=== PATIENT | male | born 1970 | race Caucasian/White ===

== ENCOUNTER 2017-06-30 22:12 | Inpatient (IN) ==
[2017-06-30 22:52] LABS: Basophils % 0.1 %; Eosinophils # 0.1 K/mcL (0.0-0.6); Eosinophils % 0.5 %; Hematocrit 36.7 % (37.5-50.1); Hemoglobin 12.4 g/dL (12.9-16.9); Immature Granulocytes % 0.7 % (0-4); Lymphocytes # 1.2 K/mcL (0.6-4.6); Mean Corpuscular HGB Conc 33.8 g/dL (31.6-35.5); Mean Corpuscular Hemoglobin 27.9 pg (28.0-33.3); Mean Corpuscular Volume 82.7 fL (83.0-100.0); Mean Platelet Volume 9.1 fL (9.4-12.4); Monocytes % 6.2 %; Neutrophils # 14.4 K/mcL (1.6-8.9); Platelet Count 443 K/mcL (140-400); Red Blood Count 4.44 M/mcL (4.19-5.50); Red Cell Distribution Width 13.3 % (11.5-14.5); Segmented Neutrophils % 85.5 %
[2017-06-30 23:17] LABS: BUN/Creatinine Ratio 15 (6-26); Blood Urea Nitrogen 15 mg/dL (6-20); Calcium 8.9 mg/dL (8.6-10.3); Carbon Dioxide 31 mEq/L (23-29); Chloride 84 mEq/L (98-107); Glucose 559 mg/dL (70-105); Osmolality,Calculated 284 (280-300); Potassium 4.5 mEq/L (3.5-5.1); Sodium 124 mEq/L (136-145); eGFR For African Americans > 60 (> 60); eGFR For Non-African Americans > 60 (> 60)
[2017-06-30] MEDS ORDERED: 0.9 % Sodium Chloride 1,000 ML IVC ONE (23:19)
[2017-06-30] MEDS ORDERED: cefTRIAXone 2,000 MG in Water for inj. (sterile) 20 ML 20 ML IVPB ONE (23:24)
--- NOTE | 2017-06-30 23:26 | Emergency Department Note ---
Disposition Clinical Impression: Septic arthritis of knee, right Qualifiers: Septic arthritis organism: staphylococcal Qualified Code(s): M00.061 - Staphylococcal arthritis, right knee Hyperglycemia due to type 2 diabetes mellitus Qualifiers: Diabetes mellitus senior living insulin use: unspecified senior living insulin use status Qualified Code(s): E11.65 - Type 2 diabetes mellitus with hyperglycemia Disposition: Admitted As Inpatient Condition: Good Time of Disposition: 00:30 General Adult HPI - General Chief complaint: ED General Medical Stated complaint: needs admitted- septic knee Time Seen by Provider: 06/30/17 22:27 Source: patient Limitations: no limitations Nursing Notes Reviewed: Yes Vital Signs Reviewed: Yes - History of Present Illness HPI Narrative: 47-year-old male history of CAD s/p 17 stents, diabetes mellitus presents an emergency department for positive fluid culture. Patient is a bilateral low knee amputee who has been experiencing pain to his right knee with swelling over the past month. His primary care physician referred him to Dr. Becker who tapped his knee on 06/29 after an MRI was performed on 06/27 showing a large joint fluid collection. Patient was informed of the positive growth and recommended to come to the emergency department is evening. He denies any fever , chills, cough or congestion. He denies any chest pain or shortness of breath. Denies any injury to the legs. He states his tender to the touch and does feel warm. Notified that orthopedic surgeon Dr. Munoz has a scheduled tomorrow for a washout. Review of his labs showed a leukocytosis of 15.9 with a ESR greater than 130 and C-reactive protein 262. The synovial fluid grew staph aureus. I asked the patient regarding his legs any sales traumatic it would not like to talk about at this time. Pain Scale: 8 - Related Data Home Medications Medication Instructions Recorded Confirmed Amitriptyline [Elavil] 75 mg PO HS 07/01/17 07/01/17 Atorvastatin [Lipitor] 40 mg PO HS 07/01/17 07/01/17 Duloxetine HCl [Cymbalta] 60 mg PO DAILY 07/01/17 07/01/17 HYDROcodone/Acet 7.5/325 mg [[place] 1 tab PO QID PRN 07/01/17 07/01/17 7.5-325 mg] Insulin ASPART [NovoLOG] 0 unit SQ TIDWM 07/01/17 07/01/17 Insulin Glargine [Lantus] 40 unit SQ DAILY 07/01/17 07/01/17 LORazepam [Ativan] 0.5 mg PO BID 07/01/17 07/01/17 Pregabalin [Lyrica] 150 mg PO TID 07/01/17 07/01/17 metFORMIN [Glucophage] 1,000 mg PO BIDWM 07/01/17 07/01/17 Allergies Allergy/AdvReac Type Severity Reaction Status Date / Time Diclofenac [From Voltaren] Allergy Gastrointestinal Verified 06/30/17 22:13 Upset Penicillins Allergy Rash Verified 06/30/17 22:13 All systems ED: reviewed and negative except as stated. Review of Systems: As Per HPI Constitutional: Denies: fever ENT ED: Denies: congestion Cardiovascular: Denies: chest pain Respiratory: Denies: cough, dyspnea Gastrointestinal: Denies: abdominal pain, nausea, vomiting Musculoskeletal: Reports: arthralgia, myalgia Integumentary: Denies: rash, abrasion Past Medical History - Past Medical History Attestation: Yes The following information was validated with the patient. Source: patient Medical history: Reports: diabetes, myocardial infarction, other Psychiatric history: Reports: no psych history - Social History Smoking Status: Former smoker Smokeless Tobacco Status: No Alcohol use: Reports: none Drug use: Reports: none Physical Exam - General Limitations: no limitations General appearance: alert, in no apparent distress - Head Head exam: atraumatic, normocephalic, normal inspection - Eye Eye exam: Present: normal appearance, PERRL, EOMI - ENT ENT exam: normal exam, normal oropharynx, mucous membranes moist - Neck Neck exam: Present: normal inspection, full ROM, trachea midline - Chest Chest inspection: Present: normal inspection, symmetric chest wall rise - Respiratory Respiratory exam: Present: normal lung sounds bilaterally. Absent: respiratory distress, wheezes - Cardiovascular Cardiovascular exam: Present: regular rate, normal rhythm, normal heart sounds - Abdominal Exam Abdominal exam: Present: soft, Non-Tender, normal bowel sounds. Absent: tenderness, distention, guarding, rebound, rigidity - Extremities Exam Extremities exam: Present: other (Bilateral below knee amputation) - Expanded Lower Extremity Exam Hip/Pelvis exam: Present: normal inspection, full ROM Upper leg exam: Present: normal inspection, full ROM Knee exam: Present: normal inspection, full ROM, tenderness (Right knee), swelling, erythema, other (Right knee is warm to the touch) Lower leg exam: Present: normal inspection, full ROM, tenderness Neurovascular/Tendon exam: Absent: motor deficit, sensory deficit, tendon deficit - Neurological Exam Neurological exam: Present: alert, oriented X3 - Skin Skin exam: Present: erythema (Right knee), other (Edema right knee) - Expanded Skin Exam Type of lesion: Present: other (Warm to the touch right knee) Description: Present: erythematous Course Course Narrative: Patient has positive fluid culture staph aureus. His right knee is erythematous edematous and warm to the touch. Concerning for septic arthritis of the right knee. Patient has a mild elevated temperature here. Will get some basic labs blood cultures and started him on IV antibiotics. He has an allergy to penicillin with a rash denies any prior exposure to cephalosporins. Treated with IV vancomycin and ceftriaxone. Patients otherwise stable at this time. - Reevaluation(s) Reevaluation #1: Patient has a leukocytosis as well as some electrolyte abnormalities. His sodium is 124 but his glucose is elevated at 559. His correct his sodium is roughly 131 to 135 based on MDCALC. He has history of diabetes and it is uncontrolled. Will give him IV fluid hydration and insulin. An EKG was performed out in triage routinely despite patient coming in for right knee pain and swelling. He has no chest pain shortness of breath. He has extensive cardiac history. EKG shows ST elevation in the septal leads without any reciprocal changes. There is low concern for STEMI at this time. Time: 00:15 - Consultations Consultation #1: Consulted on-call orthopedic surgeon Dr. Munoz regarding patient. He is aware of patient and has patient on OR schedule. Agree to consult with primary admission to hospitalist service. Agree with treatment of Vancomycin and Ceftriaxone for suspected staph aureus growth on body fluid. Time: 23:35 Consultation #2: Spoke with on-call hospitalist maximus Leiva to admit for septic right knee, uncontrolled hyperglycemia. Discuss a incidental EKG finding recommend to discuss with interventional cardiology regarding cardiac clearance for possibly tomorrow. Time: 23:48 Consultation #3: Spoke to the student ministry pastor Dr. Marrero, he agrees that in the absence of any chest pain or dyspnea this is not STEMI criteria. There is no reciprocal changes. It is only seen in V1 and V2. He does recommend trending to troponins. The hospitalist may consult transport manager if needed with positive troponin. Time: 00:25 Vital Signs Temperature 99.7 F H 06/30/17 22:14 Pulse Rate 115 06/30/17 22:14 Respiratory Rate 16 06/30/17 22:14 Blood Pressure 166/98 06/30/17 22:14 O2 Sat by Pulse Oximetry 95 06/30/17 22:14 Temperature 99.3 F 07/01/17 02:36 Pulse Rate 109 07/01/17 02:36 Respiratory Rate 16 07/01/17 02:36 Blood Pressure 146/86 07/01/17 02:36 O2 Sat by Pulse Oximetry 98 07/01/17 02:36 Oxygen Delivery Oxygen Delivery Nasal Cannula Medical Decision Making - MDM Narrative Medical decision making narrative: Patient was discussed with my attending physician who agrees with ED management and final disposition. They independently evaluated the patient. Please refer to their attestation to this encounter for additional information. This note was generated by [employer] voice recognition software and as a result grammatical or spelling errors may occur using this program. - Medical Records Medical records reviewed: Yes I reviewed the patient's medical records. - Lab Data Lab results reviewed: Yes I reviewed the patient's lab results. Result diagrams: 07/01/17 01:45 07/01/17 01:45 Lab Results 06/30/17 06/30/17 07/01/17 Range/Units 22:43 22:43 01:45 WBC 16.8 H (4.3-11.1) K/mcL RBC 4.44 (4.19-5.50) M/mcL Hgb 12.4 L (12.9-16.9) g/dL Hct 36.7 L (37.5-50.1) % MCV 82.7 L (83.0-100.0) fL MCH 27.9 L (28.0-33.3) pg MCHC 33.8 (31.6-35.5) g/dL RDW 13.3 (11.5-14.5) % Plt Count 443 H (140-400) K/mcL MPV 9.1 L (9.4-12.4) fL Immature Gran % 0.7 (0-4) % Seg Neutrophils % 85.5 % Lymphocytes % 7.0 % Monocytes % 6.2 % Eosinophils % 0.5 % Basophils % 0.1 % Neutrophils # 14.4 H (1.6-8.9) K/mcL Lymphocytes # 1.2 (0.6-4.6) K/mcL Monocytes # 1.0 (0.0-1.3) K/mcL Eosinophils # 0.1 (0.0-0.6) K/mcL Basophils # 0.0 (0.0-0.2) K/mcL PT 13.6 H (9.4-12.1) Seconds INR 1.3 Sodium 124 L (136-145) mEq/L Potassium 4.5 (3.5-5.1) mEq/L Chloride 84 L (98-107) mEq/L Carbon Dioxide 31 H (23-29) mEq/L BUN 15 (6-20) mg/dL Creatinine 1.02 (0.70-1.30) mg/dL Est GFR ( Amer) > 60 (> 60) Est GFR (Non-Af Amer) > 60 (> 60) BUN/Creatinine Ratio 15 (6-26) Glucose 559 H* (70-105) mg/dL Calculated Osmolality 284 (280-300) Lactic Acid (0.5-2.2) mmol/L Calcium 8.9 (8.6-10.3) mg/dL Phosphorus (2.7-4.5) mg/dL Magnesium (1.6-2.6) mg/dL Troponin I (< 0.04) ng/mL 07/01/17 07/01/17 07/01/17 Range/Units 01:45 01:45 01:45 WBC 18.5 H (4.3-11.1) K/mcL RBC 4.03 L (4.19-5.50) M/mcL Hgb 11.1 L (12.9-16.9) g/dL Hct 33.3 L (37.5-50.1) % MCV 82.6 L (83.0-100.0) fL MCH 27.5 L (28.0-33.3) pg MCHC 33.3 (31.6-35.5) g/dL RDW 13.3 (11.5-14.5) % Plt Count 470 H (140-400) K/mcL MPV 9.6 (9.4-12.4) fL Immature Gran % 0.9 (0-4) % Seg Neutrophils % 78.8 % Lymphocytes % 12.0 % Monocytes % 7.5 % Eosinophils % 0.7 % Basophils % 0.1 % Neutrophils # 14.6 H (1.6-8.9) K/mcL Lymphocytes # 2.2 (0.6-4.6) K/mcL Monocytes # 1.4 H (0.0-1.3) K/mcL Eosinophils # 0.1 (0.0-0.6) K/mcL Basophils # 0.0 (0.0-0.2) K/mcL PT (9.4-12.1) Seconds INR Sodium (136-145) mEq/L Potassium (3.5-5.1) mEq/L Chloride (98-107) mEq/L Carbon Dioxide (23-29) mEq/L BUN (6-20) mg/dL Creatinine (0.70-1.30) mg/dL Est GFR ( Amer) (> 60) Est GFR (Non-Af Amer) (> 60) BUN/Creatinine Ratio (6-26) Glucose (70-105) mg/dL Calculated Osmolality (280-300) Lactic Acid 1.7 (0.5-2.2) mmol/L Calcium (8.6-10.3) mg/dL Phosphorus (2.7-4.5) mg/dL Magnesium (1.6-2.6) mg/dL Troponin I < 0.03 (< 0.04) ng/mL 07/01/17 Range/Units 01:45 WBC (4.3-11.1) K/mcL RBC (4.19-5.50) M/mcL Hgb (12.9-16.9) g/dL Hct (37.5-50.1) % MCV (83.0-100.0) fL MCH (28.0-33.3) pg MCHC (31.6-35.5) g/dL RDW (11.5-14.5) % Plt Count (140-400) K/mcL MPV (9.4-12.4) fL Immature Gran % (0-4) % Seg Neutrophils % % Lymphocytes % % Monocytes % % Eosinophils % % Basophils % % Neutrophils # (1.6-8.9) K/mcL Lymphocytes # (0.6-4.6) K/mcL Monocytes # (0.0-1.3) K/mcL Eosinophils # (0.0-0.6) K/mcL Basophils # (0.0-0.2) K/mcL PT (9.4-12.1) Seconds INR Sodium 132 L (136-145) mEq/L Potassium 3.9 (3.5-5.1) mEq/L Chloride 93 L (98-107) mEq/L Carbon Dioxide 30 H (23-29) mEq/L BUN 14 (6-20) mg/dL Creatinine 0.83 (0.70-1.30) mg/dL Est GFR ( Amer) > 60 (> 60) Est GFR (Non-Af Amer) > 60 (> 60) BUN/Creatinine Ratio 17 (6-26) Glucose 286 H (70-105) mg/dL Calculated Osmolality 285 (280-300) Lactic Acid (0.5-2.2) mmol/L Calcium 8.6 (8.6-10.3) mg/dL Phosphorus 2.6 L (2.7-4.5) mg/dL Magnesium 1.7 (1.6-2.6) mg/dL Troponin I (< 0.04) ng/mL - Radiology Data Radiology results reviewed: Yes I reviewed the patient's radiology results. MR/MR knee RT wo con IMPRESSION: 1. There appears to be a large defect in the superior aspect of the lateral patellar retinaculum through which a large volume of joint fluid is extending into the adjacent subcutaneous fat and also extending posteriorly to surround the posterolateral corner structures. 2. Mild bone marrow edema in the lateral aspects of the lateral femoral condyle and lateral tibial plateau. This may represent early degenerative change and/or reactive edema from the adjacent fluid versus contusion. 3. Large nonspecific joint effusion and small popliteal cyst. If there is any clinical concern for septic arthritis please consider arthrocentesis. 4. No convincing evidence of internal derangement or significant degenerative changes. D/ / Tate Norris MD / Tate Norris MD Interpreting Provider: Tate Norris MD - EKG Data EKG #1 EKG attestation: Yes I reviewed and interpreted this EKG. EKG results narrative: EKG performed 2227 shows sinus tachycardia 110 beats per minute, there are ST elevations seen in V1 and V2 greater than 1 mm and are concave up, there is no other ST elevation or ST depressions, patient is asymptomatic and is denying any chest pain or shortness of breath. He does have extensive cardiac history. No STEMI alert initiated. Discussed with Dr. Marrero who agrees that no acute intervention required at this time. Unfortunately there is no old EKG for comparison. Patient sees transport manager at [facility].
[2017-06-30] MEDS ORDERED: *HR* FentaNYL (PF) 100 MCG/2 ML VIAL IVP ONE (23:27)
--- NOTE | 2017-07-01 00:08 | Emergency Department Note ---
Disposition Clinical Impression: Septic arthritis of knee, right, Hyperglycemia due to type 2 diabetes mellitus Disposition: Admitted As Inpatient Condition: Good General Adult HPI - General Chief complaint: ED General Medical Stated complaint: needs admitted- septic knee Time Seen by Provider: 06/30/17 22:27 Source: patient Limitations: no limitations Nursing Notes Reviewed: Yes Vital Signs Reviewed: Yes - History of Present Illness Pain Scale: 8 - Related Data Home Medications Medication Instructions Recorded Confirmed Amitriptyline [Elavil] 75 mg PO HS 07/01/17 07/01/17 Atorvastatin [Lipitor] 40 mg PO HS 07/01/17 07/01/17 Duloxetine HCl [Cymbalta] 60 mg PO DAILY 07/01/17 07/01/17 HYDROcodone/Acet 7.5/325 mg [[place] 1 tab PO QID PRN 07/01/17 07/01/17 7.5-325 mg] Insulin ASPART [NovoLOG] 0 unit SQ TIDWM 07/01/17 07/01/17 Insulin Glargine [Lantus] 40 unit SQ DAILY 07/01/17 07/01/17 LORazepam [Ativan] 0.5 mg PO BID 07/01/17 07/01/17 Pregabalin [Lyrica] 150 mg PO TID 07/01/17 07/01/17 metFORMIN [Glucophage] 1,000 mg PO BIDWM 07/01/17 07/01/17 Allergies Allergy/AdvReac Type Severity Reaction Status Date / Time Diclofenac [From Voltaren] Allergy Gastrointestinal Verified 06/30/17 22:13 Upset Penicillins Allergy Rash Verified 06/30/17 22:13 Past Medical History - Past Medical History Medical history: Reports: myocardial infarction, other Psychiatric history: Reports: no psych history - Social History Smoking Status: Former smoker Smokeless Tobacco Status: No Alcohol use: Reports: none Drug use: Reports: none Physical Exam - General Limitations: no limitations General appearance: alert, in no apparent distress Course Vital Signs Temperature 99.7 F H 06/30/17 22:14 Pulse Rate 115 06/30/17 22:14 Respiratory Rate 16 06/30/17 22:14 Blood Pressure 166/98 06/30/17 22:14 O2 Sat by Pulse Oximetry 95 06/30/17 22:14 Temperature 99.7 F H 05/12/18 22:27 Pulse Rate 110 06/30/17 23:44 Respiratory Rate 18 06/30/17 23:44 Blood Pressure 166/90 06/30/17 23:44 O2 Sat by Pulse Oximetry 94 06/30/17 23:44 Oxygen Delivery Oxygen Delivery Room Air Medical Decision Making - Lab Data Result diagrams: 06/30/17 22:43 06/30/17 22:43 Lab Results 06/30/17 06/30/17 Range/Units 22:43 22:43 WBC 16.8 H (4.3-11.1) K/mcL RBC 4.44 (4.19-5.50) M/mcL Hgb 12.4 L (12.9-16.9) g/dL Hct 36.7 L (37.5-50.1) % MCV 82.7 L (83.0-100.0) fL MCH 27.9 L (28.0-33.3) pg MCHC 33.8 (31.6-35.5) g/dL RDW 13.3 (11.5-14.5) % Plt Count 443 H (140-400) K/mcL MPV 9.1 L (9.4-12.4) fL Immature Gran % 0.7 (0-4) % Seg Neutrophils % 85.5 % Lymphocytes % 7.0 % Monocytes % 6.2 % Eosinophils % 0.5 % Basophils % 0.1 % Neutrophils # 14.4 H (1.6-8.9) K/mcL Lymphocytes # 1.2 (0.6-4.6) K/mcL Monocytes # 1.0 (0.0-1.3) K/mcL Eosinophils # 0.1 (0.0-0.6) K/mcL Basophils # 0.0 (0.0-0.2) K/mcL Sodium 124 L (136-145) mEq/L Potassium 4.5 (3.5-5.1) mEq/L Chloride 84 L (98-107) mEq/L Carbon Dioxide 31 H (23-29) mEq/L BUN 15 (6-20) mg/dL Creatinine 1.02 (0.70-1.30) mg/dL Est GFR ( Amer) > 60 (> 60) Est GFR (Non-Af Amer) > 60 (> 60) BUN/Creatinine Ratio 15 (6-26) Glucose 559 H* (70-105) mg/dL Calculated Osmolality 284 (280-300) Calcium 8.9 (8.6-10.3) mg/dL Critical Care Time Critical Care Time: Yes Total Critical Care Time: 30 Attestation: Critical care performed: Time is exclusive of separately billable procedures. Time includes: direct patient care, patient reassessment, coordination of patient care, interpretation of data (laboratory data, radiology data, and respiratory data), review of patient's medical records, medical consultation and documentation of patient care. Procedures included in critical care time: Procedures excluded from critical care time: Attestation Statement - Attestation Attestation: I, Jose Elias Morales MD, personally evaluated this patient and discussed their management with the resident physician. I reviewed the resident's note and agree with the documented findings, medical decision making, and plan of care. 47-year-old male referred in from orthopedics to be admitted for a septic right knee. Patient has had swelling and pain in the right knee for about a month. He was referred to orthopedics by his PCP. He had an MRI of the knee 2 days ago and yesterday had lab work and arthrocentesis of the knee. Lab was unable to perform the cell counts on the joint fluid however today the culture returned showing staph aureus. Patient was called back and advised to come to the emergency department to be admitted. He has already been placed on the OR schedule in the morning. She denies any fever. He denies any injury to the knee. He states the symptoms have just been getting progressively worse over the past month. Patient denies any cough or chest pain or shortness of breath. No palpitations. No dizziness or syncope. On examination patient is a well-developed well-nourished male in no acute distress. He is alert and oriented 3. There is no cyanosis or diaphoresis. Chest is nontender to palpation. Breath sounds are clear and equal bilaterally. Heart regular with a mild tachycardia. Abdomen soft and nontender with normal bowel sounds. Patient has bilateral [id number] amputations. The right knee is swollen and tender and warm to touch with some mild erythema. Patient unable to fully extend the right knee. Patient's MRI results from 2 days ago and his labs from yesterday were reviewed. He had an IV established and blood cultures were drawn tonight along with a repeat CBC and basic metabolic panel. Patient had an EKG obtained which showed ST elevations in lead V1 and V2. This was read as acute SC by the EKG machine however I do not feel this is a STEMI. There are no reciprocal changes and patient has absolutely no symptoms. This EKG was just obtained routinely on a patient who is here for an infected knee. Dr. Keita discussed the case with the orthopedist, Dr. Munoz, who is familiar with the patient and advised to admit to the hospitalist. He will operate on the patient's knee in the morning. IV antibiotics initiated. The hospitalist, Dr. Patel, was consulted and accepted admission of the patient. He did request that we consult cardiology regarding the EKG changes.
[2017-07-01] MEDS ORDERED: Insulin Human Regular 10 UNIT in 0.9 % Sodium Chloride 10 ML IV ONE (00:31)
[2017-07-01] MEDS ORDERED: 0.9 % Sodium Chloride 1,000 ML IVC SCH (00:45)
[2017-07-01] MEDS ORDERED: Acetaminophen 325 MG TABLET PO PRN (00:46)
[2017-07-01] MEDS ORDERED: Naloxone 0.4 MG/ML INJ IVP PRN ×2 (00:46→10:12)
[2017-07-01] MEDS ORDERED: *HR* OxyCODONE Immed Rel 5 MG TABLET PO PRN ×2 (00:46→08:04)
[2017-07-01] MEDS ORDERED: D5% in Water 1,000 ML IVC PRN ×2 (00:51→10:12)
[2017-07-01] MEDS ORDERED: Insulin DETEMIR 100 UNIT/ML X5UNITS SQ SCH ×2 (00:51→01:00)
[2017-07-01] MEDS ORDERED: *HR* Dextrose 50 % in Water (Syg) 50 ML SYRINGE IVP PRN ×2 (00:51→10:12)
[2017-07-01] MEDS ORDERED: Dextrose Gel 15 GM/37.5 ML TUBE PO PRN ×4 (00:51→10:12)
[2017-07-01] MEDS ORDERED: Insulin LISPRO 300 UNITS/3 ML VIAL SQ SCH ×2 (01:00→06:00)
--- NOTE | 2017-07-01 01:10 | Internal Med History&Physical ---
<Khari Anthony - Last Filed: 07/01/17 01:03> Date of Encounter: 07/01/17 Time of Encounter: 01:04 Internal Medicine - H&P: HPI Chief complaint: septic joint Admitted From: Emergency Dept Plans for Post Hospital Care: Home History of present illness: Mr. Lamb is a 47 year old male with past medical history of uncontrolled diabetes type II, history of bilateral BKA, hypertension, coronary artery disease with history of multiple stents placed and history of CABG, hyperlipidemia, COPD, anxiety, history of tobacco use. Patient states that about a month ago he was crawling through his house on his hands and knees and felt a pop in his right knee that later became extremely painful. Patient denies any cuts in his skin or bleeding at that time. 4 weeks later he went to his PCP who referred him to orthopedic surgery. His appointment with orthopedic surgery was last Sunday. During that time, he had arthoracentesis his right knee that was sent for culture. Today, he was called by his orthopedic doctor to come to the hospital for admission because his cultures were positive for MSSA. Patient is scheduled to go to the OR tomorrow for right knee washout. He denies nausea, vomiting, diarrhea, fever, chills, chest pain, shortness of breath. He denies hematuria, hematocrit easier, melena. His only complaint is right knee pain. Past Med Surg Social Fam HX - Past Medical History Medical history: myocardial infarction, other Psychiatric history: no psych history - Social History Smoking Status: Former smoker Smokeless Tobacco Status: No Alcohol use: none Drug use: none Internal Medicine - H&P: Meds Amitriptyline [Elavil] 75 mg PO HS 07/01/17 [History] Atorvastatin [Lipitor] 40 mg PO HS 07/01/17 [History] Duloxetine HCl [Cymbalta] 60 mg PO DAILY 07/01/17 [History] HYDROcodone/Acet 7.5/325 mg [[place] 7.5-325 mg] 1 tab PO QID PRN 07/01/17 [ History] Insulin ASPART [NovoLOG] 0 unit SQ TIDWM 07/01/17 [History] Insulin Glargine [Lantus] 40 unit SQ DAILY 07/01/17 [History] LORazepam [Ativan] 0.5 mg PO BID 07/01/17 [History] Pregabalin [Lyrica] 150 mg PO TID 07/01/17 [History] metFORMIN [Glucophage] 1,000 mg PO BIDWM 07/01/17 [History] 3 Allergy/AdvReac Type Severity Reaction Status Date / Time Diclofenac [From Voltaren] Allergy Gastrointestinal Verified 06/30/17 22:13 Upset Penicillins Allergy Rash Verified 06/30/17 22:13 All Systems PM: A 10-system review of systems was performed and is negative for pertinent findings except as documented above in the HPI. - Constitutional Constitutional: as per HPI - EENT Eyes: as per HPI Ears: as per HPI Nose, mouth and throat: as per HPI - Breasts Breasts: as per HPI - Cardiovascular Cardiovascular ROS IM: as per HPI - Respiratory Respiratory: as per HPI - Gastrointestinal Gastrointestinal: as per HPI - Genitourinary Genitourinary ROS male: as per HPI - Musculoskeletal Musculoskeletal ROS IM: as per HPI - Integumentary Integumentary IM: as per HPI - Neurological Neurological ROS: as per HPI - Psychiatric Psychiatric: as per HPI - Endocrine Endocrine IM: as per HPI - Constitutional Vitals: Temp Pulse Resp BP Pulse Ox 99.7 F H 110 18 166/90 94 06/30/17 22:27 06/30/17 23:44 06/30/17 23:44 06/30/17 23:44 06/30/17 23:44 General appearance: Present: A&O X 3, pleasant, no acute distress, answers questions appropriately - Head Head exam: Present: atraumatic - Neck Neck exam general surgery: Present: supple, trachea midline - Respiratory Additional comments: bilateral lower lobe mild rales present. decreased breath sounds heard in all other lung wylie. - Cardiovascular Cardiovascular exam: Present: +S1, +S2, tachycardia - GI/Abdominal GI/Abdominal exam: Present: normal bowel sounds, soft. Absent: distended, tenderness - Extremities Exam Additional comments: bilateral lower extremity BKA. right knee feels warm, is edematous throughout. no erythema noted. - Neurological Exam Neurological exam: Present: alert, oriented X3, no focal deficits - Psychiatric Psychiatric exam: Present: normal affect, normal mood Internal Med - H&P Results - Labs CBC & Chem 7: 06/30/17 22:43 06/30/17 22:43 - Assessment and plan (1) Sepsis Current Visit: Yes Status: Acute Assessment and plan: tachycardia, leukocytosis. Source of infection: right knee septic joint. Patient had outpatient joint culture done that grew MSSA. He was called by his othopedist and told to come to hospital for admission. one liter fluid bolus, vanc, rocephin received in the ED. WBC 16.8 Plan: IVF Blood cultures x2 pending CXR pending lactic acid pending Vancomycin and Rocephin day 1 NPO after midnight- to go to OR tomorrow for right knee washout. consult to orthopedic surgery done in ED trend troponins x3, repeat EKG tomorrow morning due to ST segment elevations seen on current EKG (ER staff talked to Dr. Marrero, who said stated that there would be no intervention at this time as this is likely not a STEMI) if second EKG concerning or troponins concerning, will consult cardio continue stringent glucose control. Qualifiers: Sepsis type: methicillin susceptible Staphylococcus aureus Qualified Code(s ): A41.01 - Sepsis due to Methicillin susceptible Staphylococcus aureus (2) Septic arthritis of knee, right Current Visit: Yes Status: Acute Assessment and plan: plan as above Qualifiers: Septic arthritis organism: staphylococcal Qualified Code(s): M00.061 - Staphylococcal arthritis, right knee (3) Uncontrolled diabetes mellitus Current Visit: Yes Status: Acute Assessment and plan: Hx of uncontrolled DM with bilateral BKA. Last A1C from 06/11/17 showed A1C 16.9% Plan: Q4H accuchecks, NPO subcutaneous insulin with medium dose sliding scale. Qualifiers: Diabetes mellitus type: type 2 Diabetes mellitus long-term insulin use: with watermaster use Diabetes mellitus complication status: with unspecified complications Qualified Code(s): E11.8 - Type 2 diabetes mellitus with unspecified complications; E11.65 - Type 2 diabetes mellitus with hyperglycemia ; Z79.4 - watermaster (current) use of insulin (4) Coronary artery disease Current Visit: Yes Status: Acute Assessment and plan: Hx of CAD with multiple stents placed (17?) Hx of CABG Plan continue lipitor, ASA, Qualifiers: Coronary Disease-Associated Artery/Lesion type: bypass graft [place] vs. transplanted heart: [place] heart Associated angina: angina presence unspecified Qualified Code(s): I25.810 - Atherosclerosis of coronary artery bypass graft(s) without angina pectoris (5) MAROL (obstructive sleep apnea) Current Visit: Yes Status: Acute (6) Hypertension Current Visit: Yes Status: Acute Assessment and plan: resume home meds once reconciled. Qualifiers: Hypertension type: unspecified Qualified Code(s): I10 - Essential (primary ) hypertension (7) COPD (chronic obstructive pulmonary disease) Current Visit: Yes Status: Acute Assessment and plan: does not appear tob e in acute exacerbation. Plan: PRN DuoNebs Qualifiers: COPD type: unspecified COPD Qualified Code(s): J44.9 - Chronic obstructive pulmonary disease, unspecified (8) Anxiety Current Visit: Yes Status: Acute Assessment and plan: continue home meds (9) S/P bilateral BKA (below knee amputation) Current Visit: Yes Status: Acute (10) Tobacco abuse Current Visit: Yes Status: Acute Assessment and plan: nicotine patch PRN for nicotine craving. (11) Hyperlipidemia Current Visit: Yes Status: Acute Assessment and plan: continue statin Qualifiers: Hyperlipidemia type: unspecified Qualified Code(s): E78.5 - Hyperlipidemia , unspecified (12) DVT prophylaxis Current Visit: Yes Status: Acute Assessment and plan: heparin SQ (13) Hyponatremia Current Visit: Yes Status: Acute Assessment and plan: sodium 124. likely pseudohyponatremia from hyperglycemia. Corrected sodium: 131 Continue to monitor. - Time Spent With Patient Total time spent is greater than 50% in coordination of care (as documented) at patient's floor/unit and/or counseling patient: <ShanaarnavgagankatieJeremias - Last Filed: 07/01/17 02:46> Date of Encounter: 07/01/17 Time of Encounter: 01:30 - Constitutional Constitutional: chills, fever(s), night sweats - EENT Eyes: no blurry vision, no change in vision Nose, mouth and throat: no sore throat - Cardiovascular Cardiovascular ROS IM: no chest pain, no dyspnea, no dyspnea on exertion - Respiratory Respiratory: no cough, no dyspnea, no hemoptysis, no excessive phlegm production , no change in phlegm color, no pain with cough - Gastrointestinal Gastrointestinal: no diarrhea, no hematemesis, no hematochezia, no melena, no vomiting - Genitourinary Genitourinary ROS male: no dysuria, no flank pain, no hematuria - Musculoskeletal Musculoskeletal ROS IM: arthralgias - Integumentary Integumentary IM: erythema (right leg), no rash, no jaundice - Constitutional Vitals: Temp Pulse Resp BP Pulse Ox 99.7 F H 110 12 165/93 94 06/30/17 22:27 06/30/17 23:44 07/01/17 01:06 07/01/17 01:06 06/30/17 23:44 General appearance: Present: cooperative, A&O X 3, pleasant, no acute distress, answers questions appropriately - Head Head exam: Present: normal inspection - Eye Eye exam: Present: normal appearance, PERRL. Absent: scleral icterus Pupils: Present: normal accommodation - ENT ENT exam: Present: normal exam, normal oropharynx - Neck Neck exam general surgery: Present: supple, trachea midline. Absent: tenderness , nuchal rigidity, thyromegaly - Respiratory Respiratory exam: Present: rales (crackles both bases). Absent: chest wall tenderness, respiratory distress, wheezes - Cardiovascular Cardiovascular exam: Present: +S1, +S2, tachycardia. Absent: diastolic murmur, systolic murmur - GI/Abdominal GI/Abdominal exam: Present: normal bowel sounds, soft. Absent: hepatomegaly, splenomegaly - Extremities Exam Additional comments: Red, warm, tender right BKA area - Back Exam Back exam: Absent: CVA tenderness (L), CVA tenderness (R) Internal Med - H&P Results - Labs CBC & Chem 7: 06/30/17 22:43 06/30/17 22:43 - EKG Data -: EKG Interpreted by Myself - EKG Data Prior EKG available for review: yes EKG comments: 07/01/17 02:33 sinus rhythm with [facility] criteria - Impressions ITS Impressions Chest X-Ray 07/01/17 00:51 IMPRESSION: Clear lungs. D/ / Amadou Singh MD / Amadou Singh MD Interpreting Provider: Amadou Singh MD - Diagnostic Studies Chest x-ray Status: image reviewed by me (negative) - Attending Attestation I discussed the [place], past medical history, Review of systems, lab data, and exam findings with Dr. Anthony. I then went to the ER and saw the patient and examined him directly myself. Patient denies any chest pain and has no shortness of breath. He does have a rather erythematous, very warm, and tender right BKA stump which appears to be inflamed and infected. He is pink and well perfused but he does meet sepsis criteria. I reviewed his EKG, and it appears to be LVH in my opinion. I did not appreciate any STEMI findings. I discussed with ER staff and they confirmed with Dr. Marrero that this was not a STEMI. We will cycle troponins and treat for sepsis. We will also try to stabilize his glucose and hydrate him in preparation for surgery later today and/or tomorrow. Orthopedics is already consulted and plans are made for tentative surgery later today. We will keep him on broad-spectrum antibiotics until his final culture results are available. I discussed this with patient and the ER staff. Other than my comments above and my noted physical exam findings, I agree with Dr. Anthony' assessment and plan. - Assessment and plan (1) Septic arthritis of knee, right Current Visit: Yes Status: Acute Qualifiers: Septic arthritis organism: staphylococcal Qualified Code(s): M00.061 - Staphylococcal arthritis, right knee (2) Uncontrolled diabetes mellitus Current Visit: Yes Status: Acute Qualifiers: Diabetes mellitus type: type 2 Diabetes mellitus watermaster insulin use: with long-term use Diabetes mellitus complication status: with unspecified complications Qualified Code(s): E11.8 - Type 2 diabetes mellitus with unspecified complications; E11.65 - Type 2 diabetes mellitus with hyperglycemia ; Z79.4 - watermaster (current) use of insulin (3) DVT prophylaxis Current Visit: Yes Status: Acute (4) Coronary artery disease Current Visit: Yes Status: Acute Qualifiers: Coronary Disease-Associated Artery/Lesion type: bypass graft [place] vs. transplanted heart: [place] heart Associated angina: angina presence unspecified Qualified Code(s): I25.810 - Atherosclerosis of coronary artery bypass graft(s) without angina pectoris (5) Hypertension Current Visit: Yes Status: Acute Qualifiers: Hypertension type: unspecified Qualified Code(s): I10 - Essential (primary ) hypertension (6) MARLO (obstructive sleep apnea) Current Visit: Yes Status: Acute (7) COPD (chronic obstructive pulmonary disease) Current Visit: Yes Status: Acute Qualifiers: COPD type: unspecified COPD Qualified Code(s): J44.9 - Chronic obstructive pulmonary disease, unspecified (8) Anxiety Current Visit: Yes Status: Acute (9) S/P bilateral BKA (below knee amputation) Current Visit: Yes Status: Acute (10) Tobacco abuse Current Visit: Yes Status: Acute (11) Hyperlipidemia Current Visit: Yes Status: Acute Qualifiers: Hyperlipidemia type: unspecified Qualified Code(s): E78.5 - Hyperlipidemia , unspecified (12) Sepsis Current Visit: Yes Status: Acute Qualifiers: Sepsis type: methicillin susceptible Staphylococcus aureus Qualified Code(s ): A41.01 - Sepsis due to Methicillin susceptible Staphylococcus aureus (13) Hyponatremia Current Visit: Yes Status: Acute - Time Spent With Patient Total time spent is greater than 50% in coordination of care (as documented) at patient's floor/unit and/or counseling patient:
[2017-07-01] MEDS ORDERED: Pregabalin 75 MG CAPSULE PO SCH (01:15)
[2017-07-01] MEDS ORDERED: *HR* HYDROcodone/Acet 7.5/325 mg TABLET PO PRN (01:15)
[2017-07-01] MEDS ORDERED: Ipratropium/Albuterol Neb 3 ML IH PRN ×2 (01:25→10:12)
[2017-07-01] MEDS ORDERED: Nicotine 14 MG PATCH.TD24 TD PRN ×2 (01:27→10:12)
[2017-07-01 02:15] LABS: BUN/Creatinine Ratio 17 (6-26); Blood Urea Nitrogen 14 mg/dL (6-20); Calcium 8.6 mg/dL (8.6-10.3); Carbon Dioxide 30 mEq/L (23-29); Chloride 93 mEq/L (98-107); Glucose 286 mg/dL (70-105); Magnesium 1.7 mg/dL (1.6-2.6); Osmolality,Calculated 285 (280-300); Phosphorous 2.6 mg/dL (2.7-4.5); Potassium 3.9 mEq/L (3.5-5.1); Sodium 132 mEq/L (136-145); eGFR For African Americans > 60 (> 60); eGFR For Non-African Americans > 60 (> 60)
[2017-07-01 02:16] LABS: INR 1.3; Prothrombin Time 13.6 Seconds (9.4-12.1)
[2017-07-01] MEDS ORDERED: 0.9 % Sodium Chloride 1,000 ML IVC ONE ×2 (02:31→06:58)
[2017-07-01 02:45] LABS: Basophils % 0.1 %; Eosinophils # 0.1 K/mcL (0.0-0.6); Eosinophils % 0.7 %; Hematocrit 33.3 % (37.5-50.1); Hemoglobin 11.1 g/dL (12.9-16.9); Immature Granulocytes % 0.9 % (0-4); Lymphocytes # 2.2 K/mcL (0.6-4.6); Mean Corpuscular HGB Conc 33.3 g/dL (31.6-35.5); Mean Corpuscular Hemoglobin 27.5 pg (28.0-33.3); Mean Corpuscular Volume 82.6 fL (83.0-100.0); Mean Platelet Volume 9.6 fL (9.4-12.4); Monocytes # 1.4 K/mcL (0.0-1.3); Monocytes % 7.5 %; Neutrophils # 14.6 K/mcL (1.6-8.9); Platelet Count 470 K/mcL (140-400); Red Blood Count 4.03 M/mcL (4.19-5.50); Red Cell Distribution Width 13.3 % (11.5-14.5); Segmented Neutrophils % 78.8 %
[2017-07-01] MEDS ORDERED: Ketorolac 15 MG/ML VIAL IVP ONE (04:31)
[2017-07-01] MEDS ORDERED: *HR* OxyCODONE Immed Rel 5 MG TABLET PO ONE (04:49)
[2017-07-01] MEDS ORDERED: *HR* FentaNYL (PF) 100 MCG/2 ML VIAL ONE ×2 (07:08→08:34)
[2017-07-01] MEDS ORDERED: *HR* Midazolam HCl 2 MG/2 ML VIAL ONE (07:08)
[2017-07-01] MEDS ORDERED: *HR* Propofol 200 MG/20 ML VIAL IVP ONE (07:09)
[2017-07-01] MEDS ORDERED: Lidocaine -MPF 2% 2 ML VIAL ONE (07:09)
[2017-07-01] MEDS ORDERED: *HR* Succinylcholine 200 MG/10 ML VIAL IVP ONE (07:09)
--- NOTE | 2017-07-01 07:09 | Event Note ---
Date of Encounter: 07/01/17 Time of Encounter: 07:04 Called by RN to "clear" patient for surgery. I assessed patient again now and repeated EKG -- unchanged. He is septic and in need of urgent surgery. BP is stable. He remains high cardiovascular risk for haris-operative morbidity and mortality given his co-morbidities. However, I recommend urgent surgery per Dr. Munoz as any further delay would likely lead to further morbidity. He may need closer post-operative care in 2N or ICU for ongoing treatment of sepsis. I called and spoke with Dr. Munoz and conveyed my opinion.
--- NOTE | 2017-07-01 07:24 | Anesthesia Evaluation PreOp ---
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: Other (anxiety) Other Medical History: Diabetes Type II (insulin dependent), Other (hx chanell BKA; septic right knee) Anesthesia History: No Prior Anesthetic Complications, Past Anesthesia (CABG, etc) Alcohol Use: none Drug use: none Medications and Allergies Amitriptyline [Elavil] 75 mg PO HS 07/01/17 [History] Atorvastatin [Lipitor] 40 mg PO HS 07/01/17 [History] Duloxetine HCl [Cymbalta] 60 mg PO DAILY 07/01/17 [History] HYDROcodone/Acet 7.5/325 mg [[place] 7.5-325 mg] 1 tab PO QID PRN 07/01/17 [ History] Insulin ASPART [NovoLOG] 0 unit SQ TIDWM 07/01/17 [History] Insulin Glargine [Lantus] 40 unit SQ DAILY 07/01/17 [History] LORazepam [Ativan] 0.5 mg PO BID 07/01/17 [History] Pregabalin [Lyrica] 150 mg PO TID 07/01/17 [History] metFORMIN [Glucophage] 1,000 mg PO BIDWM 07/01/17 [History] 3 Allergy/AdvReac Type Severity Reaction Status Date / Time Diclofenac [From Voltaren] Allergy Gastrointestinal Verified 06/30/17 22:13 Upset Penicillins Allergy Rash Verified 06/30/17 22:13 - Meds/Allergy Pre-op Review Medications Reviewed: Yes Allergies Reviewed: Yes Beta Blockers on Current Med List: No Anesthesia Results - Labs 07/01/17 01:45 07/01/17 01:45 Anesthesia Exam Last Vital Signs Temp 99.9 F H 07/01/17 07:05 Pulse 114 07/01/17 07:05 Resp 18 07/01/17 07:05 BP 151/79 07/01/17 07:05 Pulse Ox 98 07/01/17 07:05 Weight: 98 kg - HEENT Pupil (Motor): Pupils equal, EOMI Mallampati: III Teeth: Normal (castro) Oral Opening: Greater than 3 - CUTTING SUPERVISOR LOC: Oriented - Cardiac Rhythm: Regular (tachycardic) Murmur: None - Pulmonary Breath Sounds: bilateral Clear Respiratory Effort: Symmetrical Anesthesia Assess/Plan ASA Score: 4 Modified [place] Scale for Level of Consciousness: Cooperative, oriented, and tranquil Anesthetic Plan: General Monitoring Plan: Standard Monitors Recovery Plan: PACU
--- NOTE | 2017-07-01 08:00 | Orthopedic Consult Note ---
Date of Encounter: 07/01/17 Time of Encounter: 07:59 Assessment and Plan (1) Septic arthritis of knee, right Current Visit: Yes Status: Acute The diagnosis and treatment plans were discussed with Isaiah. He has septic arthritis of his right knee with elevated white blood cell count, ESR, and CRP. This is likely been going on for some time based on his history of symptoms. For this we recommend an emergent irrigation and debridement The patient has elected to proceed with right knee arthroscopy with irrigation and debridement at this time. The risks and benefits of the procedure were fully explained in detail, including but not limited to the risk of infection, neurovascular injury , continued pain or stiffness, failure of surgery, reinjury, or need for additional surgery, DVT, PE, general risks of anesthesia and loss of limb or life. No guarantees were given or implied and all questions were answered. The patient understands all the risks and does wish to proceed with written consent. Qualifiers: Septic arthritis organism: staphylococcal Qualified Code(s): M00.061 - Staphylococcal arthritis, right knee History of Present Illness HPI: Mr. Lamb is a 47 year old male with a PMHx of uncontrolled diabetes type II, history of bilateral BKA, hypertension, coronary artery disease with history of multiple stents placed and history of CABG, hyperlipidemia, COPD, anxiety, history of tobacco use who states that 1 month ago he was crawling in his house felt a pop in his right knee and had pain afterward. He waited several weeks to see his primary doctor and then was referred to sports medicine with a knee effusion. He was seen by the sports medicine physician with right knee pain and swelling and had an MRI performed. When he came for follow-up for the MRI on Sunday he had the right knee aspirated. This morning his culture from the aspiration came back as positive for staph aureus and so he was instructed to the emergency department. Consult was then placed to orthopedics for a right septic knee. Denies subjective fevers or chills. Denies CP or SOB. No nausea or vomiting. Past Med Surg Social Fam HX - Past Medical History Medical history: diabetes, myocardial infarction, other Psychiatric history: no psych history - Past Surgical History Surgical History: coronary bypass (CABG) - Social History Smoking Status: Former smoker Smokeless Tobacco Status: No Alcohol use: none Drug use: none - Family History Mother Living Status: Still Living Hx Family Cardiac Disorders: Yes (PACER) Hx Family Endocrine Disorder: Yes (DIABETES) Father Living Status: Age at : 38 Cause of : MASSIVE ID Hx Family Cardiac Disorders: Yes Medications and Allergies Amitriptyline [Elavil] 75 mg PO HS 07/01/17 [History] Atorvastatin [Lipitor] 40 mg PO HS 07/01/17 [History] Duloxetine HCl [Cymbalta] 60 mg PO DAILY 07/01/17 [History] HYDROcodone/Acet 7.5/325 mg [[place] 7.5-325 mg] 1 tab PO QID PRN 07/01/17 [ History] Insulin ASPART [NovoLOG] 0 unit SQ TIDWM 07/01/17 [History] Insulin Glargine [Lantus] 40 unit SQ DAILY 07/01/17 [History] LORazepam [Ativan] 0.5 mg PO BID 07/01/17 [History] Pregabalin [Lyrica] 150 mg PO TID 07/01/17 [History] metFORMIN [Glucophage] 1,000 mg PO BIDWM 07/01/17 [History] 3 Allergy/AdvReac Type Severity Reaction Status Date / Time Diclofenac [From Voltaren] Allergy Gastrointestinal Verified 06/30/17 22:13 Upset Penicillins Allergy Rash Verified 06/30/17 22:13 All Systems Reviewed: The remainder of the systems were reviewed and are negative Physical Exam - Constitutional Vitals: Temp Pulse Resp BP Pulse Ox 99.9 F H 114 18 151/79 98 07/01/17 07:05 07/01/17 07:05 07/01/17 07:05 07/01/17 07:05 07/01/17 07:05 Exam: Consult Exam: Constitutional -Vitals reviewed -The patient is well developed and well nourished. Psychiatric -The patient is fully alert and oriented x 3. Respiratory: -Respiratory effort normal Abdomen: -Soft abdomen -Non tender -Non distended: Left upper extremity: -No deformities. The overlying skin is intact. No obvious signs of acute trauma. -No tenderness to palpation throughout. -No significant pain with passive motion of the shoulder, elbow, wrist, and fingers within the limits of the bed. -Able to make an "OK" sign, cross the index and long fingers, and extend the thumb. -Sensation grossly intact to light touch throughout the median, radial, and ulnar distributions. -Radial pulse is present; Fingers have good capillary refill. Right upper extremity: -No deformities. The overlying skin is intact. No obvious signs of acute trauma. -No tenderness to palpation throughout. -No significant pain with passive motion of the shoulder, elbow, wrist, and fingers within the limits of the bed. -Able to make an "OK" sign, cross the index and long fingers, and extend the thumb. -Sensation grossly intact to light touch throughout the median, radial, and ulnar distributions. -Radial pulse is present; Fingers have good capillary refill. Left lower extremity: -Below knee amputation with no wound breakdown. The overlying skin is intact. No obvious signs of acute trauma. -No tenderness to palpation throughout. -No pain with passive motion of the hip, knee within the limits of the bed. -No pain with axial loading of the thigh. -Neurovascularly intact distally over amputation site. Right lower extremity: -Below knee amputation with no wound breakdown. The overlying skin is intact. No obvious signs of acute trauma. -No tenderness to palpation throughout. -Knee effusion with minimal surrounding erythema -Pain with passive ROM of the knee -No pain with axial loading of the thigh. -Neurovascularly intact distally over amputation site. Results - Labs Result Diagrams: 07/01/17 01:45 07/01/17 01:45 Labs: Abnormal lab results WBC 18.5 K/mcL (4.3-11.1) H 07/01/17 01:45 RBC 4.03 M/mcL (4.19-5.50) L 07/01/17 01:45 Hgb 11.1 g/dL (12.9-16.9) L 07/01/17 01:45 Hct 33.3 % (37.5-50.1) L 07/01/17 01:45 MCV 82.6 fL (83.0-100.0) L 07/01/17 01:45 MCH 27.5 pg (28.0-33.3) L 07/01/17 01:45 Plt Count 470 K/mcL (140-400) H 07/01/17 01:45 Neutrophils # 14.6 K/mcL (1.6-8.9) H 07/01/17 01:45 Monocytes # 1.4 K/mcL (0.0-1.3) H 07/01/17 01:45 PT 13.6 Seconds (9.4-12.1) H 07/01/17 01:45 Sodium 132 mEq/L (136-145) L 07/01/17 01:45 Chloride 93 mEq/L (98-107) L 07/01/17 01:45 Carbon Dioxide 30 mEq/L (23-29) H 07/01/17 01:45 Glucose 286 mg/dL (70-105) H 07/01/17 01:45 Phosphorus 2.6 mg/dL (2.7-4.5) L 07/01/17 01:45 ESR 130 CRP 262 Synovial aspirate R knee: +Staph aureus - Diagnostic results Knee x-ray: report reviewed, image reviewed Knee MRI: report reviewed, image reviewed (Large joint effusion with extension through the superior lateral retinaculum into the lateral soft tissue) Consult Discharge Plan - Plan Referrals: Kamran Lira DO [Primary Care Provider] -
[2017-07-01] MEDS ORDERED: Lidocaine/EPI 1:100k 1% 50 ML VIAL INFILT ONE (08:01)
[2017-07-01] MEDS ORDERED: Albuterol 2.5 MG/3 ML NEBULIZER IH ONE (08:04)
[2017-07-01] MEDS ORDERED: Acetaminophen IV 1,000 MG/100 ML INFUS..BTL IVPB ONE (08:04)
[2017-07-01] MEDS ORDERED: *HR* Promethazine 25 MG/ML VIAL IVP PRN ×2 (08:04→10:12)
[2017-07-01] MEDS ORDERED: Acetaminophen IV 1,000 MG/100 ML INFUS..BTL ONE (08:11)
[2017-07-01] MEDS ORDERED: Dexamethasone 4 MG/ML VIAL ONE (08:24)
[2017-07-01] MEDS ORDERED: Ondansetron 4 MG/2 ML VIAL ONE (08:24)
[2017-07-01] MEDS ORDERED: Ketorolac 30 MG/ML VIAL ONE (08:26)
[2017-07-01] MEDS ORDERED: Aspirin 81 MG TAB.CHEW PO SCH (09:00)
[2017-07-01] MEDS ORDERED: *HR* LORazepam 0.5 MG TABLET PO SCH (09:00)
--- NOTE | 2017-07-01 09:38 | Orthopedic Operative Note ---
Date of procedure: 07/01/17 Procedure: Procedure: Right knee arthroscopic and open irrigation and debridement Preoperative diagnosis: Right knee septic arthritis with extracapsular extension into lateral soft tissue Postoperative diagnosis: Same Surgeon: Job Munoz MD Anesthesia: General EBL: 50 cc Complications: None INDICATIONS: This is a 47-year-old male with a PMHx of uncontrolled diabetes type II, history of bilateral BKA, hypertension, coronary artery disease with history of multiple stents placed and history of CABG, hyperlipidemia, COPD, anxiety, history of tobacco use who has had a one-month history of right knee pain with an effusion. It has gotten worse over the past week and he was seen by his primary care doctor and then referred to sports medicine. He was seen by the sports medicine physician with right knee pain and swelling and had an MRI performed and the knee aspirated. This morning his culture from the aspiration came back as positive for staph aureus and so he was instructed to go to the emergency department for further care. His exam showed right knee effusion with superolateral swelling and some mild erythema. He had pain with short arc motion as well. His MRI showed a large effusion as well as an area of pus that tracked from the joint into the superior lateral and posterior lateral soft tissues. His white blood cell count, ESR, and CRP were all elevated. He was tachycardic, his blood pressure remained stable. He was started on antibiotics in the emergency department as the knee had artery then aspirated and cultures were growing staph aureus with sensitivities pending. The diagnosis and treatment plan was discussed with the patient. It was recommended that he undergo emergent irrigation and debridement of the right knee. The risks and benefits of the procedure were fully explained. Those risks include but are not limited to, infection, neurovascular injury, continued pain, arthritis, stiffness of the knee, further injury, need for further surgery, DVT, PE, loss of limb, and loss of life. The patient understood all of these risks and wished to proceed. Informed consent was obtained. OPERATIVE REPORT: The patient was identified in the holding area. The right lower extremity was marked, the patient was taken to the operating room and placed in the supine position. All bony prominences were well padded. The anesthesiologist performed successful general anesthetic for the remainder of the case. The right lower extremity was then prepped and draped in the usual fashion. A surgical timeout was performed. A standard anterolateral and anteromedial portals were made. The arthroscope was introduced into the joint and gross purulent material was drained from the knee. Arthroscopic examination of the knee followed. There was grossly purulent material throughout the knee. Synovium was inflamed in the suprapatellar pouch. There was a hole in the superior lateral patellar retinaculum that tracked into the soft tissue. Normal patellofemoral articulation. In the medial compartment, no meniscus tear was noted and the cartilage showed grade 1 changes of the femur and tibia. In the lateral compartment, no meniscus tear was noted and the cartilage showed grade 1 changes of the femur and tibia. In the notch, the ACL and PCL were found to be normal. Shaver was introduced into the joint and used to debride the inflamed synovium. 9 L of normal saline was washed through the knee and out through an outflow cannula. Fluid was clear following the irrigation and so attention was turned to the open portion of the case. An incision was made superior lateral to the patella and taken down to the retinaculum. The hole the retinaculum was palpated. A hemostat was used to break up any adhesions and a small amount of grossly purulent material was then expressed. A second incision was then made at the joint line on the posterior lateral side of the knee. Again a hemostat was used to break up any adhesions and gross pus was expressed from the underlying soft tissue. We then bluntly dissected 360 degrees around both incisions to ensure no other pockets of purulence were present. Another 6 L of normal saline was then irrigated through both incisions. No further pus was expressed from either incision or the joint. Incisions were closed with 3-0 nylon at the portal sites and the open incisions were loosely approximated with 2-0 nylon. A sterile dressing was applied, as well as an Wang bandage and cooling unit. The patient was awoken from general anesthetic and taken to recovery in stable condition. There were no complications with the case. POSTOPERATIVE PLAN: Continue the antibiotics postoperatively and follow culture sensitivities. We will follow the exam and labs to determine whether repeat irrigation and debridement is necessary. Was there an professional nursing assistant present: No Estimated blood loss (cc): 50
--- NOTE | 2017-07-01 09:39 | Event Note ---
Date of Encounter: 07/01/17 Time of Encounter: 09:30 Seen and assessed. Agree with plan per [facility] hospitalist. Continue vanc and ceftriaxone for septic arthritis. plan for irrigation ad debridement
--- NOTE | 2017-07-01 09:41 | Anesthesia Evaluation Post Op ---
Date of Encounter: 07/01/17 Time of Encounter: 09:40 - Vital Signs Vital Signs: Last Vital Signs Temp 98.7 F 07/01/17 09:20 Pulse 95 07/01/17 09:30 Resp 16 07/01/17 09:30 BP 138/79 07/01/17 09:30 Pulse Ox 97 07/01/17 09:30 - Lungs Lungs: Clear Ascult./Percussion - Airway Airway: Non-obstructed - Cardiovascular Regular Rate - Mental Status Mental Status: Alert & Oriented, Answers Appropriately - Pain Pain Scale: 1 - Nausea Vomiting Nausea Vomiting: Not Present - Hydration Hydration: NPO - Discharge PostOp Status: Transfer Patient to floor
[2017-07-01] MEDS: Pregabalin 75 MG CAPSULE PO SCH ×2 (13:20→22:12)
[2017-07-01] MEDS: Insulin LISPRO 300 UNITS/3 ML VIAL SQ SCH ×3 (13:24→22:13)
[2017-07-01] MEDS: 0.9 % Sodium Chloride 1,000 ML IVC SCH ×2 (16:00→16:01)
[2017-07-01] MEDS ORDERED: cefTRIAXone 2,000 MG in Water for inj. (sterile) 20 ML 20 ML IVP SCH (18:00)
[2017-07-01] MEDS ORDERED: cefTRIAXone 2,000 MG in 0.9 % Sodium Chloride Mini Bag 100 ML IVPB SCH (18:00)
[2017-07-01 19:04] LABS: Acinetobacter baumannii by PCR Not Detected (Not Detect); Candida albicans by PCR Not Detected (Not Detect); Candida glabrata by PCR Not Detected (Not Detect); Candida krusei by PCR Not Detected (Not Detect); Candida parapsilosis by PCR Not Detected (Not Detect); Candida tropicalis by PCR Not Detected (Not Detect); Enterococcus by PCR Not Detected (Not Detect); Escherichia coli by PCR Not Detected (Not Detect); Klebsiella oxytoca by PCR Not Detected (Not Detect); Klebsiella pneumoniae by PCR Not Detected (Not Detect); Pseudomonas aeruginosa by PCR Not Detected (Not Detect); Serratia marcescens by PCR Not Detected (Not Detect); Staphylococcus aureus by PCR Not Detected (Not Detect); Streptococcus agalactiae(B)PCR Not Detected (Not Detect); Streptococcus by PCR Not Detected (Not Detect); Streptococcus pneumoniae PCR Not Detected (Not Detect); Streptococcus pyogenes (A) PCR Not Detected (Not Detect)
[2017-07-01] MEDS: *HR* HYDROcodone/Acet 7.5/325 mg TABLET PO PRN (20:36)
[2017-07-01] MEDS: *HR* LORazepam 0.5 MG TABLET PO SCH (22:12)
[2017-07-01] MEDS: Insulin DETEMIR 100 UNIT/ML X5UNITS SQ SCH (22:15)
[2017-07-02 01:34] LABS: Basophils % 0.1 %; Eosinophils % 0.1 %; Hematocrit 28.7 % (37.5-50.1); Hemoglobin 9.2 g/dL (12.9-16.9); Immature Granulocytes % 0.4 % (0-4); Lymphocytes # 1.3 K/mcL (0.6-4.6); Lymphocytes % 8.4 %; Mean Corpuscular HGB Conc 32.1 g/dL (31.6-35.5); Mean Corpuscular Volume 84.2 fL (83.0-100.0); Mean Platelet Volume 9.6 fL (9.4-12.4); Monocytes # 0.9 K/mcL (0.0-1.3); Neutrophils # 12.8 K/mcL (1.6-8.9); Platelet Count 346 K/mcL (140-400); Red Blood Count 3.41 M/mcL (4.19-5.50); Red Cell Distribution Width 13.4 % (11.5-14.5)
[2017-07-02 01:45] LABS: BUN/Creatinine Ratio 19 (6-26); Blood Urea Nitrogen 17 mg/dL (6-20); Carbon Dioxide 28 mEq/L (23-29); Chloride 97 mEq/L (98-107); Glucose 251 mg/dL (70-105); Magnesium 1.9 mg/dL (1.6-2.6); Osmolality,Calculated 280 (280-300); Phosphorous 3.2 mg/dL (2.7-4.5); Potassium 4.1 mEq/L (3.5-5.1); Sodium 130 mEq/L (136-145); eGFR For African Americans > 60 (> 60); eGFR For Non-African Americans > 60 (> 60)
[2017-07-02] MEDS: Insulin LISPRO 300 UNITS/3 ML VIAL SQ SCH ×5 (02:02→22:29)
[2017-07-02] MEDS: *HR* HYDROcodone/Acet 7.5/325 mg TABLET PO PRN ×3 (03:12→22:25)
[2017-07-02] MEDS ORDERED: *HR* Heparin 5,000 UNIT/ML VIAL SQ SCH (06:00)
[2017-07-02] MEDS: *HR* Heparin 5,000 UNIT/ML VIAL SQ SCH ×3 (06:13→22:28)
[2017-07-02] MEDS: *HR* OxyCODONE Immed Rel 5 MG TABLET PO PRN ×2 (08:22→14:46)
[2017-07-02] MEDS: Aspirin 81 MG TAB.CHEW PO SCH (08:22)
[2017-07-02] MEDS: Pregabalin 75 MG CAPSULE PO SCH ×3 (08:22→22:24)
[2017-07-02] MEDS: *HR* LORazepam 0.5 MG TABLET PO SCH ×2 (08:23→22:25)
[2017-07-02] MEDS: Insulin DETEMIR 100 UNIT/ML X5UNITS SQ SCH ×2 (08:29→22:29)
[2017-07-02 08:37] LABS: Acinetobacter baumannii by PCR Not Detected (Not Detect); Candida albicans by PCR Not Detected (Not Detect); Candida glabrata by PCR Not Detected (Not Detect); Candida krusei by PCR Not Detected (Not Detect); Candida parapsilosis by PCR Not Detected (Not Detect); Candida tropicalis by PCR Not Detected (Not Detect); Enterococcus by PCR Not Detected (Not Detect); Escherichia coli by PCR Not Detected (Not Detect); Klebsiella oxytoca by PCR Not Detected (Not Detect); Klebsiella pneumoniae by PCR Not Detected (Not Detect); Pseudomonas aeruginosa by PCR Not Detected (Not Detect); Serratia marcescens by PCR Not Detected (Not Detect); Staphylococcus aureus by PCR ***DETECTED*** (Not Detect); Streptococcus agalactiae(B)PCR Not Detected (Not Detect); Streptococcus by PCR Not Detected (Not Detect); Streptococcus pneumoniae PCR Not Detected (Not Detect); Streptococcus pyogenes (A) PCR Not Detected (Not Detect); mecA Methicillin-Resist Gene ***DETECTED*** (Not Detect)
--- NOTE | 2017-07-02 10:01 | Orthopedics Progress Note ---
Date of Encounter: 07/02/17 Time of Encounter: 09:56 - Assessment and Plan (1) Septic arthritis of knee, right Current Visit: Yes Status: Acute Qualifiers: Septic arthritis organism: staphylococcal Qualified Code(s): M00.061 - Staphylococcal arthritis, right knee Subjective Interval history: S: Doing better today. Pain in right knee is improving. Denies fevers or chills. No nausea/vomiting, CP or SOB. O: AFVSS WBC 15.1, Knee joint ctx +MRSA, blood ctx +staph aureus GEN: NAD, AAOx3 RLE: Incisions clean, dry and intact with non-purulent drainage. No surrounding erythema. No tenderness to palpation around knee or in area of incision sites. No purulent material expressed Denies pain with short arc motion at the knee. DNVI at baseline over BKA site A/P: POD#1 s/p RLE arthroscopic and open I&D for septic arthritis with soft tissue abscess -Daily dressing changes, will continue to monitor exam. -If continues to improve then no plans for repeat surgery -IV antibiotics as per hospitalist and ID -Medical management per hospitalist Objective Vital signs: Vital Signs Temp Pulse Resp BP Pulse Ox 07/02/17 06:41 97.7 F 90 15 151/88 99 07/02/17 04:38 98.2 F 74 16 133/80 100 07/02/17 01:13 97.4 F L 70 14 134/81 100 07/01/17 20:04 98.4 F 91 16 152/88 99 07/01/17 16:10 98.4 F 85 14 134/88 95 07/01/17 14:07 100 07/01/17 13:19 98.1 F 90 16 126/76 100 07/01/17 12:29 98.2 F 85 20 130/76 98 07/01/17 11:09 99.0 F 89 20 145/79 98 07/01/17 10:31 99.3 F 91 20 152/83 97 07/01/17 10:05 98.9 F 98 17 158/81 96 Intake and Output 07/01/17 07/02/17 07/02/17 23:59 07:59 15:59 Intake Total 1140 / 1140 480 / 480 Balance 1140 / 1140 480 / 480 Intake: Oral 1140 / 1140 480 / 480 Other: Meal Dinner Breakfast Percent of Meal Consumed 100% 100% Blood Glucose* 121 130 - Labs CBC & BMP: 07/02/17 01:02 07/02/17 01:02 Labs: Abnormal lab results WBC 15.1 K/mcL (4.3-11.1) H 07/02/17 01:02 RBC 3.41 M/mcL (4.19-5.50) L 07/02/17 01:02 Hgb 9.2 g/dL (12.9-16.9) L D 07/02/17 01:02 Hct 28.7 % (37.5-50.1) L 07/02/17 01:02 MCH 27.0 pg (28.0-33.3) L 07/02/17 01:02 Neutrophils # 12.8 K/mcL (1.6-8.9) H 07/02/17 01:02 PT 13.6 Seconds (9.4-12.1) H 07/01/17 01:45 Sodium 130 mEq/L (136-145) L 07/02/17 01:02 Chloride 97 mEq/L (98-107) L 07/02/17 01:02 Glucose 251 mg/dL (70-105) H 07/02/17 01:02 POC Glucose 213 mg/dL (70-99) H 07/02/17 01:53 Calcium 8.0 mg/dL (8.6-10.3) L 07/02/17 01:02 mecA-Methicil Res Gene DETECTED (Not Detect) A 06/30/17 22:43 Consult Discharge Plan - Plan Referrals: Kamran Lira DO [Primary Care Provider] -
--- NOTE | 2017-07-02 11:10 | Infectious Disease Consult ---
Date of Encounter: 07/02/17 Time of Encounter: 11:08 Assessment and Plan (1) Sepsis Status: Acute Assessment and plan: The patient had two SIRS criteria on admission. Likely secondary to right knee septic arthritis. Improved. WBC trending down. Tachycardia has resolved. Blood cultures drawn 06/30/17 are positive 1/2 sets for MRSA. The other blood culture set is also positive for GPC, but not MRSA. Repeat blood cultures x 2 sets drawn 07/02/17 are pending. Qualifiers: Sepsis type: methicillin susceptible Staphylococcus aureus Qualified Code(s ): A41.01 - Sepsis due to Methicillin susceptible Staphylococcus aureus (2) Bacteremia Status: Acute Assessment and plan: Causative organism MRSA. Source likely the right knee septic arthritis. Blood cultures drawn 06/30/17 are positive 1/2 sets for MRSA. Other set of blood cultures drawn 06/30/17 are also positive for GPC, but the BCID did not mushroom picker anything. Discussed with Abhay in Micro who states it may be an anaerobe and they are working to ID it. Complicated due to the septic arthritis. No endocarditis stigmata noted on exam. The patient has one major Modified Wan's Criteria. Get TTE. If negative, will need a LYNETTE. Check rheumatoid factor. Repeat blood cultures drawn this morning are pending. Continue Vancomycin IV. Pharmacy to dose. Goal trough ~15. Duration of treatment depends on the clinical picture, but likely 4-6 weeks. Monitor renal function and for drug toxicity and dose-adjust antibiotics. Avoid insertion of central venous access until blood cultures are negative x 48 hours. inpatient services director consult to assist with discharge planning. (3) Septic arthritis of knee, right Status: Acute Assessment and plan: Location: right knee. Causative organism: MRSA. Etiology unclear. Status post sudden-onset of pain about 1 month ago. Denies known trauma. MRI completed 06/27/17 showed a large defect in the superior aspect of the patella through which a large colume of joint fluid extended into the adjacent subcutaneous fat as well as degenerative vs. reactive edema vs. contusion to the lateral femoral condyle and lateral tibial plateau, and a large non- specific joint effusion. Referred to orthopedics and has arthrocentesis 06/29/17 that revealed grossly purulent synovial fluid. The lab was unable to perform cell count due to cell clumping, but culture was positive for MRSA. Ortho consulted. Status post arthroscopic I & D of the right knee 07/01/[address] Munoz. Operative note reviewed. Gross purulence noted intra-op. Cultures are pending. Pre-op ESR >130, CRP 262. Wound care and activity restrictions per the ortho team. Continue Vancomycin IV. Pharmacy to dose. Goal trough ~15. Discontinue Rocephin. Duration of treatment depends on the clinical picture, but likely 4-6 weeks. Monitor renal function and for drug toxicity and dose-adjust antibiotics. Place the patient in contact precautions per policy. Discussed with nursing. Avoid insertion of central venous access until blood cultures are negative x 48 hours. inpatient services director to assist with discharge planning. Qualifiers: Septic arthritis organism: staphylococcal Qualified Code(s): M00.061 - Staphylococcal arthritis, right knee (4) Hyperglycemia due to type 2 diabetes mellitus Status: Acute Assessment and plan: Uncontrolled. Hgb A1C 16.9 in May 2017. Blood sugars continue to run in the 200's. Recommend aggressive glucose monitoring and control to promote wound healing and prevent re-infection. Management per the primary team. 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 transplanted heart: [place] heart Associated angina: angina presence unspecified Qualified Code(s): I25.810 - Atherosclerosis of coronary artery bypass graft(s) without angina pectoris (6) Hypertension Status: Chronic Qualifiers: Hypertension type: unspecified Qualified Code(s): I10 - Essential (primary ) hypertension (7) COPD (chronic obstructive pulmonary disease) Status: Chronic Qualifiers: COPD type: unspecified COPD Qualified Code(s): J44.9 - Chronic obstructive pulmonary disease, unspecified (8) S/P bilateral BKA (below knee amputation) Status: Chronic Infectious Disease HPI - Data of Consult Patient: new to practice Consult date: 07/02/17 Requesting Physician: Ponce Patel MD Primary Care Provider: Annie Dior - Consult Narrative Reason for consult: Septic arthritis History of present illness: Mr. Lamb is a 47 year old male with a past medical history of CAD status post cardiac stents and coronary artery bypass graft, uncontrolled diabetes currently on oral anti-hyperglycemics and insulin, hyperlipidemia, COPD, and remote history of bilateral below the knee AP dictations. The patient was admitted to the hospital June 30 for right knee septic arthritis and hyperglycemia. We are consult would July 02 for further recommendations for right knee septic arthritis. Briefly, the patient is a 47-year-old male with past medical history as stated above. The patient reports sudden onset of right knee pain about a month ago after he felt a pop in his right knee when he was crawling from the bathroom to the living room. He states he had continued pain and eventually saw his PCP who referred him to [facility]. He had an x-ray that showed a joint effusion. Sports medicine ordered an MRI that showed a large defect in the superior aspect of the patella through which a large volume of joint fluid was extending into the adjacent subcutaneous fat as well as degenerative changes versus reactive edema versus a contusion of the lateral femoral condyle and lateral tibial plateau. There is also noted to be a large nonspecific joint effusion. He was eventually referred to an orthopedic surgeon who performed an arthrocentesis of the joint. A large amount of grossly infected synovial fluid was aspirated and sent for cell count and culture. The cell count was unable to be performed due to cellular clumping, but the culture came back positive for MRSA and the patient was advised to come to the ER for admission. Upon arrival to the ER, the patient had a low-grade fever and tachycardia. He had leukocytosis with neutrophilic predominance. Blood cultures were obtained 2 sets. He was started on IV antibiotics and admitted to the hospital for further evaluation. Since admission, the patient has been evaluated by orthopedics. He was taken to the operating room on July 01 and underwent an arthroscopic I&D of the right knee. The operative note reveals a large amount of gross purulence in the knee joint. Intraoperative cultures are pending. His white blood cell count is now trending down. His blood cultures obtained in the emergency department are +1 out of 2 sets for MRSA. A different gram-positive cocci has been isolated on the second set of blood cultures. Repeat blood cultures were obtained this morning and are pending. He is currently on IV vancomycin and IV Rocephin. We have been asked to evaluate and make further recommendations. During my exam today, the patient endorses a history as stated below. He denies any fevers or chills or rigors. He denies any headache or neck pain or dizziness. He reports some nonspecific nasal congestion, but denies any earache , sore throat, or nasal discharge. He denies any chest pain, shortness of breath, or cough. He denies any nausea, vomiting, diarrhea, or constipation. He denies any abdominal pain or urinary complaints. He states his appetite been okay. He states his blood sugars been running pretty high at home. He reports that the knee was very swollen and painful and warm to the touch. He states it was a little bit red. He denies any known traumatic injuries to the knee. He denies any scrapes or cuts to the extremity at all. He denies the oral thrush or new skin lesions. He states that overall the pain and swelling improved a little bit after the arthrocentesis, but when he woke up the next morning it was just a swollen as it was before, if not worse. He states that the pain and swelling have improved somewhat since surgery. The patient was at home with his and children. He denies any sick contacts at home. He does have outside animals, but denies any contact between the affected extremity and the animals. He denies any alcohol or illicit drug use. He states he is a former smoker and has been weaning himself down from about a pack a day and was smoking about 3 cigarettes per day prior to admission. He does not work outside the home. He denies any recent travel. CC: Ponce Patel MD Past Med Surg Social Fam HX - Past Medical History Attestation: Yes The following information was validated with the patient. Source: patient, old records reviewed, nursing notes reviewed Medical history: COPD, diabetes, hyperlipidemia, hypertension, kidney stones, myocardial infarction (s/p cardiac stents), other Psychiatric history: anxiety - Past Surgical History Surgical History: angioplasty/stent, coronary bypass (CABG), orthopedic, other ( Bilateral BKA d/t infections) - Social History Smoking Status: Former smoker Smokeless Tobacco Status: No Alcohol use: none Drug use: none Occupational status: disabled Current living situation: Home, With Family Activity Level: Independent ambulation (With BLE prosthetics) Recent Out of Country Travel Within the Last 8 Weeks: No Exposure or Possible Exposure to Illness During Travel: No - Family History Mother Living Status: Still Living Hx Family Cardiac Disorders: Yes (PACER) Hx Family Endocrine Disorder: Yes (DIABETES) Father Living Status: Age at : 38 Cause of : MASSIVE [place] Hx Family Cardiac Disorders: Yes Infectious Disease-CN:Meds Amitriptyline [Elavil] 75 mg PO HS 07/01/17 [History] Duloxetine HCl [Cymbalta] 60 mg PO DAILY 07/01/17 [History] HYDROcodone/Acet 7.5/325 mg [[place] 7.5-325 mg] 1 tab PO QID PRN 07/01/17 [ History] Insulin ASPART [NovoLOG] 0 - 10 unit SQ TIDWM 07/01/17 [History] Insulin Glargine,Hum.rec.anlog [Basaglar Kwikpen U-100] 50 unit SQ HS 07/01/17 [ History] LORazepam [Ativan] 0.5 mg PO BID 07/01/17 [History] Pregabalin [Lyrica] 150 mg PO TID 07/01/17 [History] Rosuvastatin Calcium [Crestor] 40 mg PO HS 07/01/17 [History] metFORMIN [Glucophage] 1,000 mg PO BIDWM 07/01/17 [History] Ranolazine [Ranexa] 1,000 mg PO BID 07/02/17 [History] Tizanidine HCl 4 mg PO TID 07/02/17 [History] 3 Allergy/AdvReac Type Severity Reaction Status Date / Time Diclofenac [From Voltaren] Allergy Gastrointestinal Verified 07/02/17 10:49 Upset Penicillins Allergy Rash Verified 07/02/17 10:49 All systems: reviewed and no additional remarkable complaints except as stated Exam - Constitutional Vitals: Temp Pulse Resp BP Pulse Ox 97.7 F 90 15 151/88 99 07/02/17 06:41 07/02/17 06:41 07/02/17 06:41 07/02/17 06:41 07/02/17 07:30 General appearance: average body habitus, cooperative, no acute distress - Head Head exam: Present: atraumatic, normal inspection, normocephalic - Eye Eye exam: Present: EOMI, normal appearance, PERRL Pupils: Present: normal accommodation Additional comments: No subconjunctival hemorrhage noted. - ENT ENT exam: Present: mucous membranes moist - Neck Neck exam: Present: normal inspection - Respiratory Respiratory exam: Present: CTAB. Absent: rales, respiratory distress, rhonchi, wheezes - Cardiovascular Cardiovascular exam: Present: RRR, +S1, +S2 - GI/Abdominal GI/Abdominal exam: Present: normal bowel sounds, soft. Absent: distended, tenderness - Extremities Exam Extremities exam: Present: joint swelling (right knee), tenderness (right knee) . Absent: pedal edema Additional comments: Right knee post-op dressing C/D/I. Bilateral BKA stumps well-healed without redness, warmth, erythema, or open sores. - Back Exam Back exam: Present: normal inspection. Absent: CVA tenderness (L), CVA tenderness (R), paraspinal tenderness, vertebral tenderness - Neurological Exam Neurological exam: Present: alert, oriented X3, no focal deficits - Psychiatric Psychiatric exam: Present: normal affect, normal mood - Skin Skin exam: Present: dry, intact, normal color, warm Additional comments: No endocarditis stigmata noted. Infectious Disease CN: Results - Labs CBC & Chem 7: 07/02/17 01:02 07/02/17 01:02 Cultures: Cultures 06/30/17 22:43 Blood Culture - Preliminary Peripheral Venipuncture Gram Positive Cocci 06/30/17 22:54 Blood Culture - Preliminary Peripheral Venipuncture Gram Positive Cocci Serology: Serology 06/30/17 06/30/17 Range/Units 22:54 22:43 A. baumannii (PCR) Not Detected Not Detected (Not Detect) Comfort albicans (PCR) Not Detected Not Detected (Not Detect) C. glabrata (PCR) Not Detected Not Detected (Not Detect) C. krusei (PCR) Not Detected Not Detected (Not Detect) C. parapsilosis (PCR) Not Detected Not Detected (Not Detect) C. tropicalis (PCR) Not Detected Not Detected (Not Detect) Enterobacteriac sp PCR Not Detected Not Detected (Not Detect) E. cloacae complex PCR Not Detected Not Detected (Not Detect) Enterococcus sp PCR Not Detected Not Detected (Not Detect) E. coli (PCR) Not Detected Not Detected (Not Detect) H. influenzae (PCR) Not Detected Not Detected (Not Detect) Klebsiella oxytoca PCR Not Detected Not Detected (Not Detect) Klebsiella pneumoniae Not Detected Not Detected (Not Detect) List. monocytogenes PCR Not Detected Not Detected (Not Detect) N. meningitidis (PCR) Not Detected Not Detected (Not Detect) Proteus species (PCR) Not Detected Not Detected (Not Detect) Serratia marcescens PCR Not Detected Not Detected (Not Detect) Staphylococcus sp PCR Not Detected DETECTED A (Not Detect) Staph aureus (PCR) Not Detected DETECTED A (Not Detect) mecA-Methicil Res Gene DETECTED A (Not Detect) Streptococcus sp PCR Not Detected Not Detected (Not Detect) Group A Strep DNA Not Detected Not Detected (Not Detect) Group B Strep (PCR) Not Detected Not Detected (Not Detect) Strep pneumoniae (PCR) Not Detected Not Detected (Not Detect) P. aeruginosa (PCR) Not Detected Not Detected (Not Detect) Yulia/B-Vanco Res Genes N/A (Not Detect) KPC (blaKPC) Detect PCR N/A (Not Detect) Consult Discharge Plan - Plan Referrals: Kamran Lira DO [Primary Care Provider] - - Attending Attestation I examined this patient and my medical decision-making was reviewed with the Resident Physician. I agree with the documented findings, disposition and treatment plan as described except to the extent set forth below. This is an addendum to original report dictated by Lexii Valdez CNP. Please refer to Tim note for full details. Patient is a 47-year-old unfortunate man with diabetes mellitus that is very poorly controlled with A1c is running in the 16-17 was had infections and getting readings in bilateral legs in the past and has bilateral below-knee amputation. Patient apparently was crawling on the carpet and he has heard a loud click in his right knee. Patient states that the knee started getting worse with pain and swelling. Initially patient came in for evaluation. Patient had a arthrocentesis done but was not done because it was clumping of the cells and could not do a cell count. Patient was taken to surgery where they noted significant purulence. Intra-Op cultures were obtained and grew MRSA. Patient also had blood cultures done and it grew out MRSA as well. Patient was started on appropriate antibiotics, were asked to evaluate the patient and make further recommendations. Graft currently patient laying in bed appears comfortable no acute distress he is actually on his phone pleasant awake alert oriented does not appear toxic looks surprisingly well for someone with his A1c. Assessment and plan Sepsis Bacteremia with MRSA Septic arthritis of the knee with MRSA Diabetes mellitus type 2 poorly controlled A1c 16 Coronary artery disease Hypertension COPD Status post bilateral BKA due to gangrene in the legs Recommendation: Repeat blood cultures 2 to make sure the bacteremia has resolved Continue vancomycin Patient has 1 major [place] criteria no minor [place], patient will need TTE now and a LYNETTE prior to discharge Maybe DC Rocephin Duration of treatment depends on the clinical picture but likely 2 weeks IV followed by 2 weeks oral. Continue contact isolation Goal vancomycin trough around 15 Monitor labs and for drug toxicity
--- NOTE | 2017-07-02 11:26 | Internal Med Progress Note ---
Date of Encounter: 07/02/17 Time of Encounter: 11:25 - Assessment and plan (1) Sepsis Current Visit: Yes Status: Acute Assessment and plan: MRSA sepsis with tachycardia, leukocytosis. Source of infection: right knee septic joint. Blood cultures growing gram positive cocc with MRSA staph. repeat blood cultures , follow up sensitivities. Obtain 2D echo. 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 Continue antibiotics. ID following. POD#1 s/p RLE arthroscopic and open I&D for septic arthritis with soft tissue abscess Qualifiers: Septic arthritis organism: staphylococcal Qualified Code(s): M00.061 - Staphylococcal arthritis, right knee (3) Uncontrolled diabetes mellitus Current Visit: Yes Status: Acute Assessment and plan: Hx of uncontrolled DM with bilateral BKA. Last A1C from 06/11/17 showed A1C 16.9. Start on weight based lantus and humalog regimen Qualifiers: Diabetes mellitus type: type 2 Diabetes mellitus assisted insulin use: with assisted use Diabetes mellitus complication status: with unspecified complications Qualified Code(s): E11.8 - Type 2 diabetes mellitus with unspecified complications; E11.65 - Type 2 diabetes mellitus with hyperglycemia ; Z79.4 - custodial (current) use of insulin (4) DVT prophylaxis Current Visit: Yes Status: Acute Assessment and plan: heparin SQ (5) Coronary artery disease Current Visit: Yes Status: Chronic Assessment and plan: Hx of CAD with multiple stents placed. continue aspirin and lipitor, Qualifiers: Coronary Disease-Associated Artery/Lesion type: bypass graft [place] vs. transplanted heart: [place] heart Associated angina: angina presence unspecified Qualified Code(s): I25.810 - Atherosclerosis of coronary artery bypass graft(s) without angina pectoris (6) Hypertension Current Visit: Yes Status: Chronic Assessment and plan: resume home meds once reconciled. Qualifiers: Hypertension type: unspecified Qualified Code(s): I10 - Essential (primary ) hypertension (7) COPD (chronic obstructive pulmonary disease) Current Visit: Yes Status: Chronic Assessment and plan: does not appear tob e in acute exacerbation. Plan: PRN DuoNebs Qualifiers: COPD type: unspecified COPD Qualified Code(s): J44.9 - Chronic obstructive pulmonary disease, unspecified (8) Anxiety Current Visit: Yes Status: Acute Assessment and plan: continue home meds (9) S/P bilateral BKA (below knee amputation) Current Visit: Yes Status: Chronic Assessment and plan: Stable (10) Tobacco abuse Current Visit: Yes Status: Acute Assessment and plan: nicotine patch PRN for nicotine craving. (11) Hyperlipidemia Current Visit: Yes Status: Acute Assessment and plan: continue statin Qualifiers: Hyperlipidemia type: unspecified Qualified Code(s): E78.5 - Hyperlipidemia , unspecified (12) Hyponatremia Current Visit: Yes Status: Acute Assessment and plan: Continue to monitor. normal saline as needed - Time Spent With Patient Total time spent is greater than 50% in coordination of care (as documented) at patient's floor/unit and/or counseling patient: - Subjective Interval history: No acute events overnight - Constitutional Vitals: Temp Pulse Resp BP Pulse Ox 97.7 F 90 15 151/88 99 07/02/17 06:41 07/02/17 06:41 07/02/17 06:41 07/02/17 06:41 07/02/17 07:30 General appearance: Present: cooperative, A&O X 3, pleasant, no acute distress, answers questions appropriately - Head Head exam: Present: atraumatic, normocephalic - Eye Eye exam: Present: PERRL, conjuntiva pink, sclera anicteric Pupils: Present: PERRL - Neck Neck exam general surgery: Present: supple, trachea midline. Absent: lymphadenopathy - Respiratory Respiratory exam: Present: CTAB. Absent: accessory muscle use, rales, rhonchi, wheezes - Cardiovascular Cardiovascular exam: Present: RRR, +S1, +S2. Absent: diastolic murmur, gallop, rubs, systolic murmur - GI/Abdominal GI/Abdominal exam: Present: normal bowel sounds, soft, no peritoneal signs. Absent: distended, tenderness - Extremities Exam Extremities exam: Present: warm, radial pulses palpable and symmetrical. Absent : calf tenderness, cyanotic, pedal edema - Neurological Exam Neurological exam: Present: CN II-XII intact, oriented X3, no focal deficits. Absent: pronater drift, facial droop, speech deficit - Skin Skin exam: Present: dry, intact Internal Medicine: Result - Labs CBC & Chem 7: 07/02/17 01:02 07/02/17 01:02 Labs: Short CBC 07/02/17 Range/Units 01:02 WBC 15.1 H (4.3-11.1) K/mcL Hgb 9.2 L D (12.9-16.9) g/dL Hct 28.7 L (37.5-50.1) % Plt Count 346 (140-400) K/mcL Neutrophils # 12.8 H (1.6-8.9) K/mcL BMP 07/02/17 01:02 Sodium 130 L Potassium 4.1 Chloride 97 L Carbon Dioxide 28 BUN 17 Creatinine 0.90 Glucose 251 H Calcium 8.0 L - ABG Interpretation ABG results: PT/INR, D-dimer PT 13.6 Seconds (9.4-12.1) H 07/01/17 01:45 Consult Discharge Plan - Plan Referrals: Kamran Lira DO [Primary Care Provider] -
[2017-07-03 02:18] LABS: Basophils % 0.2 %; Eosinophils # 0.3 K/mcL (0.0-0.6); Eosinophils % 2.3 %; Hemoglobin 9.7 g/dL (12.9-16.9); Immature Granulocytes % 0.5 % (0-4); Lymphocytes % 23.4 %; Mean Corpuscular HGB Conc 33.4 g/dL (31.6-35.5); Mean Corpuscular Volume 83.8 fL (83.0-100.0); Mean Platelet Volume 9.2 fL (9.4-12.4); Monocytes # 0.9 K/mcL (0.0-1.3); Monocytes % 7.2 %; Neutrophils # 8.5 K/mcL (1.6-8.9); Platelet Count 425 K/mcL (140-400); Red Blood Count 3.46 M/mcL (4.19-5.50); Red Cell Distribution Width 13.5 % (11.5-14.5); Segmented Neutrophils % 66.4 %
[2017-07-03 02:41] LABS: BUN/Creatinine Ratio 23 (6-26); Blood Urea Nitrogen 18 mg/dL (6-20); Calcium 8.2 mg/dL (8.6-10.3); Carbon Dioxide 26 mEq/L (23-29); Chloride 98 mEq/L (98-107); Glucose 114 mg/dL (70-105); Osmolality,Calculated 277 (280-300); Sodium 132 mEq/L (136-145); eGFR For African Americans > 60 (> 60); eGFR For Non-African Americans > 60 (> 60)
[2017-07-03] MEDS: *HR* OxyCODONE Immed Rel 5 MG TABLET PO PRN (04:27)
--- NOTE | 2017-07-03 06:33 | Electrocardiograph Report ---
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
--- NOTE | 2017-07-03 06:38 | Electrocardiograph Report ---
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
[2017-07-03] MEDS: *HR* Heparin 5,000 UNIT/ML VIAL SQ SCH ×3 (06:59→21:33)
--- NOTE | 2017-07-03 10:02 | Infectious Disease Progress No ---
Date of Encounter: 07/03/17 Time of Encounter: 10:00 - Assessment and Plan (1) Sepsis Current Visit: Yes Status: Acute The patient had two SIRS criteria on admission. Likely secondary to right knee septic arthritis. Improved. WBC trending down. Tachycardia recurred this morning, but likely secondary to anxiety rather than acute infectious process. Blood cultures drawn 06/30/17 are positive 1/2 sets for MRSA. The other blood culture set is also positive for GPC, but not MRSA. Repeat blood cultures x 2 sets drawn 07/02/17 are pending. Qualifiers: Sepsis type: methicillin susceptible Staphylococcus aureus Qualified Code(s ): A41.01 - Sepsis due to Methicillin susceptible Staphylococcus aureus (2) Bacteremia Current Visit: Yes Status: Acute Causative organism MRSA. Source likely the right knee septic arthritis. Blood cultures drawn 06/30/17 are positive 1/2 sets for MRSA. Other set of blood cultures drawn 06/30/17 are also positive for GPC, but the BCID did not pickle sorter anything. Discussed with Abhay in [place] who states it may be an anaerobe and they are working to ID it. Complicated due to the septic arthritis. No endocarditis stigmata noted on exam. The patient has one major Modified Wan's Criteria. TTE completed yesterday. Reading pending. If negative, will need a LYNETTE prior to discharge. Rheumatoid factor normal. Repeat blood cultures drawn 07/02/17 are pending. Continue Vancomycin IV. Pharmacy to dose. Goal trough ~15. Duration of treatment depends on the clinical picture, but likely 4-6 weeks. Monitor renal function and for drug toxicity and dose-adjust antibiotics. Avoid insertion of central venous access until blood cultures are negative x 48 hours. business services administrator consult to assist with discharge planning. (3) Septic arthritis of knee, right Current Visit: Yes Status: Acute Location: right knee. Causative organism: MRSA. Etiology unclear. Status post sudden-onset of pain about 1 month ago. Denies known trauma. MRI completed 06/27/17 showed a large defect in the superior aspect of the patella through which a large colume of joint fluid extended into the adjacent subcutaneous fat as well as degenerative vs. reactive edema vs. contusion to the lateral femoral condyle and lateral tibial plateau, and a large non- specific joint effusion. Referred to orthopedics and has arthrocentesis 06/29/17 that revealed grossly purulent synovial fluid. The lab was unable to perform cell count due to cell clumping, but culture was positive for MRSA. Ortho consulted. Status post arthroscopic I & D of the right knee 07/01/[address] Munoz. Operative note reviewed. Gross purulence noted intra-op. Cultures are pending. Pre-op ESR >130, CRP 262. Wound care and activity restrictions per the ortho team. Continue Vancomycin IV. Pharmacy to dose. Goal trough ~15. Duration of treatment depends on the clinical picture, but likely 4-6 weeks. Monitor renal function and for drug toxicity and dose-adjust antibiotics. Continue contact precautions per policy. Avoid insertion of central venous access until blood cultures are negative x 48 hours. business services administrator to assist with discharge planning. Qualifiers: Septic arthritis organism: staphylococcal Qualified Code(s): M00.061 - Staphylococcal arthritis, right knee (4) Hyperglycemia due to type 2 diabetes mellitus Current Visit: Yes Status: Acute Uncontrolled. Hgb A1C 16.9 in May 2017. Blood sugars seem better controlled today. Recommend aggressive glucose monitoring and control to promote wound healing and prevent re-infection. Management per the primary team. Qualifiers: Diabetes mellitus vermin exterminator insulin use: unspecified half-way insulin use status Qualified Code(s): E11.65 - Type 2 diabetes mellitus with hyperglycemia (5) Coronary artery disease Current Visit: Yes Status: Chronic Qualifiers: Coronary Disease-Associated Artery/Lesion type: bypass graft [place] vs. transplanted heart: [place] heart Associated angina: angina presence unspecified Qualified Code(s): I25.810 - Atherosclerosis of coronary artery bypass graft(s) without angina pectoris (6) Hypertension Current Visit: Yes Status: Chronic Qualifiers: Hypertension type: unspecified Qualified Code(s): I10 - Essential (primary ) hypertension (7) COPD (chronic obstructive pulmonary disease) Current Visit: Yes Status: Chronic Qualifiers: COPD type: unspecified COPD Qualified Code(s): J44.9 - Chronic obstructive pulmonary disease, unspecified (8) S/P bilateral BKA (below knee amputation) Current Visit: Yes Status: Chronic - Subjective Interval history: Patient seen and examined. No acute events noted overnight. Patient sitting up in bed. States overall he feels better. Denies any fevers or chills or rigors. Denies any chest pain, shortness of breath, or cough. Denies any nausea, vomiting, diarrhea, or constipation. States he has not had a bowel movement since he was admitted here at the hospital, but states that sometimes this is normal for him. Denies any abdominal pain or urinary complaints. States his appetite is good. Blood sugars appear to be well controlled. Denies any oral thrush or new skin lesions. Reports improved pain at the surgical site states the swelling and redness are markedly improved. Infect Dis PN-Objective Data - Labs CBC & Chem 7: 07/03/17 01:45 07/03/17 01:45 Labs: Laboratory Results - last 24 hr 07/01/17 07/02/17 07/02/17 16:08 06:12 11:27 WBC RBC Hgb Hct MCV MCH MCHC RDW Plt Count MPV Immature Gran % Seg Neutrophils % Lymphocytes % Monocytes % Eosinophils % Basophils % Neutrophils # Lymphocytes # Monocytes # Eosinophils # Basophils # Sodium Potassium Chloride Carbon Dioxide BUN Creatinine Est GFR ( Amer) Est GFR (Non-Af Amer) BUN/Creatinine Ratio Glucose POC Glucose 121 H 130 H 173 H Calculated Osmolality Calcium Vancomycin Trough Rheumatoid Factor 07/02/17 07/02/17 07/03/17 11:45 20:20 01:45 WBC 12.7 H RBC 3.46 L Hgb 9.7 L Hct 29.0 L MCV 83.8 MCH 28.0 MCHC 33.4 RDW 13.5 Plt Count 425 H MPV 9.2 L Immature Gran % 0.5 Seg Neutrophils % 66.4 Lymphocytes % 23.4 Monocytes % 7.2 Eosinophils % 2.3 Basophils % 0.2 Neutrophils # 8.5 Lymphocytes # 3.0 Monocytes # 0.9 Eosinophils # 0.3 Basophils # 0.0 Sodium Potassium Chloride Carbon Dioxide BUN Creatinine Est GFR ( Amer) Est GFR (Non-Af Amer) BUN/Creatinine Ratio Glucose POC Glucose 161 H Calculated Osmolality Calcium Vancomycin Trough 15 H Rheumatoid Factor 07/03/17 07/03/17 07/03/17 01:45 07:56 08:40 WBC RBC Hgb Hct MCV MCH MCHC RDW Plt Count MPV Immature Gran % Seg Neutrophils % Lymphocytes % Monocytes % Eosinophils % Basophils % Neutrophils # Lymphocytes # Monocytes # Eosinophils # Basophils # Sodium 132 L Potassium 4.0 Chloride 98 Carbon Dioxide 26 BUN 18 Creatinine 0.80 Est GFR ( Amer) > 60 Est GFR (Non-Af Amer) > 60 BUN/Creatinine Ratio 23 Glucose 114 H POC Glucose 89 Calculated Osmolality 277 L Calcium 8.2 L Vancomycin Trough Rheumatoid Factor 10 - Impressions Impressions Echocardiogram 07/02/17 07:12 Impressions: LVEF 40-45%. Reduced LV systolic function with akinesis of the anteroseptal wall. Moderate left ventricular diastolic dysfunction. RV is suboptimally evaluated. Mild-moderately thickened aortic valve leaflets particularly noticeable on the RCC. No aortic stenosis. Mild mitral regurgitation. No pulmonary hypertension. No evidence for infective endocarditis. Left Ventricular Wall Motion: Rest Echo Findings The apex, apical inferior, mid inferior, basal inferior, apical anterior, mid anterior, basal anterior, apical lateral, mid anterior lateral, basal anterior lateral, mid inferior lateral and basal inferior lateral rey were hypokinetic. The apical septal, mid inferior septal, basal inferior septal, mid anterior septal and basal anterior septal rey were akinetic. Findings: Study Quality * Technically adequate exam. ECG Findings * Normal sinus rhythm. Left Ventricle * Moderate left ventricular diastolic dysfunction. * LVEF 40-45%. * Normal LV chamber size. Right Ventricle * RV is suboptimally evaluated. Left Atrium * Normal left atrial size. Right Atrium * Normal right atrial size. Aortic Valve * No aortic regurgitation. * Trileaflet aortic valve. * Mild-moderately thickened aortic valve leaflets particularly noticeable on the RCC. * No aortic stenosis. Mitral Valve * Normal mitral valve structure. * No mitral stenosis. * Mild mitral regurgitation. Tricuspid Valve * Normal tricuspid valve structure. * No tricuspid regurgitation. * Estimated RA pressure is 3 mmHg. Pulmonic Valve * Pulmonic valve is not well visualized. * No pulmonic stenosis. * No pulmonic regurgitation. Pulmonary Artery * Pulmonary artery not well visualized. Aorta * Normally sized aortic root. Pericardium * There is no pericardial effusion present. Interatrial Septum * No evidence of PFO by color Doppler. IVC * Normal IVC dimensions and inspiratory collapse. Exam - Constitutional Vitals: Temp Pulse Resp BP Pulse Ox 98.7 F 100 18 120/72 95 07/03/17 07:54 07/03/17 07:54 07/03/17 07:54 07/03/17 07:54 07/03/17 07:54 General appearance: average body habitus, cooperative, no acute distress - Head Head exam: Present: atraumatic, normal inspection, normocephalic - Eye Eye exam: Present: EOMI, normal appearance, PERRL Pupils: Present: normal accommodation Additional comments: No subconjunctival hemorrhage noted. - ENT ENT exam: Present: mucous membranes moist - Neck Neck exam: Present: normal inspection - Respiratory Respiratory exam: Present: CTAB. Absent: rales, respiratory distress, rhonchi, wheezes - Cardiovascular Cardiovascular exam: Present: +S1, +S2, tachycardia. Absent: irregular rhythm - GI/Abdominal GI/Abdominal exam: Present: normal bowel sounds, soft. Absent: distended, tenderness - Extremities Exam Extremities exam: Present: joint swelling (Mild, right knee), tenderness (Right knee). Absent: pedal edema Additional comments: Right knee surgical site is open to air with sutures intact. Small amount of serosanguineous drainage noted from the incision to the anterior aspect of the knee. No erythema or warmth noted. Minimal edema. Range of motion limited due to pain and swelling, but improved. Bilateral BKA stumps without redness, warmth, swelling, or open lesions. - Back Exam Back exam: Absent: paraspinal tenderness, vertebral tenderness - Neurological Exam Neurological exam: Present: alert, oriented X3, no focal deficits - Psychiatric Psychiatric exam: Present: normal affect, normal mood - Skin Skin exam: Present: dry, intact, normal color, warm Additional comments: No endocarditis stigmata noted. Consult Discharge Plan - Plan Referrals: Kamran Lira DO [Primary Care Provider] - - Attending Attestation I examined this patient and my medical decision-making was reviewed with the Resident Physician. I agree with the documented findings, disposition and treatment plan as described except to the extent set forth below.
[2017-07-03] MEDS: Insulin LISPRO 300 UNITS/3 ML VIAL SQ SCH ×4 (10:07→21:32)
[2017-07-03] MEDS: Aspirin 81 MG TAB.CHEW PO SCH (10:13)
[2017-07-03] MEDS: *HR* LORazepam 0.5 MG TABLET PO SCH ×2 (10:13→21:32)
[2017-07-03] MEDS: Pregabalin 75 MG CAPSULE PO SCH ×3 (10:13→21:31)
--- NOTE | 2017-07-03 10:25 | Orthopedics Progress Note ---
Date of Encounter: 07/03/17 Time of Encounter: 10:19 - Assessment and Plan (1) Septic arthritis of knee, right Current Visit: Yes Status: Acute Qualifiers: Septic arthritis organism: staphylococcal Qualified Code(s): M00.061 - Staphylococcal arthritis, right knee Subjective Interval history: S: Pain continues to improve. Denies fevers or chills. No nausea/vomiting, CP or SOB. O: AFVSS WBC 12.7, Knee joint ctx +MRSA, blood ctx +MRSA GEN: NAD, AAOx3 RLE: Incisions clean, dry and intact with non-purulent drainage. No surrounding erythema. No tenderness to palpation around knee or in area of incision sites. No purulent material expressed Denies pain with short arc motion at the knee. DNVI at baseline over BKA site A/P: POD#2 s/p RLE arthroscopic and open I&D for septic arthritis with soft tissue abscess -Continue daily dressing changes, will continue to monitor exam. -WBC trending down -With continued improvement, no plans for repeat surgery at this time -Continue IV antibiotics as per hospitalist and ID -Medical management per hospitalist Objective Vital signs: Vital Signs Temp Pulse Resp BP Pulse Ox 07/03/17 07:54 98.7 F 100 18 120/72 95 07/03/17 03:46 98.9 F 75 18 123/74 95 07/03/17 00:30 99.5 F 99 18 142/77 96 07/02/17 18:56 98.6 F 99 18 154/83 96 07/02/17 16:00 98.8 F 101 17 143/81 98 07/02/17 11:29 98.6 F 87 14 156/81 99 Intake and Output 07/02/17 07/03/17 07/03/17 23:59 07:59 15:59 Intake Total 770 / 770 0 / 0 Output Total 900 / 900 1000 / 1000 Balance -130 / -130 -1000 / -1000 Intake: IV Fluids 250 / 250 Vancocin 1,250 MG In 0.9 % 250 / 250 Sodium Chloride 250 ML @ 166.67 mls/hr IVPB Q12H [facility] Rx#: [id number] Oral 520 / 520 0 / 0 Output: Urine 900 / 900 1000 / 1000 Other: Meal Dinner Percent of Meal Consumed 100% Blood Glucose* 161 89 - Labs CBC & BMP: 07/03/17 01:45 07/03/17 01:45 Labs: Abnormal lab results WBC 12.7 K/mcL (4.3-11.1) H 07/03/17 01:45 RBC 3.46 M/mcL (4.19-5.50) L 07/03/17 01:45 Hgb 9.7 g/dL (12.9-16.9) L 07/03/17 01:45 Hct 29.0 % (37.5-50.1) L 07/03/17 01:45 Plt Count 425 K/mcL (140-400) H 07/03/17 01:45 MPV 9.2 fL (9.4-12.4) L 07/03/17 01:45 PT 13.6 Seconds (9.4-12.1) H 07/01/17 01:45 Sodium 132 mEq/L (136-145) L 07/03/17 01:45 Glucose 114 mg/dL (70-105) H 07/03/17 01:45 Calculated Osmolality 277 (280-300) L 07/03/17 01:45 Calcium 8.2 mg/dL (8.6-10.3) L 07/03/17 01:45 Vancomycin Trough 15 mcg/mL (5-10) H 07/02/17 11:45 mecA-Methicil Res Gene DETECTED (Not Detect) A 06/30/17 22:43 Consult Discharge Plan - Plan Referrals: Kamran Lira DO [Primary Care Provider] -
--- NOTE | 2017-07-03 11:58 | Internal Med Progress Note ---
Date of Encounter: 07/03/17 Time of Encounter: 11:50 - Assessment and plan (1) Sepsis Current Visit: Yes Status: Acute Assessment and plan: MRSA sepsis with tachycardia, leukocytosis. Source of infection: right knee septic joint. Blood cultures growing gram positive cocc with MRSA staph. repeat blood cultures , follow up sensitivities. 2D echo showed thickened aortic valve leaflets but no other acute findings. Will plan for LYNETTE per ID recs. Plan for 4-6 weeks of antibiotics. ID following Qualifiers: Sepsis type: methicillin susceptible Staphylococcus aureus Qualified Code(s ): A41.01 - Sepsis due to Methicillin susceptible Staphylococcus aureus (2) Septic arthritis of knee, right Current Visit: Yes Status: Acute Assessment and plan: See #1. Continue antibiotics. ID following. POD#2 s/p RLE arthroscopic and open I&D for septic arthritis with soft tissue abscess. Continue IV antibiotics Qualifiers: Septic arthritis organism: staphylococcal Qualified Code(s): M00.061 - Staphylococcal arthritis, right knee (3) Uncontrolled diabetes mellitus Current Visit: Yes Status: Acute Assessment and plan: Hx of uncontrolled DM with bilateral BKA. Last A1C from 06/11/17 showed A1C 16.9. Start on weight based lantus and humalog regimen. Monitor fingersticks Qualifiers: Diabetes mellitus type: type 2 Diabetes mellitus long-term insulin use: with long-term use Diabetes mellitus complication status: with unspecified complications Qualified Code(s): E11.8 - Type 2 diabetes mellitus with unspecified complications; E11.65 - Type 2 diabetes mellitus with hyperglycemia ; Z79.4 - skilled nursing (current) use of insulin (4) DVT prophylaxis Current Visit: Yes Status: Acute Assessment and plan: heparin SQ (5) Coronary artery disease Current Visit: Yes Status: Chronic Assessment and plan: Hx of CAD with multiple stents placed. continue aspirin and lipitor, Qualifiers: Coronary Disease-Associated Artery/Lesion type: bypass graft [place] vs. transplanted heart: [place] heart Associated angina: angina presence unspecified Qualified Code(s): I25.810 - Atherosclerosis of coronary artery bypass graft(s) without angina pectoris (6) Hypertension Current Visit: Yes Status: Chronic Assessment and plan: resume home meds once reconciled. Qualifiers: Hypertension type: unspecified Qualified Code(s): I10 - Essential (primary ) hypertension (7) COPD (chronic obstructive pulmonary disease) Current Visit: Yes Status: Chronic Assessment and plan: does not appear tob e in acute exacerbation. Plan: PRN DuoNebs Qualifiers: COPD type: unspecified COPD Qualified Code(s): J44.9 - Chronic obstructive pulmonary disease, unspecified (8) Anxiety Current Visit: Yes Status: Acute Assessment and plan: continue home meds (9) S/P bilateral BKA (below knee amputation) Current Visit: Yes Status: Chronic Assessment and plan: Stable (10) Tobacco abuse Current Visit: Yes Status: Acute Assessment and plan: nicotine patch PRN for nicotine craving. (11) Hyperlipidemia Current Visit: Yes Status: Acute Assessment and plan: continue statin Qualifiers: Hyperlipidemia type: unspecified Qualified Code(s): E78.5 - Hyperlipidemia , unspecified (12) Hyponatremia Current Visit: Yes Status: Acute Assessment and plan: Continue to monitor. normal saline as needed - Time Spent With Patient Total time spent is greater than 50% in coordination of care (as documented) at patient's floor/unit and/or counseling patient: - Subjective Interval history: No acute events overnight - Constitutional Vitals: Temp Pulse Resp BP Pulse Ox 98.8 F 88 16 146/85 99 07/03/17 11:07 07/03/17 11:07 07/03/17 11:07 07/03/17 11:07 07/03/17 11:07 General appearance: Present: cooperative, A&O X 3, pleasant, no acute distress, answers questions appropriately - Head Head exam: Present: atraumatic, normocephalic - Eye Eye exam: Present: PERRL, conjuntiva pink, sclera anicteric Pupils: Present: PERRL - Neck Neck exam general surgery: Present: supple, trachea midline. Absent: lymphadenopathy - Respiratory Respiratory exam: Present: CTAB. Absent: accessory muscle use, rales, rhonchi, wheezes - Cardiovascular Cardiovascular exam: Present: RRR, +S1, +S2. Absent: diastolic murmur, gallop, rubs, systolic murmur - GI/Abdominal GI/Abdominal exam: Present: normal bowel sounds, soft, no peritoneal signs. Absent: distended, tenderness - Extremities Exam Extremities exam: Present: warm, radial pulses palpable and symmetrical. Absent : calf tenderness, cyanotic, pedal edema Additional comments: s/p bilateral amputations - Neurological Exam Neurological exam: Present: CN II-XII intact, oriented X3, no focal deficits. Absent: pronater drift, facial droop, speech deficit - Skin Skin exam: Present: dry, intact Internal Medicine: Result - Labs CBC & Chem 7: 07/03/17 01:45 07/03/17 01:45 Labs: Short CBC 07/03/17 Range/Units 01:45 WBC 12.7 H (4.3-11.1) K/mcL Hgb 9.7 L (12.9-16.9) g/dL Hct 29.0 L (37.5-50.1) % Plt Count 425 H (140-400) K/mcL Neutrophils # 8.5 (1.6-8.9) K/mcL BMP 07/03/17 01:45 Sodium 132 L Potassium 4.0 Chloride 98 Carbon Dioxide 26 BUN 18 Creatinine 0.80 Glucose 114 H Calcium 8.2 L - ABG Interpretation ABG results: PT/INR, D-dimer PT 13.6 Seconds (9.4-12.1) H 07/01/17 01:45 - Impressions Impressions Echocardiogram 07/02/17 07:12 Impressions: LVEF 40-45%. Reduced LV systolic function with akinesis of the anteroseptal wall. Moderate left ventricular diastolic dysfunction. RV is suboptimally evaluated. Mild-moderately thickened aortic valve leaflets particularly noticeable on the RCC. No aortic stenosis. Mild mitral regurgitation. No pulmonary hypertension. No evidence for infective endocarditis. Left Ventricular Wall Motion: Rest Echo Findings The apex, apical inferior, mid inferior, basal inferior, apical anterior, mid anterior, basal anterior, apical lateral, mid anterior lateral, basal anterior lateral, mid inferior lateral and basal inferior lateral rey were hypokinetic. The apical septal, mid inferior septal, basal inferior septal, mid anterior septal and basal anterior septal rey were akinetic. Findings: Study Quality * Technically adequate exam. ECG Findings * Normal sinus rhythm. Left Ventricle * Moderate left ventricular diastolic dysfunction. * LVEF 40-45%. * Normal LV chamber size. Right Ventricle * RV is suboptimally evaluated. Left Atrium * Normal left atrial size. Right Atrium * Normal right atrial size. Aortic Valve * No aortic regurgitation. * Trileaflet aortic valve. * Mild-moderately thickened aortic valve leaflets particularly noticeable on the RCC. * No aortic stenosis. Mitral Valve * Normal mitral valve structure. * No mitral stenosis. * Mild mitral regurgitation. Tricuspid Valve * Normal tricuspid valve structure. * No tricuspid regurgitation. * Estimated RA pressure is 3 mmHg. Pulmonic Valve * Pulmonic valve is not well visualized. * No pulmonic stenosis. * No pulmonic regurgitation. Pulmonary Artery * Pulmonary artery not well visualized. Aorta * Normally sized aortic root. Pericardium * There is no pericardial effusion present. Interatrial Septum * No evidence of PFO by color Doppler. IVC * Normal IVC dimensions and inspiratory collapse. Consult Discharge Plan - Plan Referrals: Kamran Lira DO [Primary Care Provider] -
[2017-07-03] MEDS: *HR* HYDROcodone/Acet 7.5/325 mg TABLET PO PRN ×2 (16:22→21:32)
[2017-07-03] MEDS: Insulin DETEMIR 100 UNIT/ML X5UNITS SQ SCH (21:32)
[2017-07-04] MEDS: *HR* OxyCODONE Immed Rel 5 MG TABLET PO PRN ×2 (00:21→06:30)
[2017-07-04 01:59] LABS: Basophils % 0.2 %; Eosinophils # 0.3 K/mcL (0.0-0.6); Eosinophils % 2.1 %; Hematocrit 27.1 % (37.5-50.1); Hemoglobin 8.9 g/dL (12.9-16.9); Immature Granulocytes % 0.7 % (0-4); Lymphocytes # 2.4 K/mcL (0.6-4.6); Lymphocytes % 19.6 %; Mean Corpuscular HGB Conc 32.8 g/dL (31.6-35.5); Mean Corpuscular Hemoglobin 27.6 pg (28.0-33.3); Mean Corpuscular Volume 84.2 fL (83.0-100.0); Monocytes # 0.9 K/mcL (0.0-1.3); Monocytes % 7.7 %; Neutrophils # 8.5 K/mcL (1.6-8.9); Platelet Count 372 K/mcL (140-400); Red Blood Count 3.22 M/mcL (4.19-5.50); Red Cell Distribution Width 13.4 % (11.5-14.5); Segmented Neutrophils % 69.7 %
[2017-07-04 02:22] LABS: BUN/Creatinine Ratio 18 (6-26); Blood Urea Nitrogen 15 mg/dL (6-20); Calcium 8.2 mg/dL (8.6-10.3); Carbon Dioxide 26 mEq/L (23-29); Chloride 97 mEq/L (98-107); Glucose 248 mg/dL (70-105); Osmolality,Calculated 281 (280-300); Potassium 4.3 mEq/L (3.5-5.1); Sodium 131 mEq/L (136-145); eGFR For African Americans > 60 (> 60); eGFR For Non-African Americans > 60 (> 60)
[2017-07-04] MEDS: Acetaminophen 325 MG TABLET PO PRN (02:29)
[2017-07-04] MEDS: *HR* HYDROcodone/Acet 7.5/325 mg TABLET PO PRN ×3 (04:33→20:31)
[2017-07-04] MEDS: *HR* Heparin 5,000 UNIT/ML VIAL SQ SCH ×3 (06:26→20:31)
[2017-07-04] MEDS: Insulin LISPRO 300 UNITS/3 ML VIAL SQ SCH ×4 (08:01→20:31)
[2017-07-04] MEDS ORDERED: Tetracaine/Benzocaine/Butamben 200MG/SPRAY (100SPY/BOT) MM ONE (09:40)
[2017-07-04] MEDS ORDERED: 0.9 % Sodium Chloride 500 ML IVC ONE (09:40)
[2017-07-04] MEDS: *HR* Midazolam HCl 5 MG/5 ML VIAL IVP PRN ×3 (10:45→10:55)
[2017-07-04] MEDS: *HR* FentaNYL (PF) 100 MCG/2 ML VIAL IVP PRN ×2 (10:45→10:50)
--- NOTE | 2017-07-04 11:50 | Infectious Disease Progress No ---
Date of Encounter: 07/04/17 Time of Encounter: 11:48 - Assessment and Plan (1) Sepsis Current Visit: Yes Status: Acute The patient had two SIRS criteria on admission. Likely secondary to right knee septic arthritis. Improved. WBC trending down. Tachycardia recurred this morning, but likely secondary to anxiety rather than acute infectious process. Blood cultures drawn 06/30/17 are positive 1/2 sets for MRSA. Repeat blood cultures x 2 sets drawn 07/02/17 are NGTD. Qualifiers: Sepsis type: methicillin susceptible Staphylococcus aureus Qualified Code(s ): A41.01 - Sepsis due to Methicillin susceptible Staphylococcus aureus (2) Bacteremia Current Visit: Yes Status: Acute Causative organism MRSA. Source likely the right knee septic arthritis. Blood cultures drawn 06/30/17 are positive 1/2 sets for MRSA. Complicated due to the septic arthritis. No endocarditis stigmata noted on exam. The patient has one major Modified Wan's Criteria. TTE negative for vegetations. LYNETTE pending completiong today. Rheumatoid factor normal. Repeat blood cultures drawn 07/02/17 are NGTD x 2. Continue Vancomycin IV. Pharmacy to dose. Goal trough ~15. Duration of treatment depends on the clinical picture, but likely 4-6 weeks. Monitor renal function and for drug toxicity and dose-adjust antibiotics. Consult VAT for PICC line placement. marketing services manager consult to assist with discharge planning. (3) Septic arthritis of knee, right Current Visit: Yes Status: Acute Location: right knee. Causative organism: MRSA. Etiology unclear. Status post sudden-onset of pain about 1 month ago. Denies known trauma. MRI completed 06/27/17 showed a large defect in the superior aspect of the patella through which a large colume of joint fluid extended into the adjacent subcutaneous fat as well as degenerative vs. reactive edema vs. contusion to the lateral femoral condyle and lateral tibial plateau, and a large non- specific joint effusion. Referred to orthopedics and has arthrocentesis 06/29/17 that revealed grossly purulent synovial fluid. The lab was unable to perform cell count due to cell clumping, but culture was positive for MRSA. Ortho consulted. Status post arthroscopic I & D of the right knee 07/01/[address] Munoz. Operative note reviewed. Gross purulence noted intra-op. Pre-op ESR >130, CRP 262. Wound care and activity restrictions per the ortho team. Continue Vancomycin IV. Pharmacy to dose. Goal trough ~15. Duration of treatment depends on the clinical picture, but likely 4-6 weeks. Monitor renal function and for drug toxicity and dose-adjust antibiotics. Continue contact precautions per policy. Continue VAT for PICC line placement. marketing services manager to assist with discharge planning. Qualifiers: Septic arthritis organism: staphylococcal Qualified Code(s): M00.061 - Staphylococcal arthritis, right knee (4) Hyperglycemia due to type 2 diabetes mellitus Current Visit: Yes Status: Acute Uncontrolled. Hgb A1C 16.9 in May 2017. Blood sugars seem better controlled today. Recommend aggressive glucose monitoring and control to promote wound healing and prevent re-infection. Management per the primary team. Qualifiers: Diabetes mellitus long term care administrator insulin use: unspecified long term care administrator insulin use status Qualified Code(s): E11.65 - Type 2 diabetes mellitus with hyperglycemia (5) Coronary artery disease Current Visit: Yes Status: Chronic Qualifiers: Coronary Disease-Associated Artery/Lesion type: bypass graft [place] vs. transplanted heart: [place] heart Associated angina: angina presence unspecified Qualified Code(s): I25.810 - Atherosclerosis of coronary artery bypass graft(s) without angina pectoris (6) Hypertension Current Visit: Yes Status: Chronic Qualifiers: Hypertension type: unspecified Qualified Code(s): I10 - Essential (primary ) hypertension (7) COPD (chronic obstructive pulmonary disease) Current Visit: Yes Status: Chronic Qualifiers: COPD type: unspecified COPD Qualified Code(s): J44.9 - Chronic obstructive pulmonary disease, unspecified (8) S/P bilateral BKA (below knee amputation) Current Visit: Yes Status: Chronic - Subjective Interval history: Patient seen and examined. No acute events noted overnight. Patient sitting up in bed. States overall he feels better. Denies any fevers or chills or rigors. Denies any chest pain, shortness of breath, or cough. Denies any nausea, vomiting, diarrhea, or constipation. Had BM yesterday. Denies any abdominal pain or urinary complaints. States his appetite is good. Currently NPO for LYNETTE later today. Blood sugars appear to be well controlled. Denies any oral thrush or new skin lesions. Reports improved pain at the surgical site states the swelling and redness are markedly improved. Infect Dis PN-Objective Data - Labs CBC & Chem 7: 07/04/17 01:35 07/04/17 01:35 Labs: Laboratory Results - last 24 hr 07/04/17 07/04/17 01:35 01:35 WBC 12.2 H RBC 3.22 L Hgb 8.9 L Hct 27.1 L MCV 84.2 MCH 27.6 L MCHC 32.8 RDW 13.4 Plt Count 372 MPV 9.0 L Immature Gran % 0.7 Seg Neutrophils % 69.7 Lymphocytes % 19.6 Monocytes % 7.7 Eosinophils % 2.1 Basophils % 0.2 Neutrophils # 8.5 Lymphocytes # 2.4 Monocytes # 0.9 Eosinophils # 0.3 Basophils # 0.0 Sodium 131 L Potassium 4.3 Chloride 97 L Carbon Dioxide 26 BUN 15 Creatinine 0.84 Est GFR ( Amer) > 60 Est GFR (Non-Af Amer) > 60 BUN/Creatinine Ratio 18 Glucose 248 H Calculated Osmolality 281 Calcium 8.2 L Cultures: Cultures 07/02/17 07:58 Blood Culture - Preliminary Peripheral Venipuncture No growth. 07/02/17 07:43 Blood Culture - Preliminary Peripheral Venipuncture No growth. Exam - Constitutional Vitals: Temp Pulse Resp BP Pulse Ox 97.7 F 95 14 148/91 92 07/04/17 10:05 07/04/17 10:05 07/04/17 10:05 07/04/17 10:05 07/04/17 10:05 General appearance: average body habitus, cooperative, no acute distress - Head Head exam: Present: atraumatic, normal inspection, normocephalic - Eye Eye exam: Present: EOMI, normal appearance, PERRL Pupils: Present: normal accommodation Additional comments: No subconjunctival hemorrhage noted. - ENT ENT exam: Present: mucous membranes moist - Neck Neck exam: Present: normal inspection - Respiratory Respiratory exam: Present: CTAB. Absent: rales, respiratory distress, rhonchi, wheezes - Cardiovascular Cardiovascular exam: Present: RRR, +S1, +S2 - GI/Abdominal GI/Abdominal exam: Present: normal bowel sounds, soft. Absent: distended, tenderness - Extremities Exam Extremities exam: Present: joint swelling (mild, right knee), tenderness (Right knee). Absent: pedal edema Additional comments: Right knee surgical incisions with sutures intact. Small amount of serous drainage noted from the anterior surgical site. Mild tenderness noted. No erythema. No fluctuance. - Back Exam Back exam: Present: normal inspection. Absent: paraspinal tenderness, vertebral tenderness - Neurological Exam Neurological exam: Present: alert, oriented X3, no focal deficits - Psychiatric Psychiatric exam: Present: normal affect, normal mood - Skin Skin exam: Present: dry, intact, normal color, warm Consult Discharge Plan - Plan Referrals: Kamran Lira DO [Primary Care Provider] - - Attending Attestation I examined this patient and my medical decision-making was reviewed with the Resident Physician. I agree with the documented findings, disposition and treatment plan as described except to the extent set forth below.
--- NOTE | 2017-07-04 12:00 | Internal Med Progress Note ---
Date of Encounter: 07/04/17 Time of Encounter: 12:00 - Assessment and plan (1) Sepsis Current Visit: Yes Status: Acute Assessment and plan: MRSA sepsis with tachycardia, leukocytosis. Source of infection: right knee septic joint. Blood cultures growing gram positive cocc with MRSA staph. repeat blood cultures , follow up sensitivities. 2D echo showed thickened aortic valve leaflets but no other acute findings. Will plan for LYNETTE per ID recs. LYNETTE completed today. Awaiting recs. Repeat blood cultures negative. Will place PICC line and Plan for 4-6 weeks of antibiotics. ID following Qualifiers: Sepsis type: methicillin susceptible Staphylococcus aureus Qualified Code(s ): A41.01 - Sepsis due to Methicillin susceptible Staphylococcus aureus (2) Septic arthritis of knee, right Current Visit: Yes Status: Acute Assessment and plan: See #1. Continue antibiotics. ID following. POD#2 s/p RLE arthroscopic and open I&D for septic arthritis with soft tissue abscess. Continue IV antibiotics Qualifiers: Septic arthritis organism: staphylococcal Qualified Code(s): M00.061 - Staphylococcal arthritis, right knee (3) Uncontrolled diabetes mellitus Current Visit: Yes Status: Acute Assessment and plan: Hx of uncontrolled DM with bilateral BKA. Last A1C from 06/11/17 showed A1C 16.9. Start on weight based lantus and humalog regimen. Monitor fingersticks Qualifiers: Diabetes mellitus type: type 2 Diabetes mellitus terminal operations supervisor insulin use: with terminal operations supervisor use Diabetes mellitus complication status: with unspecified complications Qualified Code(s): E11.8 - Type 2 diabetes mellitus with unspecified complications; E11.65 - Type 2 diabetes mellitus with hyperglycemia ; Z79.4 - penitentiary (current) use of insulin (4) DVT prophylaxis Current Visit: Yes Status: Acute Assessment and plan: heparin SQ (5) Coronary artery disease Current Visit: Yes Status: Chronic Assessment and plan: Hx of CAD with multiple stents placed. continue aspirin and lipitor, Qualifiers: Coronary Disease-Associated Artery/Lesion type: bypass graft [place] vs. transplanted heart: [place] heart Associated angina: angina presence unspecified Qualified Code(s): I25.810 - Atherosclerosis of coronary artery bypass graft(s) without angina pectoris (6) Hypertension Current Visit: Yes Status: Chronic Assessment and plan: resume home meds once reconciled. Qualifiers: Hypertension type: unspecified Qualified Code(s): I10 - Essential (primary ) hypertension (7) COPD (chronic obstructive pulmonary disease) Current Visit: Yes Status: Chronic Assessment and plan: does not appear tob e in acute exacerbation. Plan: PRN DuoNebs Qualifiers: COPD type: unspecified COPD Qualified Code(s): J44.9 - Chronic obstructive pulmonary disease, unspecified (8) Anxiety Current Visit: Yes Status: Acute Assessment and plan: continue home meds (9) S/P bilateral BKA (below knee amputation) Current Visit: Yes Status: Chronic Assessment and plan: Stable (10) Tobacco abuse Current Visit: Yes Status: Acute Assessment and plan: nicotine patch PRN for nicotine craving. (11) Hyperlipidemia Current Visit: Yes Status: Acute Assessment and plan: continue statin Qualifiers: Hyperlipidemia type: unspecified Qualified Code(s): E78.5 - Hyperlipidemia , unspecified (12) Hyponatremia Current Visit: Yes Status: Acute Assessment and plan: Continue to monitor. normal saline as needed - Time Spent With Patient Total time spent is greater than 50% in coordination of care (as documented) at patient's floor/unit and/or counseling patient: - Subjective Interval history: No acute events overnight - Constitutional Vitals: Temp Pulse Resp BP Pulse Ox 97.7 F 95 14 148/91 92 07/04/17 10:05 07/04/17 10:05 07/04/17 10:05 07/04/17 10:05 07/04/17 10:05 General appearance: Present: cooperative, A&O X 3, pleasant, no acute distress, answers questions appropriately - Head Head exam: Present: atraumatic, normocephalic - Eye Eye exam: Present: PERRL, conjuntiva pink, sclera anicteric Pupils: Present: PERRL - Neck Neck exam general surgery: Present: supple, trachea midline. Absent: lymphadenopathy - Respiratory Respiratory exam: Present: CTAB. Absent: accessory muscle use, rales, rhonchi, wheezes - Cardiovascular Cardiovascular exam: Present: RRR, +S1, +S2. Absent: diastolic murmur, gallop, rubs, systolic murmur - GI/Abdominal GI/Abdominal exam: Present: normal bowel sounds, soft, no peritoneal signs. Absent: distended, tenderness - Extremities Exam Extremities exam: Present: warm, radial pulses palpable and symmetrical. Absent : calf tenderness, cyanotic, pedal edema Additional comments: s/p bilateral amputations - Neurological Exam Neurological exam: Present: CN II-XII intact, oriented X3, no focal deficits. Absent: pronater drift, facial droop, speech deficit - Skin Skin exam: Present: dry, intact Internal Medicine: Result - Labs CBC & Chem 7: 07/04/17 01:35 07/04/17 01:35 Labs: Short CBC 07/04/17 Range/Units 01:35 WBC 12.2 H (4.3-11.1) K/mcL Hgb 8.9 L (12.9-16.9) g/dL Hct 27.1 L (37.5-50.1) % Plt Count 372 (140-400) K/mcL Neutrophils # 8.5 (1.6-8.9) K/mcL BMP 07/04/17 01:35 Sodium 131 L Potassium 4.3 Chloride 97 L Carbon Dioxide 26 BUN 15 Creatinine 0.84 Glucose 248 H Calcium 8.2 L - ABG Interpretation ABG results: PT/INR, D-dimer PT 13.6 Seconds (9.4-12.1) H 07/01/17 01:45 Consult Discharge Plan - Plan Referrals: Kamran Lira DO [Primary Care Provider] -
[2017-07-04] MEDS: Pregabalin 75 MG CAPSULE PO SCH ×3 (12:20→20:30)
[2017-07-04] MEDS: *HR* LORazepam 0.5 MG TABLET PO SCH ×2 (12:21→20:30)
[2017-07-04] MEDS: Aspirin 81 MG TAB.CHEW PO SCH (12:21)
[2017-07-04] MEDS ORDERED: Lidocaine -MPF 1% 5 ML AMPUL INFILT ONE (12:41)
--- NOTE | 2017-07-04 18:46 | Orthopedics Progress Note ---
Date of Encounter: 07/04/17 Time of Encounter: 18:45 - Assessment and Plan (1) Septic arthritis of knee, right Current Visit: Yes Status: Acute Qualifiers: Septic arthritis organism: staphylococcal Qualified Code(s): M00.061 - Staphylococcal arthritis, right knee Subjective Interval history: S: Knee pain continues to improve. Denies fevers or chills. No nausea/vomiting, CP or SOB. O: AFVSS WBC 12.2, Knee joint ctx +MRSA, blood ctx +MRSA, repeat blood ctx NGTD GEN: NAD, AAOx3 RLE: Incisions clean, dry and intact with non-purulent drainage. No surrounding erythema. No tenderness to palpation around knee or in area of incision sites. No purulent material expressed Denies pain with short arc motion at the knee. DNVI at baseline over BKA site A/P: POD#3 s/p RLE arthroscopic and open I&D for septic arthritis with soft tissue abscess -Continue daily dressing changes, will continue to monitor exam. -WBC continues to be trending down -With continued improvement, no plans for repeat surgery at this time -Continue IV antibiotics as per hospitalist and ID -Medical management per hospitalist Objective Vital signs: Vital Signs Temp Pulse Resp BP Pulse Ox 07/04/17 15:58 98 F 98 16 144/87 95 07/04/17 10:05 97.7 F 95 14 148/91 92 07/04/17 09:50 98.1 F 98 14 147/86 94 07/04/17 07:02 98.5 F 98 16 148/79 96 07/04/17 04:22 98.8 F 108 16 165/81 97 07/03/17 23:15 98.5 F 110 18 161/83 94 07/03/17 20:11 98.8 F 98 18 165/88 98 Intake and Output 07/04/17 07/04/17 07/04/17 07:59 15:59 23:59 Intake Total 250 / 250 878 / 878 Output Total 1000 / 1000 350 / 350 Balance -750 / -750 528 / 528 Intake: IV Fluids 250 / 250 228 / 228 0.9 % Sodium Chloride 500 ML @ 228 / 228 150 mls/hr IVC .Q3H20M ONE Rx#: [id number] Vancocin 1,250 MG In 0.9 % 250 / 250 Sodium Chloride 250 ML @ 166.67 mls/hr IVPB Q12H [facility] Rx#: [id number] Oral 650 / 650 Output: Urine 1000 / 1000 350 / 350 Other: Meal Lunch Percent of Meal Consumed 100% Weight 97.976 kg Blood Glucose* 130 57 210 Patient Weight 07/04/17 23:59 Weight 97.976 kg - Labs CBC & BMP: 07/04/17 01:35 07/04/17 01:35 Labs: Abnormal lab results WBC 12.2 K/mcL (4.3-11.1) H 07/04/17 01:35 RBC 3.22 M/mcL (4.19-5.50) L 07/04/17 01:35 Hgb 8.9 g/dL (12.9-16.9) L 07/04/17 01:35 Hct 27.1 % (37.5-50.1) L 07/04/17 01:35 MCH 27.6 pg (28.0-33.3) L 07/04/17 01:35 MPV 9.0 fL (9.4-12.4) L 07/04/17 01:35 PT 13.6 Seconds (9.4-12.1) H 07/01/17 01:45 Sodium 131 mEq/L (136-145) L 07/04/17 01:35 Chloride 97 mEq/L (98-107) L 07/04/17 01:35 Glucose 248 mg/dL (70-105) H 07/04/17 01:35 POC Glucose 171 mg/dL (70-99) H 07/03/17 11:10 Calcium 8.2 mg/dL (8.6-10.3) L 07/04/17 01:35 Vancomycin Trough 15 mcg/mL (5-10) H 07/02/17 11:45 mecA-Methicil Res Gene DETECTED (Not Detect) A 06/30/17 22:43 Consult Discharge Plan - Plan Referrals: Kamran Lira DO [Primary Care Provider] -
[2017-07-04] MEDS: Insulin DETEMIR 100 UNIT/ML X5UNITS SQ SCH (20:32)
[2017-07-05] MEDS: *HR* OxyCODONE Immed Rel 5 MG TABLET PO PRN ×2 (00:35→12:11)
[2017-07-05 01:50] LABS: Basophils % 0.3 %; Eosinophils # 0.3 K/mcL (0.0-0.6); Eosinophils % 1.8 %; Hematocrit 27.2 % (37.5-50.1); Hemoglobin 8.7 g/dL (12.9-16.9); Immature Granulocytes % 0.7 % (0-4); Lymphocytes # 2.6 K/mcL (0.6-4.6); Mean Corpuscular Hemoglobin 26.7 pg (28.0-33.3); Mean Corpuscular Volume 83.4 fL (83.0-100.0); Mean Platelet Volume 9.1 fL (9.4-12.4); Monocytes # 1.1 K/mcL (0.0-1.3); Monocytes % 7.5 %; Neutrophils # 10.5 K/mcL (1.6-8.9); Platelet Count 415 K/mcL (140-400); Red Blood Count 3.26 M/mcL (4.19-5.50); Red Cell Distribution Width 13.4 % (11.5-14.5); Segmented Neutrophils % 71.7 %
[2017-07-05 02:09] LABS: BUN/Creatinine Ratio 20 (6-26); Blood Urea Nitrogen 17 mg/dL (6-20); Calcium 8.3 mg/dL (8.6-10.3); Carbon Dioxide 28 mEq/L (23-29); Chloride 96 mEq/L (98-107); Glucose 187 mg/dL (70-105); Osmolality,Calculated 278 (280-300); Potassium 4.5 mEq/L (3.5-5.1); Sodium 131 mEq/L (136-145); eGFR For African Americans > 60 (> 60); eGFR For Non-African Americans > 60 (> 60)
[2017-07-05] MEDS: Acetaminophen 325 MG TABLET PO PRN (02:41)
[2017-07-05] MEDS: Insulin LISPRO 300 UNITS/3 ML VIAL SQ SCH ×2 (08:25→12:05)
[2017-07-05] MEDS: Aspirin 81 MG TAB.CHEW PO SCH (08:33)
[2017-07-05] MEDS: Pregabalin 75 MG CAPSULE PO SCH (08:33)
[2017-07-05] MEDS: *HR* LORazepam 0.5 MG TABLET PO SCH (08:33)
[2017-07-05] MEDS: *HR* HYDROcodone/Acet 7.5/325 mg TABLET PO PRN ×2 (08:38→14:52)
--- NOTE | 2017-07-05 09:12 | Infectious Disease Progress No ---
Date of Encounter: 07/05/17 Time of Encounter: 09:10 - Assessment and Plan (1) Sepsis Status: Acute The patient had two SIRS criteria on admission. Likely secondary to right knee septic arthritis. Improved. WBC up a little today, likely reactive due to LYNETTE yesterday. Continues to have some intermittent tachycardia, but nothing sustained. Blood cultures drawn 06/30/17 are positive 1/2 sets for MRSA. Repeat blood cultures x 2 sets drawn 07/02/17 are NGTD. Qualifiers: Sepsis type: methicillin susceptible Staphylococcus aureus Qualified Code(s ): A41.01 - Sepsis due to Methicillin susceptible Staphylococcus aureus (2) Bacteremia Status: Acute Causative organism MRSA. Source likely the right knee septic arthritis. Blood cultures drawn 06/30/17 are positive 1/2 sets for MRSA. Complicated due to the septic arthritis. No endocarditis stigmata noted on exam. The patient has one major Modified Wan's Criteria. TTE negative for vegetations. LYNETTE shows vegetation on the aortic valve. Rheumatoid factor normal. Repeat blood cultures drawn 07/02/17 are NGTD x 2. Continue Vancomycin IV. Pharmacy to dose. Goal trough ~15. Duration of treatment depends on the clinical picture, but likely 6 weeks. Monitor renal function and for drug toxicity and dose-adjust antibiotics. Consult VAT for PICC line placement. financial services sales representative consult to assist with discharge planning. Will need weekly CBC, BUN/Cr, ESR, CRP, and Vanc trough. Will need weekly PICC care per protocol. Follow up with ID 07/19/17 at 0900. (3) Endocarditis Status: Acute LYNETTE showed a very small, irregularly-shaped, somewhat mobile echodensity attached to the ventricular side of the NCC of the aortic valve suspicious for vegetations. Causative organism: MRSA. Likely secondary to right knee septic arthritis. Continue Vancomycin as above. Duration of treatment likely 6 weeks. Qualifiers: Endocarditis type: infective Infective endocarditis organism: bacterial Chronicity: acute Qualified Code(s): I33.0 - Acute and subacute infective endocarditis (4) Septic arthritis of knee, right Status: Acute Location: right knee. Causative organism: MRSA. Etiology unclear. Status post sudden-onset of pain about 1 month ago. Denies known trauma. MRI completed 06/27/17 showed a large defect in the superior aspect of the patella through which a large colume of joint fluid extended into the adjacent subcutaneous fat as well as degenerative vs. reactive edema vs. contusion to the lateral femoral condyle and lateral tibial plateau, and a large non- specific joint effusion. Referred to orthopedics and has arthrocentesis 06/29/17 that revealed grossly purulent synovial fluid. The lab was unable to perform cell count due to cell clumping, but culture was positive for MRSA. Ortho consulted. Status post arthroscopic I & D of the right knee 07/01/[address] Munoz. Operative note reviewed. Gross purulence noted intra-op. Pre-op ESR >130, CRP 262. Wound care and activity restrictions per the ortho team. Continue Vancomycin IV. Pharmacy to dose. Goal trough ~15. Duration of treatment depends on the clinical picture, but likely 6 weeks given that the patient has endocarditis. Monitor renal function and for drug toxicity and dose-adjust antibiotics. Continue contact precautions per policy. Continue VAT for PICC line placement. financial services sales representative to assist with discharge planning. Qualifiers: Septic arthritis organism: staphylococcal Qualified Code(s): M00.061 - Staphylococcal arthritis, right knee (5) Hyperglycemia due to type 2 diabetes mellitus Status: Acute Uncontrolled. Hgb A1C 16.9 in May 2017. Blood sugars seem better controlled today. Recommend aggressive glucose monitoring and control to promote wound healing and prevent re-infection. Management per the primary team. 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 transplanted heart: [place] heart Associated angina: angina presence unspecified Qualified Code(s): I25.810 - Atherosclerosis of coronary artery bypass graft(s) without angina pectoris (7) Hypertension Status: Chronic Qualifiers: Hypertension type: unspecified Qualified Code(s): I10 - Essential (primary ) hypertension (8) COPD (chronic obstructive pulmonary disease) Status: Chronic Qualifiers: COPD type: unspecified COPD Qualified Code(s): J44.9 - Chronic obstructive pulmonary disease, unspecified (9) S/P bilateral BKA (below knee amputation) Status: Chronic - Subjective Interval history: Patient seen and examined. No acute events noted overnight. Patient sitting up in bed. States overall he feels better. Denies any fevers or chills or rigors. Denies any chest pain, shortness of breath, or cough. Denies any nausea, vomiting, diarrhea, or constipation. Had BM yesterday. Denies any abdominal pain or urinary complaints. States his appetite is good. Blood sugars appear to be well controlled. Denies any oral thrush or new skin lesions. Reports improved pain at the surgical site states the swelling and redness are markedly improved. LYNETTE positive for vegetation on the aortic valve. Infect Dis PN-Objective Data - Labs CBC & Chem 7: 07/05/17 01:22 07/05/17 01:22 Labs: Laboratory Results - last 24 hr 07/02/17 07/03/17 07/03/17 15:59 17:09 20:00 WBC RBC Hgb Hct MCV MCH MCHC RDW Plt Count MPV Immature Gran % Seg Neutrophils % Lymphocytes % Monocytes % Eosinophils % Basophils % Neutrophils # Lymphocytes # Monocytes # Eosinophils # Basophils # Sodium Potassium Chloride Carbon Dioxide BUN Creatinine Est GFR ( Amer) Est GFR (Non-Af Amer) BUN/Creatinine Ratio Glucose POC Glucose 238 H 136 H 241 H Calculated Osmolality Calcium 07/04/17 07/04/17 07/04/17 07:39 12:13 15:57 WBC RBC Hgb Hct MCV MCH MCHC RDW Plt Count MPV Immature Gran % Seg Neutrophils % Lymphocytes % Monocytes % Eosinophils % Basophils % Neutrophils # Lymphocytes # Monocytes # Eosinophils # Basophils # Sodium Potassium Chloride Carbon Dioxide BUN Creatinine Est GFR ( Amer) Est GFR (Non-Af Amer) BUN/Creatinine Ratio Glucose POC Glucose 130 H 57 L 210 H Calculated Osmolality Calcium 07/04/17 07/05/17 07/05/17 20:29 01:22 01:22 WBC 14.6 H RBC 3.26 L Hgb 8.7 L Hct 27.2 L MCV 83.4 MCH 26.7 L MCHC 32.0 RDW 13.4 Plt Count 415 H MPV 9.1 L Immature Gran % 0.7 Seg Neutrophils % 71.7 Lymphocytes % 18.0 Monocytes % 7.5 Eosinophils % 1.8 Basophils % 0.3 Neutrophils # 10.5 H Lymphocytes # 2.6 Monocytes # 1.1 Eosinophils # 0.3 Basophils # 0.0 Sodium 131 L Potassium 4.5 Chloride 96 L Carbon Dioxide 28 BUN 17 Creatinine 0.87 Est GFR ( Amer) > 60 Est GFR (Non-Af Amer) > 60 BUN/Creatinine Ratio 20 Glucose 187 H POC Glucose 334 H Calculated Osmolality 278 L Calcium 8.3 L Cultures: Cultures 07/02/17 07:58 Blood Culture - Preliminary Peripheral Venipuncture No growth. 07/02/17 07:43 Blood Culture - Preliminary Peripheral Venipuncture No growth. Exam - Constitutional Vitals: Temp Pulse Resp BP Pulse Ox 98.8 F 97 16 144/83 96 07/05/17 06:36 07/05/17 06:36 07/05/17 06:36 07/05/17 06:36 07/05/17 08:00 General appearance: average body habitus, cooperative, no acute distress - Head Head exam: Present: atraumatic, normal inspection, normocephalic - Eye Eye exam: Present: EOMI, normal appearance, PERRL Pupils: Present: normal accommodation Additional comments: No subconjunctival hemorrhage noted. - ENT ENT exam: Present: mucous membranes moist - Neck Neck exam: Present: normal inspection - Respiratory Respiratory exam: Present: CTAB. Absent: rales, respiratory distress, rhonchi, wheezes - Cardiovascular Cardiovascular exam: Present: RRR, +S1, +S2 - GI/Abdominal GI/Abdominal exam: Present: normal bowel sounds, soft. Absent: distended, tenderness - Extremities Exam Extremities exam: Absent: pedal edema, tenderness Additional comments: Bilateral BKA stumps without redness, warmth, or open lesions. Right knee surgical site with dressing C/D/I. No tenderness noted. ROM not assessed. - Neurological Exam Neurological exam: Present: alert, oriented X3, no focal deficits - Psychiatric Psychiatric exam: Present: normal affect, normal mood - Skin Skin exam: Present: dry, intact, normal color, warm Additional comments: No endocarditis stigmata noted. Consult Discharge Plan - Plan Instructions: Peripherally Inserted Central Catheters and Midline Catheters (DC ), Sepsis (GEN) Additional Instructions: Follow-up appointments: If there is not an appointment listed below, please call your physician and schedule a follow-up appointment. If you have congestive heart failure and your symptoms return, make an appointment with your physician. Medication List: Carry an up to date list of medications you are taking at all time. We have given you an updated medication list including any new medications that you have been prescribed. Please provide that list to your primary provider Symptoms: If your condition changes or you experience any of the following symptoms, notify your physician immediately: Unusual or worsening pain, fever, persistent nausea and vomiting, bleeding, increase in swelling (especially in your legs), sudden weight gain, extreme dizziness, chest pain, increased drainage or redness from a wound or incision. Go to the emergency department if you experience a problem with breathing. Weights: If you have a history of swelling or shortness of breath, weigh yourself daily and notify your physician if you have a weight gain of two or more pounds in one day or 5 or more pounds in a week. If you experience any of the warning signs for stroke: Sudden numbness or weakness of the face, arm or leg; especially on one side of the body, sudden confusion, trouble speaking or understanding, sudden trouble seeing in one or both eyes, sudden trouble walking, dizziness, loss of balance or coordination, sudden sever headache with no cause; Call 911 or go to the emergency room. Stroke is a medical emergency. Some risk factors for stroke: Age, cigarette smoking, diabetes, excessive alcohol consumption, family history , high blood pressure, overweight, physical inactivity, prior stroke, heart attack, diagnosis of carotid artery stenosis or other artery disease. If you smoke, STOP: Smoking or tobacco use significantly increases your risk of heart and lung disease. Your chance of disease greatly increases if you continue to smoke. For more information, call the [place] tobacco quit line for smoking cessation 2-NOW ( ) Referrals: Lexii Valdez CNP [Advanced Practice Nurse] - 07/19/17 9:00 am Kamran Lira DO [Primary Care Provider] - 07/11/17 8:45 am Prescriptions: Aspirin 81 mg PO DAILY #30 tab.chew Nicotine Patch [Nicoderm] 14 mg TD DAILY PRN #30 patch.td24 PRN Reason: Nicotine Cravings Vancomycin [Vancocin] 1,250 mg IV Q12H 39 Days #78 vial - Attending Attestation I examined this patient and my medical decision-making was reviewed with the Resident Physician. I agree with the documented findings, disposition and treatment plan as described except to the extent set forth below.
[2017-07-05] MEDS: *HR* Heparin 5,000 UNIT/ML VIAL SQ SCH ×2 (10:27→13:13)
[2017-07-05 11:20] VITALS: BP 138/79
--- NOTE | 2017-07-05 11:23 | Internal Med Progress Note ---
Date of Encounter: 07/05/17 Time of Encounter: 11:20 - Assessment and plan (1) Sepsis Current Visit: Yes Status: Acute Assessment and plan: MRSA sepsis with tachycardia, leukocytosis. Source of infection: right knee septic joint. Blood cultures growing gram positive cocc with MRSA staph. 2D echo showed thickened aortic valve leaflets but no other acute findings. Will plan for LYNETTE per ID recs. LYNETTE completed 07/04 showing aortic valve vegetation with no evidence of valve insufficiency Repeat blood cultures negative. Will place PICC line and Plan for 4-6 weeks of antibiotics. ID following 07/05. Patient getting PICC line today and home antibiotic infusion being setup for 6 weeks of vancomycin Qualifiers: Sepsis type: methicillin susceptible Staphylococcus aureus Qualified Code(s ): A41.01 - Sepsis due to Methicillin susceptible Staphylococcus aureus (2) Septic arthritis of knee, right Current Visit: Yes Status: Acute Assessment and plan: See #1. Continue antibiotics. ID following. POD#2 s/p RLE arthroscopic and open I&D for septic arthritis with soft tissue abscess. Continue IV antibiotics with vancomycin Qualifiers: Septic arthritis organism: staphylococcal Qualified Code(s): M00.061 - Staphylococcal arthritis, right knee (3) Uncontrolled diabetes mellitus Current Visit: Yes Status: Acute Assessment and plan: Hx of uncontrolled DM with bilateral BKA. Last A1C from 06/11/17 showed A1C 16.9. Start on weight based lantus and humalog regimen. 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 continue aspirin and lipitor, Qualifiers: Coronary Disease-Associated Artery/Lesion type: bypass graft [place] vs. transplanted heart: [place] heart Associated angina: angina presence unspecified Qualified Code(s): I25.810 - Atherosclerosis of coronary artery bypass graft(s) without angina pectoris (6) Hypertension Current Visit: Yes Status: Chronic Assessment and plan: resume home meds once reconciled. Qualifiers: Hypertension type: unspecified Qualified Code(s): I10 - Essential (primary ) hypertension (7) COPD (chronic obstructive pulmonary disease) Current Visit: Yes Status: Chronic Assessment and plan: does not appear tob e in acute exacerbation. Plan: PRN DuoNebs Qualifiers: COPD type: unspecified COPD Qualified Code(s): J44.9 - Chronic obstructive pulmonary disease, unspecified (8) Anxiety Current Visit: Yes Status: Acute Assessment and plan: continue home meds (9) S/P bilateral BKA (below knee amputation) Current Visit: Yes Status: Chronic Assessment and plan: Stable (10) Tobacco abuse Current Visit: Yes Status: Acute Assessment and plan: nicotine patch PRN for nicotine craving. (11) Hyperlipidemia Current Visit: Yes Status: Acute Assessment and plan: continue statin Qualifiers: Hyperlipidemia type: unspecified Qualified Code(s): E78.5 - Hyperlipidemia , unspecified (12) Hyponatremia Current Visit: Yes Status: Acute Assessment and plan: Continue to monitor. normal saline as needed - Time Spent With Patient Total time spent is greater than 50% in coordination of care (as documented) at patient's floor/unit and/or counseling patient: - Subjective Interval history: No acute events overnight - Constitutional Vitals: Temp Pulse Resp BP Pulse Ox 98.8 F 97 16 144/83 96 07/05/17 06:36 07/05/17 06:36 07/05/17 06:36 07/05/17 06:36 07/05/17 08:00 General appearance: Present: cooperative, A&O X 3, pleasant, no acute distress, answers questions appropriately - Head Head exam: Present: atraumatic, normocephalic - Eye Eye exam: Present: PERRL, conjuntiva pink, sclera anicteric Pupils: Present: PERRL - Neck Neck exam general surgery: Present: supple, trachea midline. Absent: lymphadenopathy - Respiratory Respiratory exam: Present: CTAB. Absent: accessory muscle use, rales, rhonchi, wheezes - Cardiovascular Cardiovascular exam: Present: RRR, +S1, +S2. Absent: diastolic murmur, gallop, rubs, systolic murmur - GI/Abdominal GI/Abdominal exam: Present: normal bowel sounds, soft, no peritoneal signs. Absent: distended, tenderness - Extremities Exam Extremities exam: Present: warm, radial pulses palpable and symmetrical. Absent : calf tenderness, cyanotic, pedal edema Additional comments: s/p bilateral knee amputation - Neurological Exam Neurological exam: Present: CN II-XII intact, oriented X3, no focal deficits. Absent: pronater drift, facial droop, speech deficit - Skin Skin exam: Present: dry, intact Internal Medicine: Result - Labs CBC & Chem 7: 07/05/17 01:22 07/05/17 01:22 Labs: Short CBC 07/05/17 Range/Units 01:22 WBC 14.6 H (4.3-11.1) K/mcL Hgb 8.7 L (12.9-16.9) g/dL Hct 27.2 L (37.5-50.1) % Plt Count 415 H (140-400) K/mcL Neutrophils # 10.5 H (1.6-8.9) K/mcL BMP 07/05/17 01:22 Sodium 131 L Potassium 4.5 Chloride 96 L Carbon Dioxide 28 BUN 17 Creatinine 0.87 Glucose 187 H Calcium 8.3 L - ABG Interpretation ABG results: PT/INR, D-dimer PT 13.6 Seconds (9.4-12.1) H 07/01/17 01:45 Consult Discharge Plan - Plan Referrals: Lexii Valdez CNP [Advanced Practice Nurse] - 07/19/17 9:00 am Kamran Lira DO [Primary Care Provider] - Prescriptions: Vancomycin [Vancocin] 1,250 mg IV Q12H 39 Days #78 vial
--- NOTE | 2017-07-05 13:31 | Discharge Summary ---
- NOTES TO OUTPATIENT PROVIDER Notes to Outpatient Provider: Follow up with ID and orthopedic surgery Orders not resulted at time of discharge: Pending orders 07/02/17 07:58 Culture,Blood [BC] Routine 07/06/17 04:00 Basic Metabolic Panel AM 0400 CBC [Complete Blood Count] [HEME] AM 0400 07/07/17 04:00 Basic Metabolic Panel AM 0400 CBC [Complete Blood Count] [HEME] AM 0400 Date of Encounter: 07/05/17 Time of Encounter: 13:00 - Discharge Diagnosis (1) Sepsis Priority: Primary Status: Acute Assessment and Plan: 47 year old male with pmh of uncontrolled diabetes, history of bilateral BKA, hypertension, CAD who presents with extremely painful right knee pain s/p crawling in the house. Knee joint was aspirated and positive for MRSA. He was managed for MRSA sepsis with tachycardia, leukocytosis. Source of infection: right knee septic joint. Blood cultures grew gram positive cocc with MRSA staph. He was started on vancomycin and ceftriaxone and he is s/p right knee open irrigation and debridement on 07/01. He had 2D echo showed thickened aortic valve leaflets but no other acute findings. LYNETTE completed 07/04 showing aortic valve vegetation with no evidence of valve insufficiency. Repeat blood cultures negative. ID recommended placing PICC line and home antibiotic infusion for 6 weeks of vancomycin. His PICC line was placed on 07/05 and he was discharged home to complete his course of vancomycin Qualifiers: Sepsis type: methicillin susceptible Staphylococcus aureus Qualified Code(s ): A41.01 - Sepsis due to Methicillin susceptible Staphylococcus aureus (2) Septic arthritis of knee, right Priority: Secondary Status: Acute Assessment and Plan: See #1. Continue antibiotics. ID following. POD#2 s/p RLE arthroscopic and open I&D for septic arthritis with soft tissue abscess. Continue IV antibiotics with vancomycin Qualifiers: Septic arthritis organism: staphylococcal Qualified Code(s): M00.061 - Staphylococcal arthritis, right knee (3) Uncontrolled diabetes mellitus Priority: Secondary Status: Acute Assessment and Plan: Hx of uncontrolled DM with bilateral BKA. Last A1C from 06/11/17 showed A1C 16.9. Start on weight based lantus and humalog regimen. 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 continue aspirin and lipitor, Qualifiers: Coronary Disease-Associated Artery/Lesion type: bypass graft [place] vs. transplanted heart: [place] heart Associated angina: angina presence unspecified Qualified Code(s): I25.810 - Atherosclerosis of coronary artery bypass graft(s) without angina pectoris (6) Hypertension Priority: Secondary Status: Chronic Assessment and Plan: resume home meds once reconciled. Qualifiers: Hypertension type: unspecified Qualified Code(s): I10 - Essential (primary ) hypertension (7) COPD (chronic obstructive pulmonary disease) Priority: Secondary Status: Chronic Assessment and Plan: does not appear tob e in acute exacerbation. Plan: PRN DuoNebs Qualifiers: COPD type: unspecified COPD Qualified Code(s): J44.9 - Chronic obstructive pulmonary disease, unspecified (8) Anxiety Priority: Secondary Status: Acute Assessment and Plan: continue home meds (9) S/P bilateral BKA (below knee amputation) Priority: Secondary Status: Chronic Assessment and Plan: Stable (10) Tobacco abuse Priority: Secondary Status: Acute Assessment and Plan: nicotine patch PRN for nicotine craving. (11) Hyperlipidemia Priority: Secondary Status: Acute Assessment and Plan: continue statin Qualifiers: Hyperlipidemia type: unspecified Qualified Code(s): E78.5 - Hyperlipidemia , unspecified (12) Hyponatremia Priority: Secondary Status: Acute Assessment and Plan: Continue to monitor. normal saline as needed Hospital course: Mr. Lamb is a 47 year old male - Time Spent with Patient Total time spent providing and/or coordinating discharge services: - Discharge Medications Prescriptions: Aspirin 81 mg PO DAILY #30 tab.chew Nicotine Patch [Nicoderm] 14 mg TD DAILY PRN #30 patch.td24 PRN Reason: Nicotine Cravings Vancomycin [Vancocin] 1,250 mg IV Q12H 39 Days #78 vial Home Medications: Amitriptyline [Elavil] 75 mg PO HS 07/01/17 [History] Duloxetine HCl [Cymbalta] 60 mg PO DAILY 07/01/17 [History] HYDROcodone/Acet 7.5/325 mg [[place] 7.5-325 mg] 1 tab PO QID PRN 07/01/17 [ History] Insulin ASPART [NovoLOG] 0 - 10 unit SQ TIDWM 07/01/17 [History] Insulin Glargine,Hum.rec.anlog [Basaglar Kwikpen U-100] 50 unit SQ HS 07/01/17 [ History] LORazepam [Ativan] 0.5 mg PO BID 07/01/17 [History] Pregabalin [Lyrica] 150 mg PO TID 07/01/17 [History] Rosuvastatin Calcium [Crestor] 40 mg PO HS 07/01/17 [History] metFORMIN [Glucophage] 1,000 mg PO BIDWM 07/01/17 [History] Ranolazine [Ranexa] 1,000 mg PO BID 07/02/17 [History] Tizanidine HCl 4 mg PO TID 07/02/17 [History] Aspirin 81 mg PO DAILY #30 tab.chew 07/05/17 [Rx] Nicotine Patch [Nicoderm] 14 mg TD DAILY PRN #30 patch.td24 07/05/17 [Rx] Vancomycin [Vancocin] 1,250 mg IV Q12H 39 Days #78 vial 07/05/17 [Rx] Allergies/Adverse Reactions: 3 Allergy/AdvReac Type Severity Reaction Status Date / Time Diclofenac [From Voltaren] Allergy Gastrointestinal Verified 07/02/17 10:49 Upset Penicillins Allergy Rash Verified 07/02/17 10:49 Date of admission: 07/01/17 02:50 Primary care physician: Annie Dior Consults: 07/02/17 07:13 Consult to Infectious Diseases [CONS] Routine Consulting Provider: Infectious Disease [place] Reason for Consult: Gram positive bacteremia Call Completed: Yes 07/02/17 10:55 Consult to Community Cultural Development Officer [CONS] Routine Reason for SW Consult: home iv atb 07/04/17 12:41 Consult to Invasive Line Access Team [CONS] Routine Reason for Consult: Picc Line Insertion Line Type: PICC PICC line indications: vermin exterminator Med/Antibiotic Time Notified: 12:41 Call Completed: Yes - Constitutional Vitals: Temp Pulse Resp BP Pulse Ox 98.9 F 93 16 138/79 98 07/05/17 11:00 07/05/17 11:00 07/05/17 11:00 07/05/17 11:00 07/05/17 11:00 General appearance: Present: cooperative, A&O X 3, pleasant, no acute distress, answers questions appropriately - Patient Status Disposition: Home, Self-Care Condition: Good - Discharge Instructions Follow Up With: Lexii Valdez CNP [Advanced Practice Nurse] - 07/19/17 9:00 am Kamran Lira DO [Primary Care Provider] -
--- NOTE | 2017-07-05 13:34 | Physician Discharge Referral ---
Home Health/Hosp Referral Info Transfer to: Home Health - Diagnosis (1) Sepsis Priority: Primary Status: Acute (2) Septic arthritis of knee, right Priority: Secondary Status: Acute (3) Uncontrolled diabetes mellitus Priority: Secondary Status: Acute (4) DVT prophylaxis Priority: Secondary Status: Acute (5) Coronary artery disease Status: Chronic (6) Hypertension Status: Chronic (7) COPD (chronic obstructive pulmonary disease) Status: Chronic (8) Anxiety Status: Acute (9) S/P bilateral BKA (below knee amputation) Status: Chronic (10) Tobacco abuse Status: Acute (11) Hyperlipidemia Status: Acute (12) Hyponatremia Status: Acute - Respiratory Orders Smoking Cessation: Smoking cessation has been advised. For more information, call the [employer] Quit Line at 5-537-QHRC-NOW. - Diet/Nutrition Diet/Nutrition Orders: Cardiac - Activity Activity Orders: Ambulate - Services Needed Following services are medically necessary services: Nursing, Home Health Aide, Physical Therapy, Home Infusion - Transfer Medications Prescriptions: Aspirin 81 mg PO DAILY #30 tab.chew Nicotine Patch [Nicoderm] 14 mg TD DAILY PRN #30 patch.td24 PRN Reason: Nicotine Cravings Vancomycin [Vancocin] 1,250 mg IV Q12H 39 Days #78 vial Home Medications: Amitriptyline [Elavil] 75 mg PO HS 07/01/17 [History] Duloxetine HCl [Cymbalta] 60 mg PO DAILY 07/01/17 [History] HYDROcodone/Acet 7.5/325 mg [[place] 7.5-325 mg] 1 tab PO QID PRN 07/01/17 [ History] Insulin ASPART [NovoLOG] 0 - 10 unit SQ TIDWM 07/01/17 [History] Insulin Glargine,Hum.rec.anlog [Basaglar Kwikpen U-100] 50 unit SQ HS 07/01/17 [ History] LORazepam [Ativan] 0.5 mg PO BID 07/01/17 [History] Pregabalin [Lyrica] 150 mg PO TID 07/01/17 [History] Rosuvastatin Calcium [Crestor] 40 mg PO HS 07/01/17 [History] metFORMIN [Glucophage] 1,000 mg PO BIDWM 07/01/17 [History] Ranolazine [Ranexa] 1,000 mg PO BID 07/02/17 [History] Tizanidine HCl 4 mg PO TID 07/02/17 [History] Aspirin 81 mg PO DAILY #30 tab.chew 07/05/17 [Rx] Nicotine Patch [Nicoderm] 14 mg TD DAILY PRN #30 patch.td24 07/05/17 [Rx] Vancomycin [Vancocin] 1,250 mg IV Q12H 39 Days #78 vial 07/05/17 [Rx] Allergies/Adverse Reactions: 3 Allergy/AdvReac Type Severity Reaction Status Date / Time Diclofenac [From Voltaren] Allergy Gastrointestinal Verified 07/02/17 10:49 Upset Penicillins Allergy Rash Verified 07/02/17 10:49 Certification: Further, I certify that my clinical findings support that this patient is homebound (i.e. absences from home require considerable and taxing effort and are for medical reasons or adventism services or infrequently or short duration when for other reasons) because: Homebound Reason: Patient requires assistance of a person or device to safely leave home Attestation: My signature below is to certify that this patient is under my care and that I, or nurse practitioner, or a physician's drilling assistant working with me, has a face-to -face encounter with this patient.
[2017-07-05] MEDS ORDERED: Aminoglycoside Consult 1 EACH MC ONE (15:54)
== END 2017-07-05 15:55 | disposition home or self-care (01) | DRG 853 ==
LOC: 3NENU 22:12 → EMEROO 22:12 → 3NENU 07-01 01:55
PROVIDERS: ADMIT Internal Medicine; ATTEND Internal Medicine

== ENCOUNTER 2017-07-11 19:09 | Observation (INO) ==
[2017-07-11 22:36] LABS: Amphetamine Screen,Urine Negative ng/mL (Cutoff=1000); Barbiturate Screen,Urine Negative ng/mL (Cutoff=200); Benzodiazepines Screen,Urine Positive ng/mL (Cutoff=200); Cannabinoid Screen,Urine Negative ng/mL (Cutoff = 50); Cocaine Screen,Urine Negative ng/mL (Cutoff= 300); Opiate Screen,Urine Positive ng/mL (Cutoff=300); Phencyclidine Screen,Urine Negative ng/mL (Cutoff=25)
--- NOTE | 2017-07-12 01:10 | Internal Med History&Physical ---
Date of Encounter: 07/12/17 Time of Encounter: 12:45 Internal Medicine - H&P: HPI Chief complaint: symptomatic hyperglycemia Admitted From: Intrahospital Transfer Plans for Post Hospital Care: Home History of present illness: Mr. Lamb is a 47 year old male PMHx high cholesterol, HTN, kidney stones, [place], depression, DM, open heart surgery, PCI/coronary stents (17), COPD, BL BKA arrived to [facility] with BS 414 and stated that he gives himself clindamycin. He also had difficulty staying awake. Patient was sent here for hyperglycemia, UTI , Pneumonia, acute encephalopathy. He states that his home BS is usually in the 300s. Last visit was 07/05/17 for MRSA septic arthritis of right knee. He was started on vancomycin and ceftriaxone and ID had recommended for 6 weeks IV infusion of vancomycin. Significant labs at [facility] include WBC 16.5, Hb 8.1, platelets 632, INR 1.13, glucose 406, sodium 133, creatinine 1.4, alk phosp 177, lactic acid 0.7. UA was cloudy with 3+ bacteria and CT with possible pneumonia; patient was started on clindamycin and levaquin. EKG with sinus tachycardia, otherwise unremarkable. No CT head was done but patient is currently AOx3 and GCS 15. Patient denies CP, SOB, cough, abdominal pain, diarrhea, constipation, dysuria, hematuria. He can tolerate PO intake. He has no further acute complaints and states that he is doing well. Past Med Surg Social Fam HX - Past Medical History Medical history: coronary artery disease, diabetes, hyperlipidemia, hypertension , kidney stones, myocardial infarction, other Psychiatric history: anxiety - Past Surgical History Surgical History: angioplasty/stent, coronary bypass (CABG), orthopedic, other - Social History Smoking Status: Former smoker Smokeless Tobacco Status: No Alcohol use: none Drug use: none - Family History Mother Living Status: Still Living Hx Family Cardiac Disorders: Yes (PACER) Hx Family Endocrine Disorder: Yes (DIABETES) Father Living Status: Hx Family Cardiac Disorders: Yes Internal Medicine - H&P: Meds Amitriptyline [Elavil] 75 mg PO HS 07/01/17 [History] Duloxetine HCl [Cymbalta] 60 mg PO DAILY 07/01/17 [History] HYDROcodone/Acet 7.5/325 mg [[place] 7.5-325 mg] 1 tab PO QID PRN 07/01/17 [ History] Insulin ASPART [NovoLOG] 0 - 10 unit SQ TIDWM 07/01/17 [History] Insulin Glargine,Hum.rec.anlog [Basaglar Kwikpen U-100] 50 unit SQ HS 07/01/17 [ History] LORazepam [Ativan] 0.5 mg PO BID 07/01/17 [History] Pregabalin [Lyrica] 150 mg PO TID 07/01/17 [History] Rosuvastatin Calcium [Crestor] 40 mg PO HS 07/01/17 [History] metFORMIN [Glucophage] 1,000 mg PO BIDWM 07/01/17 [History] Ranolazine [Ranexa] 1,000 mg PO BID 07/02/17 [History] Tizanidine HCl 4 mg PO TID 07/02/17 [History] Aspirin 81 mg PO DAILY #30 tab.chew 07/05/17 [Rx] Nicotine Patch [Nicoderm] 14 mg TD DAILY PRN #30 patch.td24 07/05/17 [Rx] Vancomycin [Vancocin] 1,250 mg IV Q12H 39 Days #78 vial 07/05/17 [Rx] 3 Allergy/AdvReac Type Severity Reaction Status Date / Time Diclofenac [From Voltaren] Allergy Gastrointestinal Verified 07/02/17 10:49 Upset Penicillins Allergy Rash Verified 07/02/17 10:49 All Systems PM: A 10-system review of systems was performed and is negative for pertinent findings except as documented above in the HPI. - Constitutional Constitutional: no chills, no fever(s), no night sweats - EENT Eyes: no change in vision, no discharge, no pain, no photophobia Ears: no ear discharge, no ear pain, no tinnitus Nose, mouth and throat: no dysphagia, no nasal discharge, no neck pain, no sore throat - Cardiovascular Cardiovascular ROS IM: no chest pain, no diaphoresis, no dyspnea, no lightheadedness, no palpitations, no syncope - Respiratory Respiratory: no cough, no dyspnea, no wheezing, no excessive phlegm production - Gastrointestinal Gastrointestinal: no abdominal pain, no diarrhea, no hematemesis, no hematochezia, no melena, no nausea, no vomiting - Musculoskeletal Musculoskeletal ROS IM: no numbness, no tingling - Integumentary Integumentary IM: no rash, no unusual bruising - Neurological Neurological ROS: no confusion, no convulsions, no focal weakness, no numbness, no tingling, no tremor(s) - Hematologic/Lymphatic Hematologic/Lymphatic: no easy bruising - Constitutional Vitals: Temp Pulse Resp BP Pulse Ox 97.6 F 92 16 123/81 100 07/11/17 21:06 07/11/17 21:06 07/11/17 21:06 07/11/17 21:06 07/11/17 21:06 General appearance: Present: A&O X 3, no acute distress, answers questions appropriately - Head Head exam: Present: atraumatic, normocephalic - Neck Neck exam general surgery: Present: full ROM, supple, trachea midline - Respiratory Respiratory exam: Present: CTAB. Absent: respiratory distress - Cardiovascular Cardiovascular exam: Present: distant heart sounds, +S1, +S2, systolic murmur, tachycardia - GI/Abdominal GI/Abdominal exam: Present: normal bowel sounds, soft, no peritoneal signs. Absent: guarding, tenderness - Extremities Exam Extremities exam: Present: radial pulses palpable and symmetrical. Absent: joint swelling Additional comments: BL BKA. Right knee swelling. - Incison Incision: Absent: erythema - Neurological Exam Neurological exam: Present: altered, oriented X3, no focal deficits, strengths equal and symetr throughout - Skin Skin exam: Present: intact, warm. Absent: rash Internal Med - H&P Results - Labs CBC & Chem 7: 07/12/17 02:15 07/12/17 02:15 - Assessment and plan (1) Sepsis Current Visit: Yes Status: Acute Assessment and plan: Leukocytosis, tachycardic, urine bacteremia. Sepsis likely secondary to UTI. Pending UCx, BCx. Start Levaquin, Vancomycin. De-escalate as appropriate. Gentle hydration. Patient can tolerate PO intake. Start Diabetic diet. Continuous cardiac monitoring VSS Qualifiers: Sepsis type: methicillin susceptible Staphylococcus aureus Qualified Code(s ): A41.01 - Sepsis due to Methicillin susceptible Staphylococcus aureus (2) HILDA (acute kidney injury) Current Visit: Yes Status: Acute Assessment and plan: Baseline creatinine 0.8. Creatinine = 1.4 at [facility]. Recheck with AM Labs. Start gentle hydration. Consult nephrology as appropriate. Avoid nephrotoxins. (3) Anemia Current Visit: Yes Status: Acute Assessment and plan: Hb = 6.9 Blood type and cross. Transfuse 1 unit RBCs and recheck H/H Iron studies, transferrin, B12, Folate pending Qualifiers: Anemia type: unspecified type Qualified Code(s): D64.9 - Anemia, unspecified (4) Hyperglycemia due to type 2 diabetes mellitus Current Visit: No Status: Acute Assessment and plan: Initial BS at [facility] is 414. Lactic acid normal and there is no anion gap. Start high dose SSI. Restarted home dose glargine. POC q4 hours Qualifiers: Diabetes mellitus senior care insulin use: unspecified senior care insulin use status Qualified Code(s): E11.65 - Type 2 diabetes mellitus with hyperglycemia (5) Coronary artery disease Current Visit: No Status: Chronic Assessment and plan: Extensive CAD history. Reconcile medications when available. Qualifiers: Coronary Disease-Associated Artery/Lesion type: bypass graft [place] vs. transplanted heart: [place] heart Associated angina: angina presence unspecified Qualified Code(s): I25.810 - Atherosclerosis of coronary artery bypass graft(s) without angina pectoris (6) Hypertension Current Visit: No Status: Chronic Assessment and plan: Stable. Reconcile home meds when available. Qualifiers: Hypertension type: unspecified Qualified Code(s): I10 - Essential (primary ) hypertension (7) MARLO (obstructive sleep apnea) Current Visit: No Status: Acute Assessment and plan: Chronic. Stable. Continous SPO2 monitoring. Oxygen as needed. (8) COPD (chronic obstructive pulmonary disease) Current Visit: No Status: Chronic Assessment and plan: Chronic and stable. Nebulizers as needed. Qualifiers: COPD type: unspecified COPD Qualified Code(s): J44.9 - Chronic obstructive pulmonary disease, unspecified (9) S/P bilateral BKA (below knee amputation) Current Visit: No Status: Chronic Assessment and plan: Was recently here for septic arthritics and discharged home with Vancomycin through picc line for 6 weeks. Start Vancomycin, pharmacy to dose. (10) Hyperlipidemia Current Visit: No Status: Acute Assessment and plan: Continue home meds Qualifiers: Hyperlipidemia type: unspecified Qualified Code(s): E78.5 - Hyperlipidemia , unspecified (11) DVT prophylaxis Current Visit: Yes Status: Acute Assessment and plan: Hold for now. Hb = 6.9. SubQ Hep when more stable. - Time Spent With Patient Total time spent is greater than 50% in coordination of care (as documented) at patient's floor/unit and/or counseling patient: Greater than 35 minutes
--- NOTE | 2017-07-12 01:21 | Event Note ---
Date of Encounter: 07/12/17 Time of Encounter: 01:17 Patient was seen and examined. I agree with the H&P as written by the Resident Physician. Patient with history of DM, B/L BKA, HTN, CAD s/p multiple stents/CABG, HLD, COPD on 2 L at night sent here from outside facility with altered mental status , hyperglcemia, UTI sepsis. Apparently, his daughter called EMS as he was confused at home. He doesnt think he was or doesn't remember that he was. His from lung cancer 4 days ago and he is in the process of planning her . He seems down and depressed upon evaluation. Recently d/c from here on 07/05 after stay for sepsis stemming from MRSA septic right knee/bacteremia/ endocarditis with cultures + for MRSA. Patient underwent right knee open irrigation and debridement on 07/[address] Munoz. Discharged on vancomycin for 6 weeks through a PICC line. He was mildly tachycardic there. Otherwise stable. Labs showed glucose in 400s. Creatinine was 1.4 there with previous creatinine of .87 on 07/05. Na 133 , K 4.7, WBC count 16.3k. Platelets 632. UA + bacteria patient has a villar placed there for urinary retention. No CT head done there. CT abd/pelvis with nonspecific findings including distended bladder but picked up lung infiltrates. Patient has no respiratory complaints. A/Ox3, NAD RRR. S1, S2, no m/r/g Diminshed but CTAB Soft, NT, ND, +BS B/L BKA noted. Recent right knee incision site is noted and is clean and dry Will admit the patient for sepsis/UTI/AMS Will continue previous vancomyicin and add zosyn Repeat labs repeat UA check blood cultures No need for CT head as patient is not altered here Resume previous basal Insulin High dose sliding scale Gentle hydration with NS at 100 DVT ppx
[2017-07-12 02:30] LABS: Basophils % 0.1 %; Eosinophils # 0.2 K/mcL (0.0-0.6); Eosinophils % 1.1 %; Hematocrit 21.2 % (37.5-50.1); Hemoglobin 6.9 g/dL (12.9-16.9); Immature Granulocytes % 0.9 % (0-4); Lymphocytes # 2.2 K/mcL (0.6-4.6); Lymphocytes % 15.6 %; Mean Corpuscular HGB Conc 32.5 g/dL (31.6-35.5); Mean Corpuscular Hemoglobin 27.4 pg (28.0-33.3); Mean Corpuscular Volume 84.1 fL (83.0-100.0); Mean Platelet Volume 8.6 fL (9.4-12.4); Monocytes # 0.9 K/mcL (0.0-1.3); Monocytes % 6.2 %; Neutrophils # 10.9 K/mcL (1.6-8.9); Platelet Count 530 K/mcL (140-400); Red Blood Count 2.52 M/mcL (4.19-5.50); Red Cell Distribution Width 13.9 % (11.5-14.5); Segmented Neutrophils % 76.1 %
[2017-07-12] MEDS ORDERED: Naloxone 0.4 MG/ML INJ IVP PRN (02:43)
[2017-07-12 02:52] LABS: BUN/Creatinine Ratio 19 (6-26); Blood Urea Nitrogen 26 mg/dL (6-20); Calcium 8.3 mg/dL (8.6-10.3); Carbon Dioxide 29 mEq/L (23-29); Chloride 96 mEq/L (98-107); Glucose 215 mg/dL (70-105); Osmolality,Calculated 281 (280-300); Potassium 4.5 mEq/L (3.5-5.1); Sodium 130 mEq/L (136-145); eGFR For African Americans > 60 (> 60); eGFR For Non-African Americans 57 (> 60)
[2017-07-12] MEDS ORDERED: Acetaminophen 325 MG TABLET PO PRN (02:54)
[2017-07-12] MEDS ORDERED: *HR* Dextrose 50 % in Water (Syg) 50 ML SYRINGE IVP PRN (03:13)
[2017-07-12] MEDS ORDERED: Dextrose Gel 15 GM/37.5 ML TUBE PO PRN ×2 (03:13)
[2017-07-12] MEDS ORDERED: D5% in Water 1,000 ML IVC PRN (03:13)
[2017-07-12] MEDS ORDERED: Ipratropium/Albuterol Neb 3 ML IH PRN (03:29)
[2017-07-12] MEDS: 0.9 % Sodium Chloride 1,000 ML IVC SCH ×2 (04:20→18:28)
[2017-07-12 04:24] LABS: Hematocrit 20.5 % (37.5-50.1); Hemoglobin 6.6 g/dL (12.9-16.9)
[2017-07-12 05:06] LABS: Folate 11.9 ng/mL (3.0-16.0)
[2017-07-12 05:14] LABS: % Iron Saturation 16 % (20-55); Ferritin 627 ng/ml (20-250); Iron 33 mcg/dL (65-175); Transferrin 146 mg/dL (203-362)
[2017-07-12] MEDS ORDERED: 0.9 % Sodium Chloride 250 ML ONE (05:18)
[2017-07-12 06:08] LABS: Bilirubin,Urine Negative (Negative); Blood,Urine Trace (Negative); Clarity,Urine Cloudy (Clear); Color,Urine Yellow (Yellow); Glucose,Urine (UA) Normal (Normal); Ketones,Urine Negative (Negative); Leukocyte Esterase,Urine Negative (Negative); Nitrite,Urine Negative (Negative); Protein,Urine 30 mg/dL (Neg-Trace); Specific Gravity,Urine 1.018 (1.010-1.025); Urobilinogen,Urine Normal (Normal)
[2017-07-12 06:11] LABS: Bacteria,Urine None Seen per hpf (None-Few); Squamous Epithelial Cell,Urine Many per lpf (None-Few)
[2017-07-12 06:39] LABS: Amorphous Sediment,Urine Few (Few); Granular Casts,Urine Few per lpf (None Seen)
[2017-07-12] MEDS: Insulin LISPRO 300 UNITS/3 ML VIAL SQ SCH ×4 (08:29→22:07)
[2017-07-12] MEDS: Levofloxacin 750 MG/150 ML 750 MG/150 ML BAG IVPB SCH (10:14)
[2017-07-12] MEDS: *HR* HYDROcodone/Acet 7.5/325 mg TABLET PO PRN ×2 (11:59→18:28)
[2017-07-12] MEDS ORDERED: Nicotine 14 MG PATCH.TD24 TD PRN (16:07)
--- NOTE | 2017-07-12 16:13 | Event Note ---
Date of Encounter: 07/12/17 Time of Encounter: 16:08 1. Acute blood loss anemia, consider possible GI bleed upper versus lower Dropped hemoglobin from 11.1 less than 2 weeks ago down to 6.6 Start Protonix IV Hold aspirin Consult GI, consider further transfusions Continue IV fluids 2. Acute renal failure possibly from dehydration, consider vancomycin as a cause, may discontinue vancomycin if not improving 3. Recent history of right knee septic MRSA arthritis status post surgery Was discharged on July 05 in order to continue 39 more days of IV vancomycin, ID recommended to complete 6 weeks total Would have 32 days left of antibiotics 4. Possible healthcare associated pneumonia present upon admission CT scan of the abdomen performed at [facility] showed possible by bibasilar opacities Continue Levaquin day #1 and start cefepime 5. Depression, his of cancer recently just a few days ago, continue Ativan as needed 6. Uncontrolled diabetes Hemoglobin A1c back in May was 16.9 Continue insulin sliding scale 7. History of CAD
[2017-07-12] MEDS: Pantoprazole 40 MG VIAL IVP SCH (16:16)
[2017-07-12 16:29] LABS: Hematocrit 24.6 % (37.5-50.1); Hemoglobin 8.1 g/dL (12.9-16.9)
[2017-07-12] MEDS: Cefepime HCl 1,000 MG in Water for inj. (sterile) 20 ML 20 ML IVPB SCH (16:55)
[2017-07-12] MEDS: Pregabalin 75 MG CAPSULE PO SCH (22:06)
[2017-07-12] MEDS: Ranolazine 500 MG TAB.ER.12H PO SCH (22:06)
[2017-07-12] MEDS: *HR* LORazepam 0.5 MG TABLET PO SCH (22:06)
[2017-07-12] MEDS: Insulin DETEMIR 100 UNIT/ML X5UNITS SQ SCH (22:09)
[2017-07-13] MEDS: *HR* HYDROcodone/Acet 7.5/325 mg TABLET PO PRN ×4 (00:34→19:44)
[2017-07-13 04:48] LABS: Basophils % 0.2 %; Eosinophils # 0.2 K/mcL (0.0-0.6); Eosinophils % 1.7 %; Hematocrit 24.2 % (37.5-50.1); Hemoglobin 7.6 g/dL (12.9-16.9); Immature Granulocytes % 0.5 % (0-4); Lymphocytes # 1.8 K/mcL (0.6-4.6); Lymphocytes % 13.7 %; Mean Corpuscular HGB Conc 31.4 g/dL (31.6-35.5); Mean Corpuscular Hemoglobin 26.7 pg (28.0-33.3); Mean Corpuscular Volume 84.9 fL (83.0-100.0); Mean Platelet Volume 8.7 fL (9.4-12.4); Monocytes # 0.8 K/mcL (0.0-1.3); Monocytes % 5.9 %; Platelet Count 495 K/mcL (140-400); Red Blood Count 2.85 M/mcL (4.19-5.50)
[2017-07-13 05:05] LABS: BUN/Creatinine Ratio 16 (6-26); Blood Urea Nitrogen 18 mg/dL (6-20); Calcium 8.3 mg/dL (8.6-10.3); Carbon Dioxide 28 mEq/L (23-29); Chloride 103 mEq/L (98-107); Glucose 117 mg/dL (70-105); Osmolality,Calculated 283 (280-300); Potassium 4.1 mEq/L (3.5-5.1); Sodium 135 mEq/L (136-145); eGFR For African Americans > 60 (> 60); eGFR For Non-African Americans > 60 (> 60)
[2017-07-13] MEDS: Cefepime HCl 1,000 MG in Water for inj. (sterile) 20 ML 20 ML IVPB SCH (06:51)
[2017-07-13] MEDS: Pantoprazole 40 MG VIAL IVP SCH (06:52)
[2017-07-13] MEDS ORDERED: *HR* Midazolam HCl 5 MG/5 ML VIAL IVP ONE (07:35)
[2017-07-13] MEDS ORDERED: *HR* FentaNYL (PF) 100 MCG/2 ML VIAL ONE (07:36)
[2017-07-13] MEDS ORDERED: *HR* FentaNYL (PF) 100 MCG/2 ML VIAL IVP ONE (08:04)
[2017-07-13] MEDS ORDERED: *HR* Midazolam HCl 2 MG/2 ML VIAL IVP ONE (08:04)
[2017-07-13] MEDS ORDERED: Simethicone 40 MG/0.6 ML MLS IR ONE (08:04)
[2017-07-13] MEDS ORDERED: Tetracaine/Benzocaine/Butamben 200MG/SPRAY (100SPY/BOT) MM ONE (08:04)
--- NOTE | 2017-07-13 08:04 | Pre-Sedation Evaluation ---
Pre-sedation evaluation - Pre-sedation checklist Date of procedure: 07/13/17 Procedure: Transesophogeal Echocardiogram Recent Vitals: Last Vital Signs Temp 98 F 07/13/17 07:43 Pulse 89 07/13/17 07:43 Resp 16 07/13/17 07:43 BP 116/70 07/13/17 07:43 Pulse Ox 91 07/13/17 07:43 H&P (including ROS) documented in medical record: Yes Previous reaction to sedatives/anesthetics: No Dietary Status: NPO after Midnight Dentition: No loose teeth or bridges ASA Classification *see protocol: CLASS III-Severe systemic disease
[2017-07-13] MEDS: Insulin LISPRO 300 UNITS/3 ML VIAL SQ SCH ×4 (08:55→21:16)
[2017-07-13] MEDS: *HR* LORazepam 0.5 MG TABLET PO SCH ×2 (09:09→21:16)
[2017-07-13] MEDS: Ranolazine 500 MG TAB.ER.12H PO SCH ×2 (09:09→21:16)
[2017-07-13] MEDS: Pregabalin 75 MG CAPSULE PO SCH ×3 (09:09→21:15)
[2017-07-13] MEDS: Levofloxacin 750 MG/150 ML 750 MG/150 ML BAG IVPB SCH (09:11)
--- NOTE | 2017-07-13 11:45 | Gastroenterology Consult Note ---
<Aadma Sanchez Suzanne - Last Filed: 07/13/17 11:43> Date of Encounter: 07/13/17 Time of Encounter: 10:25 - Assessment and plan (1) Esophagitis Current Visit: Yes Status: Acute Assessment and plan: EGD showed severe/ulcerative esophagitis and large ulcers at the GE junction. Use twice a day PPI and 3 times a day Carafate liquid. Repeat EGD in 2 months with colonoscopy. (2) Anemia Current Visit: Yes Status: Acute Assessment and plan: Hgb on admission 8.1, iron 33, ferritin 627 and this AM Hgb 7.6. He has received 1 unit PRBC. Continue to monitor CBC and transfuse PRBC as needed. Qualifiers: Anemia type: unspecified type Qualified Code(s): D64.9 - Anemia, unspecified (3) S/P bilateral BKA (below knee amputation) Current Visit: No Status: Chronic - Time Spent With Patient Total time spent is greater than 50% in coordination of care (as documented) at patient's floor/unit and/or counseling patient: GI History of Present Illness - Data of Consult Patient: new to practice Consult date: 07/13/17 Requesting Physician: Flori Garza - Consult Narrative Reason for consult: Anemia History of present illness: Mr. Lamb is a 47 year old male with PMHx of CAD, HTN, DM, HLD, kidney stones, CT, open heart surgery, PCI/coronary stents (17), COPD, BL BKA arrived to [place] with BS 414. Patient was sent here for hyperglycemia, UTI, Pneumonia, acute encephalopathy. He states that his home BS is usually in the 300s. Last visit was 07/05/17 for MRSA septic arthritis of right knee. He was started on vancomycin and ceftriaxone and ID had recommended for 6 weeks IV infusion of vancomycin. Patient denies CP, SOB, cough, abdominal pain, diarrhea, constipation, dysuria, hematuria. Hgb on admission 8.1, iron 33, ferritin 627 and this AM Hgb 7.6. He has received 1 unit PRBC. Procedures: None NSAIDs: ASA Anticoagulation: None Past Med Surg Social Fam HX - Past Medical History Medical history: coronary artery disease, diabetes, hyperlipidemia, hypertension , kidney stones, myocardial infarction, other Psychiatric history: anxiety - Past Surgical History Surgical History: angioplasty/stent, coronary bypass (CABG), orthopedic, other - Social History Smoking Status: Former smoker Smokeless Tobacco Status: No Alcohol use: none Drug use: none - Family History Mother Living Status: Still Living Hx Family Cardiac Disorders: Yes (PACER) Hx Family Endocrine Disorder: Yes (DIABETES) Father Living Status: Hx Family Cardiac Disorders: Yes - Gastrointestinal Gastrointestinal: Present: as per HPI - Constitutional Constitutional: as per HPI - EENT Eyes: as per HPI Ears: Present: as per HPI Nose, mouth and throat: Present: as per HPI - Cardiovascular Cardiovascular ROS: Present: as per HPI - Respiratory Respiratory IM: Present: as per HPI - Genitourinary Genitourinary: Absent: change in color, Urinary frequency - Neurological ROS Neurological GI: Present: as per HPI - Hematologic/Lymphatic Hematologic/Lymphatic pediatric: Present: as per HPI - Musculoskeletal Musculoskeletal ROS GI: Present: as per HPI - Integumentary Integumentary GI: Present: as per HPI - Psychiatric ROS Psychiatric GI: Present: as per HPI - Endocrine Endocrine IM: Present: as per HPI - Constitutional Vitals: Temp Pulse Resp BP Pulse Ox 97.4 F L 80 17 125/81 96 07/13/17 10:51 07/13/17 10:51 07/13/17 10:51 07/13/17 10:51 07/13/17 10:51 General appearance: Present: cooperative, A&O X 3, no acute distress, answers questions appropriately - Head Head exam: Present: atraumatic, normocephalic - Eye Eye exam: Present: normal appearance, sclera anicteric - ENT ENT exam: Present: mucous membranes dry - Neck Neck exam general surgery: Present: normal inspection, trachea midline - Respiratory Respiratory exam: Present: CTAB. Absent: rales, rhonchi - Cardiovascular Cardiovascular exam: Present: RRR, +S1, +S2 - GI/Abdominal GI/Abdominal exam: Present: soft, no peritoneal signs. Absent: distended, firm , guarding, tenderness - Rectal Rectal exam: Present: deferred - Extremities Exam Extremities exam: Present: warm Additional comments: BL BKA - Neurological Exam Neurological exam: Present: no focal deficits - Psychiatric Psychiatric exam: Present: normal affect, normal mood - Skin Skin exam: Present: dry, intact, normal color, warm Results - Labs CBC & Chem 7: 07/13/17 04:35 07/13/17 04:35 Labs: Last Result Calcium 8.3 mg/dL (8.6-10.3) L 07/13/17 04:35 Iron 33 mcg/dL (65-175) L 07/12/17 04:05 % Saturation 16 % (20-55) L 07/12/17 04:05 Transferrin 146 mg/dL (203-362) L 07/12/17 04:05 Ferritin 627 ng/ml (20-250) H 07/12/17 04:05 Vitamin B12 1007 pg/mL (250-1100) 07/12/17 04:05 Folate 11.9 ng/mL (3.0-16.0) 07/12/17 04:05 Urine Opiates Screen Positive ng/mL ([id number]) H 07/11/17 22:09 Entire Visit Hgb 7.6 g/dL (12.9-16.9) L 07/13/17 04:35 Hct 24.2 % (37.5-50.1) L 07/13/17 04:35 Ferritin 627 ng/ml (20-250) H 07/12/17 04:05 Folate 11.9 ng/mL (3.0-16.0) 07/12/17 04:05 Consult Discharge Plan - Plan Referrals: Kamran Lira DO [Primary Care Provider] - <Ashley Prado - Last Filed: 07/13/17 12:36> Date of Encounter: 07/13/17 Time of Encounter: 08:00 - Time Spent With Patient Total time spent is greater than 50% in coordination of care (as documented) at patient's floor/unit and/or counseling patient: GI History of Present Illness - Data of Consult Requesting Physician: Flori Garza - Consult Narrative History of present illness: Mr. Lamb is a 47 year old male - Constitutional Vitals: Temp Pulse Resp BP Pulse Ox 97.4 F L 80 17 125/81 96 07/13/17 10:51 07/13/17 10:51 07/13/17 10:51 07/13/17 10:51 07/13/17 10:51 Results - Labs CBC & Chem 7: 07/13/17 04:35 07/13/17 04:35 Labs: Last Result Calcium 8.3 mg/dL (8.6-10.3) L 07/13/17 04:35 Iron 33 mcg/dL (65-175) L 07/12/17 04:05 % Saturation 16 % (20-55) L 07/12/17 04:05 Transferrin 146 mg/dL (203-362) L 07/12/17 04:05 Ferritin 627 ng/ml (20-250) H 07/12/17 04:05 Vitamin B12 1007 pg/mL (250-1100) 07/12/17 04:05 Folate 11.9 ng/mL (3.0-16.0) 07/12/17 04:05 Urine Opiates Screen Positive ng/mL (Kbksec=135) H 07/11/17 22:09 Entire Visit Hgb 7.6 g/dL (12.9-16.9) L 07/13/17 04:35 Hct 24.2 % (37.5-50.1) L 07/13/17 04:35 Ferritin 627 ng/ml (20-250) H 07/12/17 04:05 Folate 11.9 ng/mL (3.0-16.0) 07/12/17 04:05 - Attending Attestation I have personally performed a face to face evaluation on this patient. I have reviewed and agree with the care plan. History and Exam by me shows: Patient seen patient with severe anemia no overt GI bleeding. Had recent knee surgery done. Recommendation. EGD showed severe erosive esophagitis. Repeat EGD in 8 weeks along with the colon than
--- NOTE | 2017-07-13 13:50 | Internal Med Progress Note ---
<Adama Barrera - Last Filed: 07/13/17 14:03> Date of Encounter: 07/13/17 Time of Encounter: 11:00 - Assessment and plan (1) Hyperglycemia due to type 2 diabetes mellitus Current Visit: Yes Status: Acute Assessment and plan: Initial BS at [facility] is 414. Lactic acid normal and there is no anion gap. Start high dose SSI. Restarted home dose glargine. POC q4 hours Under better control today Qualifiers: Diabetes mellitus long-term insulin use: unspecified long-term insulin use status Qualified Code(s): E11.65 - Type 2 diabetes mellitus with hyperglycemia (2) Coronary artery disease Current Visit: No Status: Chronic Assessment and plan: Extensive CAD history. Continue current meds Qualifiers: Coronary Disease-Associated Artery/Lesion type: bypass graft [place] vs. transplanted heart: platinum heart Associated angina: angina presence unspecified Qualified Code(s): I25.810 - Atherosclerosis of coronary artery bypass graft(s) without angina pectoris (3) Hypertension Current Visit: No Status: Chronic Assessment and plan: Stable. Continue home meds Qualifiers: Hypertension type: unspecified Qualified Code(s): I10 - Essential (primary ) hypertension (4) MARLO (obstructive sleep apnea) Current Visit: Yes Status: Acute Assessment and plan: Chronic. Stable. Continous SPO2 monitoring. Oxygen as needed. (5) COPD (chronic obstructive pulmonary disease) Current Visit: No Status: Chronic Assessment and plan: Chronic and stable. Nebulizers as needed. Stop Cefepime Qualifiers: COPD type: unspecified COPD Qualified Code(s): J44.9 - Chronic obstructive pulmonary disease, unspecified (6) S/P bilateral BKA (below knee amputation) Current Visit: No Status: Chronic Assessment and plan: Was recently here for septic arthritics and discharged home with Vancomycin through picc line for 6 weeks. Continue Vancomycin, pharmacy to dose. Will require 31 days (7) Hyperlipidemia Current Visit: No Status: Acute Assessment and plan: Continue home meds Qualifiers: Hyperlipidemia type: unspecified Qualified Code(s): E78.5 - Hyperlipidemia , unspecified (8) Sepsis Current Visit: Yes Status: Acute Assessment and plan: Leukocytosis, tachycardic, urine bacteremia. Sepsis likely secondary to UTI. Pending UCx, BCx. Resolved at this time, now stable Start Levaquin, Vancomycin. Gentle hydration. Patient can tolerate PO intake. Start Diabetic diet Qualifiers: Sepsis type: methicillin susceptible Staphylococcus aureus Qualified Code(s ): A41.01 - Sepsis due to Methicillin susceptible Staphylococcus aureus (9) HILDA (acute kidney injury) Current Visit: Yes Status: Acute Assessment and plan: Baseline creatinine 0.8, now 1.10 Creatinine = 1.4 at [facility]. Recheck with AM Labs. Start gentle hydration. Consult nephrology if needed Avoid nephrotoxins. (10) Anemia Current Visit: Yes Status: Acute Assessment and plan: Hb = 6.9 on admission Blood type and cross. Transfuse 1 unit RBCs and recheck H/H Iron studies, transferrin, B12, Folate pending EGD per GI today with Severe Erosive Esophagitis, no obvious bleed Start PPI BID, Carafate, hold ASA Repeat H/H in the afternoon Qualifiers: Anemia type: unspecified type Qualified Code(s): D64.9 - Anemia, unspecified - Time Spent With Patient Total time spent is greater than 50% in coordination of care (as documented) at patient's floor/unit and/or counseling patient: - Subjective Interval history: The patient is seen and examined at bedside. He feels as though he would like to go home, and has no acute complaints. - Constitutional Vitals: Temp Pulse Resp BP Pulse Ox 97.4 F L 80 17 125/81 96 07/13/17 10:51 07/13/17 10:51 07/13/17 10:51 07/13/17 10:51 07/13/17 10:51 General appearance: Present: A&O X 3, no acute distress, answers questions appropriately Exam: Gen.: Vitals noted. No acute distress. HEENT: PERRL/EOMI, oropharynx clear, Normocephalic, atraumatic Neck: Supple. No adenopathy. Cardiac: RRR, no murmur, +S1/S2 Pulmonary: CTA bilaterally, no wheezes, rales or rhonchi, equal chest expansion Abdomen: soft, nontender, BS noted, no guarding Back: Nontender throughout. MSK: ROM intact, no joint swelling noted Extremities: B/L BKA, right leg infection. Neuro: A&Ox3, moves all extremities, no focal deficits Psych: Appropriate mood and behavior Internal Medicine: Result - Labs CBC & Chem 7: 07/13/17 04:35 07/13/17 04:35 Labs: Short CBC 07/12/17 07/13/17 Range/Units 16:20 04:35 WBC 12.8 H (4.3-11.1) K/mcL Hgb 8.1 L D 7.6 L (12.9-16.9) g/dL Hct 24.6 L 24.2 L (37.5-50.1) % Plt Count 495 H (140-400) K/mcL Neutrophils # 10.0 H (1.6-8.9) K/mcL BMP 07/13/17 04:35 Sodium 135 L Potassium 4.1 Chloride 103 Carbon Dioxide 28 BUN 18 Creatinine 1.10 Glucose 117 H Calcium 8.3 L Consult Discharge Plan - Plan Referrals: Kamran Lira DO [Primary Care Provider] - <Daniel Larkin H - Last Filed: 07/13/17 14:42> Date of Encounter: 07/13/17 - Assessment and plan (1) Hyperglycemia due to type 2 diabetes mellitus Current Visit: Yes Status: Acute Qualifiers: Diabetes mellitus salvage determiner insulin use: unspecified long-term insulin use status Qualified Code(s): E11.65 - Type 2 diabetes mellitus with hyperglycemia (2) Coronary artery disease Current Visit: No Status: Chronic Qualifiers: Coronary Disease-Associated Artery/Lesion type: bypass graft [place] vs. transplanted heart: platinum heart Associated angina: angina presence unspecified Qualified Code(s): I25.810 - Atherosclerosis of coronary artery bypass graft(s) without angina pectoris (3) Hypertension Current Visit: No Status: Chronic Qualifiers: Hypertension type: unspecified Qualified Code(s): I10 - Essential (primary ) hypertension (4) MARLO (obstructive sleep apnea) Current Visit: Yes Status: Acute (5) COPD (chronic obstructive pulmonary disease) Current Visit: No Status: Chronic Qualifiers: COPD type: unspecified COPD Qualified Code(s): J44.9 - Chronic obstructive pulmonary disease, unspecified (6) S/P bilateral BKA (below knee amputation) Current Visit: No Status: Chronic (7) Hyperlipidemia Current Visit: No Status: Acute Qualifiers: Hyperlipidemia type: unspecified Qualified Code(s): E78.5 - Hyperlipidemia , unspecified (8) Sepsis Current Visit: Yes Status: Acute (9) HILDA (acute kidney injury) Current Visit: Yes Status: Acute (10) Anemia Current Visit: Yes Status: Acute Qualifiers: Anemia type: unspecified type Qualified Code(s): D64.9 - Anemia, unspecified - Time Spent With Patient Total time spent is greater than 50% in coordination of care (as documented) at patient's floor/unit and/or counseling patient: - Constitutional Vitals: Temp Pulse Resp BP Pulse Ox 97.4 F L 80 17 125/81 96 07/13/17 10:51 07/13/17 10:51 07/13/17 10:51 07/13/17 10:51 07/13/17 10:51 Internal Medicine: Result - Labs CBC & Chem 7: 07/13/17 13:39 07/13/17 04:35 Labs: Short CBC 07/12/17 07/13/17 07/13/17 Range/Units 16:20 04:35 13:39 WBC 12.8 H (4.3-11.1) K/mcL Hgb 8.1 L D 7.6 L 8.3 L (12.9-16.9) g/dL Hct 24.6 L 24.2 L 25.4 L (37.5-50.1) % Plt Count 495 H (140-400) K/mcL Neutrophils # 10.0 H (1.6-8.9) K/mcL BMP 07/13/17 04:35 Sodium 135 L Potassium 4.1 Chloride 103 Carbon Dioxide 28 BUN 18 Creatinine 1.10 Glucose 117 H Calcium 8.3 L - Attending Attestation 1. Acute blood loss anemia due to severe erosive esophagitis ( seen on EGD) Dropped hemoglobin from 11.1 in the recent past and decreased down to 6.6 continue Protonix IV Hold aspirin consider further transfusions Continue IV fluids 2. Acute renal failure possibly from dehydration, consider vancomycin as a cause, may discontinue vancomycin if not improving 3. Recent history of right knee septic MRSA arthritis status post surgery Was discharged on July 05 in order to continue 39 more days of IV vancomycin, ID recommended to complete 6 weeks total Would have 31 days left of Vancomycin 4. Possible healthcare associated pneumonia present upon admission CT scan of the abdomen performed at [facility] showed possible by bibasilar opacities Continue Levaquin day #2 and stop cefepime at day 2 5. Depression, his of cancer recently just a few days ago, continue Ativan as needed 6. Uncontrolled diabetes Hemoglobin A1c back in May was 16.9 Continue insulin sliding scale 7. History of CAD I examined this patient and my medical decision-making was reviewed with the Resident Physician. I agree with the documented findings, disposition and treatment plan as described except to the extent set forth below.
[2017-07-13 14:09] LABS: Hematocrit 25.4 % (37.5-50.1); Hemoglobin 8.3 g/dL (12.9-16.9)
[2017-07-13] MEDS: Insulin DETEMIR 100 UNIT/ML X5UNITS SQ SCH (21:15)
[2017-07-13 21:41] LABS: Hemoglobin 8.4 g/dL (12.9-16.9)
[2017-07-14] MEDS: *HR* HYDROcodone/Acet 7.5/325 mg TABLET PO PRN ×2 (03:32→13:15)
[2017-07-14 06:19] LABS: Basophils % 0.3 %; Eosinophils # 0.3 K/mcL (0.0-0.6); Eosinophils % 2.5 %; Hematocrit 27.7 % (37.5-50.1); Hemoglobin 8.9 g/dL (12.9-16.9); Immature Granulocytes % 0.7 % (0-4); Lymphocytes # 1.7 K/mcL (0.6-4.6); Lymphocytes % 15.5 %; Mean Corpuscular HGB Conc 32.1 g/dL (31.6-35.5); Mean Corpuscular Hemoglobin 27.1 pg (28.0-33.3); Mean Corpuscular Volume 84.5 fL (83.0-100.0); Mean Platelet Volume 8.5 fL (9.4-12.4); Monocytes # 0.8 K/mcL (0.0-1.3); Monocytes % 6.8 %; Neutrophils # 8.3 K/mcL (1.6-8.9); Platelet Count 552 K/mcL (140-400); Red Blood Count 3.28 M/mcL (4.19-5.50); Red Cell Distribution Width 14.2 % (11.5-14.5); Segmented Neutrophils % 74.2 %
[2017-07-14 06:38] LABS: Alanine Aminotransferase 7 Units/L (7-52); Albumin 2.3 g/dL (3.5-5.7); Albumin/Globulin Ratio 0.6 (1.1-2.2); Alkaline Phosphatase 107 Units/L (34-104); Aspartate Amino Transferase 8 Units/L (13-39); BUN/Creatinine Ratio 13 (6-26); Bilirubin,Total 0.2 mg/dL (0.3-1.0); Blood Urea Nitrogen 15 mg/dL (6-20); Calcium 8.6 mg/dL (8.6-10.3); Carbon Dioxide 27 mEq/L (23-29); Chloride 102 mEq/L (98-107); Glucose 65 mg/dL (70-105); Osmolality,Calculated 283 (280-300); Potassium 4.1 mEq/L (3.5-5.1); Sodium 137 mEq/L (136-145); Total Protein 6.3 g/dL (6.4-8.9); eGFR For African Americans > 60 (> 60); eGFR For Non-African Americans > 60 (> 60)
[2017-07-14] MEDS: Insulin LISPRO 300 UNITS/3 ML VIAL SQ SCH ×2 (08:31→11:47)
[2017-07-14] MEDS: Ranolazine 500 MG TAB.ER.12H PO SCH (08:31)
[2017-07-14] MEDS: *HR* LORazepam 0.5 MG TABLET PO SCH (08:31)
[2017-07-14] MEDS: Pregabalin 75 MG CAPSULE PO SCH ×2 (08:31→13:12)
[2017-07-14] MEDS ORDERED: levoFLOXacin 750 MG TABLET PO SCH (09:00)
[2017-07-14 11:37] VITALS: BP 156/99
--- NOTE | 2017-07-14 11:41 | Discharge Summary ---
<Adama Barrera - Last Filed: 07/14/17 12:18> - NOTES TO OUTPATIENT PROVIDER Notes to Outpatient Provider: Presented with sepsis secondary to MRSA bacteremia , HILDA, severe anemia. Underwent EGD which found severe erosive esophagitis without acute bleeding, however hemoglobin has stabilized. Started on twice a day PPI, Carafate. Requires follow-up with GI in 2 months. Will require about 1 more month of IV antibiotics. Orders not resulted at time of discharge: Pending orders 07/12/17 02:15 Culture,Blood [BC] Stat 07/13/17 08:12 Surgical Pathology [PTH] Routine 07/15/17 08:00 Vancomycin,Trough Timed Date of Encounter: 07/14/17 Time of Encounter: 11:37 - Discharge Diagnosis (1) Sepsis Priority: Primary Status: Acute Assessment and Plan: Leukocytosis, tachycardic, MRSA bacteremia. Sepsis likely secondary to UTI vs. Leg wound. Pending UCx, BCx. Resolved at this time, now stable Discharge on PO levaquin and IV Vancomycin Patient can tolerate PO intake. Continue Diabetic diet Requires close follow-up with PCP and ID Qualifiers: Sepsis type: methicillin susceptible Staphylococcus aureus Qualified Code(s ): A41.01 - Sepsis due to Methicillin susceptible Staphylococcus aureus (2) HILDA (acute kidney injury) Priority: Secondary Status: Acute Assessment and Plan: Baseline creatinine 0.8, now 1.16 Creatinine = 1.4 at [facility]. Recheck with AM Labs. Continue oral hydration (3) Hyperglycemia due to type 2 diabetes mellitus Priority: Secondary Status: Acute Assessment and Plan: Initial BS at [facility] is 414. Lactic acid normal and there is no anion gap. Restarted home dose glargine. Under better control today Continue home regimen insulin Qualifiers: Diabetes mellitus extermination inspector insulin use: unspecified extermination inspector insulin use status Qualified Code(s): E11.65 - Type 2 diabetes mellitus with hyperglycemia (4) Coronary artery disease Priority: Secondary Status: Chronic Assessment and Plan: Extensive CAD history. Continue current meds except ASA which will be held for GI Bleed Qualifiers: Coronary Disease-Associated Artery/Lesion type: bypass graft [place] vs. transplanted heart: [place] heart Associated angina: angina presence unspecified Qualified Code(s): I25.810 - Atherosclerosis of coronary artery bypass graft(s) without angina pectoris (5) Hypertension Priority: Secondary Status: Chronic Assessment and Plan: Mildly elevated today Continue home meds, add amlodipine Qualifiers: Hypertension type: unspecified Qualified Code(s): I10 - Essential (primary ) hypertension (6) MARLO (obstructive sleep apnea) Priority: Secondary Status: Acute Assessment and Plan: Chronic. Stable. (7) COPD (chronic obstructive pulmonary disease) Priority: Secondary Status: Chronic Assessment and Plan: Chronic and stable. Nebulizers as needed. Qualifiers: COPD type: unspecified COPD Qualified Code(s): J44.9 - Chronic obstructive pulmonary disease, unspecified (8) S/P bilateral BKA (below knee amputation) Priority: Secondary Status: Chronic Assessment and Plan: Was recently here for septic arthritics and discharged home with Vancomycin through picc line for 6 weeks. Continue Vancomycin, pharmacy to dose. Will require 31 days (9) Hyperlipidemia Priority: Secondary Status: Acute Assessment and Plan: Continue home meds Qualifiers: Hyperlipidemia type: unspecified Qualified Code(s): E78.5 - Hyperlipidemia , unspecified (10) Anemia Priority: Secondary Status: Acute Assessment and Plan: Hb = 6.9 on admission, currently stable and rising Blood type and cross. Transfused 1 unit RBCs and rechecked H/H EGD per GI today with Severe Erosive Esophagitis, no obvious bleed Continue PPI BID, Carafate, hold ASA pending evaluation by PCP Follow-up with GI in 2 months for repeat EGD Qualifiers: Anemia type: unspecified type Qualified Code(s): D64.9 - Anemia, unspecified Hospital course: Mr. Lamb is a 47 year old male with history of CAD, DM, HTN, HLD and b/l BKA with recent MRSA Bacteremia from right septic knee on home Vancomycin who presented to [place] ED with hyperglycemia, UTI symptoms, and pneumonia. At that time he was found to have a substantial leukocytosis, tachycardia, bacteremia and HILDA which suggested sepsis. He also was found to have hemoglobin 8.1 initially which dropped to 6.9 at time of arrival at [facility]. He was started on vancomycin and rocephin initially, and eventually was transitioned to levaquin and vancomycin. Hemoglobin continued to drop, and patient underwent urgent EGD which demonstrated severe erosive esophagitis. He was started on BID PPI and carafate per GI, and hemoglobin became stabilized. His vitals and labs gradually began to normalize, and the patient became appropriate for discharge with oral levaquin, IV vancomycin, and PPI/Carafate. He will require close follow-up with PCP and GI. For more detailed information regarding hospital course and discharge plan, please refer to individual assessments. Discharge discussed with: patient, nurse, case management, jd edwards consultant - Time Spent with Patient Total time spent providing and/or coordinating discharge services: - Discharge Medications Prescriptions: amLODIPine [Norvasc] 5 mg PO DAILY #30 tablet Carvedilol [Coreg] 3.125 mg PO BIDWM #60 tablet levoFLOXacin [Levaquin] 750 mg PO DAILY #4 tablet Omeprazole [PriLOSEC] 20 mg PO BIDAC #60 capsule. Sucralfate [Carafate] 1 gm PO TID #90 udc Home Medications: Amitriptyline [Elavil] 75 mg PO HS 07/01/17 [History] Duloxetine HCl [Cymbalta] 60 mg PO DAILY 07/01/17 [History] HYDROcodone/Acet 7.5/325 mg [[place] 7.5-325 mg] 1 tab PO QID PRN 07/01/17 [ History] Insulin ASPART [NovoLOG] 0 - 10 unit SQ TIDWM 07/01/17 [History] Insulin Glargine,Hum.rec.anlog [Basaglar Kwikpen U-100] 50 unit SQ HS 07/01/17 [ History] LORazepam [Ativan] 0.5 mg PO BID 07/01/17 [History] Pregabalin [Lyrica] 150 mg PO TID 07/01/17 [History] Rosuvastatin Calcium [Crestor] 40 mg PO HS 07/01/17 [History] Ranolazine [Ranexa] 1,000 mg PO BID 07/02/17 [History] Tizanidine HCl 4 mg PO TID 07/02/17 [History] Aspirin 81 mg PO DAILY #30 tab.chew 07/05/17 [Rx] Nicotine Patch [Nicoderm] 14 mg TD DAILY PRN #30 patch.td24 07/05/17 [Rx] Vancomycin [Vancocin] 1,250 mg IV Q12H 39 Days #78 vial 07/05/17 [Rx] Carvedilol [Coreg] 3.125 mg PO BIDWM #60 tablet 07/14/17 [Rx] Omeprazole [PriLOSEC] 20 mg PO BIDAC #60 capsule. 07/14/17 [Rx] Sucralfate [Carafate] 1 gm PO TID #90 udc 07/14/17 [Rx] amLODIPine [Norvasc] 5 mg PO DAILY #30 tablet 07/14/17 [Rx] levoFLOXacin [Levaquin] 750 mg PO DAILY #4 tablet 07/14/17 [Rx] Allergies/Adverse Reactions: 3 Allergy/AdvReac Type Severity Reaction Status Date / Time Diclofenac [From Voltaren] Allergy Gastrointestinal Verified 07/02/17 10:49 Upset Penicillins Allergy Rash Verified 07/02/17 10:49 Date of admission: 07/11/17 20:45 Primary care physician: Annie Dior Consults: 07/12/17 14:43 Consult to Neon Tube Pumper [CONS] Routine Reason for SW Consult: No CM tomorrow on unit; from home with IV Vanc and [facility]; See CM notes 07/12/17 16:06 Consult to Gastroenterology [CONS] Routine Consulting Provider: Gastroenterology Milla Reason for Consult: acute blood loss anemia Call Completed: Yes Discharging clinician: Adama Barrera Anticipated date of discharge: 07/14/17 - Constitutional Vitals: Temp Pulse Resp BP Pulse Ox 97.9 F 97 18 156/99 99 07/14/17 11:18 07/14/17 11:18 07/14/17 11:18 07/14/17 11:18 07/14/17 11:18 General appearance: Present: A&O X 3, no acute distress, answers questions appropriately Exam: Gen: Vitals noted. No acute distress. HEENT: Normocephalic, atraumatic Neck: Supple. No adenopathy. Cardiac: RRR, no murmur, +S1/S2 Pulmonary: CTA bilaterally, no wheezes, rales or rhonchi, equal chest expansion Abdomen: soft, nontender, BS noted, no guarding Back: Nontender throughout. MSK: ROM intact, no joint swelling noted Extremities: B/L BKA, right leg wrapped in guaze without obvious distal erythema or edema Neuro: A&Ox3, moves all extremities, no focal deficits Psych: Appropriate mood and behavior - Patient Status Disposition: Home Health Service Condition: Fair Functional capacity at discharge: wheelchair bound Overall status at discharge: patient is progressing back to baseline - Discharge Instructions Follow Up With: Kamran Lira DO [Primary Care Provider] - Additional Instructions: Follow-up with PCP within 1 week. Follow-up with GI for repeat EGD within 2 mo. Continue Levaquin by mouth for 4 more days, continue IV Vancomycin. Continue Coreg 3.125mg twice a day, record HR daily Use insulin as directed, monitor blood glucose daily Return to ED for recurrent symptoms, shortness of breath, blood in vomit or in stool, black tarry stools - Diet and Activity Activity: increase activity as tolerated Diet: diabetic diet, low salt diet <Daniel Larkin H - Last Filed: 07/14/17 14:16> Orders not resulted at time of discharge: Pending orders 07/12/17 02:15 Culture,Blood [BC] Stat 07/13/17 08:12 Surgical Pathology [PTH] Routine 07/15/17 08:00 Vancomycin,Trough Timed Date of Encounter: 07/14/17 - Discharge Diagnosis (1) Hyperglycemia due to type 2 diabetes mellitus Status: Acute Qualifiers: Diabetes mellitus extermination inspector insulin use: unspecified extermination inspector insulin use status Qualified Code(s): E11.65 - Type 2 diabetes mellitus with hyperglycemia (2) Coronary artery disease Status: Chronic Qualifiers: Coronary Disease-Associated Artery/Lesion type: bypass graft [place] vs. transplanted heart: [place] heart Associated angina: angina presence unspecified Qualified Code(s): I25.810 - Atherosclerosis of coronary artery bypass graft(s) without angina pectoris (3) Hypertension Status: Chronic Qualifiers: Hypertension type: unspecified Qualified Code(s): I10 - Essential (primary ) hypertension (4) MARLO (obstructive sleep apnea) Status: Acute (5) COPD (chronic obstructive pulmonary disease) Status: Chronic Qualifiers: COPD type: unspecified COPD Qualified Code(s): J44.9 - Chronic obstructive pulmonary disease, unspecified (6) S/P bilateral BKA (below knee amputation) Status: Chronic (7) Hyperlipidemia Status: Acute Qualifiers: Hyperlipidemia type: unspecified Qualified Code(s): E78.5 - Hyperlipidemia , unspecified (8) Sepsis Status: Acute (9) HILDA (acute kidney injury) Status: Acute (10) Anemia Status: Acute Qualifiers: Anemia type: unspecified type Qualified Code(s): D64.9 - Anemia, unspecified Hospital course: Mr. Lamb is a 47 year old male - Time Spent with Patient Total time spent providing and/or coordinating discharge services: Date of admission: 07/11/17 20:45 Primary care physician: Annie Dior Consults: 07/12/17 14:43 Consult to Neon Tube Pumper [CONS] Routine Reason for SW Consult: No CM tomorrow on unit; from home with IV Vanc and [facility]; See CM notes 07/12/17 16:06 Consult to Gastroenterology [CONS] Routine Consulting Provider: Gastroenterology Milla Reason for Consult: acute blood loss anemia Call Completed: Yes - Constitutional Vitals: Temp Pulse Resp BP Pulse Ox 97.9 F 97 18 156/99 99 07/14/17 11:18 07/14/17 11:18 07/14/17 11:18 07/14/17 11:18 07/14/17 11:18 - Attending Attestation 1. Acute blood loss anemia due to severe erosive esophagitis ( seen on EGD) Dropped hemoglobin from 11.1 in the recent past and decreased down to 6.6 continue omeprazole 40 mg twice a day Hold aspirin for 1 week 2. Acute renal failure possibly from dehydration 3. Recent history of right knee septic MRSA arthritis status post surgery Was discharged on July 05 in order to continue 39 more days of IV vancomycin, ID recommended to complete 6 weeks total Would have 30 days left of Vancomycin 4. Possible healthcare associated pneumonia present upon admission CT scan of the abdomen performed at [facility] showed possible by bibasilar opacities Continue Levaquin day #3/7 , stopped cefepime at day 2 5. Depression, his of cancer recently just a few days ago, continue Ativan as needed 6. Uncontrolled diabetes Hemoglobin A1c back in May was 16.9 Continue insulin sliding scale 7. History of CAD Time spent 40 minutes I examined this patient and my medical decision-making was reviewed with the Resident Physician. I agree with the documented findings, disposition and treatment plan as described except to the extent set forth below.
[2017-07-14] MEDS ORDERED: amLODIPine 5 MG TABLET PO SCH (12:00)
[2017-07-14] MEDS ORDERED: *HR* Metoprolol 5 MG/5 ML VIAL IVP SCH (12:45)
--- NOTE | 2017-07-14 14:28 | Physician Discharge Referral ---
Home Health/Hosp Referral Info Transfer to: Home Health Attending Provider: Lisbeth Provider in Charge Post Discharge: PCP - Diagnosis (1) Sepsis Priority: Primary Status: Acute (2) Anemia Priority: Secondary Status: Acute (3) HILDA (acute kidney injury) Priority: Secondary Status: Acute (4) Hyperglycemia due to type 2 diabetes mellitus Priority: Secondary Status: Acute (5) Coronary artery disease Priority: Secondary Status: Chronic (6) Hypertension Priority: Secondary Status: Chronic (7) MARLO (obstructive sleep apnea) Priority: Secondary Status: Acute (8) COPD (chronic obstructive pulmonary disease) Priority: Secondary Status: Chronic (9) S/P bilateral BKA (below knee amputation) Priority: Secondary Status: Chronic (10) Hyperlipidemia Priority: Secondary Status: Acute - Respiratory Orders Smoking Cessation: Smoking cessation has been advised. For more information, call the [place] Tobacco Quit Line at 3-249-EVHN-NOW. - Diet/Nutrition Diet/Nutrition Orders: Cardiac, No Concentrated Sweets - Activity Activity Orders: Chair - Services Needed Following services are medically necessary services: Nursing, Home Health Aide, Physical Therapy, Occupational Therapy - Transfer Medications Prescriptions: amLODIPine [Norvasc] 5 mg PO DAILY #30 tablet Carvedilol [Coreg] 3.125 mg PO BIDWM #60 tablet levoFLOXacin [Levaquin] 750 mg PO DAILY #4 tablet Omeprazole [PriLOSEC] 20 mg PO BIDAC #60 capsule.dr Sucralfate [Carafate] 1 gm PO TID #90 udc Home Medications: Amitriptyline [Elavil] 75 mg PO HS 07/01/17 [History] Duloxetine HCl [Cymbalta] 60 mg PO DAILY 07/01/17 [History] HYDROcodone/Acet 7.5/325 mg [[place] 7.5-325 mg] 1 tab PO QID PRN 07/01/17 [ History] Insulin ASPART [NovoLOG] 0 - 10 unit SQ TIDWM 07/01/17 [History] Insulin Glargine,Hum.rec.anlog [Basaglar Kwikpen U-100] 50 unit SQ HS 07/01/17 [ History] LORazepam [Ativan] 0.5 mg PO BID 07/01/17 [History] Pregabalin [Lyrica] 150 mg PO TID 07/01/17 [History] Rosuvastatin Calcium [Crestor] 40 mg PO HS 07/01/17 [History] Ranolazine [Ranexa] 1,000 mg PO BID 07/02/17 [History] Tizanidine HCl 4 mg PO TID 07/02/17 [History] Aspirin 81 mg PO DAILY #30 tab.chew 07/05/17 [Rx] Nicotine Patch [Nicoderm] 14 mg TD DAILY PRN #30 patch.td24 07/05/17 [Rx] Vancomycin [Vancocin] 1,250 mg IV Q12H 39 Days #78 vial 07/05/17 [Rx] Carvedilol [Coreg] 3.125 mg PO BIDWM #60 tablet 07/14/17 [Rx] Omeprazole [PriLOSEC] 20 mg PO BIDAC #60 capsule.dr 07/14/17 [Rx] Sucralfate [Carafate] 1 gm PO TID #90 udc 07/14/17 [Rx] amLODIPine [Norvasc] 5 mg PO DAILY #30 tablet 07/14/17 [Rx] levoFLOXacin [Levaquin] 750 mg PO DAILY #4 tablet 07/14/17 [Rx] Allergies/Adverse Reactions: 3 Allergy/AdvReac Type Severity Reaction Status Date / Time Diclofenac [From Voltaren] Allergy Gastrointestinal Verified 07/02/17 10:49 Upset Penicillins Allergy Rash Verified 07/02/17 10:49 Certification: Further, I certify that my clinical findings support that this patient is homebound (i.e. absences from home require considerable and taxing effort and are for medical reasons or uatsdin services or infrequently or short duration when for other reasons) because: Homebound Reason: Patient requires assistance of a person or device to safely leave home, Absences from home are contraindicated except to recieve medical care, Leaving home requires considerable and taxing effort due to condition Attestation: My signature below is to certify that this patient is under my care and that I, or nurse practitioner, or a physician's medical assistant instructor working with me, has a face-to -face encounter with this patient.
[2017-07-14] MEDS ORDERED: Aminoglycoside Consult 1 EACH MC ONE (19:15)
== END 2017-07-14 19:16 | disposition home health service (06) | DRG 871 ==
LOC: 2NENU 20:45 → INTOOBSV 20:45
PROVIDERS: ADMIT Internal Medicine Nephrology; ATTEND Internal Medicine Nephrology
PROC: ENDOEBX (2017-07-13 15:30)

== ENCOUNTER 2017-07-25 18:28 | Observation (INO) ==
[2017-07-25] MEDS ORDERED: 0.9 % Sodium Chloride 1,000 ML IVC ONE (19:19)
--- NOTE | 2017-07-25 19:27 | Emergency Department Note ---
Disposition Clinical Impression: Symptomatic anemia, HILDA (acute kidney injury), Elevated troponin, Infection of right knee Disposition: Admitted As Inpatient Condition: Fair Referrals: Kamran Lira DO [Primary Care Provider] - Forms: ED Satisfaction Letter, Work/School Release Time of Disposition: 22:40 General Adult HPI - General Chief complaint: ED General Medical Stated complaint: confused/sleeping more/dec urine output Time Seen by Provider: 07/25/17 19:03 Source: patient, family Mode of arrival: ambulatory Limitations: no limitations Nursing Notes Reviewed: Yes Vital Signs Reviewed: Yes - History of Present Illness HPI Narrative: Patient is a 47-year-old male with a past medical history of insulin-dependent diabetes, CAD with stents, bilateral below the knee amputations, anemia, and currently undergoing treatment for a septic joint requiring a PICC line in the right arm presents for evaluation of sleepiness and decreased urine output. According to [id number] at bedside patient has been sleepy all day more so than usual and is falling asleep during conversations. The patient was also seen by his home health nurse and she stated the patient has decrease in urine output. Patient states that he also has difficulty sleeping at night however this is not new. He denies any focal neurological deficits. Patient states his sugars have been in the 250's. Patient denies any fevers, chills, headache, vision changes, chest pain, shortness of breath, cough, abdominal pain, new back pain, dysuria, hematochezia, melena or any other associated symptoms. The patient denies any alcohol or drug use. He is an every day smoker. Pain Scale: 4 - Related Data Home Medications Medication Instructions Recorded Confirmed Amitriptyline [Elavil] 75 mg PO HS 07/01/17 07/25/17 Duloxetine HCl [Cymbalta] 60 mg PO DAILY 07/01/17 07/25/17 HYDROcodone/Acet 7.5/325 mg [[place] 1 tab PO QID PRN 07/01/17 07/25/17 7.5-325 mg] Insulin ASPART [NovoLOG] 0 - 10 unit SQ TIDWM 07/01/17 07/25/17 Insulin Glargine,Hum.rec.anlog 50 unit SQ HS 07/01/17 07/25/17 [Lynnaglbrandin [place] U-100] LORazepam [Ativan] 0.5 mg PO BID 07/01/17 07/25/17 Pregabalin [Lyrica] 150 mg PO TID 07/01/17 07/25/17 Rosuvastatin Calcium [Crestor] 40 mg PO HS 07/01/17 07/25/17 Ranolazine [Ranexa] 1,000 mg PO BID 07/02/17 07/25/17 Tizanidine HCl 4 mg PO TID 07/02/17 07/25/17 Vancomycin [Vancocin] 1,500 mg IV DAILY 07/25/17 07/25/17 Previous Rx's Medication Instructions Recorded Aspirin 81 mg PO DAILY #30 tab.chew 07/05/17 Nicotine Patch [Nicoderm] 14 mg TD DAILY PRN #30 patch.td24 07/05/17 Carvedilol [Coreg] 3.125 mg PO BIDWM #60 tablet 07/14/17 Omeprazole [PriLOSEC] 20 mg PO BIDAC #60 capsule. 07/14/17 Sucralfate [Carafate] 1 gm PO TID #90 udc 07/14/17 amLODIPine [Norvasc] 5 mg PO DAILY #30 tablet 07/14/17 Allergies Allergy/AdvReac Type Severity Reaction Status Date / Time Diclofenac [From Voltaren] Allergy Gastrointestinal Verified 07/25/17 21:09 Upset Penicillins Allergy Rash Verified 07/25/17 21:09 All systems ED: reviewed and negative except as stated. Review of Systems: As Per HPI Constitutional: Denies: fever, chills, weakness Eyes: Denies: vision change ENT ED: Denies: congestion Cardiovascular: Denies: chest pain, palpitations, dyspnea on exertion, edema, syncope Respiratory: Denies: cough, dyspnea, wheezes Gastrointestinal: Denies: abdominal pain, nausea, vomiting Genitourinary: Denies: urgency, dysuria Musculoskeletal: Denies: back pain, neck pain, joint swelling (Patient states his right knee which is the infected joint is still doing well he does not notice any new swelling or pain.), arthralgia Integumentary: Denies: rash Neurological: Denies: headache, weakness, numbness, paresthesias, confusion, vertigo Endocrine: Reports: fatigue Past Medical History - Past Medical History Attestation: Yes The following information was validated with the patient. Medical history: Reports: coronary artery disease, diabetes, hyperlipidemia, hypertension, kidney stones, myocardial infarction, other Surgical history: Reports: angioplasty/stent, coronary bypass (CABG), orthopedic , other Psychiatric history: Reports: anxiety - Social History Smoking Status: Former smoker Smokeless Tobacco Status: No Alcohol use: Reports: none Drug use: Reports: none Physical Exam VS all within normal limits.: CONSTITUTIONAL: Alert and oriented X3, well-nourished. Patient is obese. Patient does appear somnolent and he is falling asleep on questioning. However he is easily arousable. HEAD: Normocephalic; atraumatic. EYES: PERRL, no scleral icterus. NOSE: The nose is normal in appearance without rhinorrhea RESP: Normal chest excursion with respiration; breath sounds clear and equal bilaterally; no wheezes, rhonchi, or rales CARD: Regular rhythm, without murmurs, rub or gallop ABD: Non-distended; non-tender, soft,without rigidity, rebound or guarding EXT: Patient has bilateral [id number] amputations of his lower extremities. Patient's right knee has sutures in place from his prior procedure. There is no swelling, no erythema, no pain with range of motion of bilateral knees. +2 pulses in the upper extremities bilateral. No edema. PICC line present in right upper extremity, no surrounding erythema, induration, or drainage. Does not appear infected. RECTAL: Patient has normal rectal tone. There is stool palpable in the vault. No bright red blood. SKIN: Normal for age and race; warm and dry; no apparent lesions NEUROLOGICAL: Patient is alert and oriented times three. Cranial nerves III- XII are intact. Sensory and motor functions are intact. Strength is 5/5 for flexion and extension in all 4 extremities. Patellar DTRS are equal and intact. Finger to nose testing is equal and normal bilaterally. - General Limitations: no limitations General appearance: alert, in no apparent distress Course Course Narrative: Patient presents for sleepiness and decreased urine output. He has a history of recent admission for anemia requiring transfusion, urinary tract infection, and septic right joint. He currently undergoes treatment for septic joint at home via PICC line in his right arm. On physical exam the patient's PICC line looks appropriate without surrounding erythema or induration or discharge. His right knee also appears not infectious or red and swollen at this time. Plan is times work the patient up for generalized weakness which will include a rule out for pneumonia, ischemic heart disease, urinary tract infection, dehydration , and anemia patient will receive 1 L normal saline. 21:12: Patient's lab work reveals an anemia hemoglobin of 7.3, creatinine of 1.9, and troponin of 0.06. In this setting I believe the patient is having ischemic demand as well as acute kidney injury secondary to anemia of unknown cause. The patient's stool Hemoccult was negative. He has no symptoms of bleeding. On prior admission he did have an upper GI and this endoscopy which revealed severe/ulcerative esophagitis and large ulcers at the GE junction which the patient was put on PPI's and Carafate. No significant GI bleed was seen at that time. Patient will receive 1 unit of packed red blood cells in the emergency department he also received his dose of vancomycin for his right knee. 22:40: Discussed patient's case with the hospitalist on-call Dr. Freeman and he agrees to accept the patient. Vital Signs Temperature 98 F 07/25/17 18:30 Pulse Rate 93 07/25/17 18:30 Respiratory Rate 20 07/25/17 18:30 Blood Pressure 122/74 07/25/17 18:30 O2 Sat by Pulse Oximetry 95 07/25/17 18:30 Temperature 98.0 F 07/25/17 22:25 Pulse Rate 98 07/25/17 22:25 Respiratory Rate 17 07/25/17 22:25 Blood Pressure 144/87 07/25/17 22:25 O2 Sat by Pulse Oximetry 97 07/25/17 21:26 Oxygen Delivery Oxygen Delivery Room Air Medical Decision Making - Medical Records Medical records reviewed: Yes I reviewed the patient's medical records. - Lab Data Lab results reviewed: Yes I reviewed the patient's lab results. Result diagrams: 07/25/17 19:42 07/25/17 19:42 Lab Results 07/25/17 07/25/17 07/25/17 Range/Units 19:28 19:42 19:42 WBC 11.4 H (4.3-11.1) K/mcL RBC 2.79 L (4.19-5.50) M/mcL Hgb 7.3 L (12.9-16.9) g/dL Hct 23.2 L (37.5-50.1) % MCV 83.2 (83.0-100.0) fL MCH 26.2 L (28.0-33.3) pg MCHC 31.5 L (31.6-35.5) g/dL RDW 14.6 H (11.5-14.5) % Plt Count 221 (140-400) K/mcL MPV 10.1 (9.4-12.4) fL Immature Gran % 0.8 (0-4) % Seg Neutrophils % 65.7 % Lymphocytes % 22.1 % Monocytes % 8.7 % Eosinophils % 2.3 % Basophils % 0.4 % Neutrophils # 7.5 (1.6-8.9) K/mcL Lymphocytes # 2.5 (0.6-4.6) K/mcL Monocytes # 1.0 (0.0-1.3) K/mcL Eosinophils # 0.3 (0.0-0.6) K/mcL Basophils # 0.0 (0.0-0.2) K/mcL Sodium 138 (136-145) mEq/L Potassium 4.4 (3.5-5.1) mEq/L Chloride 102 (98-107) mEq/L Carbon Dioxide 27 (23-29) mEq/L BUN 44 H (6-20) mg/dL Creatinine 1.90 H (0.70-1.30) mg/dL Est GFR ( Amer) 46 L (> 60) Est GFR (Non-Af Amer) 38 L (> 60) BUN/Creatinine Ratio 23 (6-26) Glucose 164 H (70-105) mg/dL Calculated Osmolality 301 H (280-300) Calcium 8.3 L (8.6-10.3) mg/dL Total Bilirubin 0.2 L (0.3-1.0) mg/dL Direct Bilirubin 0.0 (0.0-0.2) mg/dL Indirect Bilirubin 0.2 (0.0-1.2) mg/dL AST 7 L (13-39) Units/L ALT 5 L (7-52) Units/L Alkaline Phosphatase 66 (34-104) Units/L Troponin I 0.06 H* (< 0.04) ng/mL Serum Total Protein 6.6 (6.4-8.9) g/dL Albumin 2.8 L (3.5-5.7) g/dL Globulin 3.8 H (2.4-3.5) g/dL Albumin/Globulin Ratio 0.7 L (1.1-2.2) TSH 1.560 (0.340-5.600) mcIU/mL Urine Color (Yellow) Urine Clarity (Clear) Urine pH (5.0-8.0) pH Units Ur Specific Check (1.010-1.025) Urine Protein (Neg-Trace) mg/dL Urine Glucose (UA) (Normal) mg/dL Urine Ketones (Negative) mg/dL Urine Blood (Negative) Urine Nitrite (Negative) Urine Bilirubin (Negative) Urine Urobilinogen (Normal) mg/dL Ur Leukocyte Esterase (Negative) Urine Microscopic RBC (0-3) per hpf Urine Microscopic WBC (0-3) per hpf Ur Squamous Epith Cells (None-Few) per lpf Urine Bacteria (None-Few) per hpf Hyaline Casts (None-Few) per lpf Ur Culture Indicated? (NO) Stool Occult Blood Negative (Negative) Ethyl Alcohol < 10 (Less than 10) mg/dL Blood Type Antibody Screen Crossmatch 07/25/17 07/25/17 Range/Units 20:20 20:56 WBC (4.3-11.1) K/mcL RBC (4.19-5.50) M/mcL Hgb (12.9-16.9) g/dL Hct (37.5-50.1) % MCV (83.0-100.0) fL MCH (28.0-33.3) pg MCHC (31.6-35.5) g/dL RDW (11.5-14.5) % Plt Count (140-400) K/mcL MPV (9.4-12.4) fL Immature Gran % (0-4) % Seg Neutrophils % % Lymphocytes % % Monocytes % % Eosinophils % % Basophils % % Neutrophils # (1.6-8.9) K/mcL Lymphocytes # (0.6-4.6) K/mcL Monocytes # (0.0-1.3) K/mcL Eosinophils # (0.0-0.6) K/mcL Basophils # (0.0-0.2) K/mcL Sodium (136-145) mEq/L Potassium (3.5-5.1) mEq/L Chloride (98-107) mEq/L Carbon Dioxide (23-29) mEq/L BUN (6-20) mg/dL Creatinine (0.70-1.30) mg/dL Est GFR ( Amer) (> 60) Est GFR (Non-Af Amer) (> 60) BUN/Creatinine Ratio (6-26) Glucose (70-105) mg/dL Calculated Osmolality (280-300) Calcium (8.6-10.3) mg/dL Total Bilirubin (0.3-1.0) mg/dL Direct Bilirubin (0.0-0.2) mg/dL Indirect Bilirubin (0.0-1.2) mg/dL AST (13-39) Units/L ALT (7-52) Units/L Alkaline Phosphatase (34-104) Units/L Troponin I (< 0.04) ng/mL Serum Total Protein (6.4-8.9) g/dL Albumin (3.5-5.7) g/dL Globulin (2.4-3.5) g/dL Albumin/Globulin Ratio (1.1-2.2) TSH (0.340-5.600) mcIU/mL Urine Color Yellow (Yellow) Urine Clarity Slightly Hazy (Clear) Urine pH 6.0 (5.0-8.0) pH Units Ur Specific Check 1.023 (1.010-1.025) Urine Protein >=300 H (Neg-Trace) mg/dL Urine Glucose (UA) 100 H (Normal) mg/dL Urine Ketones Negative (Negative) mg/dL Urine Blood Negative (Negative) Urine Nitrite Negative (Negative) Urine Bilirubin Small H (Negative) Urine Urobilinogen Normal (Normal) mg/dL Ur Leukocyte Esterase Negative (Negative) Urine Microscopic RBC 5-15 H (0-3) per hpf Urine Microscopic WBC 3-5 H (0-3) per hpf Ur Squamous Epith Cells Many H (None-Few) per lpf Urine Bacteria None Seen (None-Few) per hpf Hyaline Casts None Seen (None-Few) per lpf Ur Culture Indicated? NO (NO) Stool Occult Blood (Negative) Ethyl Alcohol (Less than 10) mg/dL Blood Type A POSITIVE Antibody Screen NEGATIVE Crossmatch See Detail - Radiology Data Radiology results reviewed: Yes I reviewed the patient's radiology results. Chest X-Ray 07/25/17 19:19 IMPRESSION: 1. Right upper extremity PICC terminating in the superior vena cava. 2. Bibasilar and streaky right upper lobe peripheral airspace opacities likely representing atelectasis. In the appropriate clinical setting pneumonia is not excluded. D/ / Tate Norris MD / Tate Norris MD Interpreting Provider: Tate Norris MD Chest X-Ray 07/25/17 19:19 IMPRESSION: 1. Right upper extremity PICC terminating in the superior vena cava. 2. Bibasilar and streaky right upper lobe peripheral airspace opacities likely representing atelectasis. In the appropriate clinical setting pneumonia is not excluded. D/ / Tate Norris MD / Tate Norris MD Interpreting Provider: Tate Norris MD Head CT 07/25/17 21:29 IMPRESSION: No acute intracranial abnormality D/ / Robert Rojo / Robert Rojo Interpreting Provider: Robert Rojo - EKG Data EKG #1 EKG attestation: Yes I reviewed and interpreted this EKG. EKG results narrative: EKG done at 19:42 shows sinus rhythm at a rate of 87 bpm. The patient does have T-wave inversions in lead 1 and aVL and mild elevations in V2 however these are improved when compared to old EKG done on July [id number]
--- NOTE | 2017-07-25 19:53 | Emergency Department Note ---
Disposition Clinical Impression: Symptomatic anemia, HILDA (acute kidney injury), Elevated troponin, Infection of right knee Disposition: Admitted As Inpatient Condition: Fair Referrals: Kamran Lira DO [Primary Care Provider] - Forms: ED Satisfaction Letter, Work/School Release General Adult HPI - General Chief complaint: ED General Medical Stated complaint: confused/sleeping more/dec urine output Time Seen by Provider: 07/25/17 19:03 Source: patient, family Mode of arrival: ambulatory Limitations: no limitations Nursing Notes Reviewed: Yes Vital Signs Reviewed: Yes - History of Present Illness Pain Scale: 4 - Related Data Home Medications Medication Instructions Recorded Confirmed Amitriptyline [Elavil] 75 mg PO HS 07/01/17 07/25/17 Duloxetine HCl [Cymbalta] 60 mg PO DAILY 07/01/17 07/25/17 HYDROcodone/Acet 7.5/325 mg [[place] 1 tab PO QID PRN 07/01/17 07/25/17 7.5-325 mg] Insulin ASPART [NovoLOG] 0 - 10 unit SQ TIDWM 07/01/17 07/25/17 Insulin Glargine,Hum.rec.anlog 50 unit SQ HS 07/01/17 07/25/17 [Basaglar Kwikpen U-100] LORazepam [Ativan] 0.5 mg PO BID 07/01/17 07/25/17 Pregabalin [Lyrica] 150 mg PO TID 07/01/17 07/25/17 Rosuvastatin Calcium [Crestor] 40 mg PO HS 07/01/17 07/25/17 Ranolazine [Ranexa] 1,000 mg PO BID 07/02/17 07/25/17 Tizanidine HCl 4 mg PO TID 07/02/17 07/25/17 Vancomycin [Vancocin] 1,500 mg IV DAILY 07/25/17 07/25/17 Previous Rx's Medication Instructions Recorded Aspirin 81 mg PO DAILY #30 tab.chew 07/05/17 Nicotine Patch [Nicoderm] 14 mg TD DAILY PRN #30 patch.td24 07/05/17 Carvedilol [Coreg] 3.125 mg PO BIDWM #60 tablet 07/14/17 Omeprazole [PriLOSEC] 20 mg PO BIDAC #60 capsule.dr 05/26/18 Sucralfate [Carafate] 1 gm PO TID #90 udc 07/14/17 amLODIPine [Norvasc] 5 mg PO DAILY #30 tablet 07/14/17 Allergies Allergy/AdvReac Type Severity Reaction Status Date / Time Diclofenac [From Voltaren] Allergy Gastrointestinal Verified 07/25/17 21:09 Upset Penicillins Allergy Rash Verified 07/25/17 21:09 Constitutional: Denies: fever, chills, weakness Eyes: Denies: vision change ENT ED: Denies: congestion Cardiovascular: Denies: chest pain, palpitations, dyspnea on exertion, edema, syncope Respiratory: Denies: cough, dyspnea, wheezes Gastrointestinal: Denies: abdominal pain, nausea, vomiting Genitourinary: Denies: urgency, dysuria Musculoskeletal: Denies: back pain, neck pain, joint swelling (Patient states his right knee which is the infected joint is still doing well he does not notice any new swelling or pain.), arthralgia Integumentary: Denies: rash Neurological: Denies: headache, weakness, numbness, paresthesias, confusion, vertigo Endocrine: Reports: fatigue Past Medical History - Past Medical History Medical history: Reports: coronary artery disease, diabetes, hyperlipidemia, hypertension, kidney stones, myocardial infarction, other Surgical history: Reports: angioplasty/stent, coronary bypass (CABG), orthopedic , other Psychiatric history: Reports: anxiety - Social History Smoking Status: Former smoker Smokeless Tobacco Status: No Alcohol use: Reports: none Drug use: Reports: none Physical Exam - General Limitations: no limitations General appearance: alert, in no apparent distress Course Vital Signs Temperature 98 F 07/25/17 18:30 Pulse Rate 93 07/25/17 18:30 Respiratory Rate 20 07/25/17 18:30 Blood Pressure 122/74 07/25/17 18:30 O2 Sat by Pulse Oximetry 95 07/25/17 18:30 Temperature 98.0 F 07/25/17 22:25 Pulse Rate 98 07/25/17 22:25 Respiratory Rate 17 07/25/17 22:25 Blood Pressure 144/87 07/25/17 22:25 O2 Sat by Pulse Oximetry 97 07/25/17 21:26 Oxygen Delivery Oxygen Delivery Room Air Medical Decision Making - Lab Data Result diagrams: 07/25/17 19:42 07/25/17 19:42 Lab Results 07/25/17 07/25/17 07/25/17 Range/Units 19:28 19:42 19:42 WBC 11.4 H (4.3-11.1) K/mcL RBC 2.79 L (4.19-5.50) M/mcL Hgb 7.3 L (12.9-16.9) g/dL Hct 23.2 L (37.5-50.1) % MCV 83.2 (83.0-100.0) fL MCH 26.2 L (28.0-33.3) pg MCHC 31.5 L (31.6-35.5) g/dL RDW 14.6 H (11.5-14.5) % Plt Count 221 (140-400) K/mcL MPV 10.1 (9.4-12.4) fL Immature Gran % 0.8 (0-4) % Seg Neutrophils % 65.7 % Lymphocytes % 22.1 % Monocytes % 8.7 % Eosinophils % 2.3 % Basophils % 0.4 % Neutrophils # 7.5 (1.6-8.9) K/mcL Lymphocytes # 2.5 (0.6-4.6) K/mcL Monocytes # 1.0 (0.0-1.3) K/mcL Eosinophils # 0.3 (0.0-0.6) K/mcL Basophils # 0.0 (0.0-0.2) K/mcL Sodium 138 (136-145) mEq/L Potassium 4.4 (3.5-5.1) mEq/L Chloride 102 (98-107) mEq/L Carbon Dioxide 27 (23-29) mEq/L BUN 44 H (6-20) mg/dL Creatinine 1.90 H (0.70-1.30) mg/dL Est GFR ( Amer) 46 L (> 60) Est GFR (Non-Af Amer) 38 L (> 60) BUN/Creatinine Ratio 23 (6-26) Glucose 164 H (70-105) mg/dL Calculated Osmolality 301 H (280-300) Calcium 8.3 L (8.6-10.3) mg/dL Total Bilirubin 0.2 L (0.3-1.0) mg/dL Direct Bilirubin 0.0 (0.0-0.2) mg/dL Indirect Bilirubin 0.2 (0.0-1.2) mg/dL AST 7 L (13-39) Units/L ALT 5 L (7-52) Units/L Alkaline Phosphatase 66 (34-104) Units/L Troponin I 0.06 H* (< 0.04) ng/mL Serum Total Protein 6.6 (6.4-8.9) g/dL Albumin 2.8 L (3.5-5.7) g/dL Globulin 3.8 H (2.4-3.5) g/dL Albumin/Globulin Ratio 0.7 L (1.1-2.2) TSH 1.560 (0.340-5.600) mcIU/mL Urine Color (Yellow) Urine Clarity (Clear) Urine pH (5.0-8.0) pH Units Ur Specific [place] (1.010-1.025) Urine Protein (Neg-Trace) mg/dL Urine Glucose (UA) (Normal) mg/dL Urine Ketones (Negative) mg/dL Urine Blood (Negative) Urine Nitrite (Negative) Urine Bilirubin (Negative) Urine Urobilinogen (Normal) mg/dL Ur Leukocyte Esterase (Negative) Urine Microscopic RBC (0-3) per hpf Urine Microscopic WBC (0-3) per hpf Ur Squamous Epith Cells (None-Few) per lpf Urine Bacteria (None-Few) per hpf Hyaline Casts (None-Few) per lpf Ur Culture Indicated? (NO) Stool Occult Blood Negative (Negative) Ethyl Alcohol < 10 (Less than 10) mg/dL Blood Type Antibody Screen Crossmatch 07/25/17 07/25/17 Range/Units 20:20 20:56 WBC (4.3-11.1) K/mcL RBC (4.19-5.50) M/mcL Hgb (12.9-16.9) g/dL Hct (37.5-50.1) % MCV (83.0-100.0) fL MCH (28.0-33.3) pg MCHC (31.6-35.5) g/dL RDW (11.5-14.5) % Plt Count (140-400) K/mcL MPV (9.4-12.4) fL Immature Gran % (0-4) % Seg Neutrophils % % Lymphocytes % % Monocytes % % Eosinophils % % Basophils % % Neutrophils # (1.6-8.9) K/mcL Lymphocytes # (0.6-4.6) K/mcL Monocytes # (0.0-1.3) K/mcL Eosinophils # (0.0-0.6) K/mcL Basophils # (0.0-0.2) K/mcL Sodium (136-145) mEq/L Potassium (3.5-5.1) mEq/L Chloride (98-107) mEq/L Carbon Dioxide (23-29) mEq/L BUN (6-20) mg/dL Creatinine (0.70-1.30) mg/dL Est GFR ( Amer) (> 60) Est GFR (Non-Af Amer) (> 60) BUN/Creatinine Ratio (6-26) Glucose (70-105) mg/dL Calculated Osmolality (280-300) Calcium (8.6-10.3) mg/dL Total Bilirubin (0.3-1.0) mg/dL Direct Bilirubin (0.0-0.2) mg/dL Indirect Bilirubin (0.0-1.2) mg/dL AST (13-39) Units/L ALT (7-52) Units/L Alkaline Phosphatase (34-104) Units/L Troponin I (< 0.04) ng/mL Serum Total Protein (6.4-8.9) g/dL Albumin (3.5-5.7) g/dL Globulin (2.4-3.5) g/dL Albumin/Globulin Ratio (1.1-2.2) TSH (0.340-5.600) mcIU/mL Urine Color Yellow (Yellow) Urine Clarity Slightly Hazy (Clear) Urine pH 6.0 (5.0-8.0) pH Units Ur Specific [place] 1.023 (1.010-1.025) Urine Protein >=300 H (Neg-Trace) mg/dL Urine Glucose (UA) 100 H (Normal) mg/dL Urine Ketones Negative (Negative) mg/dL Urine Blood Negative (Negative) Urine Nitrite Negative (Negative) Urine Bilirubin Small H (Negative) Urine Urobilinogen Normal (Normal) mg/dL Ur Leukocyte Esterase Negative (Negative) Urine Microscopic RBC 5-15 H (0-3) per hpf Urine Microscopic WBC 3-5 H (0-3) per hpf Ur Squamous Epith Cells Many H (None-Few) per lpf Urine Bacteria None Seen (None-Few) per hpf Hyaline Casts None Seen (None-Few) per lpf Ur Culture Indicated? NO (NO) Stool Occult Blood (Negative) Ethyl Alcohol (Less than 10) mg/dL Blood Type A POSITIVE Antibody Screen NEGATIVE Crossmatch See Detail Critical Care Time Critical Care Time: Yes Total Critical Care Time: 35 Attestation: Critical care performed: Time is exclusive of separately billable procedures. Time includes: direct patient care, patient reassessment, coordination of patient care, interpretation of data (laboratory data, radiology data, and respiratory data), review of patient's medical records, medical consultation and documentation of patient care. Procedures included in critical care time: Procedures excluded from critical care time: Attestation Statement - Attestation Attestation: I, Jose Elias Morales MD, personally evaluated this patient and discussed their management with the resident physician. I reviewed the resident's note and agree with the documented findings, medical decision making, and plan of care. 47-year-old male presents to the emergency department with a one-day history of feeling weak and sleeping a lot today. Also he has noticed decreased urine output today. He denies any dysuria or gross hematuria. Patient was recently in the hospital for UTI. He denies any pain other than back pain which is chronic and unchanged from usual. No headache. No fever. No cough or chest pain or shortness of breath. No nausea or vomiting or diarrhea. No GI bleed symptoms. Patient also recently had a septic right knee and underwent surgery for this and is currently receiving IV vancomycin through a PICC line. On examination patient is a well-developed well-nourished female in no acute distress. He is alert and oriented 3. There is no cyanosis or diaphoresis. He does appear slightly drowsy. Speech is not slurred. There is no cyanosis or diaphoresis. Patient has bilateral BKA. Neck is supple and nontender with full range of motion and no meningismus. Breath sounds are equal bilaterally with some bibasilar rales which are much worse on the right and do not clear with coughing. No wheezes noted. Heart regular rate and rhythm. Abdomen is soft and nontender with normal bowel sounds. EKG shows a normal sinus rhythm with ventricular rate of 87. Old septal ND. No acute ST segment elevation or depression and no significant change from prior EKG. Chest x-ray shows bibasilar and right upper lobe atelectasis. Labs reviewed. Hemoglobin down to 7.3. Dehydration with acute kidney injury. Also elevated troponin. Head CT obtained at the request of the admitting hospitalist and shows no acute intracranial abnormality. PRBCs ordered in the emergency department for transfusion. The hospitalist, Dr. Gilliam, was consulted and accepted admission of the patient.
[2017-07-25 20:00] LABS: Basophils % 0.4 %; Eosinophils # 0.3 K/mcL (0.0-0.6); Eosinophils % 2.3 %; Hematocrit 23.2 % (37.5-50.1); Hemoglobin 7.3 g/dL (12.9-16.9); Immature Granulocytes % 0.8 % (0-4); Lymphocytes # 2.5 K/mcL (0.6-4.6); Lymphocytes % 22.1 %; Mean Corpuscular HGB Conc 31.5 g/dL (31.6-35.5); Mean Corpuscular Hemoglobin 26.2 pg (28.0-33.3); Mean Corpuscular Volume 83.2 fL (83.0-100.0); Mean Platelet Volume 10.1 fL (9.4-12.4); Monocytes % 8.7 %; Neutrophils # 7.5 K/mcL (1.6-8.9); Platelet Count 221 K/mcL (140-400); Red Blood Count 2.79 M/mcL (4.19-5.50); Red Cell Distribution Width 14.6 % (11.5-14.5); Segmented Neutrophils % 65.7 %
[2017-07-25 20:24] LABS: Alanine Aminotransferase 5 Units/L (7-52); Albumin 2.8 g/dL (3.5-5.7); Albumin/Globulin Ratio 0.7 (1.1-2.2); Alkaline Phosphatase 66 Units/L (34-104); Aspartate Amino Transferase 7 Units/L (13-39); BUN/Creatinine Ratio 23 (6-26); Bilirubin,Indirect 0.2 mg/dL (0.0-1.2); Bilirubin,Total 0.2 mg/dL (0.3-1.0); Blood Urea Nitrogen 44 mg/dL (6-20); Calcium 8.3 mg/dL (8.6-10.3); Carbon Dioxide 27 mEq/L (23-29); Chloride 102 mEq/L (98-107); Ethanol < 10 mg/dL (Less than 10); Globulin 3.8 g/dL (2.4-3.5); Glucose 164 mg/dL (70-105); Osmolality,Calculated 301 (280-300); Potassium 4.4 mEq/L (3.5-5.1); Sodium 138 mEq/L (136-145); Total Protein 6.6 g/dL (6.4-8.9); eGFR For African Americans 46 (> 60); eGFR For Non-African Americans 38 (> 60)
[2017-07-25 20:31] LABS: Troponin I 0.06 ng/mL (< 0.04)
[2017-07-25 20:43] LABS: Bilirubin,Urine Small (Negative); Blood,Urine Negative (Negative); Color,Urine Yellow (Yellow); Glucose,Urine (UA) 100 mg/dL (Normal); Ketones,Urine Negative (Negative); Leukocyte Esterase,Urine Negative (Negative); Nitrite,Urine Negative (Negative); Protein,Urine >=300 mg/dL (Neg-Trace); Specific Gravity,Urine 1.023 (1.010-1.025); Urobilinogen,Urine Normal (Normal)
[2017-07-25 20:45] LABS: Bacteria,Urine None Seen per hpf (None-Few); Hyaline Casts,Urine None Seen per lpf (None-Few); Squamous Epithelial Cell,Urine Many per lpf (None-Few)
[2017-07-25 20:55] LABS: Clarity,Urine Slightly Hazy (Clear)
--- NOTE | 2017-07-25 22:49 | Internal Med History&Physical ---
Date of Encounter: 07/26/17 Time of Encounter: 22:43 Internal Medicine - H&P: HPI Chief complaint: Lethargic Admitted From: Emergency Dept Plans for Post Hospital Care: Home History of present illness: Mr. Lamb is a 47 year old male with history of diabetes eyes, bilateral BKA, hypertension, coronary artery disease status post multiple stents/CABG, hyperkalemia, COPD on 2 L at night who presents with increased lethargy and sleepiness and decreased urine output. The patient is accompanied by his [id number] was noted that his been sleepy all day which is more than usual for him. The patient does have some baseline lethargy however it has increased. She also noted decreased urine output. There is no focal neurological deficits. Patient is blood glucose was in the 250s. The patient was recently discharged from here after stay for hypoglycemia, UTI, pneumonia. At the time he was found to have a low hemoglobin and his hemoglobin dropped to 6.9 and was evaluated by GI and had an EGD done which showed erosive esophagitis. He was transfused and hemoglobin remained stable. The patient was discharged to finish treatment for pneumonia with Levaquin and continue his IV vancomycin treatment for his septic right knee. The patient was discharged on 07/14 2017. Today upon presentation to the ED he was hemodynamically stable. He was afebrile. He was on his regular O2 needs of 2 L. Laboratory workup showed a hemoglobin of 7.3 but negative fecal occult blood test. The patient's hemoglobin on 07/14 was 8.9. The patient was started on 1 unit of PRBCs in the ED. Creatinine was noted to be 1.90 which is above his baseline. Troponins were also 0.06 but no EKG concerning changes. The patient denies any fever, chills, nausea, vomiting, chest pain, shortness breath, abdominal pain, diarrhea , constipation, neurological symptoms other than lethargy. Urinalysis was not indicative of UTI. CT head was unremarkable. Past Med Surg Social Fam HX - Past Medical History Medical history: coronary artery disease, diabetes, hyperlipidemia, hypertension , kidney stones, myocardial infarction, other Additional medical history: SLEEP APNEA Psychiatric history: anxiety - Past Surgical History Surgical History: angioplasty/stent, coronary bypass (CABG), orthopedic, other Additional surgical history: WINIFRED BKA , 17 STENTS - Social History Smoking Status: Former smoker Smokeless Tobacco Status: No Alcohol use: none Drug use: none - Family History Mother Living Status: Still Living Hx Family Cardiac Disorders: Yes (PACER) Hx Family Endocrine Disorder: Yes (DIABETES) Father Living Status: Hx Family Cardiac Disorders: Yes Internal Medicine - H&P: Meds Amitriptyline [Elavil] 75 mg PO HS 07/01/17 [History] Duloxetine HCl [Cymbalta] 60 mg PO DAILY 07/01/17 [History] HYDROcodone/Acet 7.5/325 mg [[place] 7.5-325 mg] 1 tab PO QID PRN 07/01/17 [ History] Insulin ASPART [NovoLOG] 0 - 10 unit SQ TIDWM 07/01/17 [History] Insulin Glargine,Hum.rec.anlog [Basaglar Kwikpen U-100] 50 unit SQ HS 07/01/17 [ History] LORazepam [Ativan] 0.5 mg PO BID 07/01/17 [History] Pregabalin [Lyrica] 150 mg PO TID 07/01/17 [History] Rosuvastatin Calcium [Crestor] 40 mg PO HS 07/01/17 [History] Ranolazine [Ranexa] 1,000 mg PO BID 07/02/17 [History] Tizanidine HCl 4 mg PO TID 07/02/17 [History] Aspirin 81 mg PO DAILY #30 tab.chew 07/05/17 [Rx] Nicotine Patch [Nicoderm] 14 mg TD DAILY PRN #30 patch.td24 07/05/17 [Rx] Carvedilol [Coreg] 3.125 mg PO BIDWM #60 tablet 07/14/17 [Rx] Omeprazole [PriLOSEC] 20 mg PO BIDAC #60 capsule.dr 07/14/17 [Rx] Sucralfate [Carafate] 1 gm PO TID #90 udc 07/14/17 [Rx] amLODIPine [Norvasc] 5 mg PO DAILY #30 tablet 07/14/17 [Rx] Vancomycin [Vancocin] 1,500 mg IV DAILY 07/25/17 [History] 3 Allergy/AdvReac Type Severity Reaction Status Date / Time Diclofenac [From Voltaren] Allergy Gastrointestinal Verified 07/25/17 21:09 Upset Penicillins Allergy Rash Verified 07/25/17 21:09 All Systems PM: A 10-system review of systems was performed and is negative for pertinent findings except as documented above in the HPI. Review of systems: All systems reviewed are negative except for as mentioned above - Constitutional Vitals: Temp Pulse Resp BP Pulse Ox 98.0 F 98 17 144/87 97 07/25/17 22:25 07/25/17 22:25 07/25/17 22:25 07/25/17 22:25 07/25/17 21:26 Exam: GEN: NAD, lethargic but alert oriented 2 HEENT: AT, NC, No cyanosis, oral mucosa is moist, No JVD Lymphatics: No lymphadenoapthy Eyes: Extrocular muscles intact, anicteric CVS:RRR. S1, S2, No m/r/g RESP: CTAB ABD: Soft, NT, ND, +BS EXT: Bilateral BKA noted recent right knee incision site is clean and dry, 2+ DP NEURO: Nonfocal, CN II-XII intact, moves extremities spontaneously Psych: Cooperative, Not anxious or depressed Internal Med - H&P Results - Labs CBC & Chem 7: 07/25/17 19:42 07/25/17 19:42 Labs: Short CBC 07/25/17 Range/Units 19:42 WBC 11.4 H (4.3-11.1) K/mcL Hgb 7.3 L (12.9-16.9) g/dL Hct 23.2 L (37.5-50.1) % Plt Count 221 (140-400) K/mcL Neutrophils # 7.5 (1.6-8.9) K/mcL BMP 07/25/17 19:42 Sodium 138 Potassium 4.4 Chloride 102 Carbon Dioxide 27 BUN 44 H Creatinine 1.90 H Glucose 164 H Calcium 8.3 L Cardiac Enzymes 07/25/17 Range/Units 19:42 Troponin I 0.06 H* (< 0.04) ng/mL Liver Function 07/25/17 Range/Units 19:42 Total Bilirubin 0.2 L (0.3-1.0) mg/dL Direct Bilirubin 0.0 (0.0-0.2) mg/dL AST 7 L (13-39) Units/L ALT 5 L (7-52) Units/L Alkaline Phosphatase 66 (34-104) Units/L Albumin 2.8 L (3.5-5.7) g/dL Urine 07/25/17 Range/Units 20:20 Urine Color Yellow (Yellow) Urine Clarity Slightly Hazy (Clear) Urine pH 6.0 (5.0-8.0) pH Units Ur Specific [place] 1.023 (1.010-1.025) Urine Protein >=300 H (Neg-Trace) mg/dL Urine Glucose (UA) 100 H (Normal) mg/dL - Impressions ITS Impressions Chest X-Ray 07/25/17 19:19 IMPRESSION: 1. Right upper extremity PICC terminating in the superior vena cava. 2. Bibasilar and streaky right upper lobe peripheral airspace opacities likely representing atelectasis. In the appropriate clinical setting pneumonia is not excluded. D/ / Tate Norris MD / Tate Norris MD Interpreting Provider: Tate Norris MD Head CT 07/25/17 21:29 IMPRESSION: No acute intracranial abnormality D/ / Robert Rojo / Robert Rojo Interpreting Provider: Robert Rojo - Assessment and plan (1) Lethargy Current Visit: Yes Status: Acute Assessment and plan: I think this is multifactorial with anemia, dehydration as evident by his elevated kidney function, being on multiple sedating medications in the setting of acute renal failure, and generalized deconditioning. We will treat as below. PTOT evaluation. (2) Symptomatic anemia Current Visit: Yes Status: Acute Assessment and plan: The patient has anemia and an EGD was done last visit that that showed erosive esophagitis. He has negative FOBT. No signs of bleeding. Likely anemia of chronic disease based on iron studies checked last visit. The ED is started transfusion with 1 unit. Check labs in the morning. We will monitor. (3) HILDA (acute kidney injury) Current Visit: Yes Status: Acute Assessment and plan: The patient's creatinine is above baseline. We will hydrate patient gently. Check labs in the morning. Avoid nephrotoxins. Will dose vancomycin per pharmacy. (4) Elevated troponin Current Visit: Yes Status: Acute Assessment and plan: Likely demand ischemia given his anemia and hilda. We will trend cardiac enzymes for now. Patient has no chest pain. EKG with no concerning changes. Patient had an echo last month with an EF of 40-45% and moderate left ventricular diastolic dysfunction. (5) Diabetes mellitus Current Visit: Yes Status: Acute Assessment and plan: Continue home basal insulin and we will put the patient on insulin sliding scale. Accu-Cheks. Qualifiers: Diabetes mellitus type: type 2 Diabetes mellitus skilled nursing insulin use: with skilled nursing use Diabetes mellitus complication status: without complication Qualified Code(s): E11.9 - Type 2 diabetes mellitus without complications; Z79.4 - half-way (current) use of insulin (6) Septic arthritis of knee, right Current Visit: No Status: Acute Assessment and plan: We will have pharmacy dose his vancomycin [place] Qualifiers: Septic arthritis organism: staphylococcal Qualified Code(s): M00.061 - Staphylococcal arthritis, right knee (7) COPD (chronic obstructive pulmonary disease) Current Visit: No Status: Chronic Assessment and plan: Not in exacerbation. Continue O2 support. Continue home inhalers. Qualifiers: COPD type: unspecified COPD Qualified Code(s): J44.9 - Chronic obstructive pulmonary disease, unspecified (8) Coronary artery disease Current Visit: No Status: Chronic Assessment and plan: Resume cardiac meds. Qualifiers: Coronary Disease-Associated Artery/Lesion type: bypass graft [place] vs. transplanted heart: [place] heart Associated angina: angina presence unspecified Qualified Code(s): I25.810 - Atherosclerosis of coronary artery bypass graft(s) without angina pectoris (9) Hypertension Current Visit: No Status: Chronic Assessment and plan: Resume home antihypertensives. Qualifiers: Hypertension type: unspecified Qualified Code(s): I10 - Essential (primary ) hypertension (10) DVT prophylaxis Current Visit: No Status: Acute Assessment and plan: patient has below knee amputations. With anemia, I have elected not to start pharmacological DVT prophylaxis - Time Spent With Patient Total time spent is greater than 50% in coordination of care (as documented) at patient's floor/unit and/or counseling patient:
[2017-07-25] MEDS ORDERED: *HR* Dextrose 50 % in Water (Syg) 50 ML SYRINGE IVP PRN (22:56)
[2017-07-25] MEDS ORDERED: D5% in Water 1,000 ML IVC PRN (22:56)
[2017-07-25] MEDS ORDERED: Dextrose Gel 15 GM/37.5 ML TUBE PO PRN ×2 (22:56)
[2017-07-25] MEDS ORDERED: Acetaminophen 325 MG TABLET PO PRN (22:57)
[2017-07-25] MEDS ORDERED: Naloxone 0.4 MG/ML INJ IVP PRN (22:57)
[2017-07-26 00:49] LABS: ABG Base Excess 4 mEq/L (-2 to 3); ABG HCO3 30 mEq/L (21-27); ABG Oxygen Saturation 95 % (95-98); ABG PCO2 51 mmHg (35-45); ABG PH 7.38 pH Units (7.32-7.45); ABG PO2 77 mmHg (85-104); ABG TCO2 32 mEq/L (20-26)
[2017-07-26] MEDS: 0.9 % Sodium Chloride 1,000 ML IVC SCH ×3 (00:50→20:34)
[2017-07-26 02:15] LABS: Basophils % 0.4 %; Eosinophils # 0.3 K/mcL (0.0-0.6); Eosinophils % 2.6 %; Hematocrit 24.9 % (37.5-50.1); Hemoglobin 7.8 g/dL (12.9-16.9); Immature Granulocytes % 0.5 % (0-4); Lymphocytes # 2.4 K/mcL (0.6-4.6); Lymphocytes % 21.6 %; Mean Corpuscular HGB Conc 31.3 g/dL (31.6-35.5); Mean Corpuscular Hemoglobin 26.2 pg (28.0-33.3); Mean Corpuscular Volume 83.6 fL (83.0-100.0); Mean Platelet Volume 9.8 fL (9.4-12.4); Monocytes # 1.1 K/mcL (0.0-1.3); Monocytes % 9.9 %; Neutrophils # 7.1 K/mcL (1.6-8.9); Platelet Count 222 K/mcL (140-400); Red Blood Count 2.98 M/mcL (4.19-5.50); Red Cell Distribution Width 14.9 % (11.5-14.5)
[2017-07-26 02:39] LABS: Troponin I 0.06 ng/mL (< 0.04)
[2017-07-26 03:19] LABS: Calcium 8.1 mg/dL (8.6-10.3); Magnesium 1.5 mg/dL (1.6-2.6)
[2017-07-26 03:32] LABS: Thyroid Stimulating Hormone 1.127 mcIU/mL (0.340-5.600)
[2017-07-26] MEDS: Insulin LISPRO 300 UNITS/3 ML VIAL SQ SCH ×4 (08:22→20:39)
[2017-07-26] MEDS: Ranolazine 500 MG TAB.ER.12H PO SCH ×2 (08:22→20:35)
[2017-07-26] MEDS: amLODIPine 5 MG TABLET PO SCH (08:22)
[2017-07-26 09:57] LABS: Hematocrit 27.2 % (37.5-50.1); Hemoglobin 8.5 g/dL (12.9-16.9)
[2017-07-26 10:29] LABS: Folate 11.2 ng/mL (3.0-16.0)
[2017-07-26] MEDS: *HR* HYDROcodone/Acet 5/325 mg TABLET PO PRN ×2 (15:48→21:52)
[2017-07-26 16:35] LABS: Hematocrit 26.2 % (37.5-50.1); Hemoglobin 8.2 g/dL (12.9-16.9)
--- NOTE | 2017-07-26 17:49 | Internal Med Progress Note ---
Date of Encounter: 07/26/17 Time of Encounter: 11:50 - Assessment and plan (1) Septic arthritis of knee, right Current Visit: Yes Status: Acute Assessment and plan: Recent knee surgery for sports medicine provider 2 weeks ago. We will have pharmacy dose his vancomycin renally Patient reports receiving adequate pain relief. Qualifiers: Septic arthritis organism: staphylococcal Qualified Code(s): M00.061 - Staphylococcal arthritis, right knee (2) DVT prophylaxis Current Visit: Yes Status: Acute Assessment and plan: patient has below knee amputations. With anemia, I have elected not to start pharmacological DVT prophylaxis. Encourage patient to move around room as much as possible, SCDs were ordered and not applied. (3) Coronary artery disease Current Visit: Yes Status: Chronic Assessment and plan: Pt denies chest pain. Continue telemetry. Continue beta quique, Ranexa. Qualifiers: Coronary Disease-Associated Artery/Lesion type: bypass graft [place] vs. transplanted heart: [place] heart Associated angina: angina presence unspecified Qualified Code(s): I25.810 - Atherosclerosis of coronary artery bypass graft(s) without angina pectoris (4) Hypertension Current Visit: Yes Status: Chronic Assessment and plan: Continue home medications . Chronic and stable. Qualifiers: Hypertension type: unspecified Qualified Code(s): I10 - Essential (primary ) hypertension (5) COPD (chronic obstructive pulmonary disease) Current Visit: Yes Status: Chronic Assessment and plan: No acute exacerbation. Continue home medications. O2 as needed to maintain sats greater than 92% Lungs are clear and diminished throughout. Qualifiers: COPD type: unspecified COPD Qualified Code(s): J44.9 - Chronic obstructive pulmonary disease, unspecified (6) HILDA (acute kidney injury) Current Visit: Yes Status: Acute Assessment and plan: Renal function has improved since admission. Continue gentle IV fluid hydration Avoid nephrotoxins Vancomycin dosing per pharmacy (7) Symptomatic anemia Current Visit: Yes Status: Acute Assessment and plan: The patient has anemia and an EGD was done last visit that that showed erosive esophagitis. He has negative FOBT. No signs of bleeding. Patient denies any hematemesis melena or obvious hematuria. He does report the urine has been darker than normal, and menses been drinking less fluid than normal. Likely anemia of chronic disease based on iron studies checked last visit. The ED is started transfusion with 1 unit. Continue to trend troponin and transfuse if hemoglobin less than 8. (8) Elevated troponin Current Visit: Yes Status: Acute Assessment and plan: Likely demand ischemia given his anemia and hilda. Trending down today. Patient has no chest pain. EKG with no concerning changes. Patient had an echo last month with an EF of 40-45% and moderate left ventricular diastolic dysfunction. Continue telemetry, chest pain returns repeat EKG, recheck troponin. Consider cardiology consult. (9) Diabetes mellitus Current Visit: Yes Status: Acute Assessment and plan: Continue home dose of Lantus, sliding scale insulin, diabetic diet. Accu-Cheks before meals at bedtime. Qualifiers: Diabetes mellitus type: type 2 Diabetes mellitus half-way insulin use: with half-way use Diabetes mellitus complication status: without complication Qualified Code(s): E11.9 - Type 2 diabetes mellitus without complications; Z79.4 - [facility] (current) use of insulin (10) Lethargy Current Visit: Yes Status: Resolved Assessment and plan: Patient has returned to baseline. - Time Spent With Patient Total time spent is greater than 50% in coordination of care (as documented) at patient's floor/unit and/or counseling patient: less than 15 minutes - Subjective Interval history: Patient was seen and assessed at bedtime 11:50 AM. She reports that 2 weeks ago he had right knee surgery at sports medicine. Patient denies any known prior history of anemia and denies melena, hematemesis, or timi hematuria at that he does report darker urine than normal. Patient reports depression states that his recently and he is having trouble. He declines antidepressant or referral to counseling. - Constitutional Vitals: Temp Pulse Resp BP Pulse Ox 98.1 F 98 14 138/73 91 07/26/17 15:46 07/26/17 15:46 07/26/17 15:46 07/26/17 15:46 07/26/17 15:46 General appearance: Present: cooperative, A&O X 3, pleasant, no acute distress, obese, answers questions appropriately - Head Head exam: Present: atraumatic, normal inspection, normocephalic - Eye Eye exam: Present: PERRL, conjuntiva pink, sclera anicteric Pupils: Present: PERRL - Neck Neck exam general surgery: Present: supple, trachea midline. Absent: lymphadenopathy - Respiratory Respiratory exam: Present: CTAB. Absent: accessory muscle use, rales, rhonchi, wheezes - Cardiovascular Cardiovascular exam: Present: RRR, +S1, +S2. Absent: diastolic murmur, gallop, rubs, systolic murmur - GI/Abdominal GI/Abdominal exam: Present: normal bowel sounds, soft, no peritoneal signs. Absent: distended, tenderness - Extremities Exam Extremities exam: Present: warm, radial pulses palpable and symmetrical. Absent : calf tenderness, cyanotic, pedal edema Additional comments: Bilateral BKA - Neurological Exam Neurological exam: Present: CN II-XII intact, oriented X3, no focal deficits. Absent: pronater drift, facial droop, speech deficit - Skin Skin exam: Present: dry, intact, normal color, warm. Absent: rash Internal Medicine: Result - Labs CBC & Chem 7: 07/26/17 15:50 07/26/17 02:00 Labs: Short CBC 07/26/17 07/26/17 07/26/17 Range/Units 02:00 09:20 15:50 WBC 10.9 (4.3-11.1) K/mcL Hgb 7.8 L 8.5 L 8.2 L (12.9-16.9) g/dL Hct 24.9 L 27.2 L 26.2 L (37.5-50.1) % Plt Count 222 (140-400) K/mcL Neutrophils # 7.1 (1.6-8.9) K/mcL BMP 07/26/17 02:00 Sodium 140 Potassium 4.0 Chloride 106 Carbon Dioxide 25 BUN 38 H Creatinine 1.67 H Glucose 135 H Calcium 8.1 L Cardiac Enzymes 07/26/17 07/26/17 Range/Units 02:00 08:05 Troponin I 0.06 H* 0.04 H* (< 0.04) ng/mL - ABG Interpretation ABG results: ABG ABG pH 7.38 pH Units (7.32-7.45) 07/26/17 00:43 ABG pCO2 51 mmHg (35-45) H 07/26/17 00:43 ABG pO2 77 mmHg (85-104) L 07/26/17 00:43 ABG O2 Saturation 95 % (95-98) 07/26/17 00:43 Consult Discharge Plan - Plan Referrals: Kamran Lira DO [Primary Care Provider] - 08/01/17 1:30 pm Job Munoz MD [Non-Partnered Physician] - 08/16/17 2:45 pm
[2017-07-26] MEDS: Insulin DETEMIR 100 UNIT/ML X5UNITS SQ SCH (20:38)
[2017-07-26] MEDS ORDERED: NON-FORMULARY MEDICATION 1 EACH EACH (Insulin Glargine,Hum.Rec.Anlog [Basaglar Kwikpen U-1 SQ SCH (21:00)
[2017-07-26 22:18] LABS: Hematocrit 26.8 % (37.5-50.1); Hemoglobin 8.4 g/dL (12.9-16.9)
[2017-07-27] MEDS ORDERED: Ipratropium/Albuterol Neb 3 ML IH PRN (02:03)
[2017-07-27] MEDS ORDERED: Ipratropium/Albuterol Neb 3 ML ONE (02:11)
[2017-07-27 03:52] LABS: Basophils % 0.3 %; Eosinophils # 0.3 K/mcL (0.0-0.6); Hematocrit 25.7 % (37.5-50.1); Hemoglobin 8.2 g/dL (12.9-16.9); Immature Granulocytes % 0.6 % (0-4); Lymphocytes # 1.5 K/mcL (0.6-4.6); Lymphocytes % 14.6 %; Mean Corpuscular HGB Conc 31.9 g/dL (31.6-35.5); Mean Corpuscular Hemoglobin 26.5 pg (28.0-33.3); Mean Corpuscular Volume 82.9 fL (83.0-100.0); Mean Platelet Volume 9.7 fL (9.4-12.4); Monocytes % 9.4 %; Neutrophils # 7.5 K/mcL (1.6-8.9); Platelet Count 262 K/mcL (140-400); Red Cell Distribution Width 14.6 % (11.5-14.5); Segmented Neutrophils % 72.1 %
[2017-07-27 04:07] LABS: BUN/Creatinine Ratio 18 (6-26); Blood Urea Nitrogen 24 mg/dL (6-20); Calcium 8.3 mg/dL (8.6-10.3); Carbon Dioxide 27 mEq/L (23-29); Chloride 102 mEq/L (98-107); Glucose 245 mg/dL (70-105); Osmolality,Calculated 290 (280-300); Sodium 134 mEq/L (136-145); eGFR For African Americans > 60 (> 60); eGFR For Non-African Americans 58 (> 60)
[2017-07-27] MEDS: Ipratropium/Albuterol Neb 3 ML IH SCH ×4 (04:59→21:44)
[2017-07-27] MEDS: *HR* HYDROcodone/Acet 5/325 mg TABLET PO PRN ×3 (05:13→20:36)
[2017-07-27] MEDS: 0.9 % Sodium Chloride 1,000 ML IVC SCH ×2 (08:42→19:06)
[2017-07-27] MEDS: amLODIPine 5 MG TABLET PO SCH (08:43)
[2017-07-27] MEDS: Ranolazine 500 MG TAB.ER.12H PO SCH ×2 (08:43→20:35)
[2017-07-27] MEDS: Insulin LISPRO 300 UNITS/3 ML VIAL SQ SCH ×4 (08:45→20:28)
--- NOTE | 2017-07-27 09:37 | Electrocardiograph Report ---
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
--- NOTE | 2017-07-27 13:16 | Orthopedics Progress Note ---
Date of Encounter: 07/27/17 Time of Encounter: 12:56 Subjective Interval history: 47 year old male with PMHx of diabetes, bilateral BKA, hypertension, coronary artery disease status post multiple stents/CABG, hyperkalemia, COPD who was admitted to the hospital with acute renal failure. The patient had a septic right knee and lower extremity abscess that was I&D'd approximately 3 weeks. Post op he was readmitted for hypoglycemia, UTI, pneumonia and anemia. Last visit he had an EGD done which showed erosive esophagitis requiring transfusion , which stabilized his hemoglobin. He was discharged afterwards on Levaquin for pneumonia and continuing his IV vancomycin treatment for his septic right knee. 2 days ago he presented to the ED with lethargy and decreased urine output. Creatinine was elevated at 1.9, Hgb decreased at 7.3 and was given 1 u PRBC in ED. He has been afebrile and hemodynamically stable. The patient denies any fever, chills, nausea, vomiting, chest pain, shortness breath, drainage from knee incisions. Orthopedics was called to evaluate the knee due to his recent surgery. States his knee and right thigh are feeling better since surgery without recurrence of swelling or erythema. AFVSS GEN: NAD, AAOx3 at baseline mental status RLE: Incisions healed without erythema or drainage Mild swelling over lower extremity Minimal knee joint effusion Knee ROM 2-125 degrees without pain 47 yo M s/p R septic knee I&D, admitted for acute renal failure -His knee and leg are healing well. No sign of acute recurrence of infection. Sutures were removed without issue today -May range knee as tolerated. Continue IV antibiotics per infectious disease recommendation -Medical management per primary service -Follow up in office scheduled for 3 weeks Objective Vital signs: Vital Signs Temp Pulse Resp BP Pulse Ox 07/27/17 10:28 98.5 F 97 16 135/78 93 07/27/17 09:05 20 92 07/27/17 08:57 92 07/27/17 07:21 98 F 105 14 152/82 93 07/27/17 04:59 16 95 07/27/17 03:32 98.7 F 103 16 141/76 92 07/27/17 02:15 18 88 07/27/17 01:40 98.5 F 110 16 168/94 91 07/26/17 23:30 98.7 F 106 20 144/77 94 07/26/17 20:16 98.0 F 105 16 155/85 94 07/26/17 18:52 99.1 F 103 16 160/82 95 07/26/17 15:46 98.1 F 98 14 138/73 91 Intake and Output 07/26/17 07/27/17 07/27/17 23:59 07:59 15:59 Intake Total 1000 / 1000 1220 / 1220 Output Total 2300 / 2300 925 / 925 850 / 850 Balance -1300 / -1300 295 / 295 -850 / -850 Intake: IV Fluids 1000 / 1000 1000 / 1000 0.9 % Sodium Chloride 1,000 ML 1000 / 1000 1000 / 1000 @ 100 mls/hr IVC .Q10H [facility] Rx#: [id number] Oral 0 / 0 220 / 220 Output: Urine 2300 / 2300 925 / 925 850 / 850 Other: Weight 112.9 kg Blood Glucose* 192 220 165 Patient Weight 07/27/17 23:59 Weight 112.9 kg - Labs CBC & BMP: 07/27/17 03:25 07/27/17 03:25 Labs: Abnormal lab results RBC 3.10 M/mcL (4.19-5.50) L 07/27/17 03:25 Hgb 8.2 g/dL (12.9-16.9) L 07/27/17 03:25 Hct 25.7 % (37.5-50.1) L 07/27/17 03:25 MCV 82.9 fL (83.0-100.0) L 07/27/17 03:25 MCH 26.5 pg (28.0-33.3) L 07/27/17 03:25 RDW 14.6 % (11.5-14.5) H 07/27/17 03:25 ABG pCO2 51 mmHg (35-45) H 07/26/17 00:43 ABG pO2 77 mmHg (85-104) L 07/26/17 00:43 ABG HCO3 30 mEq/L (21-27) H 07/26/17 00:43 ABG Total CO2 32 mEq/L (20-26) H 07/26/17 00:43 ABG Base Excess 4 mEq/L (-2 to 3) H 07/26/17 00:43 Sodium 134 mEq/L (136-145) L 07/27/17 03:25 BUN 24 mg/dL (6-20) H 07/27/17 03:25 Creatinine 1.32 mg/dL (0.70-1.30) H 07/27/17 03:25 Est GFR (Non-Af Amer) 58 (> 60) L 07/27/17 03:25 Glucose 245 mg/dL (70-105) H 07/27/17 03:25 POC Glucose 192 mg/dL (70-99) H 07/26/17 20:32 Calcium 8.3 mg/dL (8.6-10.3) L 07/27/17 03:25 Magnesium 1.5 mg/dL (1.6-2.6) L 07/26/17 02:00 Total Bilirubin 0.2 mg/dL (0.3-1.0) L 07/25/17 19:42 AST 7 Units/L (13-39) L 07/25/17 19:42 ALT 5 Units/L (7-52) L 07/25/17 19:42 Troponin I 0.04 ng/mL (< 0.04) H* 07/26/17 08:05 Albumin 2.8 g/dL (3.5-5.7) L 07/25/17 19:42 Globulin 3.8 g/dL (2.4-3.5) H 07/25/17 19:42 Albumin/Globulin Ratio 0.7 (1.1-2.2) L 07/25/17 19:42 Urine Protein >=300 mg/dL (Neg-Trace) H 07/25/17 20:20 Urine Glucose (UA) 100 mg/dL (Normal) H 07/25/17 20:20 Urine Bilirubin Small (Negative) H 07/25/17 20:20 Urine Microscopic RBC 5-15 per hpf (0-3) H 07/25/17 20:20 Urine Microscopic WBC 3-5 per hpf (0-3) H 07/25/17 20:20 Ur Squamous Epith Cells Many per lpf (None-Few) H 07/25/17 20:20 Consult Discharge Plan - Plan Referrals: Kamran Lira DO [Primary Care Provider] - 08/01/17 1:30 pm Job Munoz MD [Non-Partnered Physician] - 08/16/17 2:45 pm
[2017-07-27] MEDS: Docusate Oral Soln 100 MG/10 ML UDC PO SCH (16:11)
--- NOTE | 2017-07-27 17:20 | Internal Med Progress Note ---
Date of Encounter: 07/27/17 Time of Encounter: 12:00 - Assessment and plan (1) Septic arthritis of knee, right Current Visit: Yes Status: Acute Assessment and plan: Pt reports adequate pain control. Vancomycine renally dosed per pharmacy. Patient was evaluated by orthopedics today. Per note states no sign of acute recurrent infection, sutures removed today. He may perform range of motion as tolerated and continue IV antibiotics. Follow-up in the office in 3 weeks. Continue IV vancomycin at home for 6 weeks. Qualifiers: Septic arthritis organism: staphylococcal Qualified Code(s): M00.061 - Staphylococcal arthritis, right knee (2) DVT prophylaxis Current Visit: Yes Status: Acute Assessment and plan: patient has below knee amputations. With anemia, I have elected not to start pharmacological DVT prophylaxis. Encourage patient to move around room as much as possible, SCDs were ordered and not applied. (3) Coronary artery disease Current Visit: Yes Status: Chronic Assessment and plan: Pt denies chest pain. Continue telemetry. Continue beta quique, Ranexa. Qualifiers: Coronary Disease-Associated Artery/Lesion type: bypass graft [place] vs. transplanted heart: [place] heart Associated angina: angina presence unspecified Qualified Code(s): I25.810 - Atherosclerosis of coronary artery bypass graft(s) without angina pectoris (4) Hypertension Current Visit: Yes Status: Chronic Assessment and plan: Continue home medications . Within normal limits. Qualifiers: Hypertension type: unspecified Qualified Code(s): I10 - Essential (primary ) hypertension (5) COPD (chronic obstructive pulmonary disease) Current Visit: Yes Status: Chronic Assessment and plan: No acute exacerbation. Continue home medications. O2 as needed to maintain sats greater than 92% Nebulizer treatments as scheduled. Qualifiers: COPD type: unspecified COPD Qualified Code(s): J44.9 - Chronic obstructive pulmonary disease, unspecified (6) HILDA (acute kidney injury) Current Visit: Yes Status: Acute Assessment and plan: Renal function continues to improve since admission. Continue gentle IV fluid hydration Avoid nephrotoxins Vancomycin dosing per pharmacy (7) Symptomatic anemia Current Visit: Yes Status: Acute Assessment and plan: The patient has anemia and an EGD was done last visit that that showed erosive esophagitis. He has negative FOBT x 2. No signs of bleeding. Patient denies any hematemesis melena or obvious hematuria. Likely anemia of chronic disease based on iron studies checked last visit. 07/27/17- 524, iron was 33, percent saturation was 16. Patient has been started on ferrous sulfate 325 mg 3 times a day with meals. Continue to monitor. Trend hemoglobin overnight, is stable in the morning, patient may go home. (8) Elevated troponin Current Visit: Yes Status: Acute Assessment and plan: Likely demand ischemia given his anemia and hilda. Trending down 07/26/17. Continue telemetry, chest pain returns repeat EKG, recheck troponin. (9) Diabetes mellitus Current Visit: Yes Status: Acute Assessment and plan: Continue home dose of Lantus, sliding scale insulin, diabetic diet. Accu-Cheks before meals at bedtime. 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 Patient is back to baseline. - Time Spent With Patient Total time spent is greater than 50% in coordination of care (as documented) at patient's floor/unit and/or counseling patient: less than 15 minutes - Subjective Interval history: Patient was seen and assessed at bedtime 1200 PM. Pt denies melena, hematemesis , or timi hematuria. He denies abd pain, n/v/d, headache, blurred vision, chest pain or SOB. - Constitutional Vitals: Temp Pulse Resp BP Pulse Ox 98.6 F 95 16 120/73 95 07/27/17 15:40 07/27/17 15:40 07/27/17 15:41 07/27/17 15:40 07/27/17 15:41 General appearance: Present: cooperative, A&O X 3, pleasant, no acute distress, obese, answers questions appropriately - Head Head exam: Present: atraumatic, normal inspection, normocephalic - Eye Eye exam: Present: normal appearance, conjuntiva pink, sclera anicteric - Neck Neck exam general surgery: Present: supple, trachea midline. Absent: lymphadenopathy, tenderness - Respiratory Respiratory exam: Present: CTAB. Absent: accessory muscle use, rales, rhonchi, wheezes - Cardiovascular Cardiovascular exam: Present: RRR, +S1, +S2. Absent: diastolic murmur, gallop, rubs, systolic murmur - GI/Abdominal GI/Abdominal exam: Present: normal bowel sounds, soft. Absent: distended, hepatomegaly, tenderness - Extremities Exam Extremities exam: Present: normal capillary refill, normal inspection, warm, radial pulses palpable and symmetrical. Absent: calf tenderness, cyanotic, pedal edema - Neurological Exam Neurological exam: Present: alert, oriented X3, no focal deficits. Absent: facial droop, speech deficit - Skin Skin exam: Present: dry, intact, normal color, rash, warm Internal Medicine: Result - Labs CBC & Chem 7: 07/27/17 03:25 07/27/17 03:25 Labs: Short CBC 07/26/17 07/27/17 Range/Units 22:00 03:25 WBC 10.4 (4.3-11.1) K/mcL Hgb 8.4 L 8.2 L (12.9-16.9) g/dL Hct 26.8 L 25.7 L (37.5-50.1) % Plt Count 262 (140-400) K/mcL Neutrophils # 7.5 (1.6-8.9) K/mcL BMP 07/27/17 03:25 Sodium 134 L Potassium 4.0 Chloride 102 Carbon Dioxide 27 BUN 24 H Creatinine 1.32 H Glucose 245 H Calcium 8.3 L - ABG Interpretation ABG results: ABG ABG pH 7.38 pH Units (7.32-7.45) 07/26/17 00:43 ABG pCO2 51 mmHg (35-45) H 07/26/17 00:43 ABG pO2 77 mmHg (85-104) L 07/26/17 00:43 ABG O2 Saturation 95 % (95-98) 07/26/17 00:43 Consult Discharge Plan - Plan Referrals: Kamran Lira DO [Primary Care Provider] - 08/01/17 1:30 pm Job Munoz MD [Non-Partnered Physician] - 08/16/17 2:45 pm
[2017-07-27] MEDS: Insulin DETEMIR 100 UNIT/ML X5UNITS SQ SCH (20:37)
[2017-07-27] MEDS: Ondansetron 4 MG/2 ML VIAL IVP PRN (23:12)
[2017-07-28] MEDS: *HR* HYDROcodone/Acet 5/325 mg TABLET PO PRN ×2 (03:04→10:40)
[2017-07-28] MEDS: Ipratropium/Albuterol Neb 3 ML IH SCH ×3 (03:48→16:26)
[2017-07-28] MEDS: Ondansetron 4 MG/2 ML VIAL IVP PRN ×2 (05:18→12:13)
[2017-07-28 05:33] LABS: Basophils % 0.3 %; Eosinophils # 0.2 K/mcL (0.0-0.6); Eosinophils % 2.2 %; Hematocrit 25.7 % (37.5-50.1); Hemoglobin 8.1 g/dL (12.9-16.9); Immature Granulocytes % 0.5 % (0-4); Lymphocytes # 1.6 K/mcL (0.6-4.6); Lymphocytes % 16.4 %; Mean Corpuscular HGB Conc 31.5 g/dL (31.6-35.5); Mean Corpuscular Hemoglobin 26.3 pg (28.0-33.3); Mean Corpuscular Volume 83.4 fL (83.0-100.0); Mean Platelet Volume 9.2 fL (9.4-12.4); Monocytes % 9.7 %; Neutrophils # 7.1 K/mcL (1.6-8.9); Platelet Count 266 K/mcL (140-400); Red Blood Count 3.08 M/mcL (4.19-5.50); Red Cell Distribution Width 14.6 % (11.5-14.5); Segmented Neutrophils % 70.9 %
[2017-07-28 05:46] LABS: BUN/Creatinine Ratio 13 (6-26); Blood Urea Nitrogen 17 mg/dL (6-20); Calcium 8.5 mg/dL (8.6-10.3); Carbon Dioxide 26 mEq/L (23-29); Chloride 103 mEq/L (98-107); Glucose 156 mg/dL (70-105); Osmolality,Calculated 289 (280-300); Sodium 137 mEq/L (136-145); eGFR For African Americans > 60 (> 60); eGFR For Non-African Americans 57 (> 60)
[2017-07-28] MEDS: Docusate Oral Soln 100 MG/10 ML UDC PO SCH (07:49)
[2017-07-28] MEDS: Ranolazine 500 MG TAB.ER.12H PO SCH (07:49)
[2017-07-28] MEDS: amLODIPine 5 MG TABLET PO SCH (07:49)
[2017-07-28] MEDS: Insulin LISPRO 300 UNITS/3 ML VIAL SQ SCH ×2 (07:52→12:19)
[2017-07-28] MEDS: 0.9 % Sodium Chloride 1,000 ML IVC SCH (07:55)
[2017-07-28 12:21] VITALS: BP 165/91
--- NOTE | 2017-07-28 14:33 | Discharge Summary ---
- NOTES TO OUTPATIENT PROVIDER Notes to Outpatient Provider: Pt was admitted and treated for COPD exacerbation , continued treatment of septic arthritis of right knee. Patient was also anemic during his visit, however he has no signs of bleeding and has been placed on ferrous sulfate 325 mg 3 times daily with meals. He will continue his IV vancomycin at home. Recommend checking hemoglobin 2-3 days. Date of Encounter: 07/28/17 Time of Encounter: 14:05 - Discharge Diagnosis (1) Septic arthritis of knee, right Priority: Secondary Status: Acute Assessment and Plan: Continue Vancomycin Per ortho note states no sign of acute recurrent infection, sutures removed today. He may perform range of motion as tolerated and continue IV antibiotics. Follow-up in the office in 3 weeks. Continue IV vancomycin at home for 6 weeks. Qualifiers: Septic arthritis organism: staphylococcal Qualified Code(s): M00.061 - Staphylococcal arthritis, right knee (2) DVT prophylaxis Priority: Secondary Status: Acute Assessment and Plan: Patient has chanell BKA. With anemia, I have elected not to start pharmacological DVT prophylaxis. Encourage patient to move around room as much as possible, SCDs were ordered and not applied. (3) Coronary artery disease Priority: Secondary Status: Chronic Assessment and Plan: Continue beta quique, Ranexa. Qualifiers: Coronary Disease-Associated Artery/Lesion type: bypass graft [place] vs. transplanted heart: [place] heart Associated angina: angina presence unspecified Qualified Code(s): I25.810 - Atherosclerosis of coronary artery bypass graft(s) without angina pectoris (4) Hypertension Priority: Secondary Status: Chronic Assessment and Plan: Continue home medications. Qualifiers: Hypertension type: unspecified Qualified Code(s): I10 - Essential (primary ) hypertension (5) COPD (chronic obstructive pulmonary disease) Priority: Secondary Status: Chronic Assessment and Plan: No acute exacerbation. Continue home medications, duonebs, 02 at home prn Qualifiers: COPD type: unspecified COPD Qualified Code(s): J44.9 - Chronic obstructive pulmonary disease, unspecified (6) HILDA (acute kidney injury) Priority: Secondary Status: Acute Assessment and Plan: Renal function improved since admission with gentle IVF hydration. Avoid nephrotoxins Vancomycin dosing per pharmacy during admission, continue Vanco at home. (7) Symptomatic anemia Priority: Secondary Status: Acute Assessment and Plan: The patient has anemia and an EGD was done last visit that that showed erosive esophagitis. He has negative FOBT x 2. No signs of bleeding. Pt is asymptomatic. No fatigue, SOB, chest pain. Patient denies any hematemesis, melena, or obvious hematuria. ERIC 07/27/17- 524, iron was 33, percent saturation was 16. Patient has been started on ferrous sulfate 325 mg 3 times a day with meals. Continue to monitor. Trend hemoglobin overnight, is stable in the morning, patient may go home. 07/28/17- Hgb remains stable. Recheck with primary care/home health in 3-4 days. (8) Elevated troponin Priority: Secondary Status: Acute Assessment and Plan: Likely demand ischemia given his anemia and hilda. Trending down 07/26/17. Continue telemetry, chest pain returns repeat EKG, recheck troponin. (9) Diabetes mellitus Priority: Secondary Status: Acute Assessment and Plan: Continue home medications Qualifiers: Diabetes mellitus type: type 2 Diabetes mellitus long-term insulin use: with long-term use Diabetes mellitus complication status: without complication Qualified Code(s): E11.9 - Type 2 diabetes mellitus without complications; Z79.4 - alf (current) use of insulin (10) Lethargy Priority: Secondary Status: Resolved Assessment and Plan: Resolved. Hospital course: Mr. Lamb is a 47 year old male with history of bilateral BKA, coronary artery disease, hypertension, MARLO with CPAP, COPD, anxiety, tobacco abuse, hyperlipidemia, endocarditis, diabetes. Please see assessment and plan for hospital course Discharge discussed with: patient - Time Spent with Patient Total time spent providing and/or coordinating discharge services: - Discharge Medications Prescriptions: Ferrous Sulfate 325 mg PO TIDWM #90 tablet Home Medications: Amitriptyline [Elavil] 75 mg PO HS 07/01/17 [History] Duloxetine HCl [Cymbalta] 60 mg PO DAILY 07/01/17 [History] HYDROcodone/Acet 7.5/325 mg [[place] 7.5-325 mg] 1 tab PO QID PRN 07/01/17 [ History] Insulin ASPART [NovoLOG] 0 - 10 unit SQ TIDWM 07/01/17 [History] Insulin Glargine,Hum.rec.anlog [Basaglar Kwikpen U-100] 50 unit SQ HS 07/01/17 [ History] LORazepam [Ativan] 0.5 mg PO BID 07/01/17 [History] Pregabalin [Lyrica] 150 mg PO TID 07/01/17 [History] Rosuvastatin Calcium [Crestor] 40 mg PO HS 07/01/17 [History] Ranolazine [Ranexa] 1,000 mg PO BID 07/02/17 [History] Tizanidine HCl 4 mg PO TID 07/02/17 [History] Aspirin 81 mg PO DAILY #30 tab.chew 07/05/17 [Rx] Nicotine Patch [Nicoderm] 14 mg TD DAILY PRN #30 patch.td24 07/05/17 [Rx] Carvedilol [Coreg] 3.125 mg PO BIDWM #60 tablet 07/14/17 [Rx] Omeprazole [PriLOSEC] 20 mg PO BIDAC #60 capsule.dr 07/14/17 [Rx] Sucralfate [Carafate] 1 gm PO TID #90 udc 07/14/17 [Rx] amLODIPine [Norvasc] 5 mg PO DAILY #30 tablet 07/14/17 [Rx] Vancomycin [Vancocin] 1,500 mg IV DAILY 07/25/17 [History] Ferrous Sulfate 325 mg PO TIDWM #90 tablet 07/28/17 [Rx] Allergies/Adverse Reactions: 3 Allergy/AdvReac Type Severity Reaction Status Date / Time Diclofenac [From Voltaren] Allergy Gastrointestinal Verified 07/25/17 21:09 Upset Penicillins Allergy Rash Verified 07/25/17 21:09 Date of admission: 07/25/17 23:08 Primary care physician: Annie Dior Consults: 07/26/17 07:30 Consult to Telecom Engineer [CONS] Routine Reason for Consult: has HH, getting IV ATBs Discharging clinician: Cydney Hsu Anticipated date of discharge: 07/28/17 - Constitutional Vitals: Temp Pulse Resp BP Pulse Ox 98.2 F 109 17 165/91 95 07/28/17 12:19 07/28/17 12:19 07/28/17 12:19 07/28/17 12:19 07/28/17 12:19 General appearance: Present: cooperative, A&O X 3, pleasant, no acute distress, obese, answers questions appropriately - Head Head exam: Present: atraumatic, normal inspection, normocephalic - Eye Eye exam: Present: normal appearance, conjuntiva pink, sclera anicteric - Neck Neck exam general surgery: Present: supple, trachea midline. Absent: lymphadenopathy, tenderness - Respiratory Respiratory exam: Present: CTAB. Absent: accessory muscle use, rales, rhonchi, wheezes - Cardiovascular Cardiovascular exam: Present: RRR, +S1, +S2. Absent: diastolic murmur, gallop, rubs, systolic murmur - GI/Abdominal GI/Abdominal exam: Present: normal bowel sounds, soft, no peritoneal signs. Absent: distended, hepatomegaly, tenderness - Extremities Exam Extremities exam: Present: normal capillary refill, normal inspection, warm, radial pulses palpable and symmetrical. Absent: calf tenderness, cyanotic, pedal edema, tenderness - Neurological Exam Neurological exam: Present: alert, oriented X3, no focal deficits. Absent: facial droop, speech deficit - Skin Skin exam: Present: dry, intact, normal color, warm. Absent: rash - Patient Status Disposition: Home Health Service Condition: Good Functional capacity at discharge: wheelchair bound Overall status at discharge: patient is progressing back to baseline - Discharge Instructions Follow Up With: Kamran Lira DO [Primary Care Provider] - 08/01/17 1:30 pm Job Munoz MD [Non-Partnered Physician] - 08/16/17 2:45 pm Additional Instructions: kristelase follow-up with your primary care physician within next 7-10 days for recheck. Please resume your normal medications. Your new prescription is actually pharmacy. Return to your normal activities and diet as tolerated. Return to the emergency department as needed for any other problems or concerns , or if your symptoms return or worsen. - Diet and Activity Activity: increase activity as tolerated Diet: advance to your usual diet
--- NOTE | 2017-07-28 15:05 | Physician Discharge Referral ---
Home Health/Hosp Referral Info Transfer to: Home Health Provider in Charge Post Discharge: PCP - Diagnosis (1) Septic arthritis of knee, right Priority: Secondary Status: Acute (2) DVT prophylaxis Priority: Secondary Status: Acute (3) Coronary artery disease Priority: Secondary Status: Chronic (4) Hypertension Priority: Secondary Status: Chronic (5) COPD (chronic obstructive pulmonary disease) Priority: Primary Status: Chronic (6) HILDA (acute kidney injury) Priority: Secondary Status: Acute (7) Symptomatic anemia Priority: Secondary Status: Acute (8) Elevated troponin Priority: Secondary Status: Acute (9) Diabetes mellitus Priority: Secondary Status: Acute (10) Lethargy Priority: Secondary Status: Resolved - Respiratory Orders Smoking Cessation: Smoking cessation has been advised. For more information, call the [place] Tobacco Quit Line at 0-335-XOQY-NOW. - Diet/Nutrition Diet/Nutrition Orders: Regular - Activity Activity Orders: Up ad kyree - Services Needed Following services are medically necessary services: Nursing, Home Health Aide, Physical Therapy, Occupational Therapy - Transfer Medications Prescriptions: Ferrous Sulfate 325 mg PO TIDWM #90 tablet Home Medications: Amitriptyline [Elavil] 75 mg PO HS 07/01/17 [History] Duloxetine HCl [Cymbalta] 60 mg PO DAILY 07/01/17 [History] HYDROcodone/Acet 7.5/325 mg [[place] 7.5-325 mg] 1 tab PO QID PRN 07/01/17 [ History] Insulin ASPART [NovoLOG] 0 - 10 unit SQ TIDWM 07/01/17 [History] Insulin Glargine,Hum.rec.anlog [Basaglar Kwikpen U-100] 50 unit SQ HS 07/01/17 [ History] LORazepam [Ativan] 0.5 mg PO BID 07/01/17 [History] Pregabalin [Lyrica] 150 mg PO TID 07/01/17 [History] Rosuvastatin Calcium [Crestor] 40 mg PO HS 07/01/17 [History] Ranolazine [Ranexa] 1,000 mg PO BID 07/02/17 [History] Tizanidine HCl 4 mg PO TID 07/02/17 [History] Aspirin 81 mg PO DAILY #30 tab.chew 07/05/17 [Rx] Nicotine Patch [Nicoderm] 14 mg TD DAILY PRN #30 patch.td24 07/05/17 [Rx] Carvedilol [Coreg] 3.125 mg PO BIDWM #60 tablet 07/14/17 [Rx] Omeprazole [PriLOSEC] 20 mg PO BIDAC #60 capsule.dr 07/14/17 [Rx] Sucralfate [Carafate] 1 gm PO TID #90 udc 07/14/17 [Rx] amLODIPine [Norvasc] 5 mg PO DAILY #30 tablet 07/14/17 [Rx] Vancomycin [Vancocin] 1,500 mg IV DAILY 07/25/17 [History] Ferrous Sulfate 325 mg PO TIDWM #90 tablet 07/28/17 [Rx] Allergies/Adverse Reactions: 3 Allergy/AdvReac Type Severity Reaction Status Date / Time Diclofenac [From Voltaren] Allergy Gastrointestinal Verified 07/25/17 21:09 Upset Penicillins Allergy Rash Verified 07/25/17 21:09 Certification: Further, I certify that my clinical findings support that this patient is homebound (i.e. absences from home require considerable and taxing effort and are for medical reasons or druze services or infrequently or short duration when for other reasons) because: Homebound Reason: Patient requires assistance of a person or device to safely leave home, Leaving home requires considerable and taxing effort due to condition Attestation: My signature below is to certify that this patient is under my care and that I, or nurse practitioner, or a physician's hr administrative assistant working with me, has a face-to -face encounter with this patient.
[2017-07-28] MEDS ORDERED: Aminoglycoside Consult 1 EACH MC ONE (17:39)
== END 2017-07-28 17:40 | disposition home health service (06) ==
LOC: EMEROO 18:28 → 3BNU 23:08 → SUATTDRO 23:08 → INTOOBSV 23:08 → 3BNU 07-26 00:16
PROVIDERS: ADMIT Internal Medicine; ATTEND Registered Nurse

== ENCOUNTER 2017-07-30 18:46 | Inpatient (IN) ==
[2017-07-30] MEDS ORDERED: Dextrose Gel 15 GM/37.5 ML TUBE PO PRN (22:06)
[2017-07-30] MEDS ORDERED: *HR* Dextrose 50 % in Water (Syg) 50 ML SYRINGE IVP PRN (22:06)
[2017-07-30] MEDS ORDERED: D5% in Water 1,000 ML IVC PRN (22:06)
[2017-07-30] MEDS ORDERED: Acetaminophen 325 MG TABLET PO PRN (22:07)
[2017-07-30] MEDS ORDERED: Naloxone 0.4 MG/ML INJ IVP PRN (22:07)
--- NOTE | 2017-07-30 22:17 | Internal Med History&Physical ---
Date of Encounter: 07/30/17 Time of Encounter: 22:09 Internal Medicine - H&P: HPI Chief complaint: shortness of breath Admitted From: Direct Admit Plans for Post Hospital Care: Home History of present illness: Mr. Lamb is a 47 year old male with history of diabetes, bilateral BKA, hypertension, coronary artery disease status post multiple stents/CABG, COPD on 2 L at night who presents as a transfer from [facility] with increased shortness of breath and left sided chest discomfort with no radiation since yesterday. He describes dyspnea with exertion and describes orthopnea stating that he couldn' t lays flat or even sit in recliner. He describes LE edema. He does have b/l BKA. He gets home nursing and he was noted short of breath and sent to the ED. At [facility], lowest O2 sats were 83-84%. He was put on O2 about 4 L. Chronically on 2 L. Work up included imaging studies with a CTA chest which showed findings of CHF/pulm edema/bilateral pleural effusions with right being greater than left. The patient lab work up showed trops of.046 which is elevated according to [place]'s parameters. A repeat trop there was <.012. EKG with sinus tachy with no iscemic findings. Other labs were mostly unremarkable with normal kidney function. Hgb was 9.0 which is consistent with his chronic anemia. WBC 10.3, platelets 394. Creatinine was 1.08, Na 140, K 4.0. The patient was discharged from here 3 days ago for lethargy and symptomatic anemia and was receiving IV fluids and was transfused 1 unit PRBCs. On a previous admission, he had an EGD done which showed erosive esophagitis. He is currently also recieving IV vancomycin treatment for septic right knee and bacteremia/ endocarditis from a previous admission as well. He still has about 2-3 weeks of abx left. Denies fever, chills, cough, nausea, vomiting, abdominal pain, diarrhea, constipation, urinary symptoms, or neurological symptoms. Past Med Surg Social Fam HX - Past Medical History Medical history: coronary artery disease, diabetes, hyperlipidemia, hypertension , kidney stones, myocardial infarction, other Additional medical history: SLEEP APNEA Psychiatric history: anxiety, depression - Past Surgical History Surgical History: angioplasty/stent, coronary bypass (CABG), orthopedic, other Additional surgical history: [place] BKA , 17 STENTS - Social History Smoking Status: Former smoker Smokeless Tobacco Status: No Alcohol use: none Drug use: none - Family History Mother Living Status: Still Living Hx Family Cardiac Disorders: Yes (Pacemaker) Hx Family Endocrine Disorder: Yes (DM) Hx Family Neuromuscular Disorders: Yes (stroke) Father Living Status: Age at : 38 Cause of : [place] Hx Family Cardiac Disorders: Yes ([place]) Hx Family Respiratory Disorders: Yes Hx Family Endocrine Disorder: Yes Internal Medicine - H&P: Meds Amitriptyline [Elavil] 75 mg PO HS 07/01/17 [History] Duloxetine HCl [Cymbalta] 60 mg PO DAILY 07/01/17 [History] HYDROcodone/Acet 7.5/325 mg [[place] 7.5-325 mg] 1 tab PO QID PRN 07/01/17 [ History] Insulin ASPART [NovoLOG] 0 - 10 unit SQ TIDWM 07/01/17 [History] Insulin Glargine,Hum.rec.anlog [Basaglar Kwikpen U-100] 50 unit SQ HS 07/01/17 [ History] LORazepam [Ativan] 0.5 mg PO BID 07/01/17 [History] Pregabalin [Lyrica] 150 mg PO TID 07/01/17 [History] Rosuvastatin Calcium [Crestor] 40 mg PO HS 07/01/17 [History] Ranolazine [Ranexa] 1,000 mg PO BID 07/02/17 [History] Tizanidine HCl 4 mg PO TID 07/02/17 [History] Aspirin 81 mg PO DAILY #30 tab.chew 07/05/17 [Rx] Nicotine Patch [Nicoderm] 14 mg TD DAILY PRN #30 patch.td24 07/05/17 [Rx] Carvedilol [Coreg] 3.125 mg PO BIDWM #60 tablet 07/14/17 [Rx] Omeprazole [PriLOSEC] 20 mg PO BIDAC #60 capsule.dr 07/14/17 [Rx] Sucralfate [Carafate] 1 gm PO TID #90 udc 07/14/17 [Rx] amLODIPine [Norvasc] 5 mg PO DAILY #30 tablet 07/14/17 [Rx] Vancomycin [Vancocin] 1,500 mg IV DAILY 07/25/17 [History] Ferrous Sulfate 325 mg PO TIDWM #90 tablet 07/28/17 [Rx] 3 Allergy/AdvReac Type Severity Reaction Status Date / Time Diclofenac [From Voltaren] Allergy Gastrointestinal Verified 07/25/17 21:09 Upset Penicillins Allergy Rash Verified 07/25/17 21:09 All Systems PM: A 10-system review of systems was performed and is negative for pertinent findings except as documented above in the HPI. Review of systems: All systems reviewed are negative except for as mentioned above - Constitutional Vitals: Temp Pulse Resp BP Pulse Ox 97.7 F 115 16 169/97 94 07/30/17 20:18 07/30/17 20:18 07/30/17 20:18 07/30/17 20:18 07/30/17 20:18 Exam: GEN: NAD HEENT: AT, NC, No cyanosis, oral mucosa is moist, No JVD Lymphatics: No lymphadenoapthy Eyes: Extrocular muscles intact, anicteric CVS:RRR. S1, S2, No m/r/g RESP: Diminished with bibasilar crackles ABD: Soft, NT, ND, +BS EXT: 1+ lower extremity edema bilaterally, No rashes, bilateral BKA noted NEURO: Nonfocal, CN II-XII intact, No focal motor or sensory deficits Psych: Cooperative, Not anxious or depressed - Assessment and plan (1) Acute and chronic respiratory failure with hypoxia Current Visit: Yes Status: Acute (2) Acute systolic CHF (congestive heart failure) Current Visit: Yes Status: Acute Assessment and plan: We put the patient on Lasix 40 mg IV twice a day. Monitor I&O's. No need to repeat an echo. The patient had an echo back in June that showed an EF of 40-45% . This is likely an acute exacerbation of systolic heart failure. The patient had received IV fluids and PRBCs transfusions a few days ago while hospitalized here. O2 support and wean as tolerated. Scheduled nebs. (3) Elevated troponin Current Visit: No Status: Acute Assessment and plan: We will trend cardiac enzymes here. Likely secondary to CHF. We will keep on telemetry. No concerning EKG ischemic changes. (4) Septic arthritis of knee, right Current Visit: No Status: Acute Assessment and plan: Resume the patient on vancomycin per pharmacy. Qualifiers: Septic arthritis organism: staphylococcal Qualified Code(s): M00.061 - Staphylococcal arthritis, right knee (5) Bacteremia Current Visit: No Status: Acute Assessment and plan: As above (6) Diabetes mellitus Current Visit: No Status: Acute Assessment and plan: We will place the patient on insulin sliding scale. Resume home basal insulin. Accu-Cheks. Qualifiers: Diabetes mellitus type: type 2 Diabetes mellitus oil heaterman insulin use: with snf use Diabetes mellitus complication status: without complication Qualified Code(s): E11.9 - Type 2 diabetes mellitus without complications; Z79.4 - oil heaterman (current) use of insulin (7) COPD (chronic obstructive pulmonary disease) Current Visit: No Status: Chronic Assessment and plan: Not in exacerbation. Continue with nebs. O2 support. Qualifiers: COPD type: unspecified COPD Qualified Code(s): J44.9 - Chronic obstructive pulmonary disease, unspecified (8) Coronary artery disease Current Visit: No Status: Chronic Assessment and plan: Continue cardiac meds. Qualifiers: Coronary Disease-Associated Artery/Lesion type: bypass graft [place] vs. transplanted heart: [place] heart Associated angina: angina presence unspecified Qualified Code(s): I25.810 - Atherosclerosis of coronary artery bypass graft(s) without angina pectoris (9) Hypertension Current Visit: No Status: Chronic Assessment and plan: Continue antihypertensives. Qualifiers: Hypertension type: unspecified Qualified Code(s): I10 - Essential (primary ) hypertension (10) DVT prophylaxis Current Visit: No Status: Acute Assessment and plan: Heparin subcutaneous - Time Spent With Patient Total time spent is greater than 50% in coordination of care (as documented) at patient's floor/unit and/or counseling patient:
[2017-07-30] MEDS ORDERED: Ipratropium/Albuterol Neb 3 ML ONE (23:05)
[2017-07-30] MEDS: Ipratropium/Albuterol Neb 3 ML IH SCH (23:07)
[2017-07-30 23:47] LABS: INR 1.2; Prothrombin Time 13.4 Seconds (9.4-12.1)
[2017-07-31] MEDS: *HR* HYDROcodone/Acet 7.5/325 mg TABLET PO PRN ×3 (01:52→16:54)
[2017-07-31] MEDS: Ipratropium/Albuterol Neb 3 ML IH SCH ×4 (04:49→21:16)
[2017-07-31] MEDS: *HR* Heparin 5,000 UNIT/ML VIAL SQ SCH ×3 (04:59→20:33)
[2017-07-31 05:02] LABS: Basophils % 0.4 %; Eosinophils # 0.3 K/mcL (0.0-0.6); Eosinophils % 3.2 %; Hematocrit 27.2 % (37.5-50.1); Hemoglobin 8.6 g/dL (12.9-16.9); Immature Granulocytes % 0.4 % (0-4); Lymphocytes # 1.5 K/mcL (0.6-4.6); Mean Corpuscular HGB Conc 31.6 g/dL (31.6-35.5); Mean Corpuscular Hemoglobin 26.1 pg (28.0-33.3); Mean Corpuscular Volume 82.7 fL (83.0-100.0); Mean Platelet Volume 9.1 fL (9.4-12.4); Monocytes # 0.8 K/mcL (0.0-1.3); Monocytes % 8.2 %; Neutrophils # 6.6 K/mcL (1.6-8.9); Platelet Count 371 K/mcL (140-400); Red Blood Count 3.29 M/mcL (4.19-5.50); Red Cell Distribution Width 14.9 % (11.5-14.5); Segmented Neutrophils % 71.8 %
[2017-07-31 05:19] LABS: BUN/Creatinine Ratio 11 (6-26); Blood Urea Nitrogen 14 mg/dL (6-20); Calcium 8.9 mg/dL (8.6-10.3); Carbon Dioxide 31 mEq/L (23-29); Chloride 99 mEq/L (98-107); Glucose 276 mg/dL (70-105); Magnesium 1.5 mg/dL (1.6-2.6); Osmolality,Calculated 298 (280-300); Potassium 3.9 mEq/L (3.5-5.1); Sodium 139 mEq/L (136-145); eGFR For African Americans > 60 (> 60); eGFR For Non-African Americans > 60 (> 60)
[2017-07-31] MEDS ORDERED: Furosemide 40 MG/4 ML VIAL IVP SCH ×2 (09:00→17:00)
[2017-07-31] MEDS: amLODIPine 5 MG TABLET PO SCH (09:11)
[2017-07-31] MEDS: *HR* LORazepam 0.5 MG TABLET PO SCH ×2 (09:12→20:33)
[2017-07-31] MEDS: tiZANidine 4 MG TABLET PO SCH ×3 (09:12→20:33)
[2017-07-31] MEDS: Ranolazine 500 MG TAB.ER.12H PO SCH ×2 (09:12→20:32)
[2017-07-31] MEDS: Pregabalin 75 MG CAPSULE PO SCH ×3 (09:12→20:33)
[2017-07-31] MEDS: Aspirin 81 MG TAB.CHEW PO SCH (09:12)
[2017-07-31] MEDS: Insulin LISPRO 300 UNITS/3 ML VIAL SQ SCH ×4 (09:17→22:05)
[2017-07-31] MEDS: Ondansetron 4 MG/2 ML VIAL IVP PRN ×2 (11:20→18:57)
[2017-07-31] MEDS: Sennosides/Docusate Sodium TABLET PO SCH ×2 (11:20→20:33)
--- NOTE | 2017-07-31 13:09 | Internal Med Progress Note ---
Date of Encounter: 07/31/17 Time of Encounter: 13:08 - Assessment and plan (1) Septic arthritis of knee, right Current Visit: Yes Status: Acute Assessment and plan: Continue Vancomycin, pharmacy to dose, 6 weeks duration from negative culture on 07/02 Qualifiers: Septic arthritis organism: staphylococcal Qualified Code(s): M00.061 - Staphylococcal arthritis, right knee (2) Coronary artery disease Current Visit: Yes Status: Chronic Assessment and plan: Continue cardiac meds. Qualifiers: Coronary Disease-Associated Artery/Lesion type: bypass graft [place] vs. transplanted heart: [place] heart Associated angina: angina presence unspecified Qualified Code(s): I25.810 - Atherosclerosis of coronary artery bypass graft(s) without angina pectoris (3) Hypertension Current Visit: Yes Status: Chronic Assessment and plan: Uncontrolled Increase coreg Qualifiers: Hypertension type: unspecified Qualified Code(s): I10 - Essential (primary ) hypertension (4) COPD (chronic obstructive pulmonary disease) Current Visit: Yes Status: Chronic Assessment and plan: Not in exacerbation. Continue with nebs. O2 support. Qualifiers: COPD type: unspecified COPD Qualified Code(s): J44.9 - Chronic obstructive pulmonary disease, unspecified (5) Bacteremia Current Visit: Yes Status: Acute Assessment and plan: As in septic arthritis continue vanco (6) DVT prophylaxis Current Visit: Yes Status: Acute Assessment and plan: Heparin subcutaneous (7) Elevated troponin Current Visit: Yes Status: Acute Assessment and plan: Downtrending, Likely secondary to CHF. We will keep on telemetry. No concerning EKG ischemic changes. (8) Diabetes mellitus Current Visit: Yes Status: Chronic Assessment and plan: continue basal insulin and sliding scale, monitor FS ACHS Qualifiers: Diabetes mellitus type: type 2 Diabetes mellitus mcc insulin use: with mcc use Diabetes mellitus complication status: without complication Qualified Code(s): E11.9 - Type 2 diabetes mellitus without complications; Z79.4 - alf (current) use of insulin (9) Acute and chronic respiratory failure with hypoxia Current Visit: Yes Status: Acute Assessment and plan: Patient with known chronic resp failure on home O2, presented with worsening hypoxia due to CHF Continue current supplementation with O2 Wean as tolerated (10) Acute systolic CHF (congestive heart failure) Current Visit: Yes Status: Acute Assessment and plan: Continue Lasix IV BID Monitor I&O's. No need to repeat an echo. The patient had an echo back in June that showed an EF of 40-45%. This is likely an acute exacerbation of systolic heart failure. The patient had received IV fluids and PRBCs transfusions a few days ago while hospitalized here. O2 support and wean as tolerated. Scheduled nebs. Daily weights Fluid restriction diet (11) Hypomagnesemia Current Visit: Yes Status: Acute Assessment and plan: replaced, check with a.m labs (12) Anemia Current Visit: Yes Status: Chronic Assessment and plan: patient complaining of GI symptoms with po iron Continue with IV iron while in-patient Hb is stable and at baseline Qualifiers: Anemia type: iron deficiency Iron deficiency anemia type: unspecified iron deficiency Qualified Code(s): D50.9 - Iron deficiency anemia, unspecified - Time Spent With Patient Total time spent is greater than 50% in coordination of care (as documented) at patient's floor/unit and/or counseling patient: - Subjective Interval history: 47 M with multiple medical co-morbidities He is admitted and being managed for CHFE, acute on chronic resp failure due to CHFE He was recently discharged after being managed for MRSA bacteremia and septic arthritis he complained of constipation and nausea HR and BP uncontrolled, will increase Coreg, getting his BZPS and opiates Troponin is downtrending, denies CP, denies SOB - Constitutional Vitals: Temp Pulse Resp BP Pulse Ox 97.9 F 105 16 163/95 96 07/31/17 11:50 07/31/17 11:50 07/31/17 11:50 07/31/17 11:50 07/31/17 11:50 General appearance: Present: A&O X 3, pleasant, no acute distress - Head Head exam: Present: atraumatic, normocephalic - Eye Eye exam: Present: PERRL, conjuntiva pink, sclera anicteric Pupils: Present: PERRL - Neck Neck exam general surgery: Present: supple, trachea midline. Absent: lymphadenopathy - Respiratory Respiratory exam: Present: CTAB. Absent: accessory muscle use, rales, rhonchi, wheezes - Cardiovascular Cardiovascular exam: Present: RRR, +S1, +S2. Absent: diastolic murmur, gallop, rubs, systolic murmur - GI/Abdominal GI/Abdominal exam: Present: normal bowel sounds, soft, no peritoneal signs. Absent: distended, tenderness - Extremities Exam Extremities exam: Present: pedal edema (s/p BKA, stump edema) - Neurological Exam Neurological exam: Present: alert, CN II-XII intact, oriented X3, no focal deficits. Absent: pronater drift, facial droop, speech deficit - Skin Skin exam: Present: dry, intact Internal Medicine: Result - Labs CBC & Chem 7: 07/31/17 04:45 07/31/17 04:45 Labs: Short CBC 07/31/17 Range/Units 04:45 WBC 9.2 (4.3-11.1) K/mcL Hgb 8.6 L (12.9-16.9) g/dL Hct 27.2 L (37.5-50.1) % Plt Count 371 (140-400) K/mcL Neutrophils # 6.6 (1.6-8.9) K/mcL BMP 07/31/17 04:45 Sodium 139 Potassium 3.9 Chloride 99 Carbon Dioxide 31 H BUN 14 Creatinine 1.25 Glucose 276 H Calcium 8.9 Cardiac Enzymes 07/30/17 07/31/17 Range/Units 22:06 04:45 Troponin I 0.05 H* 0.04 H* (< 0.04) ng/mL - ABG Interpretation ABG results: PT/INR, D-dimer PT 13.4 Seconds (9.4-12.1) H 07/30/17 22:06 Consult Discharge Plan - Plan Referrals: Kamran Lira DO [Primary Care Provider] -
[2017-07-31] MEDS ORDERED: Iron Sucrose Complex 200 MG in 0.9 % Sodium Chloride 100 ML IVPB ONE (16:00)
[2017-07-31] MEDS ORDERED: NON-FORMULARY MEDICATION 1 EACH EACH (Insulin Glargine,Hum.Rec.Anlog [Basaglar Kwikpen U-1 SQ SCH (21:00)
[2017-07-31] MEDS: Insulin DETEMIR 100 UNIT/ML X5UNITS SQ SCH (22:04)
[2017-08-01] MEDS: Ipratropium/Albuterol Neb 3 ML IH SCH ×4 (04:28→21:36)
[2017-08-01] MEDS: *HR* Heparin 5,000 UNIT/ML VIAL SQ SCH ×3 (05:58→23:11)
[2017-08-01 06:11] LABS: Basophils % 0.4 %; Eosinophils # 0.4 K/mcL (0.0-0.6); Eosinophils % 4.3 %; Hemoglobin 8.4 g/dL (12.9-16.9); Immature Granulocytes % 0.4 % (0-4); Lymphocytes # 2.1 K/mcL (0.6-4.6); Lymphocytes % 20.6 %; Mean Corpuscular HGB Conc 31.1 g/dL (31.6-35.5); Mean Corpuscular Hemoglobin 26.2 pg (28.0-33.3); Mean Corpuscular Volume 84.1 fL (83.0-100.0); Monocytes # 0.9 K/mcL (0.0-1.3); Monocytes % 9.2 %; Neutrophils # 6.6 K/mcL (1.6-8.9); Platelet Count 380 K/mcL (140-400); Red Blood Count 3.21 M/mcL (4.19-5.50); Red Cell Distribution Width 15.1 % (11.5-14.5); Segmented Neutrophils % 65.1 %
[2017-08-01 06:26] LABS: BUN/Creatinine Ratio 13 (6-26); Blood Urea Nitrogen 18 mg/dL (6-20); Calcium 8.6 mg/dL (8.6-10.3); Carbon Dioxide 32 mEq/L (23-29); Chloride 100 mEq/L (98-107); Glucose 101 mg/dL (70-105); Osmolality,Calculated 292 (280-300); Potassium 3.3 mEq/L (3.5-5.1); Sodium 140 mEq/L (136-145); eGFR For African Americans > 60 (> 60); eGFR For Non-African Americans 55 (> 60)
[2017-08-01] MEDS: Insulin LISPRO 300 UNITS/3 ML VIAL SQ SCH ×4 (09:30→20:46)
[2017-08-01] MEDS: Pregabalin 75 MG CAPSULE PO SCH ×3 (09:31→20:45)
[2017-08-01] MEDS: Sennosides/Docusate Sodium TABLET PO SCH ×2 (09:32→20:46)
[2017-08-01] MEDS: Ranolazine 500 MG TAB.ER.12H PO SCH ×2 (09:32→20:45)
[2017-08-01] MEDS: *HR* HYDROcodone/Acet 7.5/325 mg TABLET PO PRN ×2 (09:32→16:52)
[2017-08-01] MEDS: *HR* LORazepam 0.5 MG TABLET PO SCH ×2 (09:33→20:46)
[2017-08-01] MEDS: tiZANidine 4 MG TABLET PO SCH ×3 (09:33→20:45)
[2017-08-01] MEDS: Aspirin 81 MG TAB.CHEW PO SCH (09:33)
[2017-08-01] MEDS: amLODIPine 5 MG TABLET PO SCH (09:33)
--- NOTE | 2017-08-01 13:37 | Internal Med Progress Note ---
Date of Encounter: 08/01/17 Time of Encounter: 13:37 - Assessment and plan (1) Septic arthritis of knee, right Current Visit: Yes Status: Acute Assessment and plan: Continue Vancomycin, pharmacy to dose, 6 weeks duration from negative culture on 07/02 Qualifiers: Septic arthritis organism: staphylococcal Qualified Code(s): M00.061 - Staphylococcal arthritis, right knee (2) Coronary artery disease Current Visit: Yes Status: Chronic Assessment and plan: Continue cardiac meds. Qualifiers: Coronary Disease-Associated Artery/Lesion type: bypass graft [place] vs. transplanted heart: [place] heart Associated angina: angina presence unspecified Qualified Code(s): I25.810 - Atherosclerosis of coronary artery bypass graft(s) without angina pectoris (3) Hypertension Current Visit: Yes Status: Chronic Assessment and plan: Better controlled, continue current meds Qualifiers: Hypertension type: unspecified Qualified Code(s): I10 - Essential (primary ) hypertension (4) COPD (chronic obstructive pulmonary disease) Current Visit: Yes Status: Chronic Assessment and plan: Not in exacerbation. Continue with nebs. O2 support. Qualifiers: COPD type: unspecified COPD Qualified Code(s): J44.9 - Chronic obstructive pulmonary disease, unspecified (5) Bacteremia Current Visit: Yes Status: Acute Assessment and plan: As in septic arthritis continue vanco (6) DVT prophylaxis Current Visit: Yes Status: Acute Assessment and plan: Heparin subcutaneous (7) Elevated troponin Current Visit: Yes Status: Acute Assessment and plan: Downtrending, Likely secondary to CHF. We will keep on telemetry. No concerning EKG ischemic changes. 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 Diabetes mellitus complication status: without complication Qualified Code(s): E11.9 - Type 2 diabetes mellitus without complications; Z79.4 - nursing home (current) use of insulin (9) Acute and chronic respiratory failure with hypoxia Current Visit: Yes Status: Acute Assessment and plan: Patient with known chronic resp failure on home O2, presented with worsening hypoxia due to CHF Continue current supplementation with O2 Wean as tolerated (10) Acute systolic CHF (congestive heart failure) Current Visit: Yes Status: Acute Assessment and plan: I/O -.3L Cr slightly increased this a.m, held lasix Monitor I&O's. No need to repeat an echo. The patient had an echo back in June that showed an EF of 40-45%. This is likely an acute exacerbation of systolic heart failure. The patient had received IV fluids and PRBCs transfusions a few days ago while hospitalized here. O2 support and wean as tolerated. Scheduled nebs. Daily weights Fluid restriction diet (11) Hypomagnesemia Current Visit: Yes Status: Acute Assessment and plan: replaced, check with a.m labs (12) Anemia Current Visit: Yes Status: Chronic Assessment and plan: patient complaining of GI symptoms with po iron Continue with IV iron while in-patient Hb is stable and at baseline Qualifiers: Anemia type: iron deficiency Iron deficiency anemia type: unspecified iron deficiency Qualified Code(s): D50.9 - Iron deficiency anemia, unspecified - Time Spent With Patient Total time spent is greater than 50% in coordination of care (as documented) at patient's floor/unit and/or counseling patient: - Subjective Interval history: 47 M with multiple medical co-morbidities He is admitted and being managed for CHFE, acute on chronic resp failure due to CHFE He was recently discharged after being managed for MRSA bacteremia and septic arthritis No new complains this a.m HR better controlled Potassium is low, replaced, slight increase in Cr, held lasix - Constitutional Vitals: Temp Pulse Resp BP Pulse Ox 97.7 F 97 18 123/74 96 08/01/17 04:25 08/01/17 06:47 08/01/17 11:07 08/01/17 11:07 08/01/17 11:07 General appearance: Present: A&O X 3, pleasant, no acute distress - Head Head exam: Present: atraumatic, normocephalic - Eye Eye exam: Present: PERRL, conjuntiva pink, sclera anicteric Pupils: Present: PERRL - Neck Neck exam general surgery: Present: supple, trachea midline. Absent: lymphadenopathy - Respiratory Respiratory exam: Present: CTAB. Absent: accessory muscle use, rales, rhonchi, wheezes - Cardiovascular Cardiovascular exam: Present: +S1, +S2, tachycardia. Absent: diastolic murmur, gallop, rubs, systolic murmur - GI/Abdominal GI/Abdominal exam: Present: normal bowel sounds, soft, no peritoneal signs. Absent: distended, tenderness - Extremities Exam Additional comments: s/p L BKA - Neurological Exam Neurological exam: Present: alert, CN II-XII intact, oriented X3, no focal deficits. Absent: pronater drift, facial droop, speech deficit - Skin Skin exam: Present: dry, intact Internal Medicine: Result - Labs CBC & Chem 7: 08/01/17 04:00 08/01/17 04:00 Labs: Short CBC 08/01/17 Range/Units 04:00 WBC 10.2 (4.3-11.1) K/mcL Hgb 8.4 L (12.9-16.9) g/dL Hct 27.0 L (37.5-50.1) % Plt Count 380 (140-400) K/mcL Neutrophils # 6.6 (1.6-8.9) K/mcL BMP 08/01/17 04:00 Sodium 140 Potassium 3.3 L Chloride 100 Carbon Dioxide 32 H BUN 18 Creatinine 1.39 H Glucose 101 Calcium 8.6 - ABG Interpretation ABG results: PT/INR, D-dimer PT 13.4 Seconds (9.4-12.1) H 07/30/17 22:06 Consult Discharge Plan - Plan Referrals: Kamran Lira DO [Primary Care Provider] -
[2017-08-01] MEDS: Insulin DETEMIR 100 UNIT/ML X5UNITS SQ SCH (20:46)
[2017-08-02] MEDS: Ipratropium/Albuterol Neb 3 ML IH SCH ×5 (03:54→21:54)
[2017-08-02 04:55] LABS: Basophils % 0.2 %; Eosinophils # 0.5 K/mcL (0.0-0.6); Eosinophils % 4.3 %; Hemoglobin 8.1 g/dL (12.9-16.9); Immature Granulocytes % 0.3 % (0-4); Lymphocytes % 18.3 %; Mean Corpuscular HGB Conc 31.2 g/dL (31.6-35.5); Mean Corpuscular Hemoglobin 26.5 pg (28.0-33.3); Mean Platelet Volume 9.1 fL (9.4-12.4); Monocytes % 8.9 %; Neutrophils # 7.5 K/mcL (1.6-8.9); Platelet Count 324 K/mcL (140-400); Red Blood Count 3.06 M/mcL (4.19-5.50); Red Cell Distribution Width 15.4 % (11.5-14.5)
[2017-08-02 05:14] LABS: Calcium 8.4 mg/dL (8.6-10.3)
[2017-08-02] MEDS: *HR* Heparin 5,000 UNIT/ML VIAL SQ SCH ×3 (06:23→22:40)
[2017-08-02] MEDS: Sennosides/Docusate Sodium TABLET PO SCH (07:27)
[2017-08-02] MEDS: amLODIPine 5 MG TABLET PO SCH (08:18)
[2017-08-02] MEDS: tiZANidine 4 MG TABLET PO SCH ×3 (08:18→22:40)
[2017-08-02] MEDS: *HR* LORazepam 0.5 MG TABLET PO SCH ×2 (08:19→22:40)
[2017-08-02] MEDS: Aspirin 81 MG TAB.CHEW PO SCH (08:19)
[2017-08-02] MEDS: Pregabalin 75 MG CAPSULE PO SCH ×3 (08:19→22:40)
[2017-08-02] MEDS: 0.9 % Sodium Chloride 500 ML IVC ONE ×2 (08:20→10:38)
[2017-08-02] MEDS: Ranolazine 500 MG TAB.ER.12H PO SCH ×2 (08:25→22:49)
[2017-08-02] MEDS: Insulin LISPRO 300 UNITS/3 ML VIAL SQ SCH ×4 (08:25→22:50)
--- NOTE | 2017-08-02 10:48 | Internal Med Progress Note ---
Date of Encounter: 08/02/17 Time of Encounter: 10:45 - Assessment and plan (1) Septic arthritis of knee, right Current Visit: Yes Status: Acute Assessment and plan: Hold Vancomycin today 08/02 due to HILDA May resume a.m if renal function improves, pharmacy to dose, 6 weeks duration from negative culture on 07/02 Qualifiers: Septic arthritis organism: staphylococcal Qualified Code(s): M00.061 - Staphylococcal arthritis, right knee (2) Coronary artery disease Current Visit: Yes Status: Chronic Assessment and plan: Continue cardiac meds. Qualifiers: Coronary Disease-Associated Artery/Lesion type: bypass graft [place] vs. transplanted heart: [place] heart Associated angina: angina presence unspecified Qualified Code(s): I25.810 - Atherosclerosis of coronary artery bypass graft(s) without angina pectoris (3) Hypertension Current Visit: Yes Status: Chronic Assessment and plan: Better controlled, continue current meds Qualifiers: Hypertension type: unspecified Qualified Code(s): I10 - Essential (primary ) hypertension (4) COPD (chronic obstructive pulmonary disease) Current Visit: Yes Status: Chronic Assessment and plan: Not in exacerbation. Continue with nebs. O2 support. Qualifiers: COPD type: unspecified COPD Qualified Code(s): J44.9 - Chronic obstructive pulmonary disease, unspecified (5) Bacteremia Current Visit: Yes Status: Acute Assessment and plan: As in septic arthritis, hold vanco today due to HILDA (6) DVT prophylaxis Current Visit: Yes Status: Acute Assessment and plan: Heparin subcutaneous (7) Elevated troponin Current Visit: Yes Status: Resolved Assessment and plan: Downtrending, Likely secondary to CHF. We will keep on telemetry. No concerning EKG ischemic changes. 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 No need to repeat an echo. The patient had an echo back in June that showed an EF of 40-45%. This is likely an acute exacerbation of systolic heart failure. The patient had received IV fluids and PRBCs transfusions a few days ago while hospitalized here. O2 support and wean as tolerated. Scheduled nebs. Daily weights Fluid restriction diet (11) Hypomagnesemia Current Visit: Yes Status: Resolved Assessment and plan: resolved mag today 1.7 (12) Anemia Current Visit: Yes Status: Chronic Assessment and plan: patient complaining of GI symptoms with po iron Hb stable and at baseline received one time dose of venofer, will continue to monitor Qualifiers: Anemia type: iron deficiency Iron deficiency anemia type: unspecified iron deficiency Qualified Code(s): D50.9 - Iron deficiency anemia, unspecified (13) Diarrhea Current Visit: Yes Status: Acute Assessment and plan: possibly due to laxatives, send GI panel as well as C.diff Qualifiers: Diarrhea type: unspecified type Qualified Code(s): R19.7 - Diarrhea, unspecified (14) HILDA (acute kidney injury) Current Visit: Yes Status: Acute Assessment and plan: Cr today 1.6 Cr on admission 1.25 Patient is on lasix, vanco and has diarrhea Will give 500cc bolus Avoid nephrotoxins - Time Spent With Patient Total time spent is greater than 50% in coordination of care (as documented) at patient's floor/unit and/or counseling patient: - Subjective Interval history: 47 M with multiple medical co-morbidities He is admitted and being managed for CHFE, acute on chronic resp failure due to CHFE He was recently discharged after being managed for MRSA bacteremia and septic arthritis This morning, he complains of about 10 episodes of watery diarrhea. The patient is on senna plus for constipation on arrival. His kidney function is worse today probably due to volume loss, the patient is also on Lasix and vancomycin. We will give 500 mL bolus this morning, we will stop the senna, we will send stool for GI panel and C. difficile, and we will hold vancomycin and Lasix today. - Constitutional Vitals: Temp Pulse Resp BP Pulse Ox 98.1 F 101 16 137/89 98 08/02/17 07:00 08/02/17 07:00 08/02/17 07:00 08/02/17 07:00 08/02/17 07:00 General appearance: Present: mild distress (from diarrhea), A&O X 3, pleasant - Head Head exam: Present: atraumatic, normocephalic - Eye Eye exam: Present: PERRL, conjuntiva pink, sclera anicteric Pupils: Present: PERRL - Neck Neck exam general surgery: Present: supple, trachea midline. Absent: lymphadenopathy - Respiratory Respiratory exam: Present: CTAB. Absent: accessory muscle use, rales, rhonchi, wheezes - Cardiovascular Cardiovascular exam: Present: RRR, +S1, +S2. Absent: diastolic murmur, gallop, rubs, systolic murmur - GI/Abdominal GI/Abdominal exam: Present: normal bowel sounds, soft, no peritoneal signs. Absent: distended, tenderness - Extremities Exam Additional comments: s/p BKA - Neurological Exam Neurological exam: Present: alert, CN II-XII intact, oriented X3, no focal deficits. Absent: pronater drift, facial droop, speech deficit - Skin Skin exam: Present: dry Internal Medicine: Result - Labs CBC & Chem 7: 08/02/17 04:42 08/02/17 04:42 Labs: Short CBC 08/02/17 Range/Units 04:42 WBC 11.1 (4.3-11.1) K/mcL Hgb 8.1 L (12.9-16.9) g/dL Hct 26.0 L (37.5-50.1) % Plt Count 324 (140-400) K/mcL Neutrophils # 7.5 (1.6-8.9) K/mcL BMP 08/02/17 04:42 Sodium 139 Potassium 4.0 Chloride 102 Carbon Dioxide 28 BUN 23 H Creatinine 1.62 H Glucose 148 H Calcium 8.4 L - ABG Interpretation ABG results: PT/INR, D-dimer PT 13.4 Seconds (9.4-12.1) H 07/30/17 22:06 Consult Discharge Plan - Plan Referrals: Kamran Lira DO [Primary Care Provider] -
[2017-08-02] MEDS: *HR* HYDROcodone/Acet 7.5/325 mg TABLET PO PRN ×2 (15:01→22:48)
[2017-08-02 17:56] LABS: Adenovirus F 40/41 PCR Not detected (Not detect); Astrovirus PCR Not detected (Not detect); C.difficile Toxin A/B by PCR See reflex test (Not detect); Campylobacter by PCR Not detected (Not detect); Cryptosporidium by PCR Not detected (Not detect); Cyclospora cayetanensis PCR Not detected (Not detect); E. coli O157 by PCR Not detected (Not detect); Entamoeba histolytica PCR Not detected (Not detect); Enteroaggregative E.coli(EAEC) Not detected (Not detect); Enteropathogenic E.coli(EPEC) Not detected (Not detect); Enterotoxigenic E.coli (ETEC) Not detected (Not detect); Giardia lamblia PCR Not detected (Not detect); Norovirus GI/GII PCR Not detected (Not detect); Plesiomonas shigelloides PCR Not detected (Not detect); Rotavirus A PCR Not detected (Not detect); Salmonella PCR Not detected (Not detect); Sapovirus PCR Not detected (Not detect); Shig/EnteroinvasiveE coli EIEC Not detected (Not detect); Shigalike tox-prod E coli STEC Not detected (Not detect); Vibrio PCR Not detected (Not detect); Vibrio cholerae PCR Not detected (Not detect); Yersinia enterocolitica PCR Not detected (Not detect)
[2017-08-02] MEDS: Insulin DETEMIR 100 UNIT/ML X5UNITS SQ SCH (22:49)
[2017-08-03] MEDS: Ipratropium/Albuterol Neb 3 ML IH SCH ×4 (04:07→23:01)
[2017-08-03 04:54] LABS: Basophils % 0.2 %; Eosinophils # 0.5 K/mcL (0.0-0.6); Eosinophils % 5.1 %; Hematocrit 24.7 % (37.5-50.1); Hemoglobin 7.7 g/dL (12.9-16.9); Immature Granulocytes % 0.5 % (0-4); Lymphocytes # 2.1 K/mcL (0.6-4.6); Lymphocytes % 21.6 %; Mean Corpuscular HGB Conc 31.2 g/dL (31.6-35.5); Mean Corpuscular Hemoglobin 26.6 pg (28.0-33.3); Mean Corpuscular Volume 85.2 fL (83.0-100.0); Mean Platelet Volume 9.1 fL (9.4-12.4); Monocytes # 0.8 K/mcL (0.0-1.3); Monocytes % 8.2 %; Neutrophils # 6.3 K/mcL (1.6-8.9); Platelet Count 301 K/mcL (140-400); Red Cell Distribution Width 15.3 % (11.5-14.5); Segmented Neutrophils % 64.4 %
[2017-08-03 05:10] LABS: Calcium 8.2 mg/dL (8.6-10.3); Potassium 4.2 mEq/L (3.5-5.1)
[2017-08-03] MEDS: *HR* HYDROcodone/Acet 7.5/325 mg TABLET PO PRN ×3 (05:34→21:38)
[2017-08-03] MEDS: *HR* Heparin 5,000 UNIT/ML VIAL SQ SCH ×3 (05:35→21:36)
[2017-08-03] MEDS ORDERED: Iron Sucrose Complex 200 MG in 0.9 % Sodium Chloride 100 ML IVPB ONE (07:50)
[2017-08-03] MEDS ORDERED: Aminoglycoside Consult 1 EACH MC ONE (08:10)
[2017-08-03] MEDS: Ranolazine 500 MG TAB.ER.12H PO SCH ×2 (09:37→21:37)
[2017-08-03] MEDS: *HR* LORazepam 0.5 MG TABLET PO SCH ×2 (09:38→21:37)
[2017-08-03] MEDS: Pregabalin 75 MG CAPSULE PO SCH ×3 (09:38→21:37)
[2017-08-03] MEDS: Aspirin 81 MG TAB.CHEW PO SCH (09:38)
[2017-08-03] MEDS: Insulin LISPRO 300 UNITS/3 ML VIAL SQ SCH ×4 (09:38→21:39)
[2017-08-03] MEDS: amLODIPine 5 MG TABLET PO SCH (09:38)
[2017-08-03] MEDS: tiZANidine 4 MG TABLET PO SCH ×3 (09:38→21:37)
[2017-08-03] MEDS: Ondansetron 4 MG/2 ML VIAL IVP PRN (09:54)
--- NOTE | 2017-08-03 11:27 | Internal Med Progress Note ---
Date of Encounter: 08/03/17 Time of Encounter: 11:00 - Assessment and plan (1) Septic arthritis of knee, right Current Visit: Yes Status: Acute Assessment and plan: Held Vancomycin today 08/02 due to HILDA continue vanco today 08/03, pharmacy to dose, 6 weeks duration from negative culture on 07/02 Qualifiers: Septic arthritis organism: staphylococcal Qualified Code(s): M00.061 - Staphylococcal arthritis, right knee (2) Coronary artery disease Current Visit: Yes Status: Chronic Assessment and plan: Continue cardiac meds. Qualifiers: Coronary Disease-Associated Artery/Lesion type: bypass graft [place] vs. transplanted heart: [place] heart Associated angina: angina presence unspecified Qualified Code(s): I25.810 - Atherosclerosis of coronary artery bypass graft(s) without angina pectoris (3) Hypertension Current Visit: Yes Status: Chronic Assessment and plan: Better controlled, continue current meds Qualifiers: Hypertension type: unspecified Qualified Code(s): I10 - Essential (primary ) hypertension (4) COPD (chronic obstructive pulmonary disease) Current Visit: Yes Status: Chronic Assessment and plan: Not in exacerbation. Continue with nebs. O2 support. Qualifiers: COPD type: unspecified COPD Qualified Code(s): J44.9 - Chronic obstructive pulmonary disease, unspecified (5) Bacteremia Current Visit: Yes Status: Acute Assessment and plan: As in septic arthritis, continue vanco, Vanc trough 15 08/02 (6) DVT prophylaxis Current Visit: Yes Status: Acute Assessment and plan: Heparin subcutaneous (7) Elevated troponin Current Visit: Yes Status: Resolved Assessment and plan: Downtrending, Likely secondary to CHF. We will keep on telemetry. No concerning EKG ischemic changes. 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 Diabetes mellitus complication status: without complication Qualified Code(s): E11.9 - Type 2 diabetes mellitus without complications; Z79.4 - halfway (current) use of insulin (9) Acute and chronic respiratory failure with hypoxia Current Visit: Yes Status: Acute Assessment and plan: Patient with known chronic resp failure on home O2, presented with worsening hypoxia due to CHF Continue current supplementation with O2 Wean as tolerated (10) Acute systolic CHF (congestive heart failure) Current Visit: Yes Status: Acute Assessment and plan: I/O -2.04 Cr 1.62 this a.m, continue to hold lasix Monitor I&O's. No need to repeat an echo. The patient had an echo back in June that showed an EF of 40-45%. This is likely an acute exacerbation of systolic heart failure. The patient had received IV fluids and PRBCs transfusions a few days ago while hospitalized here. O2 support and wean as tolerated. Scheduled nebs. Daily weights Fluid restriction diet (11) Hypomagnesemia Current Visit: Yes Status: Resolved Assessment and plan: resolved mag today 1.7 (12) Anemia Current Visit: Yes Status: Chronic Assessment and plan: patient complaining of GI symptoms with po iron Hb stable and at baseline Venofer-2nd dose today Qualifiers: Anemia type: iron deficiency Iron deficiency anemia type: unspecified iron deficiency Qualified Code(s): D50.9 - Iron deficiency anemia, unspecified (13) Diarrhea Current Visit: Yes Status: Acute Assessment and plan: possibly due to laxatives, GI panel negative Start Imodium Qualifiers: Diarrhea type: unspecified type Qualified Code(s): R19.7 - Diarrhea, unspecified (14) HILDA (acute kidney injury) Current Visit: Yes Status: Acute Assessment and plan: Cr today 1.62, same as 08/02 Cr on admission 1.25 Patient is on lasix, vanco and has diarrhea Continue to hold lasix Resume vanco with renal adjustment - Time Spent With Patient Total time spent is greater than 50% in coordination of care (as documented) at patient's floor/unit and/or counseling patient: - Subjective Interval history: 47 M with multiple medical co-morbidities He is admitted and being managed for CHFE, acute on chronic resp failure due to CHFE He was recently discharged after being managed for MRSA bacteremia and septic arthritis Diarrhea is improving Vanc trough from 08/02 noted Stool negative for C.diff Cr unchanged from 08/02, (1.62) Start on Imodium Resume vanc today Continue to hold lasix No new complains today - Constitutional Vitals: Temp Pulse Resp BP Pulse Ox 97.0 F L 94 18 113/78 95 08/03/17 10:50 08/03/17 10:50 08/03/17 10:50 08/03/17 10:50 08/03/17 10:50 General appearance: Present: A&O X 3, pleasant, no acute distress - Head Head exam: Present: atraumatic, normocephalic - Eye Eye exam: Present: PERRL, conjuntiva pink, sclera anicteric Pupils: Present: PERRL - Neck Neck exam general surgery: Present: supple, trachea midline. Absent: lymphadenopathy - Respiratory Respiratory exam: Present: CTAB. Absent: accessory muscle use, rales, rhonchi, wheezes - Cardiovascular Cardiovascular exam: Present: RRR, +S1, +S2. Absent: diastolic murmur, gallop, rubs, systolic murmur - GI/Abdominal GI/Abdominal exam: Present: normal bowel sounds, soft, no peritoneal signs. Absent: distended, tenderness - Extremities Exam Additional comments: s/p BKA bilaterally - Neurological Exam Neurological exam: Present: alert, CN II-XII intact, oriented X3, no focal deficits. Absent: pronater drift, facial droop, speech deficit - Skin Skin exam: Present: dry, intact Internal Medicine: Result - Labs CBC & Chem 7: 08/03/17 04:00 08/03/17 04:00 Labs: Short CBC 08/03/17 Range/Units 04:00 WBC 9.8 (4.3-11.1) K/mcL Hgb 7.7 L (12.9-16.9) g/dL Hct 24.7 L (37.5-50.1) % Plt Count 301 (140-400) K/mcL Neutrophils # 6.3 (1.6-8.9) K/mcL BMP 08/03/17 04:00 Sodium 134 L Potassium 4.2 Chloride 101 Carbon Dioxide 29 BUN 26 H Creatinine 1.62 H Glucose 272 H Calcium 8.2 L - ABG Interpretation ABG results: PT/INR, D-dimer PT 13.4 Seconds (9.4-12.1) H 07/30/17 22:06 Consult Discharge Plan - Plan Referrals: Kamran Lira DO [Primary Care Provider] -
[2017-08-03] MEDS: Insulin DETEMIR 100 UNIT/ML X5UNITS SQ SCH (21:39)
[2017-08-04] MEDS: Ipratropium/Albuterol Neb 3 ML IH SCH ×4 (03:18→21:22)
[2017-08-04] MEDS: *HR* Heparin 5,000 UNIT/ML VIAL SQ SCH ×3 (05:44→21:15)
[2017-08-04 06:24] LABS: Basophils % 0.1 %; Eosinophils # 0.4 K/mcL (0.0-0.6); Eosinophils % 3.6 %; Hematocrit 25.4 % (37.5-50.1); Immature Granulocytes % 0.6 % (0-4); Lymphocytes # 1.6 K/mcL (0.6-4.6); Lymphocytes % 15.1 %; Mean Corpuscular HGB Conc 31.5 g/dL (31.6-35.5); Mean Corpuscular Hemoglobin 26.8 pg (28.0-33.3); Mean Corpuscular Volume 84.9 fL (83.0-100.0); Mean Platelet Volume 9.1 fL (9.4-12.4); Monocytes # 1.1 K/mcL (0.0-1.3); Monocytes % 10.6 %; Neutrophils # 7.6 K/mcL (1.6-8.9); Platelet Count 302 K/mcL (140-400); Red Blood Count 2.99 M/mcL (4.19-5.50); Red Cell Distribution Width 15.5 % (11.5-14.5)
[2017-08-04 06:39] LABS: Potassium 4.5 mEq/L (3.5-5.1)
[2017-08-04 06:40] LABS: Calcium 8.5 mg/dL (8.6-10.3)
[2017-08-04] MEDS ORDERED: 0.9 % Sodium Chloride 500 ML IVC ONE (07:49)
[2017-08-04] MEDS: amLODIPine 5 MG TABLET PO SCH (08:37)
[2017-08-04] MEDS: Ranolazine 500 MG TAB.ER.12H PO SCH ×2 (08:37→21:14)
[2017-08-04] MEDS: Pregabalin 75 MG CAPSULE PO SCH ×3 (08:37→21:14)
[2017-08-04] MEDS: *HR* LORazepam 0.5 MG TABLET PO SCH ×2 (08:38→21:15)
[2017-08-04] MEDS: Aspirin 81 MG TAB.CHEW PO SCH (08:38)
[2017-08-04] MEDS: Insulin LISPRO 300 UNITS/3 ML VIAL SQ SCH ×4 (08:38→21:48)
[2017-08-04] MEDS: tiZANidine 4 MG TABLET PO SCH ×3 (08:38→21:14)
[2017-08-04] MEDS: *HR* HYDROcodone/Acet 7.5/325 mg TABLET PO PRN ×2 (08:45→21:15)
--- NOTE | 2017-08-04 09:58 | Internal Med Progress Note ---
Date of Encounter: 08/04/17 Time of Encounter: 09:58 - Assessment and plan (1) Septic arthritis of knee, right Current Visit: Yes Status: Acute Assessment and plan: Hold vanco 6 weeks duration from negative culture on 07/02 Qualifiers: Septic arthritis organism: staphylococcal Qualified Code(s): M00.061 - Staphylococcal arthritis, right knee (2) Coronary artery disease Current Visit: Yes Status: Chronic Assessment and plan: Continue cardiac meds. Qualifiers: Coronary Disease-Associated Artery/Lesion type: bypass graft [place] vs. transplanted heart: [place] heart Associated angina: angina presence unspecified Qualified Code(s): I25.810 - Atherosclerosis of coronary artery bypass graft(s) without angina pectoris (3) Hypertension Current Visit: Yes Status: Chronic Assessment and plan: Better controlled, continue current meds Qualifiers: Hypertension type: unspecified Qualified Code(s): I10 - Essential (primary ) hypertension (4) COPD (chronic obstructive pulmonary disease) Current Visit: Yes Status: Chronic Assessment and plan: Not in exacerbation. Continue with nebs. O2 support. Qualifiers: COPD type: unspecified COPD Qualified Code(s): J44.9 - Chronic obstructive pulmonary disease, unspecified (5) Bacteremia Current Visit: Yes Status: Acute Assessment and plan: As in septic arthritis, hold vancomycin due to worsening renal function, consider Infectious disease consult if unable to resume vanco due to kidney function (6) DVT prophylaxis Current Visit: Yes Status: Acute Assessment and plan: Heparin subcutaneous (7) Elevated troponin Current Visit: Yes Status: Resolved Assessment and plan: Downtrending, Likely secondary to CHF. We will keep on telemetry. No concerning EKG ischemic changes. 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m, continue to hold lasix Monitor I&O's. No need to repeat an echo. The patient had an echo back in June that showed an EF of 40-45%. This is likely an acute exacerbation of systolic heart failure. The patient had received IV fluids and PRBCs transfusions a few days ago while hospitalized here. O2 support and wean as tolerated. Scheduled nebs. Daily weights Fluid restriction diet (11) Hypomagnesemia Current Visit: Yes Status: Resolved Assessment and plan: resolved (12) Anemia Current Visit: Yes Status: Chronic Assessment and plan: patient complaining of GI symptoms with po iron Hb stable and at baseline Venofer-2nd dose Qualifiers: Anemia type: iron deficiency Iron deficiency anemia type: unspecified iron deficiency Qualified Code(s): D50.9 - Iron deficiency anemia, unspecified (13) Diarrhea Current Visit: Yes Status: Resolved Assessment and plan: possibly due to laxatives, GI panel negative Continue Imodium Qualifiers: Diarrhea type: unspecified type Qualified Code(s): R19.7 - Diarrhea, unspecified (14) HILDA (acute kidney injury) Current Visit: Yes Status: Acute Assessment and plan: Cr today 1.86 same as 08/02 Cr on admission 1.25 Patient is on lasix, vanco and has diarrhea Continue to hold lasix Hold vanco GIve IVF If renal function continues to worsen, reconsult ID Consult renal - Time Spent With Patient Total time spent is greater than 50% in coordination of care (as documented) at patient's floor/unit and/or counseling patient: - Subjective Interval history: 47 M with multiple medical co-morbidities He is admitted and being managed for CHFE, acute on chronic resp failure due to CHFE He was recently discharged after being managed for MRSA bacteremia and septic arthritis Vanc trough from 08/02 noted Stool negative for C.diff Diarrhea has resolved however, his renal function continues to worsen, Cr today 1.84(1.62), he is making urine, he does have a hx of CHF I will hold his vancomycin again today , give IVF boluses, consult renal Continue to monitor, he has no new complains and agrees with plan of care - Constitutional Vitals: Temp Pulse Resp BP Pulse Ox 98 F 88 16 118/75 96 08/04/17 01:00 08/04/17 06:56 08/04/17 06:56 08/04/17 06:56 08/04/17 03:18 General appearance: Present: A&O X 3, pleasant, no acute distress - Head Head exam: Present: atraumatic, normocephalic - Eye Eye exam: Present: PERRL, conjuntiva pink, sclera anicteric Pupils: Present: PERRL - Neck Neck exam general surgery: Present: supple, trachea midline. Absent: lymphadenopathy - Respiratory Respiratory exam: Present: CTAB. Absent: accessory muscle use, rales, rhonchi, wheezes - Cardiovascular Cardiovascular exam: Present: RRR, +S1, +S2. Absent: diastolic murmur, gallop, rubs, systolic murmur - GI/Abdominal GI/Abdominal exam: Present: normal bowel sounds, soft, no peritoneal signs. Absent: distended, tenderness - Extremities Exam Additional comments: s/p bilateral BKA, some trace stump edema - Neurological Exam Neurological exam: Present: alert, CN II-XII intact, oriented X3, no focal deficits. Absent: pronater drift, facial droop, speech deficit - Skin Skin exam: Present: dry, intact Internal Medicine: Result - Labs CBC & Chem 7: 08/04/17 05:49 08/04/17 05:49 Labs: Short CBC 08/04/17 Range/Units 05:49 WBC 10.8 (4.3-11.1) K/mcL Hgb 8.0 L (12.9-16.9) g/dL Hct 25.4 L (37.5-50.1) % Plt Count 302 (140-400) K/mcL Neutrophils # 7.6 (1.6-8.9) K/mcL BMP 08/04/17 05:49 Sodium 131 L Potassium 4.5 Chloride 100 Carbon Dioxide 22 L BUN 31 H Creatinine 1.84 H Glucose 92 Calcium 8.5 L - ABG Interpretation ABG results: PT/INR, D-dimer PT 13.4 Seconds (9.4-12.1) H 07/30/17 22:06 - Impressions Impressions Chest X-Ray 08/03/17 20:14 IMPRESSION: The tip of the right arm PICC line is at the expected junction of the right axillary and subclavian veins. D/ / Robert Lee MD / Robert Lee MD Interpreting Provider: Robert Lee MD Consult Discharge Plan - Plan Referrals: Kamran Lira DO [Primary Care Provider] - 08/14/17 10:00 am Jayden Mendoza MD [Partnered Physician] - (i requested an appointment office should call patient at home with appointment date and time) Prescriptions: Vancomycin [Vancocin] 1,500 mg IV DAILY #10 vial
--- NOTE | 2017-08-04 13:03 | Nephrology Consult Note ---
Date of Encounter: 08/04/17 Time of Encounter: 13:00 Assessment and Plan (1) HILDA (acute kidney injury) Current Visit: Yes Status: Acute Rising SCr in the setting of diuretics, vancomycin and sepsis along with diarrhea Agree with IVF bolus and holding diuretics Agree with changing vanco to a less nephrotic alternative Will check urine studies Will check CPK and uric acid levels (2) Acute systolic CHF (congestive heart failure) Current Visit: Yes Status: Acute Diuretics held (3) Septic arthritis of knee, right Current Visit: Yes Status: Acute Qualifiers: Septic arthritis organism: staphylococcal Qualified Code(s): M00.061 - Staphylococcal arthritis, right knee (4) Anemia Current Visit: Yes Status: Chronic Qualifiers: Anemia type: iron deficiency Iron deficiency anemia type: unspecified iron deficiency Qualified Code(s): D50.9 - Iron deficiency anemia, unspecified History of Present Illness - Reason for Consult Consult date: 08/04/17 Acute Kidney Injury Requesting physician: Momo Larios - History of Present Illness 47 y oo male with PMH of DM, HTN, CAD s/p CABG, COPD admitted 07/30 as a transfer from [place] with [facility]. He was treated for CHF during stay with iv lasix and also for MRSA bacteremia with septic arthritis with vanco. Renal consulted today for worsening renal fxn at 1.84, GFR 40 today from 1.62, GFR 46 yesterday and previously 1.25, GFR >60. He received NS 500cc bolus once today. Pt seen and examined very lethargic unable to give much information but he did recall 2 days of very watery diarrhea during his stay here and felt depleted from a volume standpoint. Most of the information obtained from his records. Past Med Surg Social Fam HX - Past Medical History Medical history: coronary artery disease, diabetes, hyperlipidemia, hypertension , kidney stones, myocardial infarction, other Additional medical history: SLEEP APNEA Psychiatric history: anxiety, depression - Past Surgical History Surgical History: angioplasty/stent, coronary bypass (CABG), orthopedic, other Additional surgical history: WINIFRED BKA , 17 STENTS - Social History Smoking Status: Former smoker Smokeless Tobacco Status: No Alcohol use: none Drug use: none - Family History Mother Living Status: Still Living Hx Family Cardiac Disorders: Yes (Pacemaker) Hx Family Endocrine Disorder: Yes (DM) Hx Family Neuromuscular Disorders: Yes (stroke) Father Living Status: Age at : 38 Cause of : CA Hx Family Cardiac Disorders: Yes (CA) Hx Family Respiratory Disorders: Yes Hx Family Endocrine Disorder: Yes Medications and Allergies Amitriptyline [Elavil] 75 mg PO HS 07/01/17 [History] Duloxetine HCl [Cymbalta] 60 mg PO DAILY 07/01/17 [History] HYDROcodone/Acet 7.5/325 mg [[place] 7.5-325 mg] 1 tab PO QID PRN 07/01/17 [ History] Insulin ASPART [NovoLOG] 0 - 10 unit SQ TIDWM 07/01/17 [History] Insulin Glargine,Hum.rec.anlog [Basaglar Kwikpen U-100] 50 unit SQ HS 07/01/17 [ History] LORazepam [Ativan] 0.5 mg PO BID 07/01/17 [History] Pregabalin [Lyrica] 150 mg PO TID 07/01/17 [History] Rosuvastatin Calcium [Crestor] 40 mg PO HS 07/01/17 [History] Ranolazine [Ranexa] 1,000 mg PO BID 07/02/17 [History] Tizanidine HCl 4 mg PO TID 07/02/17 [History] Aspirin 81 mg PO DAILY #30 tab.chew 07/05/17 [Rx] Carvedilol [Coreg] 3.125 mg PO BIDWM #60 tablet 07/14/17 [Rx] Omeprazole [PriLOSEC] 20 mg PO BIDAC #60 capsule. 07/14/17 [Rx] Sucralfate [Carafate] 1 gm PO TID #90 udc 07/14/17 [Rx] amLODIPine [Norvasc] 5 mg PO DAILY #30 tablet 07/14/17 [Rx] Ferrous Sulfate 325 mg PO TIDWM #90 tablet 07/28/17 [Rx] Vancomycin [Vancocin] 1,500 mg IV DAILY #10 vial 08/03/17 [Rx] 3 Allergy/AdvReac Type Severity Reaction Status Date / Time Diclofenac [From Voltaren] Allergy Gastrointestinal Verified 07/25/17 21:09 Upset Penicillins Allergy Rash Verified 07/25/17 21:09 Review of Systems All Systems: reviewed and no additional remarkable complaints except as stated ( 10 systems reviewed) Exam - Vital Signs Vital signs: Initial Vital Signs Temp Pulse Resp BP Pulse Ox 97.7 F 115 16 169/97 94 07/30/17 20:18 07/30/17 20:18 07/30/17 20:18 07/30/17 20:18 07/30/17 20:18 Vital Signs - Last 8 Hours Pulse Resp BP Pulse Ox 08/04/17 10:27 16 96 08/04/17 06:56 88 16 118/75 Intake and Output 08/03/17 08/04/17 08/04/17 23:59 07:59 15:59 Intake Total 120 / 120 240 / 240 120 / 120 Output Total 300 / 300 700 / 700 Balance -180 / -180 -460 / -460 120 / 120 Intake: Oral 120 / 120 240 / 240 120 / 120 Output: Urine 300 / 300 700 / 700 Other: Meal Breakfast Percent of Meal Consumed 75% Stool Size Moderate Stool Consistency loose liquid Stool Color Brown Yellow Green # Bowel Movements 1 Weight 111.6 kg Blood Glucose* 139 78 75 Patient Weight 08/04/17 23:59 Weight 111.6 kg - General Appearance General appearance: chronically ill, fatigue EENT: ATNC, mucous membranes dry Neck: no JVD, supple Respiratory: clear Cardiology: no edema, normal S1, normal S2 Gastrointestinal: no tenderness, no guarding Integumentary: warm and dry Neurologic: no focal deficit Musculoskeletal: no deformities Psychiatric: mood/affect appropriate, cooperative Results - Lab Results 08/05/17 05:30 08/05/17 05:30 Most recent lab results Calcium 8.5 mg/dL (8.6-10.3) L 08/04/17 05:49 Magnesium 1.7 mg/dL (1.6-2.6) 08/02/17 04:42 Consult Discharge Plan - Plan Referrals: Kamran Lira DO [Primary Care Provider] - 08/14/17 10:00 am Jayden Mendoza MD [Partnered Physician] - (i requested an appointment office should call patient at home with appointment date and time) Prescriptions: Vancomycin [Vancocin] 1,500 mg IV DAILY #10 vial
[2017-08-04 13:25] LABS: Uric Acid 6.5 mg/dL (2.3-7.6)
[2017-08-04 16:46] LABS: Bilirubin,Urine Negative (Negative); Blood,Urine Negative (Negative); Clarity,Urine Cloudy (Clear); Color,Urine Yellow (Yellow); Glucose,Urine (UA) Normal (Normal); Ketones,Urine Negative (Negative); Leukocyte Esterase,Urine Negative (Negative); Nitrite,Urine Negative (Negative); Protein,Urine 100 mg/dL (Neg-Trace); Specific Gravity,Urine 1.016 (1.010-1.025); Urobilinogen,Urine Normal (Normal)
[2017-08-04] MEDS: DAPTOmycin 650 MG in 0.9 % Sodium Chloride 100 ML IVPB SCH (16:54)
[2017-08-04 16:55] LABS: Bacteria,Urine Few per hpf (None-Few); RBC,Urine 0-3 per hpf (0-3); Squamous Epithelial Cell,Urine Few per lpf (None-Few); WBC,Urine 0-3 per hpf (0-3); Yeast,Urine Moderate per hpf (None Seen)
[2017-08-04 17:16] LABS: Creatinine,Urine 64 mg/dL; Sodium, Urine < 10.0 mEq/L
[2017-08-04] MEDS: Insulin DETEMIR 100 UNIT/ML X5UNITS SQ SCH (21:46)
[2017-08-05] MEDS: Ipratropium/Albuterol Neb 3 ML IH SCH ×4 (03:31→21:19)
[2017-08-05] MEDS: *HR* HYDROcodone/Acet 7.5/325 mg TABLET PO PRN ×2 (05:31→19:51)
[2017-08-05] MEDS: *HR* Heparin 5,000 UNIT/ML VIAL SQ SCH ×3 (05:31→21:28)
[2017-08-05 05:59] LABS: Basophils % 0.3 %; Eosinophils # 0.4 K/mcL (0.0-0.6); Eosinophils % 4.3 %; Hematocrit 25.3 % (37.5-50.1); Hemoglobin 7.9 g/dL (12.9-16.9); Immature Granulocytes % 0.4 % (0-4); Lymphocytes # 1.9 K/mcL (0.6-4.6); Mean Corpuscular HGB Conc 31.2 g/dL (31.6-35.5); Mean Corpuscular Hemoglobin 26.6 pg (28.0-33.3); Mean Corpuscular Volume 85.2 fL (83.0-100.0); Mean Platelet Volume 9.5 fL (9.4-12.4); Monocytes # 1.1 K/mcL (0.0-1.3); Monocytes % 11.6 %; Neutrophils # 5.7 K/mcL (1.6-8.9); Platelet Count 322 K/mcL (140-400); Red Blood Count 2.97 M/mcL (4.19-5.50); Red Cell Distribution Width 15.4 % (11.5-14.5); Segmented Neutrophils % 62.4 %
[2017-08-05 06:15] LABS: Calcium 8.7 mg/dL (8.6-10.3); Potassium 4.3 mEq/L (3.5-5.1)
[2017-08-05] MEDS: Ranolazine 500 MG TAB.ER.12H PO SCH ×2 (08:24→19:46)
[2017-08-05] MEDS: amLODIPine 5 MG TABLET PO SCH (08:24)
[2017-08-05] MEDS: Pregabalin 75 MG CAPSULE PO SCH ×3 (08:24→19:46)
[2017-08-05] MEDS: Aspirin 81 MG TAB.CHEW PO SCH (08:25)
[2017-08-05] MEDS: tiZANidine 4 MG TABLET PO SCH ×3 (08:25→19:46)
[2017-08-05] MEDS: Insulin LISPRO 300 UNITS/3 ML VIAL SQ SCH ×3 (08:25→19:56)
[2017-08-05] MEDS: *HR* LORazepam 0.5 MG TABLET PO SCH ×2 (08:25→19:46)
[2017-08-05] MEDS: 0.9 % Sodium Chloride 1,000 ML IVC SCH ×2 (08:40→21:28)
[2017-08-05] MEDS ORDERED: Perflutren Lipid Microsphere 1.3 ML in 0.9 % Sodium Chloride 8.7 ML IVP ONE (10:13)
[2017-08-05] MEDS ORDERED: Perflutren Lipid Microsphere 2 ML VIAL ONE (10:17)
--- NOTE | 2017-08-05 12:01 | Internal Med Progress Note ---
Date of Encounter: 08/05/17 Time of Encounter: 11:59 - Assessment and plan (1) HILDA (acute kidney injury) Current Visit: Yes Status: Acute Assessment and plan: Cr continues to trend up Prerenal, nonoliguric, due to GI loss as well as being on vancomycin and day 6 Urine analysis is unremarkable, uric acid within normal limits, creatinine kinase within normal limit. Nephrology consulted, continue IV fluid hydration. Renal ultrasound unremarkable. (2) Septic arthritis of knee, right Current Visit: Yes Status: Acute Assessment and plan: Discontinued vanco 08/04 Had been on vanco since 06/2017, changed to dapto, CK done 08/04 WNL Qualifiers: Septic arthritis organism: staphylococcal Qualified Code(s): M00.061 - Staphylococcal arthritis, right knee (3) Coronary artery disease Current Visit: Yes Status: Chronic Assessment and plan: Continue cardiac meds. Qualifiers: Coronary Disease-Associated Artery/Lesion type: bypass graft [place] vs. transplanted heart: [place] heart Associated angina: angina presence unspecified Qualified Code(s): I25.810 - Atherosclerosis of coronary artery bypass graft(s) without angina pectoris (4) Hypertension Current Visit: Yes Status: Chronic Assessment and plan: Better controlled, continue current meds Qualifiers: Hypertension type: unspecified Qualified Code(s): I10 - Essential (primary ) hypertension (5) COPD (chronic obstructive pulmonary disease) Current Visit: Yes Status: Chronic Assessment and plan: Not in exacerbation. Continue with nebs. O2 support. Qualifiers: COPD type: unspecified COPD Qualified Code(s): J44.9 - Chronic obstructive pulmonary disease, unspecified (6) Bacteremia Current Visit: Yes Status: Acute Assessment and plan: As in septic arthritis, discontinued vancomycin due to worsening renal function , Infectious disease recommended daptomycin Continue same (7) DVT prophylaxis Current Visit: Yes Status: Acute Assessment and plan: Heparin subcutaneous (8) Elevated troponin Current Visit: Yes Status: Resolved Assessment and plan: Downtrending, Likely secondary to CHF. We will keep on telemetry. No concerning EKG ischemic changes. 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 use Diabetes mellitus complication status: without complication Qualified Code(s): E11.9 - Type 2 diabetes mellitus without complications; Z79.4 - long-term (current) use of insulin (10) Acute and chronic respiratory failure with hypoxia Current Visit: Yes Status: Acute Assessment and plan: Patient with known chronic resp failure on home O2, presented with worsening hypoxia due to CHF Continue current supplementation with O2 Wean as tolerated (11) Acute systolic CHF (congestive heart failure) Current Visit: Yes Status: Acute Assessment and plan: I/O -3.46 Cr 1.84 this a.m, continue to hold lasix Monitor I&O's. The patient had an echo back in June that showed an EF of 40-45%. LYNETTE had shown aortic vegetation at that time. The patient had received IV fluids and PRBCs transfusions a few days ago while hospitalized here. O2 support and wean as tolerated. Scheduled nebs. Daily weights Repeat echocardiogram ordered. Fluid restriction diet (12) Hypomagnesemia Current Visit: Yes Status: Resolved Assessment and plan: resolved (13) Anemia Current Visit: Yes Status: Chronic Assessment and plan: patient complaining of GI symptoms with po iron Hb stable and at baseline Venofer-2nd dose Qualifiers: Anemia type: iron deficiency Iron deficiency anemia type: unspecified iron deficiency Qualified Code(s): D50.9 - Iron deficiency anemia, unspecified (14) Diarrhea Current Visit: Yes Status: Resolved Assessment and plan: possibly due to laxatives, GI panel negative Continue Imodium Qualifiers: Diarrhea type: unspecified type Qualified Code(s): R19.7 - Diarrhea, unspecified - Time Spent With Patient Total time spent is greater than 50% in coordination of care (as documented) at patient's floor/unit and/or counseling patient: - Subjective Interval history: 47 M with multiple medical co-morbidities He is admitted and being managed for CHFE, acute on chronic resp failure due to CHFE He was recently discharged after being managed for MRSA bacteremia and septic arthritis Readmitted for CHFE and was on lasix till renal function began to decline Patient still makes adequate urine Stool negative for C.diff Diarrhea is improving 08/04 I discontinued vancomycin and spoke with ID Dr. mercado who recommended to start dapto instead Seen and evaluated this mrn, complaining of feeling swollen, no chest pain or difficulty breathing ECHO is pending Renal USS unremarkable - Constitutional Vitals: Temp Pulse Resp BP Pulse Ox 98.8 F 81 19 110/68 91 06/16/18 21:27 08/05/17 06:42 08/05/17 06:42 08/05/17 06:42 08/05/17 06:42 General appearance: Present: A&O X 3, pleasant, no acute distress - Head Head exam: Present: atraumatic, normocephalic - Eye Eye exam: Present: PERRL, conjuntiva pink, sclera anicteric Pupils: Present: PERRL - Neck Neck exam general surgery: Present: supple, trachea midline. Absent: lymphadenopathy - Respiratory Respiratory exam: Present: CTAB. Absent: accessory muscle use, rales, rhonchi, wheezes - Cardiovascular Cardiovascular exam: Present: RRR, +S1, +S2. Absent: diastolic murmur, gallop, rubs, systolic murmur - GI/Abdominal GI/Abdominal exam: Present: normal bowel sounds, soft, no peritoneal signs. Absent: distended, tenderness - Extremities Exam Additional comments: s/p bilateral BKA, stump edema + - Neurological Exam Neurological exam: Present: alert, CN II-XII intact, oriented X3, no focal deficits. Absent: pronater drift, facial droop, speech deficit - Skin Skin exam: Present: dry, intact Internal Medicine: Result - Labs CBC & Chem 7: 08/05/17 05:30 08/05/17 05:30 Labs: Short CBC 08/05/17 Range/Units 05:30 WBC 9.2 (4.3-11.1) K/mcL Hgb 7.9 L (12.9-16.9) g/dL Hct 25.3 L (37.5-50.1) % Plt Count 322 (140-400) K/mcL Neutrophils # 5.7 (1.6-8.9) K/mcL BMP 08/04/17 08/05/17 05:49 05:30 Sodium 131 L 132 L Potassium 4.5 4.3 Chloride 100 100 Carbon Dioxide 22 L 25 BUN 31 H 35 H Creatinine 1.84 H 2.05 H Glucose 92 90 Calcium 8.5 L 8.7 Urine 08/04/17 Range/Units 16:30 Urine Color Yellow (Yellow) Urine Clarity Cloudy A (Clear) Urine pH 5.0 (5.0-8.0) pH Units Ur Specific [place] 1.016 (1.010-1.025) Urine Protein 100 H (Neg-Trace) mg/dL Urine Glucose (UA) Normal (Normal) mg/dL - ABG Interpretation ABG results: PT/INR, D-dimer PT 13.4 Seconds (9.4-12.1) H 07/30/17 22:06 - Impressions Impressions Retroperitoneum Ultrasound 08/04/17 12:51 IMPRESSION: Unremarkable ultrasound of the kidneys and urinary bladder. D/ / Adonis Faith MD / Adonis Faith MD Interpreting Provider: Adonis Faith MD Consult Discharge Plan - Plan Referrals: Kamran Lira DO [Primary Care Provider] - 08/14/17 10:00 am Jayden Mendoza MD [Partnered Physician] - (i requested an appointment office should call patient at home with appointment date and time) Prescriptions: Vancomycin [Vancocin] 1,500 mg IV DAILY #10 vial
--- NOTE | 2017-08-05 13:25 | Nephrology Progress Note ---
Date of Encounter: 08/05/17 Time of Encounter: 12:00 - Assessment and Plan (1) HILDA (acute kidney injury) Current Visit: Yes Status: Acute SCr worse today 2.05, GFR 35, agree with IVF started by primary team UOP noted at 1300cc which is ggod Urine sodium <10 suggestive of very pre-renal state, IVF should definitely help in addition to po fluids Uric acid and CPK unremarkable Urine eosinophils unremarkable Continue to avoid nephrotoxins if possible (2) Acute systolic CHF (congestive heart failure) Current Visit: Yes Status: Acute diuretics held but stric I/Os Continue cardiac diet (3) Septic arthritis of knee, right Current Visit: Yes Status: Acute abx per primary team Qualifiers: Septic arthritis organism: staphylococcal Qualified Code(s): M00.061 - Staphylococcal arthritis, right knee (4) Anemia Current Visit: Yes Status: Chronic Hgb noted low at 7.9, transfusion parameters per primary team Qualifiers: Anemia type: iron deficiency Iron deficiency anemia type: unspecified iron deficiency Qualified Code(s): D50.9 - Iron deficiency anemia, unspecified Subjective Interval history: Pt seen and examined today less lethargic, slept better overnight. Objective - Vital Signs Vital signs: Vital Signs Temp Pulse Resp BP Pulse Ox 08/05/17 06:42 81 19 110/68 91 08/05/17 04:48 79 17 120/78 96 08/05/17 03:31 17 95 08/04/17 21:27 98.8 F 88 17 129/79 97 08/04/17 21:22 15 91 08/04/17 21:15 97 08/04/17 16:25 15 96 08/04/17 16:16 83 15 121/76 Intake and Output 08/04/17 08/05/17 08/05/17 23:59 07:59 15:59 Intake Total 40 / 40 360 / 360 Output Total 600 / 600 700 / 700 Balance -560 / -560 -700 / -700 360 / 360 Intake: Oral 40 / 40 360 / 360 Output: Urine 600 / 600 700 / 700 Other: Meal Dinner Lunch Percent of Meal Consumed 100% 100% Stool Size Large Large Stool Consistency liquid # Bowel Movements 1 2 Weight 109.8 kg Blood Glucose* 109 84 96 Patient Weight 08/05/17 23:59 Weight 109.8 kg - General Appearance General appearance: Present: chronically ill (NAD) EENT: Present: ATNC, mucous membranes dry Neck: Present: no JVD, supple Respiratory: Present: clear Cardiology: Present: no edema, normal S1, normal S2 Gastrointestinal: Present: no tenderness, no guarding Integumentary: Present: warm and dry Neurologic: Present: no focal deficit Musculoskeletal: Present: no deformities Psychiatric: Present: mood/affect appropriate, cooperative - Lab 08/05/17 05:30 08/05/17 05:30 Most recent lab results Calcium 8.7 mg/dL (8.6-10.3) 08/05/17 05:30 Magnesium 1.7 mg/dL (1.6-2.6) 08/02/17 04:42 Urine Creatinine 64 mg/dL 08/04/17 16:30 Urine Sodium < 10.0 mEq/L 08/04/17 16:30 Consult Discharge Plan - Plan Referrals: Kamran Lira DO [Primary Care Provider] - 08/14/17 10:00 am Jayden Mendoza MD [Partnered Physician] - (i requested an appointment office should call patient at home with appointment date and time) Prescriptions: Vancomycin [Vancocin] 1,500 mg IV DAILY #10 vial
[2017-08-05] MEDS: DAPTOmycin 650 MG in 0.9 % Sodium Chloride 100 ML IVPB SCH (15:48)
[2017-08-05] MEDS: Insulin DETEMIR 100 UNIT/ML X5UNITS SQ SCH (19:46)
[2017-08-06] MEDS: Ipratropium/Albuterol Neb 3 ML IH SCH ×4 (03:33→21:45)
[2017-08-06] MEDS: *HR* Heparin 5,000 UNIT/ML VIAL SQ SCH ×3 (04:41→21:47)
[2017-08-06 04:56] LABS: Basophils % 0.3 %; Eosinophils # 0.2 K/mcL (0.0-0.6); Eosinophils % 1.9 %; Hematocrit 23.5 % (37.5-50.1); Hemoglobin 7.3 g/dL (12.9-16.9); Immature Granulocytes % 0.2 % (0-4); Lymphocytes # 1.7 K/mcL (0.6-4.6); Lymphocytes % 16.9 %; Mean Corpuscular HGB Conc 31.1 g/dL (31.6-35.5); Mean Corpuscular Hemoglobin 26.2 pg (28.0-33.3); Mean Corpuscular Volume 84.2 fL (83.0-100.0); Mean Platelet Volume 9.4 fL (9.4-12.4); Monocytes # 1.2 K/mcL (0.0-1.3); Monocytes % 12.1 %; Neutrophils # 6.9 K/mcL (1.6-8.9); Platelet Count 304 K/mcL (140-400); Red Blood Count 2.79 M/mcL (4.19-5.50); Red Cell Distribution Width 15.6 % (11.5-14.5); Segmented Neutrophils % 68.6 %
[2017-08-06 05:18] LABS: Calcium 8.7 mg/dL (8.6-10.3)
[2017-08-06] MEDS: Insulin LISPRO 300 UNITS/3 ML VIAL SQ SCH ×5 (08:09→21:41)
[2017-08-06] MEDS: Pregabalin 75 MG CAPSULE PO SCH ×3 (08:11→21:52)
[2017-08-06] MEDS: amLODIPine 5 MG TABLET PO SCH (08:12)
[2017-08-06] MEDS: Ranolazine 500 MG TAB.ER.12H PO SCH ×2 (08:12→21:47)
[2017-08-06] MEDS: tiZANidine 4 MG TABLET PO SCH ×3 (08:12→21:46)
[2017-08-06] MEDS: *HR* LORazepam 0.5 MG TABLET PO SCH ×2 (08:12→21:46)
[2017-08-06] MEDS: Aspirin 81 MG TAB.CHEW PO SCH (08:16)
[2017-08-06] MEDS: *HR* HYDROcodone/Acet 7.5/325 mg TABLET PO PRN ×3 (08:16→21:46)
--- NOTE | 2017-08-06 10:02 | Internal Med Progress Note ---
Date of Encounter: 08/06/17 Time of Encounter: 09:45 - Assessment and plan (1) HILDA (acute kidney injury) Current Visit: Yes Status: Acute Assessment and plan: Cr continues to trend up Prerenal, nonoliguric, due to GI loss as well as being on vancomycin and lasix Urine analysis is unremarkable, uric acid within normal limits, creatinine kinase within normal limit. Nephrology consulted and following Renal ultrasound unremarkable Discontinued IVF today due to patient becoming edematous with fluid overload EF is 30-40% (2) Septic arthritis of knee, right Current Visit: Yes Status: Acute Assessment and plan: Had been on vanco since 06/2017, Discontinued vanco 08/04 changed to dapto, CK done 08/04 WNL Qualifiers: Septic arthritis organism: staphylococcal Qualified Code(s): M00.061 - Staphylococcal arthritis, right knee (3) Coronary artery disease Current Visit: Yes Status: Chronic Assessment and plan: Continue cardiac meds. Qualifiers: Coronary Disease-Associated Artery/Lesion type: bypass graft [place] vs. transplanted heart: [place] heart Associated angina: angina presence unspecified Qualified Code(s): I25.810 - Atherosclerosis of coronary artery bypass graft(s) without angina pectoris (4) Hypertension Current Visit: Yes Status: Chronic Assessment and plan: Better controlled, continue current meds Qualifiers: Hypertension type: unspecified Qualified Code(s): I10 - Essential (primary ) hypertension (5) COPD (chronic obstructive pulmonary disease) Current Visit: Yes Status: Chronic Assessment and plan: Not in exacerbation. Continue with nebs. O2 support. Qualifiers: COPD type: unspecified COPD Qualified Code(s): J44.9 - Chronic obstructive pulmonary disease, unspecified (6) Bacteremia Current Visit: Yes Status: Acute Assessment and plan: As in septic arthritis, discontinued vancomycin due to worsening renal function , Infectious disease recommended daptomycin Continue same (7) DVT prophylaxis Current Visit: Yes Status: Acute Assessment and plan: Heparin subcutaneous (8) Elevated troponin Current Visit: Yes Status: Resolved Assessment and plan: Downtrending, Likely secondary to CHF. We will keep on telemetry. No concerning EKG ischemic changes. 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 O2 support and wean as tolerated. Scheduled nebs. Daily weights ECHO : LVEF 30-40%, mildly dilated LV, no LV thrombus, AV vegetation, unchanged. No wall motion hypokinesis. Prior Echo from 06/2017 with EF 40-50% Fluid restriction diet (12) Hypomagnesemia Current Visit: Yes Status: Resolved Assessment and plan: resolved (13) Anemia Current Visit: Yes Status: Chronic Assessment and plan: patient complaining of GI symptoms with po iron has received 2 dsoes of venofer in this admission Hb today 7.3, consider blood transfusion, hemodynamically stable Qualifiers: Anemia type: iron deficiency Iron deficiency anemia type: unspecified iron deficiency Qualified Code(s): D50.9 - Iron deficiency anemia, unspecified (14) Diarrhea Current Visit: Yes Status: Resolved Assessment and plan: possibly due to laxatives, GI panel negative Continue Imodium Qualifiers: Diarrhea type: unspecified type Qualified Code(s): R19.7 - Diarrhea, unspecified - Time Spent With Patient Total time spent is greater than 50% in coordination of care (as documented) at patient's floor/unit and/or counseling patient: - Subjective Interval history: 47 M with multiple medical co-morbidities He is admitted and being managed for CHFE, acute on chronic resp failure due to CHFE He was recently discharged after being managed for MRSA bacteremia and septic arthritis Readmitted for CHFE and was on lasix till renal function began to decline Patient still makes adequate urine Stool negative for C.diff Diarrhea is improving 08/04 I discontinued vancomycin and spoke with ID Dr. mercado who recommended to start dapto instead Renal function is worsening ECHO noted for EF 30-40 % (prior 40-50%) AV vegetation unchanged. No wall motion hypokinesis Renal USS unremarkable Seen and evaluated this mrn, complaining of feeling swollen, no chest pain or difficulty breathing - Constitutional Vitals: Temp Pulse Resp BP Pulse Ox 98.2 F 77 15 113/70 94 08/05/17 19:59 08/06/17 07:00 08/06/17 07:00 08/06/17 07:00 08/06/17 07:00 General appearance: Present: A&O X 3, pleasant, no acute distress - Head Head exam: Present: atraumatic, normocephalic - Eye Eye exam: Present: PERRL, conjuntiva pink, sclera anicteric Pupils: Present: PERRL - Neck Neck exam general surgery: Present: supple, trachea midline. Absent: lymphadenopathy - Respiratory Respiratory exam: Present: CTAB. Absent: accessory muscle use, rales, rhonchi, wheezes - Cardiovascular Cardiovascular exam: Present: RRR, +S1, +S2. Absent: diastolic murmur, gallop, rubs, systolic murmur - GI/Abdominal GI/Abdominal exam: Present: normal bowel sounds, soft, no peritoneal signs. Absent: distended, tenderness - Extremities Exam Additional comments: piting edema on both upper extremities, R>L bilateral BKA, stump edema - Neurological Exam Neurological exam: Present: alert, CN II-XII intact, oriented X3, no focal deficits. Absent: pronater drift, facial droop, speech deficit - Skin Skin exam: Present: dry Internal Medicine: Result - Labs CBC & Chem 7: 08/06/17 04:40 08/06/17 04:40 Labs: Short CBC 08/06/17 Range/Units 04:40 WBC 10.0 (4.3-11.1) K/mcL Hgb 7.3 L (12.9-16.9) g/dL Hct 23.5 L (37.5-50.1) % Plt Count 304 (140-400) K/mcL Neutrophils # 6.9 (1.6-8.9) K/mcL BMP 08/06/17 04:40 Sodium 133 L Potassium 5.0 Chloride 102 Carbon Dioxide 23 BUN 48 H Creatinine 2.38 H Glucose 57 L Calcium 8.7 - ABG Interpretation ABG results: PT/INR, D-dimer PT 13.4 Seconds (9.4-12.1) H 07/30/17 22:06 - Impressions Impressions Echocardiogram 08/05/17 12:51 Impressions: LVEF 30-40%. Mildly dilated left ventricle. Moderate global and segmental left ventricular systolic dysfunction. There is no LV thrombus. Mildly dilated left atrium. Mild mitral regurgitation. 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 Consider LYNETTE if clinically suscpicious Left Ventricular Wall Motion: Rest Echo Findings The mid inferior septal and mid anterior septal rey were hypokinetic. All other wall segments showed normal motion. Findings: Study Quality * Technically adequate exam. ECG Findings * Normal sinus rhythm. Left Ventricle * LVEF 30-40%. * Mildly dilated left ventricle. * Moderate global and segmental left ventricular systolic dysfunction. * Moderate left ventricular diastolic dysfunction. * There is no LV thrombus. * Definity echo contrast was used. Right Ventricle * Normal right ventricular structure and function. Left Atrium * Mildly dilated left atrium. Right Atrium * Normal right atrial size. Interatrial Septum * No evidence of PFO by color Doppler. Aortic Valve * Moderately thickened aortic valve leaflets. * Echodense mass non mobile involving the RCC and LCC Mitral Valve * Mild mitral regurgitation. Tricuspid Valve * Mild tricuspid regurgitation. * Estimated RVSP is 27 mmHg. * Estimated RA pressure is 5 mmHg. * No pulmonary hypertension. Pulmonic Valve * Mild pulmonic regurgitation. Aorta * Normally sized aortic root. Pericardium * The pericardium appears normal. IVC * Normal IVC dimensions and inspiratory collapse. Chest X-Ray 08/06/17 08:34 IMPRESSION: Right upper extremity PICC line tip is in the region the right subclavian vein and should be advanced roughly 10 cm if possible. New right basilar airspace disease with probable small right-sided pleural effusion. This could be related to pneumonia with parapneumonic effusion versus pleural effusion/atelectasis. Follow-up chest radiographs recommended to ensure resolution. D/ / Lee Tay MD / Lee Tay MD Interpreting Provider: Lee Tay MD Consult Discharge Plan - Plan Referrals: Kamran Lira DO [Primary Care Provider] - 08/14/17 10:00 am Jayden Mendoza MD [Partnered Physician] - (i requested an appointment office should call patient at home with appointment date and time) Prescriptions: Vancomycin [Vancocin] 1,500 mg IV DAILY #10 vial
[2017-08-06] MEDS: Dextrose Gel 15 GM/37.5 ML TUBE PO PRN ×2 (11:43→12:15)
--- NOTE | 2017-08-06 15:36 | Infectious Disease Consult ---
Date of Encounter: 08/06/17 Time of Encounter: 15:34 Assessment and Plan (1) Acute and chronic respiratory failure with hypoxia Status: Acute Assessment and plan: Likely secondary to CHF and pleural effusion Most recent chest x-ray done today concerning for pneumonia Repeat CT chest Check respiratory infectious panel Check urine legionella and pneumococcal antigen Start empiric levofloxacin If CT suggestive of pneumonia we will have to DC the daptomycin and start an anti-MRSA antibiotic that has good lung penetration (2) Septic arthritis of knee, right Status: Acute Assessment and plan: Status post arthrocentesis done on June 29. Intra-Op cultures MRSA. Has been on vancomycin since. Clinically does not appear infected. Qualifiers: Septic arthritis organism: staphylococcal Qualified Code(s): M00.061 - Staphylococcal arthritis, right knee (3) Bacteremia Status: Acute Assessment and plan: Resolved on June 30 Positive culture was MRSA Has been on IV vancomycin since (4) Endocarditis Status: Acute Assessment and plan: Noted on a LYNETTE done on the previous admission in June with a small may be mobile vegetation on the tricuspid valve No other endocarditis stigmata no signs of septic emboli has been on IV antibiotics for 5 weeks and 3 days Qualifiers: Endocarditis type: infective Infective endocarditis organism: bacterial Chronicity: acute Qualified Code(s): I33.0 - Acute and subacute infective endocarditis (5) HILDA (acute kidney injury) Status: Acute Assessment and plan: Etiology not clear. Could be due to Vanco toxicity although the most recent vancomycin trough we had was 15. I would like to know what was the most recent vancomycin level prior to the senior yesterday Patient was started to daptomycin. Baseline CK was checked. 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 transplanted heart: [place] heart Associated angina: angina presence unspecified Qualified Code(s): I25.810 - Atherosclerosis of coronary artery bypass graft(s) without angina pectoris (8) Tobacco abuse Status: Acute (9) MARLO (obstructive sleep apnea) Status: Acute Infectious Disease HPI - Data of Consult Patient: known to practice within the last 3 years Consult date: 08/06/17 Requesting Physician: Momo Larios MD Primary Care Provider: Annie Dior - Consult Narrative Reason for consult: bacteremia History of present illness: Mr. Lamb is a 47 year old male Patient is a 47-year-old gentleman with past medical history mentioned below was admitted to [facility] on July 30 with shortness of breath and acute on chronic respiratory failure with hypoxia and acute systolic CHF. We are consulted today on August 06 for recent MRSA bacteremia and septic arthritis left knee with antibiotics adverse reaction. Patient with a past medical history of CAD status post cardiac stents and coronary artery bypass graft, uncontrolled diabetes currently on oral anti- hyperglycemics and insulin, hyperlipidemia, COPD, and remote history of bilateral below the knee amputation was admitted to [facility] on June 30 with septic knee arthritis the right knee. Patient was also bacteremic with MRSA. Patient had a LYNETTE done which mentions is somewhat mobile echodensity attached to the ventricle side of the NCC of the aortic valve suspicious for vegetation. Patient was discharged on IV vancomycin to be treated for 6 weeks total. This time patient was admitted for shortness of breath and was noted to have CHF with pulmonary edema and bilateral pleural effusion. Since admission patient has been afebrile, he was initially tachycardic with a heart rate in the 110s but now it has normalized. Presenting WBC was 9.2. Stenting BUN and creatinine were 14 and 1.25 respectively. Patients initial vancomycin trough was measured on August 02 and it was 15. Patient also had C. difficile toxin AB PCR which I think was negative. A chest x-ray done on August 06 which reads new right basilar airspace disease with probable small right- sided pleural effusion which could be related to pneumonia with parapneumonic effusion versus pleural effusion/atelectasis. Most recent positive blood culture was obtained on June 30. During the hospital stay patients creatinine continued to get worse and peak today at 2.38. No repeat vancomycin trough was obtained. Patients vancomycin was switched to daptomycin. We were asked to evaluate the patients make further recommendations. CC: Momo Larios MD Past Med Surg Social Fam HX - Past Medical History Medical history: coronary artery disease, diabetes, hyperlipidemia, hypertension , kidney stones, myocardial infarction, other Additional medical history: SLEEP APNEA Psychiatric history: anxiety, depression - Past Surgical History Surgical History: angioplasty/stent, coronary bypass (CABG), orthopedic, other Additional surgical history: WINIFRED BKA , 17 STENTS - Social History Smoking Status: Former smoker Smokeless Tobacco Status: No Alcohol use: none Drug use: none - Family History Mother Living Status: Still Living Hx Family Cardiac Disorders: Yes (Pacemaker) Hx Family Endocrine Disorder: Yes (DM) Hx Family Neuromuscular Disorders: Yes (stroke) Father Living Status: Age at : 38 Cause of : [place] Hx Family Cardiac Disorders: Yes ([place]) Hx Family Respiratory Disorders: Yes Hx Family Endocrine Disorder: Yes Infectious Disease-CN:Meds Amitriptyline [Elavil] 75 mg PO HS 07/01/17 [History] Duloxetine HCl [Cymbalta] 60 mg PO DAILY 07/01/17 [History] HYDROcodone/Acet 7.5/325 mg [[place] 7.5-325 mg] 1 tab PO QID PRN 07/01/17 [ History] Insulin ASPART [NovoLOG] 0 - 10 unit SQ TIDWM 07/01/17 [History] Insulin Glargine,Hum.rec.anlog [Basaglar Kwikpen U-100] 50 unit SQ HS 07/01/17 [ History] LORazepam [Ativan] 0.5 mg PO BID 07/01/17 [History] Pregabalin [Lyrica] 150 mg PO TID 07/01/17 [History] Rosuvastatin Calcium [Crestor] 40 mg PO HS 07/01/17 [History] Ranolazine [Ranexa] 1,000 mg PO BID 07/02/17 [History] Tizanidine HCl 4 mg PO TID 07/02/17 [History] Aspirin 81 mg PO DAILY #30 tab.chew 07/05/17 [Rx] Carvedilol [Coreg] 3.125 mg PO BIDWM #60 tablet 07/14/17 [Rx] Omeprazole [PriLOSEC] 20 mg PO BIDAC #60 capsule.dr 07/14/17 [Rx] Sucralfate [Carafate] 1 gm PO TID #90 udc 07/14/17 [Rx] amLODIPine [Norvasc] 5 mg PO DAILY #30 tablet 07/14/17 [Rx] Ferrous Sulfate 325 mg PO TIDWM #90 tablet 07/28/17 [Rx] Vancomycin [Vancocin] 1,500 mg IV DAILY #10 vial 08/03/17 [Rx] 3 Allergy/AdvReac Type Severity Reaction Status Date / Time Diclofenac [From Voltaren] Allergy Gastrointestinal Verified 07/25/17 21:09 Upset Penicillins Allergy Rash Verified 07/25/17 21:09 Review of systems: 10 point review of systems done, negative other for what mentioned in history of present illness. Exam - Constitutional Vitals: Temp Pulse Resp BP Pulse Ox 98.2 F 77 18 113/70 94 08/05/17 19:59 08/06/17 07:00 08/06/17 10:20 08/06/17 07:00 08/06/17 10:20 General appearance: cooperative, no acute distress, no febrile - Head Head exam: Present: atraumatic, normocephalic - Eye Eye exam: Present: EOMI, PERRL, sclera anicteric Additional comments: no conjunctival hemorrhage - ENT Additional comments: mucus membranes dry. no oral lesions - Neck Neck exam: Present: full ROM, normal inspection. Absent: meningismus - Respiratory Respiratory exam: Present: CTAB, rales. Absent: rhonchi, wheezes - Cardiovascular Cardiovascular exam: Present: RRR, +S1, +S2 - GI/Abdominal GI/Abdominal exam: Present: normal bowel sounds, soft. Absent: tenderness - Extremities Exam Additional comments: Bilateral below-knee amputation. Right knee still more swollen than the left knee but it is not discolored there is no erythema us not warm to touch and no pain on passive movement - Neurological Exam Neurological exam: Present: alert, oriented X3. Absent: speech deficit - Psychiatric Psychiatric exam: Present: normal affect, normal mood - Skin Skin exam: Present: normal color Additional comments: PICC line right upper extremity intact Infectious Disease CN: Results - Labs CBC & Chem 7: 08/06/17 04:40 08/06/17 04:40 Serology: Serology 08/04/17 08/04/17 08/02/17 Range/Units 16:30 16:30 15:20 Urine Color Yellow (Yellow) Urine Clarity Cloudy A (Clear) Urine pH 5.0 (5.0-8.0) pH Units Ur Specific [place] 1.016 (1.010-1.025) Urine Protein 100 H (Neg-Trace) mg/dL Urine Glucose (UA) Normal (Normal) mg/dL Urine Ketones Negative (Negative) mg/dL Urine Blood Negative (Negative) Urine Nitrite Negative (Negative) Urine Bilirubin Negative (Negative) Urine Urobilinogen Normal (Normal) mg/dL Ur Leukocyte Esterase Negative (Negative) Urine Microscopic RBC 0-3 (0-3) per hpf Urine Microscopic WBC 0-3 (0-3) per hpf Ur Eosinophil Smear 0 (None Seen) % Ur Squamous Epith Cells Few (None-Few) per lpf Urine Bacteria Few (None-Few) per hpf Urine Yeast Moderate H (None Seen) per hpf Ur Culture Indicated? NO (NO) Urine Creatinine 64 mg/dL Urine Sodium < 10.0 mEq/L Urine Urea Nitrogen 334 mg/dL Stl C. cayetanensis PCR (Not detect) Stool Rotavirus A PCR (Not detect) Stl Adenov F 40/41 PCR (Not detect) Stool Astrovirus (PCR) (Not detect) Stool Campylobacter PCR (Not detect) Stl C. diff Tox B Gene Negative (Negative) Stl C. diff Tox A/B PCR (Not detect) Stool Cryptosporidium PCR (Not detect) Stl Sh Tox Pr E STEC PCR (Not detect) Stool E coli O157 PCR (Not detect) Stl Enterotoxigenic E PCR (Not detect) Stool EPEC (PCR) (Not detect) Stool EAEC (PCR) (Not detect) Stl E. histolytica PCR (Not detect) Stool Giardia Lamblia PCR (Not detect) Stool Salmonella PCR (Not detect) Stool Sapovirus (PCR) (Not detect) Stl P. shigelloides PCR (Not detect) Stl Shigella/EIEC PCR (Not detect) St Y.enterocolitica PCR (Not detect) Stool Vibrio (PCR) (Not detect) Stl Vibrio cholerae PCR (Not detect) Stl Norovirus GI/GII PCR (Not detect) Stl GI Panel (PCR) Com 08/02/17 Range/Units 15:20 Urine Color (Yellow) Urine Clarity (Clear) Urine pH (5.0-8.0) pH Units Ur Specific [place] (1.010-1.025) Urine Protein (Neg-Trace) mg/dL Urine Glucose (UA) (Normal) mg/dL Urine Ketones (Negative) mg/dL Urine Blood (Negative) Urine Nitrite (Negative) Urine Bilirubin (Negative) Urine Urobilinogen (Normal) mg/dL Ur Leukocyte Esterase (Negative) Urine Microscopic RBC (0-3) per hpf Urine Microscopic WBC (0-3) per hpf Ur Eosinophil Smear (None Seen) % Ur Squamous Epith Cells (None-Few) per lpf Urine Bacteria (None-Few) per hpf Urine Yeast (None Seen) per hpf Ur Culture Indicated? (NO) Urine Creatinine mg/dL Urine Sodium mEq/L Urine Urea Nitrogen mg/dL Stl C. cayetanensis PCR Not detected (Not detect) Stool Rotavirus A PCR Not detected (Not detect) Stl Adenov F 40/41 PCR Not detected (Not detect) Stool Astrovirus (PCR) Not detected (Not detect) Stool Campylobacter PCR Not detected (Not detect) Stl C. diff Tox B Gene (Negative) Stl C. diff Tox A/B PCR See reflex test A (Not detect) Stool Cryptosporidium PCR Not detected (Not detect) Stl Sh Tox Pr E STEC PCR Not detected (Not detect) Stool E coli O157 PCR Not detected (Not detect) Stl Enterotoxigenic E PCR Not detected (Not detect) Stool EPEC (PCR) Not detected (Not detect) Stool EAEC (PCR) Not detected (Not detect) Stl E. histolytica PCR Not detected (Not detect) Stool Giardia Lamblia PCR Not detected (Not detect) Stool Salmonella PCR Not detected (Not detect) Stool Sapovirus (PCR) Not detected (Not detect) Stl P. shigelloides PCR Not detected (Not detect) Stl Shigella/EIEC PCR Not detected (Not detect) St Y.enterocolitica PCR Not detected (Not detect) Stool Vibrio (PCR) Not detected (Not detect) Stl Vibrio cholerae PCR Not detected (Not detect) Stl Norovirus GI/GII PCR Not detected (Not detect) Stl GI Panel (PCR) Com See below Consult Discharge Plan - Plan Referrals: Kamran Lira DO [Primary Care Provider] - 08/14/17 10:00 am Jayden Mendoza MD [Partnered Physician] - (i requested an appointment office should call patient at home with appointment date and time) Prescriptions: Vancomycin [Vancocin] 1,500 mg IV DAILY #10 vial
[2017-08-06] MEDS: DAPTOmycin 650 MG in 0.9 % Sodium Chloride 100 ML IVPB SCH (16:45)
--- NOTE | 2017-08-06 17:57 | Nephrology Progress Note ---
Date of Encounter: 08/06/17 Time of Encounter: 12:00 - Assessment and Plan (1) HILDA (acute kidney injury) Current Visit: Yes Status: Acute SCr worse today 2.05, GFR 35, agree with IVF started by primary team UOP noted at 1300cc which is ggod Urine sodium <10 suggestive of very pre-renal state, IVF should definitely help in addition to po fluids Uric acid and CPK unremarkable Urine eosinophils unremarkable Continue to avoid nephrotoxins if possible (2) Acute systolic CHF (congestive heart failure) Current Visit: Yes Status: Acute diuretics held but stric I/Os Continue cardiac diet (3) Septic arthritis of knee, right Current Visit: Yes Status: Acute abx per primary team Qualifiers: Septic arthritis organism: staphylococcal Qualified Code(s): M00.061 - Staphylococcal arthritis, right knee (4) Anemia Current Visit: Yes Status: Chronic Hgb noted low at 7.9, transfusion parameters per primary team Qualifiers: Anemia type: iron deficiency Iron deficiency anemia type: unspecified iron deficiency Qualified Code(s): D50.9 - Iron deficiency anemia, unspecified Subjective Interval history: Pt seen and examined today less lethargic, slept better overnight. Objective - Vital Signs Vital signs: Vital Signs Temp Pulse Resp BP Pulse Ox 08/06/17 16:01 18 93 08/06/17 15:21 98.1 F 77 15 109/48 93 08/06/17 10:20 18 94 08/06/17 07:00 77 15 113/70 94 08/06/17 04:24 85 15 110/64 96 08/06/17 03:33 16 97 08/05/17 21:29 16 97 08/05/17 19:59 98.2 F 80 16 108/65 97 Intake and Output 08/06/17 08/06/17 08/06/17 07:59 15:59 23:59 Intake Total 0 / 0 840 / 840 600 / 600 Output Total 125 / 125 1500 / 1500 Balance -125 / -125 -660 / -660 600 / 600 Intake: Oral 0 / 0 840 / 840 600 / 600 Output: Urine 125 / 125 1500 / 1500 Other: Meal Lunch Dinner Percent of Meal Consumed 100% 100% Weight 109.6 kg Blood Glucose* 56 154 Patient Weight 08/06/17 23:59 Weight 109.6 kg - Lab 08/06/17 04:40 08/06/17 04:40 Most recent lab results Calcium 8.7 mg/dL (8.6-10.3) 08/06/17 04:40 Magnesium 1.7 mg/dL (1.6-2.6) 08/02/17 04:42 Urine Creatinine 64 mg/dL 08/04/17 16:30 Urine Sodium < 10.0 mEq/L 08/04/17 16:30 Consult Discharge Plan - Plan Referrals: Kamran Lira DO [Primary Care Provider] - 08/14/17 10:00 am Jayden Mendoza MD [Partnered Physician] - (i requested an appointment office should call patient at home with appointment date and time) Prescriptions: Vancomycin [Vancocin] 1,500 mg IV DAILY #10 vial
[2017-08-06] MEDS: Insulin DETEMIR 100 UNIT/ML X5UNITS SQ SCH (21:45)
[2017-08-07] MEDS: Ipratropium/Albuterol Neb 3 ML IH SCH ×4 (03:35→22:19)
[2017-08-07] MEDS: *HR* Heparin 5,000 UNIT/ML VIAL SQ SCH ×3 (06:03→21:03)
[2017-08-07 06:09] LABS: Basophils % 0.2 %; Eosinophils # 0.3 K/mcL (0.0-0.6); Eosinophils % 2.3 %; Hematocrit 23.3 % (37.5-50.1); Hemoglobin 7.4 g/dL (12.9-16.9); Immature Granulocytes % 0.5 % (0-4); Lymphocytes # 1.7 K/mcL (0.6-4.6); Lymphocytes % 15.2 %; Mean Corpuscular HGB Conc 31.8 g/dL (31.6-35.5); Mean Corpuscular Hemoglobin 26.5 pg (28.0-33.3); Mean Corpuscular Volume 83.5 fL (83.0-100.0); Mean Platelet Volume 9.5 fL (9.4-12.4); Monocytes # 1.1 K/mcL (0.0-1.3); Monocytes % 9.3 %; Neutrophils # 8.2 K/mcL (1.6-8.9); Platelet Count 313 K/mcL (140-400); Red Blood Count 2.79 M/mcL (4.19-5.50); Red Cell Distribution Width 15.8 % (11.5-14.5); Segmented Neutrophils % 72.5 %
[2017-08-07 06:34] LABS: Calcium 8.7 mg/dL (8.6-10.3); Potassium 4.7 mEq/L (3.5-5.1)
[2017-08-07] MEDS: amLODIPine 5 MG TABLET PO SCH (08:58)
[2017-08-07] MEDS: *HR* LORazepam 0.5 MG TABLET PO SCH ×2 (08:58→21:04)
[2017-08-07] MEDS: Ranolazine 500 MG TAB.ER.12H PO SCH ×2 (08:58→21:03)
[2017-08-07] MEDS: Aspirin 81 MG TAB.CHEW PO SCH (08:58)
[2017-08-07] MEDS: tiZANidine 4 MG TABLET PO SCH ×3 (08:59→21:03)
[2017-08-07] MEDS: Pregabalin 75 MG CAPSULE PO SCH ×3 (08:59→21:03)
[2017-08-07] MEDS: *HR* HYDROcodone/Acet 7.5/325 mg TABLET PO PRN ×2 (09:02→16:44)
[2017-08-07] MEDS: Insulin LISPRO 300 UNITS/3 ML VIAL SQ SCH ×4 (09:03→21:04)
[2017-08-07 09:04] LABS: Bilirubin,Urine Negative (Negative); Blood,Urine Negative (Negative); Clarity,Urine Clear (Clear); Color,Urine Yellow (Yellow); Glucose,Urine (UA) Normal (Normal); Ketones,Urine Negative (Negative); Leukocyte Esterase,Urine Negative (Negative); Nitrite,Urine Negative (Negative); PH,Urine 5.5 pH Units (5.0-8.0); Protein,Urine 100 mg/dL (Neg-Trace); Specific Gravity,Urine 1.015 (1.010-1.025); Urobilinogen,Urine Normal (Normal)
[2017-08-07 09:07] LABS: Bacteria,Urine None Seen per hpf (None-Few); Hyaline Casts,Urine None Seen per lpf (None-Few); Squamous Epithelial Cell,Urine Few per lpf (None-Few); WBC,Urine 0-3 per hpf (0-3)
--- NOTE | 2017-08-07 09:44 | Internal Med Progress Note ---
Date of Encounter: 08/07/17 Time of Encounter: 09:40 - Assessment and plan (1) Acute and chronic respiratory failure with hypoxia Current Visit: Yes Status: Acute Assessment and plan: Patient with known chronic resp failure on home O2, presented with worsening hypoxia due to CHF Continue current supplementation with O2 Wean as tolerated Patient having CHF exacerbation with fluid overload but complicated by HILDA. Appreciate Nephrology recommendations on this (2) Acute systolic CHF (congestive heart failure) Current Visit: Yes Status: Acute Assessment and plan: Cr peaked at 2.38, diuresis needed held CR today slight improvement at 2.19. ECHO : LVEF 30-40%, mildly dilated LV, no LV thrombus, AV vegetation, unchanged. No wall motion hypokinesis. Prior Echo from 06/2017 with EF 40-50% Verify with Nephro if okay for fluid restriction diet Monitor I&O's. O2 support and wean as tolerated. Daily weights RAMON wraps to lower extremities Discussed with patient to increase activity for fluid overload improvement. BIPAP if develops acute dyspnea again. (3) HILDA (acute kidney injury) Current Visit: Yes Status: Acute Assessment and plan: Cr peaked at 2.3 on 08/07, today improved to 2.19. EF is 30-40% Prerenal, nonoliguric, due to GI loss as well as being on vancomycin and lasix Urine analysis is unremarkable, uric acid within normal limits, creatinine kinase within normal limit. Nephrology consulted and following Renal ultrasound unremarkable Discontinued IVF today due to patient becoming edematous with fluid overload (4) Septic arthritis of knee, right Current Visit: Yes Status: Acute Assessment and plan: Had been on vanco since 06/2017, Discontinued vanco 08/04 changed to dapto, CK done 08/04 WNL Qualifiers: Septic arthritis organism: staphylococcal Qualified Code(s): M00.061 - Staphylococcal arthritis, right knee (5) Coronary artery disease Current Visit: Yes Status: Chronic Assessment and plan: Continue cardiac meds. Qualifiers: Coronary Disease-Associated Artery/Lesion type: bypass graft [place] vs. transplanted heart: [place] heart Associated angina: angina presence unspecified Qualified Code(s): I25.810 - Atherosclerosis of coronary artery bypass graft(s) without angina pectoris (6) Hypertension Current Visit: Yes Status: Chronic Assessment and plan: Better controlled, continue current meds Qualifiers: Hypertension type: unspecified Qualified Code(s): I10 - Essential (primary ) hypertension (7) COPD (chronic obstructive pulmonary disease) Current Visit: Yes Status: Chronic Assessment and plan: Not in exacerbation. Continue with nebs. O2 support. Qualifiers: COPD type: unspecified COPD Qualified Code(s): J44.9 - Chronic obstructive pulmonary disease, unspecified (8) Bacteremia Current Visit: Yes Status: Acute Assessment and plan: As in septic arthritis, discontinued vancomycin due to worsening renal function , Infectious disease recommended daptomycin Follow-up recommendations (9) DVT prophylaxis Current Visit: Yes Status: Acute Assessment and plan: Heparin subcutaneous (10) Anemia Current Visit: Yes Status: Chronic Assessment and plan: patient complaining of GI symptoms with po iron has received 2 dsoes of venofer in this admission Hb today 7.3, consider blood transfusion, hemodynamically stable Qualifiers: Anemia type: iron deficiency Iron deficiency anemia type: unspecified iron deficiency Qualified Code(s): D50.9 - Iron deficiency anemia, unspecified (11) Elevated troponin Current Visit: Yes Status: Resolved Assessment and plan: Downtrending, Likely secondary to CHF. We will keep on telemetry. No concerning EKG ischemic changes. (12) Diabetes mellitus Current Visit: Yes Status: Chronic Assessment and plan: continue basal insulin and sliding scale, monitor FS ACHS Qualifiers: Diabetes mellitus type: type 2 Diabetes mellitus intermediate insulin use: with manager intermediate use Diabetes mellitus complication status: without complication Qualified Code(s): E11.9 - Type 2 diabetes mellitus without complications; Z79.4 - USP (current) use of insulin (13) Hypomagnesemia Current Visit: Yes Status: Resolved Assessment and plan: resolved (14) Diarrhea Current Visit: Yes Status: Resolved Assessment and plan: possibly due to laxatives, GI panel negative Continue Imodium Qualifiers: Diarrhea type: unspecified type Qualified Code(s): R19.7 - Diarrhea, unspecified - Time Spent With Patient Total time spent is greater than 50% in coordination of care (as documented) at patient's floor/unit and/or counseling patient: - Subjective Interval history: Patient complained of dyspnea overnight. He admits to swelling of hands and knees today. He denies chest pain, fevers/chills, n/v. - Constitutional Vitals: Temp Pulse Resp BP Pulse Ox 98.6 F 82 16 135/97 93 08/07/17 06:40 08/07/17 06:40 08/07/17 06:40 08/07/17 06:40 08/07/17 06:40 General appearance: Present: A&O X 3, pleasant, no acute distress - Head Head exam: Present: atraumatic, normocephalic - Respiratory Respiratory exam: Present: decreased breath sounds, rales - Cardiovascular Cardiovascular exam: Present: RRR, +S1, +S2. Absent: diastolic murmur, gallop, rubs, systolic murmur - GI/Abdominal GI/Abdominal exam: Present: normal bowel sounds, soft, no peritoneal signs. Absent: distended, tenderness - Extremities Exam Additional comments: Bilateral BKA edema, no erythema. Bilateral upper extremity edema. Internal Medicine: Result - Labs CBC & Chem 7: 08/07/17 05:56 08/07/17 05:56 Labs: Short CBC 08/07/17 Range/Units 05:56 WBC 11.4 H (4.3-11.1) K/mcL Hgb 7.4 L (12.9-16.9) g/dL Hct 23.3 L (37.5-50.1) % Plt Count 313 (140-400) K/mcL Neutrophils # 8.2 (1.6-8.9) K/mcL BMP 08/07/17 05:56 Sodium 132 L Potassium 4.7 Chloride 101 Carbon Dioxide 20 L BUN 52 H Creatinine 2.19 H Glucose 154 H Calcium 8.7 Urine 08/07/17 Range/Units 08:35 Urine Color Yellow (Yellow) Urine Clarity Clear (Clear) Urine pH 5.5 (5.0-8.0) pH Units Ur Specific [place] 1.015 (1.010-1.025) Urine Protein 100 H (Neg-Trace) mg/dL Urine Glucose (UA) Normal (Normal) mg/dL - ABG Interpretation ABG results: PT/INR, D-dimer PT 13.4 Seconds (9.4-12.1) H 07/30/17 22:06 - Impressions Impressions Chest CT 08/06/17 15:50 IMPRESSION: Cardiomegaly with pulmonary edema and bilateral pleural effusions. D/ / Gita Moreno Cha, MD / Gita Moreno Cha, MD Interpreting Provider: Gita Moreno Cha, MD Consult Discharge Plan - Plan Referrals: Kamran Lira DO [Primary Care Provider] - 08/14/17 10:00 am Jayden Mendoza MD [Partnered Physician] - (i requested an appointment office should call patient at home with appointment date and time) Prescriptions: Vancomycin [Vancocin] 1,500 mg IV DAILY #10 vial
--- NOTE | 2017-08-07 12:54 | Nephrology Progress Note ---
Date of Encounter: 08/07/17 Time of Encounter: 11:00 - Assessment and Plan (1) HILDA (acute kidney injury) Current Visit: Yes Status: Acute SCr slightly improved at 2.19, GFR 32, agree with IVF started by primary team UOP noted at 2075cc which is good Urine sodium <10 suggestive of very pre-renal state/ATN, repeat UA unremarkable Uric acid and CPK unremarkable Urine eosinophils unremarkable Continue to avoid nephrotoxins if possible (2) Acute systolic CHF (congestive heart failure) Current Visit: Yes Status: Acute diuretics held but stric I/Os Continue cardiac diet (3) Septic arthritis of knee, right Current Visit: Yes Status: Acute abx per primary team Qualifiers: Septic arthritis organism: staphylococcal Qualified Code(s): M00.061 - Staphylococcal arthritis, right knee (4) Anemia Current Visit: Yes Status: Chronic Hgb noted low at 7.4, transfusion parameters per primary team Qualifiers: Anemia type: iron deficiency Iron deficiency anemia type: unspecified iron deficiency Qualified Code(s): D50.9 - Iron deficiency anemia, unspecified Subjective Interval history: Pt seen and examined today still feels sleepy. Objective - Vital Signs Vital signs: Vital Signs Temp Pulse Resp BP Pulse Ox 08/07/17 11:36 97.9 F 97 18 126/84 08/07/17 10:16 16 135/97 93 08/07/17 06:40 98.6 F 82 16 135/97 93 08/07/17 05:00 98.4 F 76 18 110/83 99 08/07/17 03:35 16 94 08/06/17 21:45 18 93 08/06/17 20:00 98.4 F 82 18 108/65 98 08/06/17 16:01 18 93 08/06/17 15:21 98.1 F 77 15 109/48 93 Intake and Output 08/06/17 08/07/17 08/07/17 23:59 07:59 15:59 Intake Total 840 / 840 1020 / 1020 360 / 360 Output Total 450 / 450 250 / 250 600 / 600 Balance 390 / 390 770 / 770 -240 / -240 Intake: Oral 840 / 840 1020 / 1020 360 / 360 Output: Urine 450 / 450 250 / 250 600 / 600 Other: Meal Dinner Breakfast Percent of Meal Consumed 100% 100% Weight 110.9 kg Blood Glucose* 152 159 122 Patient Weight 08/07/17 23:59 Weight 110.9 kg - Lab 08/07/17 05:56 08/07/17 05:56 Most recent lab results Calcium 8.7 mg/dL (8.6-10.3) 08/07/17 05:56 Magnesium 1.7 mg/dL (1.6-2.6) 08/02/17 04:42 Urine Creatinine 64 mg/dL 08/04/17 16:30 Urine Sodium < 10.0 mEq/L 08/04/17 16:30 Consult Discharge Plan - Plan Referrals: Kamran Lira DO [Primary Care Provider] - 08/14/17 10:00 am Jayden Mendoza MD [Partnered Physician] - (i requested an appointment office should call patient at home with appointment date and time) Prescriptions: Vancomycin [Vancocin] 1,500 mg IV DAILY #10 vial
[2017-08-07] MEDS: DAPTOmycin 650 MG in 0.9 % Sodium Chloride 100 ML IVPB SCH (16:34)
--- NOTE | 2017-08-07 16:49 | Infectious Disease Progress No ---
Date of Encounter: 08/07/17 Time of Encounter: 16:46 - Assessment and Plan (1) Acute and chronic respiratory failure with hypoxia Current Visit: Yes Status: Acute Likely secondary to CHF and pleural effusion Most recent chest x-ray done today concerning for pneumonia Repeat CT chest on 08/06 reveiwed Check respiratory infectious panel - pending?? Check urine legionella and pneumococcal antigen stop levofloxacin since lungs CT without evidence of pneumonia continue daptomycin for 4 more days check CK level (2) Septic arthritis of knee, right Current Visit: Yes Status: Acute Status post arthrocentesis done on June 29. Intra-Op cultures MRSA. Has been on vancomycin since. Clinically does not appear infected. Qualifiers: Septic arthritis organism: staphylococcal Qualified Code(s): M00.061 - Staphylococcal arthritis, right knee (3) Bacteremia Current Visit: Yes Status: Acute Resolved on June 30 Positive culture was MRSA Has been on IV vancomycin since (4) Endocarditis Current Visit: No Status: Acute Noted on a LYNETTE done on the previous admission in June with a small may be mobile vegetation on the tricuspid valve No other endocarditis stigmata no signs of septic emboli has been on IV antibiotics for 5 weeks and 3 days Qualifiers: Endocarditis type: infective Infective endocarditis organism: bacterial Chronicity: acute Qualified Code(s): I33.0 - Acute and subacute infective endocarditis (5) HILDA (acute kidney injury) Current Visit: No Status: Acute Etiology not clear. Could have been due to vancomycin. Creatinine stable Dose adjust daptomycin based on the creatinine clearance. (6) Hyperglycemia due to type 2 diabetes mellitus Current Visit: No Status: Acute Qualifiers: Diabetes mellitus termite exterminator helper insulin use: unspecified termite exterminator helper insulin use status Qualified Code(s): E11.65 - Type 2 diabetes mellitus with hyperglycemia (7) Coronary artery disease Current Visit: Yes Status: Chronic Qualifiers: Coronary Disease-Associated Artery/Lesion type: bypass graft [place] vs. transplanted heart: [place] heart Associated angina: angina presence unspecified Qualified Code(s): I25.810 - Atherosclerosis of coronary artery bypass graft(s) without angina pectoris (8) Tobacco abuse Current Visit: No Status: Acute (9) MARLO (obstructive sleep apnea) Current Visit: No Status: Acute - Subjective Interval history: Patient seen and examined. Appears comfortable lying in bed. No acute distress. Denies any headache. No chest pain or shortness of breath. No nausea or vomiting. No diarrhea. No urinary symptoms. Infect Dis PN-Objective Data - Labs CBC & Chem 7: 08/07/17 05:56 08/07/17 05:56 Labs: Laboratory Results - last 24 hr 08/06/17 08/06/17 08/07/17 15:30 21:09 00:03 WBC RBC Hgb Hct MCV MCH MCHC RDW Plt Count MPV Immature Gran % Seg Neutrophils % Lymphocytes % Monocytes % Eosinophils % Basophils % Neutrophils # Lymphocytes # Monocytes # Eosinophils # Basophils # Sodium Potassium Chloride Carbon Dioxide BUN Creatinine Est GFR ( Amer) Est GFR (Non-Af Amer) BUN/Creatinine Ratio Glucose POC Glucose 154 H 152 H 201 H Calculated Osmolality Calcium Urine Color Urine Clarity Urine pH Ur Specific [place] Urine Protein Urine Glucose (UA) Urine Ketones Urine Blood Urine Nitrite Urine Bilirubin Urine Urobilinogen Ur Leukocyte Esterase Urine Microscopic RBC Urine Microscopic WBC Ur Squamous Epith Cells Urine Bacteria Hyaline Casts Ur Culture Indicated? 08/07/17 08/07/17 08/07/17 05:56 05:56 08:35 WBC 11.4 H RBC 2.79 L Hgb 7.4 L Hct 23.3 L MCV 83.5 MCH 26.5 L MCHC 31.8 RDW 15.8 H Plt Count 313 MPV 9.5 Immature Gran % 0.5 Seg Neutrophils % 72.5 Lymphocytes % 15.2 Monocytes % 9.3 Eosinophils % 2.3 Basophils % 0.2 Neutrophils # 8.2 Lymphocytes # 1.7 Monocytes # 1.1 Eosinophils # 0.3 Basophils # 0.0 Sodium 132 L Potassium 4.7 Chloride 101 Carbon Dioxide 20 L BUN 52 H Creatinine 2.19 H Est GFR ( Amer) 39 L Est GFR (Non-Af Amer) 32 L BUN/Creatinine Ratio 24 Glucose 154 H POC Glucose Calculated Osmolality 291 Calcium 8.7 Urine Color Yellow Urine Clarity Clear Urine pH 5.5 Ur Specific [place] 1.015 Urine Protein 100 H Urine Glucose (UA) Normal Urine Ketones Negative Urine Blood Negative Urine Nitrite Negative Urine Bilirubin Negative Urine Urobilinogen Normal Ur Leukocyte Esterase Negative Urine Microscopic RBC 5-15 H Urine Microscopic WBC 0-3 Ur Squamous Epith Cells Few Urine Bacteria None Seen Hyaline Casts None Seen Ur Culture Indicated? NO Cultures: Cultures 08/07/17 08:35 Legionella Antigen - Final Urine,Clean Catch Streptococcus pneumoniae Antigen (M - Final Serology 08/07/17 08/04/17 08/04/17 Range/Units 08:35 16:30 16:30 Urine Color Yellow Yellow (Yellow) Urine Clarity Clear Cloudy A (Clear) Urine pH 5.5 5.0 (5.0-8.0) pH Units Ur Specific [place] 1.015 1.016 (1.010-1.025) Urine Protein 100 H 100 H (Neg-Trace) mg/dL Urine Glucose (UA) Normal Normal (Normal) mg/dL Urine Ketones Negative Negative (Negative) mg/dL Urine Blood Negative Negative (Negative) Urine Nitrite Negative Negative (Negative) Urine Bilirubin Negative Negative (Negative) Urine Urobilinogen Normal Normal (Normal) mg/dL Ur Leukocyte Esterase Negative Negative (Negative) Urine Microscopic RBC 5-15 H 0-3 (0-3) per hpf Urine Microscopic WBC 0-3 0-3 (0-3) per hpf Ur Eosinophil Smear 0 (None Seen) % Ur Squamous Epith Cells Few Few (None-Few) per lpf Urine Bacteria None Seen Few (None-Few) per hpf Hyaline Casts None Seen (None-Few) per lpf Urine Yeast Moderate H (None Seen) per hpf Ur Culture Indicated? NO NO (NO) Urine Creatinine 64 mg/dL Urine Sodium < 10.0 mEq/L Urine Urea Nitrogen 334 mg/dL Stl C. [place]ay[place]anensis PCR (Not detect) Stool Rotavirus A PCR (Not detect) Stl Adenov F 40/41 PCR (Not detect) Stool Astrovirus (PCR) (Not detect) Stool Campylobacter PCR (Not detect) Stl C. diff Tox B Gene (Negative) Stl C. diff Tox A/B PCR (Not detect) Stool Cryptosporidium PCR (Not detect) Stl Sh Tox Pr E STEC PCR (Not detect) Stool E coli O157 PCR (Not detect) Stl Enterotoxigenic E PCR (Not detect) Stool EPEC (PCR) (Not detect) Stool EAEC (PCR) (Not detect) Stl E. histolytica PCR (Not detect) Stool Giardia Lamblia PCR (Not detect) Stool Salmonella PCR (Not detect) Stool Sapovirus (PCR) (Not detect) Stl P. shigelloides PCR (Not detect) Stl Shigella/EIEC PCR (Not detect) St Y.enterocolitica PCR (Not detect) Stool Vibrio (PCR) (Not detect) Stl Vibrio cholerae PCR (Not detect) Stl Norovirus GI/GII PCR (Not detect) Stl GI Panel (PCR) Com 08/02/17 08/02/17 Range/Units 15:20 15:20 Urine Color (Yellow) Urine Clarity (Clear) Urine pH (5.0-8.0) pH Units Ur Specific [place] (1.010-1.025) Urine Protein (Neg-Trace) mg/dL Urine Glucose (UA) (Normal) mg/dL Urine Ketones (Negative) mg/dL Urine Blood (Negative) Urine Nitrite (Negative) Urine Bilirubin (Negative) Urine Urobilinogen (Normal) mg/dL Ur Leukocyte Esterase (Negative) Urine Microscopic RBC (0-3) per hpf Urine Microscopic WBC (0-3) per hpf Ur Eosinophil Smear (None Seen) % Ur Squamous Epith Cells (None-Few) per lpf Urine Bacteria (None-Few) per hpf Hyaline Casts (None-Few) per lpf Urine Yeast (None Seen) per hpf Ur Culture Indicated? (NO) Urine Creatinine mg/dL Urine Sodium mEq/L Urine Urea Nitrogen mg/dL Stl C. cayetanensis PCR Not detected (Not detect) Stool Rotavirus A PCR Not detected (Not detect) Stl Adenov F 40/41 PCR Not detected (Not detect) Stool Astrovirus (PCR) Not detected (Not detect) Stool Campylobacter PCR Not detected (Not detect) Stl C. diff Tox B Gene Negative (Negative) Stl C. diff Tox A/B PCR See reflex test A (Not detect) Stool Cryptosporidium PCR Not detected (Not detect) Stl Sh Tox Pr E STEC PCR Not detected (Not detect) Stool E coli O157 PCR Not detected (Not detect) Stl Enterotoxigenic E PCR Not detected (Not detect) Stool EPEC (PCR) Not detected (Not detect) Stool EAEC (PCR) Not detected (Not detect) Stl E. histolytica PCR Not detected (Not detect) Stool Giardia Lamblia PCR Not detected (Not detect) Stool Salmonella PCR Not detected (Not detect) Stool Sapovirus (PCR) Not detected (Not detect) Stl P. shigelloides PCR Not detected (Not detect) Stl Shigella/EIEC PCR Not detected (Not detect) St Y.enterocolitica PCR Not detected (Not detect) Stool Vibrio (PCR) Not detected (Not detect) Stl Vibrio cholerae PCR Not detected (Not detect) Stl Norovirus GI/GII PCR Not detected (Not detect) Stl GI Panel (PCR) Com See below - Impressions Impressions Chest CT 08/06/17 15:50 IMPRESSION: Cardiomegaly with pulmonary edema and bilateral pleural effusions. D/ / Gita Moreno Cha, MD / Gita Moreno Cha, MD Interpreting Provider: Gita Moreno Cha, MD Exam - Constitutional Vitals: Temp Pulse Resp BP Pulse Ox 97.9 F 97 16 126/84 97 08/07/17 11:36 08/07/17 11:36 08/07/17 15:21 08/07/17 11:36 08/07/17 15:21 General appearance: thin, no febrile - Eye Eye exam: Present: EOMI, sclera anicteric Pupils: Present: PERRL - Respiratory Respiratory exam: Present: CTAB. Absent: rhonchi, wheezes - Cardiovascular Cardiovascular exam: Present: RRR, +S1, +S2 - GI/Abdominal GI/Abdominal exam: Present: soft. Absent: tenderness Consult Discharge Plan - Plan Referrals: Kamran Lira DO [Primary Care Provider] - 08/14/17 10:00 am Jayden Mendoza MD [Partnered Physician] - (i requested an appointment office should call patient at home with appointment date and time) Prescriptions: Vancomycin [Vancocin] 1,500 mg IV DAILY #10 vial
[2017-08-07] MEDS: Insulin DETEMIR 100 UNIT/ML X5UNITS SQ SCH (21:04)
[2017-08-08] MEDS: Ipratropium/Albuterol Neb 3 ML IH SCH ×4 (04:11→21:43)
[2017-08-08] MEDS: *HR* Heparin 5,000 UNIT/ML VIAL SQ SCH ×3 (06:21→22:24)
[2017-08-08 07:01] LABS: Basophils % 0.2 %; Eosinophils # 0.1 K/mcL (0.0-0.6); Eosinophils % 0.8 %; Hematocrit 24.7 % (37.5-50.1); Immature Granulocytes % 0.5 % (0-4); Lymphocytes # 0.9 K/mcL (0.6-4.6); Lymphocytes % 7.1 %; Mean Corpuscular HGB Conc 32.4 g/dL (31.6-35.5); Mean Corpuscular Hemoglobin 26.8 pg (28.0-33.3); Mean Corpuscular Volume 82.9 fL (83.0-100.0); Mean Platelet Volume 9.5 fL (9.4-12.4); Monocytes # 1.4 K/mcL (0.0-1.3); Monocytes % 10.9 %; Neutrophils # 10.7 K/mcL (1.6-8.9); Platelet Count 343 K/mcL (140-400); Red Blood Count 2.98 M/mcL (4.19-5.50); Red Cell Distribution Width 15.7 % (11.5-14.5); Segmented Neutrophils % 80.5 %
[2017-08-08 07:20] LABS: Calcium 8.8 mg/dL (8.6-10.3); Potassium 4.8 mEq/L (3.5-5.1)
--- NOTE | 2017-08-08 08:42 | Internal Med Progress Note ---
Date of Encounter: 08/08/17 Time of Encounter: 08:42 - Assessment and plan (1) Acute and chronic respiratory failure with hypoxia Current Visit: Yes Status: Acute Assessment and plan: Patient with known chronic resp failure on home O2, presented with worsening hypoxia due to CHF Currently on 2L NC, home level. Patient having CHF exacerbation with fluid overload but complicated by HILDA. Appreciate Nephrology recommendations on this. Patient would like Lasix, I am unsure if he is ready for this. He has some improvement of edema with current management. Cr improved to 1.99. Will hold off giving Lasix this morning, but possibly if he clinically worsens. (2) Acute systolic CHF (congestive heart failure) Current Visit: Yes Status: Acute Assessment and plan: ECHO : LVEF 30-40%, mildly dilated LV, no LV thrombus, AV vegetation, unchanged. No wall motion hypokinesis. Prior Echo from 06/2017 with EF 40-50% Monitor I&O's. O2 support and wean as tolerated. Daily weights RAMON wraps to lower extremities Discussed with patient to increase activity for fluid overload improvement. BIPAP if develops acute dyspnea again. Cr peaked at 2.38, diuresis needed held, Currently improved to 1.99. Continue to hold diuresis for now. (3) HILDA (acute kidney injury) Current Visit: Yes Status: Acute Assessment and plan: Cr peaked at 2.3 on 08/07, continues for gradual improvement to 1.99 today EF is 30-40% Prerenal, nonoliguric, due to GI loss as well as being on vancomycin and lasix Urine analysis is unremarkable, uric acid within normal limits, creatinine kinase within normal limit. Nephrology consulted and following Renal ultrasound unremarkable Discontinued IVF due to patient becoming edematous with fluid overload few days ago (4) Septic arthritis of knee, right Current Visit: Yes Status: Acute Assessment and plan: Had been on vanco since 06/2017, Discontinued vanco 08/04 changed to dapto, CK done 08/04 WNL Qualifiers: Septic arthritis organism: staphylococcal Qualified Code(s): M00.061 - Staphylococcal arthritis, right knee (5) Coronary artery disease Current Visit: Yes Status: Chronic Assessment and plan: Continue cardiac meds. Qualifiers: Coronary Disease-Associated Artery/Lesion type: bypass graft [place] vs. transplanted heart: [place] heart Associated angina: angina presence unspecified Qualified Code(s): I25.810 - Atherosclerosis of coronary artery bypass graft(s) without angina pectoris (6) Hypertension Current Visit: Yes Status: Chronic Assessment and plan: Better controlled, continue current meds Qualifiers: Hypertension type: unspecified Qualified Code(s): I10 - Essential (primary ) hypertension (7) COPD (chronic obstructive pulmonary disease) Current Visit: Yes Status: Chronic Assessment and plan: Not in exacerbation. Continue with nebs. O2 support. Qualifiers: COPD type: unspecified COPD Qualified Code(s): J44.9 - Chronic obstructive pulmonary disease, unspecified (8) Bacteremia Current Visit: Yes Status: Acute Assessment and plan: As in septic arthritis, discontinued vancomycin due to worsening renal function , Infectious disease recommended daptomycin Follow-up recommendations (9) DVT prophylaxis Current Visit: Yes Status: Acute Assessment and plan: Heparin subcutaneous (10) Anemia Current Visit: Yes Status: Chronic Assessment and plan: patient complaining of GI symptoms with po iron has received 2 dsoes of venofer in this admission Hb today 7.3, consider blood transfusion, hemodynamically stable Qualifiers: Anemia type: iron deficiency Iron deficiency anemia type: unspecified iron deficiency Qualified Code(s): D50.9 - Iron deficiency anemia, unspecified (11) Elevated troponin Current Visit: Yes Status: Resolved Assessment and plan: Downtrending, Likely secondary to CHF. We will keep on telemetry. No concerning EKG ischemic changes. 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 Swelling of hands and knees/ BKA area persisting but had a slight improvement. He denies chest pain, fevers/ chills, n/v. - Constitutional Vitals: Temp Pulse Resp BP Pulse Ox 97.8 F 79 17 126/78 95 08/07/17 20:00 08/08/17 06:05 08/08/17 06:05 08/08/17 06:05 08/08/17 06:05 General appearance: Present: A&O X 3, pleasant, no acute distress Exam: - Head Head exam: Present: atraumatic, normocephalic - Respiratory Respiratory exam: Present: decreased breath sounds, rales - Cardiovascular Cardiovascular exam: Present: RRR, +S1, +S2. Absent: diastolic murmur, gallop, rubs, systolic murmur - GI/Abdominal GI/Abdominal exam: Present: normal bowel sounds, soft, no peritoneal signs. Absent: distended, tenderness - Extremities Exam Additional comments: Bilateral BKA pitting edema, no erythema. Slightly improved from exam yesterday Bilateral upper extremity pitting edema. Left hadn >right hand edema, slight improvement since yesterda Internal Medicine: Result - Labs CBC & Chem 7: 08/08/17 06:49 08/08/17 06:49 Labs: Short CBC 08/08/17 Range/Units 06:49 WBC 13.3 H (4.3-11.1) K/mcL Hgb 8.0 L (12.9-16.9) g/dL Hct 24.7 L (37.5-50.1) % Plt Count 343 (140-400) K/mcL Neutrophils # 10.7 H (1.6-8.9) K/mcL BMP 08/08/17 06:49 Sodium 131 L Potassium 4.8 Chloride 100 Carbon Dioxide 23 BUN 56 H Creatinine 1.99 H Glucose 125 H Calcium 8.8 Urine 08/07/17 Range/Units 08:35 Urine Color Yellow (Yellow) Urine Clarity Clear (Clear) Urine pH 5.5 (5.0-8.0) pH Units Ur Specific [place] 1.015 (1.010-1.025) Urine Protein 100 H (Neg-Trace) mg/dL Urine Glucose (UA) Normal (Normal) mg/dL - ABG Interpretation ABG results: PT/INR, D-dimer PT 13.4 Seconds (9.4-12.1) H 07/30/17 22:06 Consult Discharge Plan - Plan Referrals: Kamran Lira DO [Primary Care Provider] - 08/14/17 10:00 am Jayden Mendoza MD [Partnered Physician] - (i requested an appointment office should call patient at home with appointment date and time) Prescriptions: Vancomycin [Vancocin] 1,500 mg IV DAILY #10 vial
[2017-08-08] MEDS: Insulin LISPRO 300 UNITS/3 ML VIAL SQ SCH ×4 (09:01→22:23)
[2017-08-08] MEDS: *HR* LORazepam 0.5 MG TABLET PO SCH ×2 (09:01→22:22)
[2017-08-08] MEDS: Ranolazine 500 MG TAB.ER.12H PO SCH ×2 (09:01→22:16)
[2017-08-08] MEDS: tiZANidine 4 MG TABLET PO SCH (09:01)
[2017-08-08] MEDS: amLODIPine 5 MG TABLET PO SCH (09:01)
[2017-08-08] MEDS: Aspirin 81 MG TAB.CHEW PO SCH (09:01)
[2017-08-08] MEDS: Pregabalin 75 MG CAPSULE PO SCH ×3 (09:01→22:23)
[2017-08-08] MEDS: *HR* HYDROcodone/Acet 7.5/325 mg TABLET PO PRN (09:07)
[2017-08-08] MEDS ORDERED: Furosemide 20 MG/2 ML VIAL IVP ONE (09:18)
--- NOTE | 2017-08-08 10:34 | Infectious Disease Progress No ---
Date of Encounter: 08/08/17 Time of Encounter: 10:31 - Assessment and Plan (1) Acute and chronic respiratory failure with hypoxia Current Visit: Yes Status: Acute Likely secondary to CHF and pleural effusion Most recent chest x-ray done today concerning for pneumonia Repeat CT chest on 08/06 reveiwed Check respiratory infectious panel - pending?? Check urine legionella and pneumococcal antigen stop levofloxacin since lungs CT without evidence of pneumonia continue daptomycin for 3 more days CK levels WNL (2) Septic arthritis of knee, right Current Visit: Yes Status: Acute Status post arthrocentesis done on June 29. Intra-Op cultures MRSA. Has been on vancomycin since. Clinically does not appear infected. Qualifiers: Septic arthritis organism: staphylococcal Qualified Code(s): M00.061 - Staphylococcal arthritis, right knee (3) Bacteremia Current Visit: Yes Status: Acute Resolved on June 30 Positive culture was MRSA Has been on IV vancomycin since and now Daptomycin (4) Endocarditis Current Visit: No Status: Acute Noted on a LYNETTE done on the previous admission in June with a small may be mobile vegetation on the tricuspid valve No other endocarditis stigmata no signs of septic emboli has been on IV antibiotics for 5 weeks and 3 days Qualifiers: Endocarditis type: infective Infective endocarditis organism: bacterial Chronicity: acute Qualified Code(s): I33.0 - Acute and subacute infective endocarditis (5) HILDA (acute kidney injury) Current Visit: No Status: Acute Etiology not clear. Could have been due to vancomycin. 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 transplanted heart: [place] heart Associated angina: angina presence unspecified Qualified Code(s): I25.810 - Atherosclerosis of coronary artery bypass graft(s) without angina pectoris (8) Tobacco abuse Current Visit: No Status: Acute (9) MARLO (obstructive sleep apnea) Current Visit: No Status: Acute - Subjective Interval history: Pt seen and examined. He states that overall he feels better than yesterday but still has chronic back pain. Denies any fever, nausea, vomiting, diarrhea or pain in his knees overnight. Infect Dis PN-Objective Data - Labs CBC & Chem 7: 08/08/17 06:49 08/08/17 06:49 Labs: Laboratory Results - last 24 hr 08/07/17 08/07/17 08/07/17 05:09 06:39 11:34 WBC RBC Hgb Hct MCV MCH MCHC RDW Plt Count MPV Immature Gran % Seg Neutrophils % Lymphocytes % Monocytes % Eosinophils % Basophils % Neutrophils # Lymphocytes # Monocytes # Eosinophils # Basophils # Sodium Potassium Chloride Carbon Dioxide BUN Creatinine Est GFR ( Amer) Est GFR (Non-Af Amer) BUN/Creatinine Ratio Glucose POC Glucose 168 H 159 H 122 H Calculated Osmolality Calcium 08/07/17 08/07/17 08/08/17 17:18 20:38 06:49 WBC 13.3 H RBC 2.98 L Hgb 8.0 L Hct 24.7 L MCV 82.9 L MCH 26.8 L MCHC 32.4 RDW 15.7 H Plt Count 343 MPV 9.5 Immature Gran % 0.5 Seg Neutrophils % 80.5 Lymphocytes % 7.1 Monocytes % 10.9 Eosinophils % 0.8 Basophils % 0.2 Neutrophils # 10.7 H Lymphocytes # 0.9 Monocytes # 1.4 H Eosinophils # 0.1 Basophils # 0.0 Sodium Potassium Chloride Carbon Dioxide BUN Creatinine Est GFR ( Amer) Est GFR (Non-Af Amer) BUN/Creatinine Ratio Glucose POC Glucose 177 H 179 H Calculated Osmolality Calcium 08/08/17 06:49 WBC RBC Hgb Hct MCV MCH MCHC RDW Plt Count MPV Immature Gran % Seg Neutrophils % Lymphocytes % Monocytes % Eosinophils % Basophils % Neutrophils # Lymphocytes # Monocytes # Eosinophils # Basophils # Sodium 131 L Potassium 4.8 Chloride 100 Carbon Dioxide 23 BUN 56 H Creatinine 1.99 H Est GFR ( Amer) 44 L Est GFR (Non-Af Amer) 36 L BUN/Creatinine Ratio 28 H Glucose 125 H POC Glucose Calculated Osmolality 289 Calcium 8.8 Cultures: Cultures 08/07/17 08:35 Legionella Antigen - Final Urine,Clean Catch Streptococcus pneumoniae Antigen (M - Final Serology 08/07/17 08/04/17 08/04/17 Range/Units 08:35 16:30 16:30 Urine Color Yellow Yellow (Yellow) Urine Clarity Clear Cloudy A (Clear) Urine pH 5.5 5.0 (5.0-8.0) pH Units Ur Specific [place] 1.015 1.016 (1.010-1.025) Urine Protein 100 H 100 H (Neg-Trace) mg/dL Urine Glucose (UA) Normal Normal (Normal) mg/dL Urine Ketones Negative Negative (Negative) mg/dL Urine Blood Negative Negative (Negative) Urine Nitrite Negative Negative (Negative) Urine Bilirubin Negative Negative (Negative) Urine Urobilinogen Normal Normal (Normal) mg/dL Ur Leukocyte Esterase Negative Negative (Negative) Urine Microscopic RBC 5-15 H 0-3 (0-3) per hpf Urine Microscopic WBC 0-3 0-3 (0-3) per hpf Ur Eosinophil Smear 0 (None Seen) % Ur Squamous Epith Cells Few Few (None-Few) per lpf Urine Bacteria None Seen Few (None-Few) per hpf Hyaline Casts None Seen (None-Few) per lpf Urine Yeast Moderate H (None Seen) per hpf Ur Culture Indicated? NO NO (NO) Urine Creatinine 64 mg/dL Urine Sodium < 10.0 mEq/L Urine Urea Nitrogen 334 mg/dL Stl C. cayetanensis PCR (Not detect) Stool Rotavirus A PCR (Not detect) Stl Adenov F 40/41 PCR (Not detect) Stool Astrovirus (PCR) (Not detect) Stool Campylobacter PCR (Not detect) Stl C. diff Tox B Gene (Negative) Stl C. diff Tox A/B PCR (Not detect) Stool Cryptosporidium PCR (Not detect) Stl Sh Tox Pr E STEC PCR (Not detect) Stool E coli O157 PCR (Not detect) Stl Enterotoxigenic E PCR (Not detect) Stool EPEC (PCR) (Not detect) Stool EAEC (PCR) (Not detect) Stl E. histolytica PCR (Not detect) Stool Giardia Lamblia PCR (Not detect) Stool Salmonella PCR (Not detect) Stool Sapovirus (PCR) (Not detect) Stl P. shigelloides PCR (Not detect) Stl Shigella/EIEC PCR (Not detect) St Y.enterocolitica PCR (Not detect) Stool Vibrio (PCR) (Not detect) Stl Vibrio cholerae PCR (Not detect) Stl Norovirus GI/GII PCR (Not detect) Stl GI Panel (PCR) Com 06/14/18 06/14/18 Range/Units 15:20 15:20 Urine Color (Yellow) Urine Clarity (Clear) Urine pH (5.0-8.0) pH Units Ur Specific [place] (1.010-1.025) Urine Protein (Neg-Trace) mg/dL Urine Glucose (UA) (Normal) mg/dL Urine Ketones (Negative) mg/dL Urine Blood (Negative) Urine Nitrite (Negative) Urine Bilirubin (Negative) Urine Urobilinogen (Normal) mg/dL Ur Leukocyte Esterase (Negative) Urine Microscopic RBC (0-3) per hpf Urine Microscopic WBC (0-3) per hpf Ur Eosinophil Smear (None Seen) % Ur Squamous Epith Cells (None-Few) per lpf Urine Bacteria (None-Few) per hpf Hyaline Casts (None-Few) per lpf Urine Yeast (None Seen) per hpf Ur Culture Indicated? (NO) Urine Creatinine mg/dL Urine Sodium mEq/L Urine Urea Nitrogen mg/dL Stl C. cayetanensis PCR Not detected (Not detect) Stool Rotavirus A PCR Not detected (Not detect) Stl Adenov F 40/41 PCR Not detected (Not detect) Stool Astrovirus (PCR) Not detected (Not detect) Stool Campylobacter PCR Not detected (Not detect) Stl C. diff Tox B Gene Negative (Negative) Stl C. diff Tox A/B PCR See reflex test A (Not detect) Stool Cryptosporidium PCR Not detected (Not detect) Stl Sh Tox Pr E STEC PCR Not detected (Not detect) Stool E coli O157 PCR Not detected (Not detect) Stl Enterotoxigenic E PCR Not detected (Not detect) Stool EPEC (PCR) Not detected (Not detect) Stool EAEC (PCR) Not detected (Not detect) Stl E. histolytica PCR Not detected (Not detect) Stool Giardia Lamblia PCR Not detected (Not detect) Stool Salmonella PCR Not detected (Not detect) Stool Sapovirus (PCR) Not detected (Not detect) Stl P. shigelloides PCR Not detected (Not detect) Stl Shigella/EIEC PCR Not detected (Not detect) St Y.enterocolitica PCR Not detected (Not detect) Stool Vibrio (PCR) Not detected (Not detect) Stl Vibrio cholerae PCR Not detected (Not detect) Stl Norovirus GI/GII PCR Not detected (Not detect) Stl GI Panel (PCR) Com See below Exam - Constitutional Vitals: Temp Pulse Resp BP Pulse Ox 97.8 F 79 17 126/78 95 08/07/17 20:00 08/08/17 06:05 08/08/17 06:05 08/08/17 06:05 08/08/17 06:05 General appearance: no acute distress, no febrile - Head Head exam: Present: atraumatic, normocephalic - Respiratory Respiratory exam: Present: decreased breath sounds - Cardiovascular Cardiovascular exam: Present: tachycardia. Absent: irregular rhythm, systolic murmur - GI/Abdominal GI/Abdominal exam: Present: distended. Absent: tenderness - Extremities Exam Additional comments: bilateral BKA right knee swelling> left Consult Discharge Plan - Plan Referrals: Kamran Lira DO [Primary Care Provider] - 08/14/17 10:00 am Jayden Mendoza MD [Partnered Physician] - (i requested an appointment office should call patient at home with appointment date and time) Prescriptions: Vancomycin [Vancocin] 1,500 mg IV DAILY #10 vial - Attending Attestation I examined this patient and my medical decision-making was reviewed with the Resident Physician. I agree with the documented findings, disposition and treatment plan as described except to the extent set forth below.
--- NOTE | 2017-08-08 12:58 | Nephrology Progress Note ---
Date of Encounter: 08/08/17 Time of Encounter: 12:00 - Assessment and Plan (1) HILDA (acute kidney injury) Current Visit: Yes Status: Acute SCr slightly improved at 2.19, GFR 32, agree with IVF started by primary team UOP noted at 2075cc which is good Urine sodium <10 suggestive of very pre-renal state/ATN, repeat UA unremarkable Uric acid and CPK unremarkable Urine eosinophils unremarkable Continue to avoid nephrotoxins if possible (2) Acute systolic CHF (congestive heart failure) Current Visit: Yes Status: Acute diuretics held but stric I/Os Continue cardiac diet (3) Septic arthritis of knee, right Current Visit: Yes Status: Acute abx per primary team Qualifiers: Septic arthritis organism: staphylococcal Qualified Code(s): M00.061 - Staphylococcal arthritis, right knee (4) Anemia Current Visit: Yes Status: Chronic Hgb noted low at 7.4, transfusion parameters per primary team Qualifiers: Anemia type: iron deficiency Iron deficiency anemia type: unspecified iron deficiency Qualified Code(s): D50.9 - Iron deficiency anemia, unspecified Subjective Interval history: Pt seen and examined today still feels sleepy. Objective - Vital Signs Vital signs: Vital Signs Temp Pulse Resp BP Pulse Ox 08/08/17 06:05 79 17 126/78 95 08/08/17 04:12 16 98 08/07/17 22:19 16 98 08/07/17 21:05 97 08/07/17 20:00 97.8 F 80 18 109/72 97 08/07/17 17:17 97.6 F 81 17 116/74 08/07/17 15:21 16 97 Intake and Output 08/07/17 08/08/17 08/08/17 23:59 07:59 15:59 Intake Total 960 / 960 120 / 120 600 / 600 Output Total 0 / 0 750 / 750 Balance 960 / 960 -630 / -630 600 / 600 Intake: Oral 960 / 960 120 / 120 600 / 600 Output: Urine 0 / 0 750 / 750 Other: Meal Dinner Lunch Percent of Meal Consumed 100% 100% Blood Glucose* 178 121 110 - Lab 08/08/17 06:49 08/08/17 06:49 Most recent lab results Calcium 8.8 mg/dL (8.6-10.3) 08/08/17 06:49 Magnesium 1.7 mg/dL (1.6-2.6) 08/02/17 04:42 Urine Creatinine 64 mg/dL 08/04/17 16:30 Urine Sodium < 10.0 mEq/L 08/04/17 16:30 Consult Discharge Plan - Plan Referrals: Kamran Lira DO [Primary Care Provider] - 08/14/17 10:00 am Jayden Mendoza MD [Partnered Physician] - (i requested an appointment office should call patient at home with appointment date and time) Prescriptions: Vancomycin [Vancocin] 1,500 mg IV DAILY #10 vial
[2017-08-08] MEDS ORDERED: tiZANidine 4 MG TABLET PO PRN (14:20)
[2017-08-08 15:26] LABS: Complement Component 3 169 mg/dL (88-201); Complement Component 4 38 mg/dL (10-40)
[2017-08-08] MEDS: DAPTOmycin 650 MG in 0.9 % Sodium Chloride 100 ML IVPB SCH (17:16)
[2017-08-08] MEDS ORDERED: Furosemide 40 MG/4 ML VIAL IVP ONE (18:00)
[2017-08-08] MEDS: Insulin DETEMIR 100 UNIT/ML X5UNITS SQ SCH (22:23)
[2017-08-09] MEDS: Ipratropium/Albuterol Neb 3 ML IH SCH ×4 (03:51→22:58)
[2017-08-09] MEDS: *HR* Heparin 5,000 UNIT/ML VIAL SQ SCH ×3 (05:51→22:13)
[2017-08-09 06:28] LABS: Basophils % 0.1 %; Eosinophils # 0.2 K/mcL (0.0-0.6); Eosinophils % 1.3 %; Hematocrit 23.8 % (37.5-50.1); Hemoglobin 7.5 g/dL (12.9-16.9); Immature Granulocytes % 0.5 % (0-4); Lymphocytes # 1.2 K/mcL (0.6-4.6); Lymphocytes % 7.9 %; Mean Corpuscular HGB Conc 31.5 g/dL (31.6-35.5); Mean Corpuscular Volume 82.6 fL (83.0-100.0); Mean Platelet Volume 9.6 fL (9.4-12.4); Monocytes # 1.8 K/mcL (0.0-1.3); Monocytes % 11.8 %; Neutrophils # 11.6 K/mcL (1.6-8.9); Platelet Count 352 K/mcL (140-400); Red Blood Count 2.88 M/mcL (4.19-5.50); Red Cell Distribution Width 15.5 % (11.5-14.5); Segmented Neutrophils % 78.4 %
[2017-08-09 06:46] LABS: Calcium 8.6 mg/dL (8.6-10.3); Potassium 4.1 mEq/L (3.5-5.1)
[2017-08-09] MEDS ORDERED: Furosemide 40 MG/4 ML VIAL IVP ONE (07:51)
--- NOTE | 2017-08-09 08:55 | Internal Med Progress Note ---
Date of Encounter: 08/09/17 Time of Encounter: 08:46 - Assessment and plan (1) Acute and chronic respiratory failure with hypoxia Current Visit: Yes Status: Acute Assessment and plan: Patient with known chronic resp failure on home O2, presented with worsening hypoxia due to CHF Currently on 2L NC, home level. Patient having CHF exacerbation with fluid overload but complicated by HILDA. Renal function improving Okay to continue cautious diuresis. (2) Acute systolic CHF (congestive heart failure) Current Visit: Yes Status: Acute Assessment and plan: ECHO : LVEF 30-40%, mildly dilated LV, no LV thrombus, AV vegetation, unchanged. No wall motion hypokinesis. Prior Echo from 06/2017 with EF 40-50% Monitor I&O's. O2 support and wean as tolerated. Daily weights RAMON wraps to lower extremities Discussed with patient to increase activity for fluid overload improvement. BIPAP if develops acute dyspnea again. Cr peaked at 2.38, diuresis needed held, Renal function improved, continue Lasix and monitor (3) HILDA (acute kidney injury) Current Visit: Yes Status: Acute Assessment and plan: Cr peaked at 2.3 on 08/07, continues for gradual improvement to 1.99 today EF is 30-40% Prerenal, nonoliguric, due to GI loss as well as being on vancomycin and lasix Urine analysis is unremarkable, uric acid within normal limits, creatinine kinase within normal limit. Nephrology consulted and following Renal ultrasound unremarkable Discontinued IVF due to patient becoming edematous with fluid overload few days ago Okay to continue Lasix (4) Septic arthritis of knee, right Current Visit: Yes Status: Acute Assessment and plan: Had been on vanco since 06/2017, Discontinued vanco 08/04 changed to dapto, CK done 08/04 WNL Qualifiers: Septic arthritis organism: staphylococcal Qualified Code(s): M00.061 - Staphylococcal arthritis, right knee (5) Coronary artery disease Current Visit: Yes Status: Chronic Assessment and plan: Continue cardiac meds. Qualifiers: Coronary Disease-Associated Artery/Lesion type: bypass graft [place] vs. transplanted heart: [place] heart Associated angina: angina presence unspecified Qualified Code(s): I25.810 - Atherosclerosis of coronary artery bypass graft(s) without angina pectoris (6) Hypertension Current Visit: Yes Status: Chronic Assessment and plan: Better controlled, continue current meds Qualifiers: Hypertension type: unspecified Qualified Code(s): I10 - Essential (primary ) hypertension (7) COPD (chronic obstructive pulmonary disease) Current Visit: Yes Status: Chronic Assessment and plan: Not in exacerbation. Continue with nebs. O2 support. Qualifiers: COPD type: unspecified COPD Qualified Code(s): J44.9 - Chronic obstructive pulmonary disease, unspecified (8) Bacteremia Current Visit: Yes Status: Acute Assessment and plan: As in septic arthritis, discontinued vancomycin due to worsening renal function , Infectious disease recommended daptomycin Follow-up recommendations (9) DVT prophylaxis Current Visit: Yes Status: Acute Assessment and plan: Heparin subcutaneous (10) Anemia Current Visit: Yes Status: Chronic Assessment and plan: patient complaining of GI symptoms with po iron has received 2 dsoes of venofer in this admission Hemoglobin 7.5 today, possibly baseline given multiple co morbidities Will follow closely currently hemodynamically stable and no signs of any bleeding June 2017 had iron deficiency anemia Give aditional venofer and Will start PO Iron Qualifiers: Anemia type: iron deficiency Iron deficiency anemia type: unspecified iron deficiency Qualified Code(s): D50.9 - Iron deficiency anemia, unspecified (11) Elevated troponin Current Visit: Yes Status: Resolved (12) Diabetes mellitus Current Visit: Yes Status: Chronic Qualifiers: Diabetes mellitus type: type 2 Diabetes mellitus buttermaker continuous churn insulin use: with buttermaker continuous churn use Diabetes mellitus complication status: without complication Qualified Code(s): E11.9 - Type 2 diabetes mellitus without complications; Z79.4 - intermediate (current) use of insulin (13) Hypomagnesemia Current Visit: Yes Status: Resolved (14) Diarrhea Current Visit: Yes Status: Resolved Qualifiers: Diarrhea type: unspecified type Qualified Code(s): R19.7 - Diarrhea, unspecified - Time Spent With Patient Total time spent is greater than 50% in coordination of care (as documented) at patient's floor/unit and/or counseling patient: - Subjective Interval history: Breathing improving. Swelling of hands and knees/ BKA area persisting has improvement. He denies chest pain, fevers/chills, n/v. - Constitutional Vitals: Temp Pulse Resp BP Pulse Ox 98.2 F 96 16 138/70 93 08/09/17 07:46 08/09/17 07:46 08/09/17 07:46 08/09/17 07:46 08/09/17 07:46 General appearance: Present: A&O X 3, pleasant, no acute distress Exam: - Head Head exam: Present: atraumatic, normocephalic - Respiratory Respiratory exam: Present: decreased breath sounds, rales - Cardiovascular Cardiovascular exam: Present: RRR, +S1, +S2. Absent: diastolic murmur, gallop, rubs, systolic murmur - GI/Abdominal GI/Abdominal exam: Present: normal bowel sounds, soft, no peritoneal signs. Absent: distended, tenderness - Extremities Exam Additional comments: Bilateral BKA pitting edema, no erythema. 1-2+ bilateral improvement since yesterday Bilateral upper extremity pitting edema. 1+ bilaterally Internal Medicine: Result - Labs CBC & Chem 7: 08/09/17 06:00 08/09/17 06:00 Labs: Short CBC 08/09/17 Range/Units 06:00 WBC 14.9 H (4.3-11.1) K/mcL Hgb 7.5 L (12.9-16.9) g/dL Hct 23.8 L (37.5-50.1) % Plt Count 352 (140-400) K/mcL Neutrophils # 11.6 H (1.6-8.9) K/mcL BMP 08/09/17 06:00 Sodium 134 L Potassium 4.1 Chloride 101 Carbon Dioxide 25 BUN 51 H Creatinine 1.76 H Glucose 164 H Calcium 8.6 - ABG Interpretation ABG results: PT/INR, D-dimer PT 13.4 Seconds (9.4-12.1) H 07/30/17 22:06 Consult Discharge Plan - Plan Referrals: Kamran Lira DO [Primary Care Provider] - 08/14/17 10:00 am Jayden Mendoza MD [Partnered Physician] - (i requested an appointment office should call patient at home with appointment date and time) Prescriptions: Vancomycin [Vancocin] 1,500 mg IV DAILY #10 vial
[2017-08-09] MEDS: Aspirin 81 MG TAB.CHEW PO SCH (10:17)
[2017-08-09] MEDS: Ranolazine 500 MG TAB.ER.12H PO SCH ×2 (10:17→22:13)
[2017-08-09] MEDS: *HR* LORazepam 0.5 MG TABLET PO SCH ×2 (10:17→22:13)
[2017-08-09] MEDS: Pregabalin 75 MG CAPSULE PO SCH ×3 (10:17→22:14)
[2017-08-09] MEDS: Insulin LISPRO 300 UNITS/3 ML VIAL SQ SCH ×4 (10:18→22:14)
[2017-08-09] MEDS: amLODIPine 5 MG TABLET PO SCH (10:18)
[2017-08-09] MEDS: Iron Sucrose Complex 200 MG in 0.9 % Sodium Chloride 100 ML IVPB SCH (10:22)
--- NOTE | 2017-08-09 10:30 | Infectious Disease Progress No ---
Date of Encounter: 08/09/17 Time of Encounter: 10:28 - Assessment and Plan (1) Acute and chronic respiratory failure with hypoxia Current Visit: Yes Status: Acute Likely secondary to CHF and pleural effusion Most recent chest x-ray done today concerning for pneumonia Repeat CT chest on 08/06 reveiwed Check respiratory infectious panel - pending?? Check urine legionella and pneumococcal antigen stop levofloxacin since lungs CT without evidence of pneumonia continue daptomycin until 08/13 to complete 6 week abx course CK levels WNL Will sign off, please call with any questions (2) Septic arthritis of knee, right Current Visit: Yes Status: Acute Status post arthrocentesis done on June 29. Intra-Op cultures MRSA. Has been on vancomycin since. Clinically does not appear infected. Qualifiers: Septic arthritis organism: staphylococcal Qualified Code(s): M00.061 - Staphylococcal arthritis, right knee (3) Bacteremia Current Visit: Yes Status: Acute Resolved on June 30 Positive culture was MRSA Has been on IV vancomycin since and now Daptomycin (4) Endocarditis Current Visit: No Status: Acute Noted on a LYNETTE done on the previous admission in June with a small may be mobile vegetation on the tricuspid valve No other endocarditis stigmata no signs of septic emboli has been on IV antibiotics for 5 weeks and 3 days Qualifiers: Endocarditis type: infective Infective endocarditis organism: bacterial Chronicity: acute Qualified Code(s): I33.0 - Acute and subacute infective endocarditis (5) HILDA (acute kidney injury) Current Visit: No Status: Acute Etiology not clear. Could have been due to vancomycin. Creatinine stable Dose adjust daptomycin based on the creatinine clearance Nephrology following (6) Hyperglycemia due to type 2 diabetes mellitus Current Visit: No Status: Acute Qualifiers: Diabetes mellitus superintendent container terminal insulin use: unspecified snf insulin use status Qualified Code(s): E11.65 - Type 2 diabetes mellitus with hyperglycemia (7) Coronary artery disease Current Visit: Yes Status: Chronic Qualifiers: Coronary Disease-Associated Artery/Lesion type: bypass graft [place] vs. transplanted heart: [place] heart Associated angina: angina presence unspecified Qualified Code(s): I25.810 - Atherosclerosis of coronary artery bypass graft(s) without angina pectoris (8) Tobacco abuse Current Visit: No Status: Acute (9) MARLO (obstructive sleep apnea) Current Visit: No Status: Acute - Subjective Interval history: Pt seen and examined. He states his knee feels about the same in terms of pain and swelling but otherwise has no complaints of chest pain, shortness of breath , fever, chills, nausea, vomiting or diarrhea. Infect Dis PN-Objective Data - Labs CBC & Chem 7: 08/10/17 04:00 08/10/17 04:00 Labs: Laboratory Results - last 24 hr 08/07/17 08/08/17 08/08/17 05:56 07:09 11:20 WBC RBC Hgb Hct MCV MCH MCHC RDW Plt Count MPV Immature Gran % Seg Neutrophils % Lymphocytes % Monocytes % Eosinophils % Basophils % Neutrophils # Lymphocytes # Monocytes # Eosinophils # Basophils # Sodium Potassium Chloride Carbon Dioxide BUN Creatinine Est GFR ( Amer) Est GFR (Non-Af Amer) BUN/Creatinine Ratio Glucose POC Glucose 121 H 110 H Calculated Osmolality Calcium Complement C3 169 Complement C4 38 08/08/17 08/09/17 08/09/17 16:12 06:00 06:00 WBC 14.9 H RBC 2.88 L Hgb 7.5 L Hct 23.8 L MCV 82.6 L MCH 26.0 L MCHC 31.5 L RDW 15.5 H Plt Count 352 MPV 9.6 Immature Gran % 0.5 Seg Neutrophils % 78.4 Lymphocytes % 7.9 Monocytes % 11.8 Eosinophils % 1.3 Basophils % 0.1 Neutrophils # 11.6 H Lymphocytes # 1.2 Monocytes # 1.8 H Eosinophils # 0.2 Basophils # 0.0 Sodium 134 L Potassium 4.1 Chloride 101 Carbon Dioxide 25 BUN 51 H Creatinine 1.76 H Est GFR ( Amer) 51 L Est GFR (Non-Af Amer) 42 L BUN/Creatinine Ratio 29 H Glucose 164 H POC Glucose 93 Calculated Osmolality 295 Calcium 8.6 Complement C3 Complement C4 08/09/17 07:44 WBC RBC Hgb Hct MCV MCH MCHC RDW Plt Count MPV Immature Gran % Seg Neutrophils % Lymphocytes % Monocytes % Eosinophils % Basophils % Neutrophils # Lymphocytes # Monocytes # Eosinophils # Basophils # Sodium Potassium Chloride Carbon Dioxide BUN Creatinine Est GFR ( Amer) Est GFR (Non-Af Amer) BUN/Creatinine Ratio Glucose POC Glucose 170 H Calculated Osmolality Calcium Complement C3 Complement C4 Cultures: Cultures 08/07/17 08:35 Legionella Antigen - Final Urine,Clean Catch Streptococcus pneumoniae Antigen (M - Final Serology 08/07/17 08/04/17 08/04/17 Range/Units 08:35 16:30 16:30 Urine Color Yellow Yellow (Yellow) Urine Clarity Clear Cloudy A (Clear) Urine pH 5.5 5.0 (5.0-8.0) pH Units Ur Specific [place] 1.015 1.016 (1.010-1.025) Urine Protein 100 H 100 H (Neg-Trace) mg/dL Urine Glucose (UA) Normal Normal (Normal) mg/dL Urine Ketones Negative Negative (Negative) mg/dL Urine Blood Negative Negative (Negative) Urine Nitrite Negative Negative (Negative) Urine Bilirubin Negative Negative (Negative) Urine Urobilinogen Normal Normal (Normal) mg/dL Ur Leukocyte Esterase Negative Negative (Negative) Urine Microscopic RBC 5-15 H 0-3 (0-3) per hpf Urine Microscopic WBC 0-3 0-3 (0-3) per hpf Ur Eosinophil Smear 0 (None Seen) % Ur Squamous Epith Cells Few Few (None-Few) per lpf Urine Bacteria None Seen Few (None-Few) per hpf Hyaline Casts None Seen (None-Few) per lpf Urine Yeast Moderate H (None Seen) per hpf Ur Culture Indicated? NO NO (NO) Urine Creatinine 64 mg/dL Urine Sodium < 10.0 mEq/L Urine Urea Nitrogen 334 mg/dL Stl C. cayetanensis PCR (Not detect) Stool Rotavirus A PCR (Not detect) Stl Adenov F 40/41 PCR (Not detect) Stool Astrovirus (PCR) (Not detect) Stool Campylobacter PCR (Not detect) Stl C. diff Tox B Gene (Negative) Stl C. diff Tox A/B PCR (Not detect) Stool Cryptosporidium PCR (Not detect) Stl Sh Tox Pr E STEC PCR (Not detect) Stool E coli O157 PCR (Not detect) Stl Enterotoxigenic E PCR (Not detect) Stool EPEC (PCR) (Not detect) Stool EAEC (PCR) (Not detect) Stl E. histolytica PCR (Not detect) Stool Giardia Lamblia PCR (Not detect) Stool Salmonella PCR (Not detect) Stool Sapovirus (PCR) (Not detect) Stl P. shigelloides PCR (Not detect) Stl Shigella/EIEC PCR (Not detect) St Y.enterocolitica PCR (Not detect) Stool Vibrio (PCR) (Not detect) Stl Vibrio cholerae PCR (Not detect) Stl Norovirus GI/GII PCR (Not detect) Stl GI Panel (PCR) Com 08/02/17 08/02/17 Range/Units 15:20 15:20 Urine Color (Yellow) Urine Clarity (Clear) Urine pH (5.0-8.0) pH Units Ur Specific [place] (1.010-1.025) Urine Protein (Neg-Trace) mg/dL Urine Glucose (UA) (Normal) mg/dL Urine Ketones (Negative) mg/dL Urine Blood (Negative) Urine Nitrite (Negative) Urine Bilirubin (Negative) Urine Urobilinogen (Normal) mg/dL Ur Leukocyte Esterase (Negative) Urine Microscopic RBC (0-3) per hpf Urine Microscopic WBC (0-3) per hpf Ur Eosinophil Smear (None Seen) % Ur Squamous Epith Cells (None-Few) per lpf Urine Bacteria (None-Few) per hpf Hyaline Casts (None-Few) per lpf Urine Yeast (None Seen) per hpf Ur Culture Indicated? (NO) Urine Creatinine mg/dL Urine Sodium mEq/L Urine Urea Nitrogen mg/dL Stl C. cayetanensis PCR Not detected (Not detect) Stool Rotavirus A PCR Not detected (Not detect) Stl Adenov F 40/41 PCR Not detected (Not detect) Stool Astrovirus (PCR) Not detected (Not detect) Stool Campylobacter PCR Not detected (Not detect) Stl C. diff Tox B Gene Negative (Negative) Stl C. diff Tox A/B PCR See reflex test A (Not detect) Stool Cryptosporidium PCR Not detected (Not detect) Stl Sh Tox Pr E STEC PCR Not detected (Not detect) Stool E coli O157 PCR Not detected (Not detect) Stl Enterotoxigenic E PCR Not detected (Not detect) Stool EPEC (PCR) Not detected (Not detect) Stool EAEC (PCR) Not detected (Not detect) Stl E. histolytica PCR Not detected (Not detect) Stool Giardia Lamblia PCR Not detected (Not detect) Stool Salmonella PCR Not detected (Not detect) Stool Sapovirus (PCR) Not detected (Not detect) Stl P. shigelloides PCR Not detected (Not detect) Stl Shigella/EIEC PCR Not detected (Not detect) St Y.enterocolitica PCR Not detected (Not detect) Stool Vibrio (PCR) Not detected (Not detect) Stl Vibrio cholerae PCR Not detected (Not detect) Stl Norovirus GI/GII PCR Not detected (Not detect) Stl GI Panel (PCR) Com See below Exam - Constitutional Vitals: Temp Pulse Resp BP Pulse Ox 98.2 F 96 16 138/70 93 08/09/17 07:46 08/09/17 07:46 08/09/17 07:46 08/09/17 07:46 08/09/17 07:46 General appearance: cooperative, no acute distress, no febrile - Head Head exam: Present: atraumatic, normocephalic - Respiratory Respiratory exam: Present: CTAB. Absent: decreased breath sounds, respiratory distress, stridor - Cardiovascular Cardiovascular exam: Present: RRR. Absent: irregular rhythm, systolic murmur, tachycardia - GI/Abdominal GI/Abdominal exam: Present: distended. Absent: tenderness - Extremities Exam Additional comments: bilateral AKAs Right knee erythema and edema noted when compared to left Consult Discharge Plan - Plan Referrals: Kamran Lira DO [Primary Care Provider] - 08/14/17 10:00 am Jayden Mendoza MD [Partnered Physician] - (i requested an appointment office should call patient at home with appointment date and time) Prescriptions: DAPTOmycin [Cubicin] 650 mg IV Q24H 3 Days #3 bottle Vancomycin [Vancocin] 1,500 mg IV DAILY #10 vial - Attending Attestation I examined this patient and my medical decision-making was reviewed with the Resident Physician. I agree with the documented findings, disposition and treatment plan as described except to the extent set forth below.
[2017-08-09] MEDS: Ondansetron 4 MG/2 ML VIAL IVP PRN ×2 (10:33→21:29)
[2017-08-09] MEDS: *HR* HYDROcodone/Acet 7.5/325 mg TABLET PO PRN ×2 (10:41→23:07)
--- NOTE | 2017-08-09 10:50 | Nephrology Progress Note ---
Date of Encounter: 08/09/17 Time of Encounter: 10:47 - Assessment and Plan (1) HILDA (acute kidney injury) Current Visit: Yes Status: Acute Kidney function continues to improve-Scr 1.76 GFR 42 Good UOP 2900ml Continue to avoid nephrotoxins if possible (2) Acute and chronic respiratory failure with hypoxia Current Visit: Yes Status: Acute per primary team (3) Septic arthritis of knee, right Current Visit: Yes Status: Acute per primary team Qualifiers: Septic arthritis organism: staphylococcal Qualified Code(s): M00.061 - Staphylococcal arthritis, right knee (4) Anemia Current Visit: Yes Status: Chronic Hgb 7.5 per primary team Transfuse per parameters Qualifiers: Anemia type: iron deficiency Iron deficiency anemia type: unspecified iron deficiency Qualified Code(s): D50.9 - Iron deficiency anemia, unspecified Subjective Principal diagnosis: HILDA, septic arthritis of right knee Interval history: Patient seen and examined. Sitting up in chair, states he is feeling well. Objective - Vital Signs Vital signs: Vital Signs Temp Pulse Resp BP Pulse Ox 08/09/17 07:46 98.2 F 96 16 138/70 93 08/09/17 05:27 98.1 F 98 18 151/94 94 08/09/17 04:24 18 98 08/09/17 00:21 98.1 F 98 20 115/76 98 08/08/17 21:44 18 98 08/08/17 20:30 98.2 F 106 20 150/82 96 08/08/17 16:10 98.5 F 99 18 134/86 98 08/08/17 15:52 18 96 08/08/17 10:57 18 96 Intake and Output 08/08/17 08/09/17 08/09/17 23:59 07:59 15:59 Intake Total 600 / 600 400 / 400 0 / 0 Output Total 1850 / 1850 850 / 850 Balance -1250 / -1250 -450 / -450 0 / 0 Intake: Oral 600 / 600 400 / 400 0 / 0 Output: Urine 1850 / 1850 850 / 850 Other: Meal Dinner Breakfast Percent of Meal Consumed 90% 0% # Voids 0 Weight 112.83 kg Blood Glucose* 73 170 Patient Weight 08/09/17 23:59 Weight 112.83 kg - General Appearance General appearance: Present: well-developed, well-nourished EENT: Present: ATNC, mucous membranes moist, hearing intact, vision intact Neck: Present: supple Respiratory: Present: clear Cardiology: Present: edema (mild bilat leg edema (bilat amputation)), normal S1 , normal S2 Gastrointestinal: Present: no tenderness, no guarding Integumentary: Present: warm and dry Neurologic: Present: alert and oriented x3 Musculoskeletal: Present: deformities (BLL amputation) Psychiatric: Present: mood/affect appropriate, cooperative - Lab 08/09/17 06:00 08/09/17 06:00 Most recent lab results Calcium 8.6 mg/dL (8.6-10.3) 08/09/17 06:00 Magnesium 1.7 mg/dL (1.6-2.6) 08/02/17 04:42 Urine Creatinine 64 mg/dL 08/04/17 16:30 Urine Sodium < 10.0 mEq/L 08/04/17 16:30 Consult Discharge Plan - Plan Referrals: Kamran Lira DO [Primary Care Provider] - 08/14/17 10:00 am Jayden Mendoza MD [Partnered Physician] - (i requested an appointment office should call patient at home with appointment date and time) Prescriptions: Vancomycin [Vancocin] 1,500 mg IV DAILY #10 vial
[2017-08-09] MEDS: Furosemide 40 MG/4 ML VIAL IVP SCH (12:40)
--- NOTE | 2017-08-09 14:49 | Physician Discharge Referral ---
Home Health/Hosp Referral Info Transfer to: Home Health Provider in Charge Post Discharge: PCP - Diagnosis (1) Acute and chronic respiratory failure with hypoxia Priority: Primary Status: Acute (2) Acute systolic CHF (congestive heart failure) Priority: Secondary Status: Acute (3) HILDA (acute kidney injury) Priority: Secondary Status: Acute (4) Septic arthritis of knee, right Priority: Secondary Status: Acute (5) Coronary artery disease Priority: Secondary Status: Chronic (6) Hypertension Priority: Secondary Status: Chronic (7) COPD (chronic obstructive pulmonary disease) Priority: Secondary Status: Chronic (8) Bacteremia Priority: Secondary Status: Acute (9) DVT prophylaxis Priority: Secondary Status: Acute (10) Anemia Priority: Secondary Status: Chronic (11) Elevated troponin Priority: Secondary Status: Resolved (12) Diabetes mellitus Priority: Secondary Status: Chronic (13) Hypomagnesemia Priority: Secondary Status: Resolved (14) Diarrhea Priority: Secondary Status: Resolved - Respiratory Orders Smoking Cessation: Smoking cessation has been advised. For more information, call the [place] Tobacco Quit Line at 4-914-FPOW-NOW. - Diet/Nutrition Diet/Nutrition Orders: Cardiac, No Concentrated Sweets - Services Needed Following services are medically necessary services: Nursing, Physical Therapy, Occupational Therapy - Transfer Medications Prescriptions: DAPTOmycin [Cubicin] 650 mg IV Q24H 3 Days #3 bottle Vancomycin [Vancocin] 1,500 mg IV DAILY #10 vial Home Medications: Amitriptyline [Elavil] 75 mg PO HS 07/01/17 [History] Duloxetine HCl [Cymbalta] 60 mg PO DAILY 07/01/17 [History] HYDROcodone/Acet 7.5/325 mg [[place] 7.5-325 mg] 1 tab PO QID PRN 07/01/17 [ History] Insulin ASPART [NovoLOG] 0 - 10 unit SQ TIDWM 07/01/17 [History] Insulin Glargine,Hum.rec.anlog [Basaglar Kwikpen U-100] 50 unit SQ HS 07/01/17 [ History] LORazepam [Ativan] 0.5 mg PO BID 07/01/17 [History] Pregabalin [Lyrica] 150 mg PO TID 07/01/17 [History] Rosuvastatin Calcium [Crestor] 40 mg PO HS 07/01/17 [History] Ranolazine [Ranexa] 1,000 mg PO BID 07/02/17 [History] Tizanidine HCl 4 mg PO TID 07/02/17 [History] Aspirin 81 mg PO DAILY #30 tab.chew 07/05/17 [Rx] Carvedilol [Coreg] 3.125 mg PO BIDWM #60 tablet 07/14/17 [Rx] Omeprazole [PriLOSEC] 20 mg PO BIDAC #60 capsule.dr 07/14/17 [Rx] Sucralfate [Carafate] 1 gm PO TID #90 udc 07/14/17 [Rx] amLODIPine [Norvasc] 5 mg PO DAILY #30 tablet 07/14/17 [Rx] Ferrous Sulfate 325 mg PO TIDWM #90 tablet 07/28/17 [Rx] Vancomycin [Vancocin] 1,500 mg IV DAILY #10 vial 08/03/17 [Rx] DAPTOmycin [Cubicin] 650 mg IV Q24H 3 Days #3 bottle 08/09/17 [Rx] Allergies/Adverse Reactions: 3 Allergy/AdvReac Type Severity Reaction Status Date / Time Diclofenac [From Voltaren] Allergy Gastrointestinal Verified 07/25/17 21:09 Upset Penicillins Allergy Rash Verified 07/25/17 21:09 Certification: Further, I certify that my clinical findings support that this patient is homebound (i.e. absences from home require considerable and taxing effort and are for medical reasons or sikhism services or infrequently or short duration when for other reasons) because: Homebound Reason: Patient requires assistance of a person or device to safely leave home, Leaving home requires considerable and taxing effort due to condition Attestation: My signature below is to certify that this patient is under my care and that I, or nurse practitioner, or a physician's community program assistant working with me, has a face-to -face encounter with this patient.
[2017-08-09] MEDS: DAPTOmycin 650 MG in 0.9 % Sodium Chloride 100 ML IVPB SCH (17:19)
[2017-08-09] MEDS: Insulin DETEMIR 100 UNIT/ML X5UNITS SQ SCH (23:04)
[2017-08-10] MEDS: Ipratropium/Albuterol Neb 3 ML IH SCH ×3 (04:00→15:36)
[2017-08-10] MEDS: *HR* Heparin 5,000 UNIT/ML VIAL SQ SCH ×2 (05:54→14:01)
[2017-08-10 06:24] LABS: Basophils % 0.1 %; Eosinophils # 0.4 K/mcL (0.0-0.6); Eosinophils % 2.6 %; Hematocrit 22.9 % (37.5-50.1); Hemoglobin 7.6 g/dL (12.9-16.9); Immature Granulocytes % 0.7 % (0-4); Lymphocytes # 1.6 K/mcL (0.6-4.6); Lymphocytes % 10.9 %; Mean Corpuscular HGB Conc 33.2 g/dL (31.6-35.5); Mean Corpuscular Hemoglobin 27.5 pg (28.0-33.3); Mean Platelet Volume 9.5 fL (9.4-12.4); Monocytes # 1.3 K/mcL (0.0-1.3); Monocytes % 8.5 %; Neutrophils # 11.4 K/mcL (1.6-8.9); Platelet Count 337 K/mcL (140-400); Red Blood Count 2.76 M/mcL (4.19-5.50); Red Cell Distribution Width 15.4 % (11.5-14.5); Segmented Neutrophils % 77.2 %
[2017-08-10 06:42] LABS: Calcium 8.5 mg/dL (8.6-10.3); Potassium 4.4 mEq/L (3.5-5.1)
[2017-08-10] MEDS: Insulin LISPRO 300 UNITS/3 ML VIAL SQ SCH ×3 (08:56→15:47)
[2017-08-10] MEDS: Furosemide 40 MG/4 ML VIAL IVP SCH (09:02)
[2017-08-10] MEDS: Pregabalin 75 MG CAPSULE PO SCH ×2 (09:03→14:01)
[2017-08-10] MEDS: Aspirin 81 MG TAB.CHEW PO SCH (09:03)
[2017-08-10] MEDS: *HR* LORazepam 0.5 MG TABLET PO SCH (09:03)
[2017-08-10] MEDS: amLODIPine 5 MG TABLET PO SCH (09:03)
[2017-08-10] MEDS: Ranolazine 500 MG TAB.ER.12H PO SCH (09:03)
[2017-08-10] MEDS: Ondansetron 4 MG/2 ML VIAL IVP PRN (09:19)
[2017-08-10] MEDS: Iron Sucrose Complex 200 MG in 0.9 % Sodium Chloride 100 ML IVPB SCH (09:19)
--- NOTE | 2017-08-10 10:59 | Nephrology Progress Note ---
Date of Encounter: 08/10/17 Time of Encounter: 10:55 - Assessment and Plan (1) HILDA (acute kidney injury) Current Visit: Yes Status: Acute Patient's HILDA is improving. Will continue with current management. (2) Septic arthritis of knee, right Current Visit: Yes Status: Acute Per primary team. Improving. Qualifiers: Septic arthritis organism: staphylococcal Qualified Code(s): M00.061 - Staphylococcal arthritis, right knee (3) Anemia Current Visit: Yes Status: Chronic Iron saturation, vitamin b12 and folate ordered. Qualifiers: Anemia type: iron deficiency Iron deficiency anemia type: unspecified iron deficiency Qualified Code(s): D50.9 - Iron deficiency anemia, unspecified Subjective Principal diagnosis: HILDA, septic arthritis of right knee Interval history: Mr. Lamb was seen and evaluated. He has no new complaint. His review of systems is overall stable. Objective - Vital Signs Vital signs: Vital Signs Temp Pulse Resp BP Pulse Ox 08/10/17 10:25 18 98 08/10/17 07:17 98.9 F 93 17 125/81 08/10/17 05:00 98.2 F 88 16 92/56 90 08/10/17 04:00 16 96 08/10/17 01:12 98 F 84 16 117/72 98 08/09/17 22:58 16 94 08/09/17 20:00 98 F 85 16 106/64 90 08/09/17 15:26 16 93 08/09/17 15:21 97.5 F L 86 17 113/74 93 08/09/17 10:58 97.9 F 87 17 146/83 99 Intake and Output 08/09/17 08/10/17 08/10/17 23:59 07:59 15:59 Intake Total 480 / 480 480 / 480 110 / 110 Output Total 850 / 850 400 / 400 850 / 850 Balance -370 / -370 80 / 80 -740 / -740 Intake: IV Fluids 110 / 110 Venofer 200 MG In 0.9 % Sodium 110 / 110 Chloride 100 ML @ 200 mls/hr IVPB DAILY [facility] Rx#:[id number] Oral 480 / 480 480 / 480 Output: Urine 850 / 850 400 / 400 850 / 850 Other: Weight 112.6 kg Blood Glucose* 227 100 Patient Weight 08/10/17 23:59 Weight 112.6 kg - General Appearance General appearance: Present: well-developed, well-nourished EENT: Present: ATNC Respiratory: Present: clear Cardiology: Present: regular rate Integumentary: Present: warm and dry Neurologic: Present: alert and oriented x3 Psychiatric: Present: mood/affect appropriate - Lab 08/10/17 04:00 08/10/17 04:00 Most recent lab results Calcium 8.5 mg/dL (8.6-10.3) L 08/10/17 04:00 Magnesium 1.7 mg/dL (1.6-2.6) 08/02/17 04:42 Urine Creatinine 64 mg/dL 08/04/17 16:30 Urine Sodium < 10.0 mEq/L 08/04/17 16:30 Consult Discharge Plan - Plan Referrals: Kamran Lira DO [Primary Care Provider] - 08/14/17 10:00 am Jayden Mendoza MD [Partnered Physician] - (i requested an appointment office should call patient at home with appointment date and time) Prescriptions: DAPTOmycin [Cubicin] 650 mg IV Q24H 3 Days #3 bottle Vancomycin [Vancocin] 1,500 mg IV DAILY #10 vial
[2017-08-10] MEDS: *HR* HYDROcodone/Acet 7.5/325 mg TABLET PO PRN (12:55)
--- NOTE | 2017-08-10 14:11 | Discharge Summary ---
<Tawanda Torres - Last Filed: 08/10/17 16:03> Orders not resulted at time of discharge: Pending orders 08/06/17 15:50 Culture,Sputum with Gram Stain [RM] Stat 08/11/17 04:00 BMP [Basic Metabolic Panel] AM 0400 Complete Blood Count [HEME] AM 0400 Ferritin AM 0400 Folate AM 0400 Iron Profile AM 0400 Vitamin B12 AM 0400 08/12/17 04:00 BMP [Basic Metabolic Panel] AM 0400 Complete Blood Count [HEME] AM 0400 08/13/17 04:00 BMP [Basic Metabolic Panel] AM 0400 Complete Blood Count [HEME] AM 0400 08/14/17 04:00 BMP [Basic Metabolic Panel] AM 0400 Complete Blood Count [HEME] AM 0400 08/15/17 04:00 BMP [Basic Metabolic Panel] AM 0400 Complete Blood Count [HEME] AM 0400 Date of Encounter: 08/10/17 Time of Encounter: 08:45 - Discharge Diagnosis (1) Septic arthritis of knee, right Priority: Primary Status: Acute Qualifiers: Septic arthritis organism: staphylococcal Qualified Code(s): M00.061 - Staphylococcal arthritis, right knee (2) Coronary artery disease Priority: Secondary Status: Chronic Qualifiers: Coronary Disease-Associated Artery/Lesion type: bypass graft [place] vs. transplanted heart: [place] heart Associated angina: angina presence unspecified Qualified Code(s): I25.810 - Atherosclerosis of coronary artery bypass graft(s) without angina pectoris (3) Hypertension Priority: Secondary Status: Chronic Qualifiers: Hypertension type: unspecified Qualified Code(s): I10 - Essential (primary ) hypertension (4) COPD (chronic obstructive pulmonary disease) Priority: Secondary Status: Chronic Qualifiers: COPD type: unspecified COPD Qualified Code(s): J44.9 - Chronic obstructive pulmonary disease, unspecified (5) Bacteremia Priority: Secondary Status: Acute (6) Anemia Priority: Secondary Status: Chronic Qualifiers: Anemia type: iron deficiency Iron deficiency anemia type: unspecified iron deficiency Qualified Code(s): D50.9 - Iron deficiency anemia, unspecified (7) Elevated troponin Priority: Secondary Status: Resolved (8) Diabetes mellitus Priority: Secondary Status: Chronic Qualifiers: Diabetes mellitus type: type 2 Diabetes mellitus roasterman insulin use: with intermediate use Diabetes mellitus complication status: without complication Qualified Code(s): E11.9 - Type 2 diabetes mellitus without complications; Z79.4 - retirement (current) use of insulin (9) Acute and chronic respiratory failure with hypoxia Priority: Secondary Status: Acute (10) Acute systolic CHF (congestive heart failure) Priority: Secondary Status: Acute (11) Hypomagnesemia Priority: Secondary Status: Resolved (12) Diarrhea Priority: Secondary Status: Resolved Qualifiers: Diarrhea type: unspecified type Qualified Code(s): R19.7 - Diarrhea, unspecified (13) DVT prophylaxis Priority: Secondary Status: Acute (14) HILDA (acute kidney injury) Priority: Secondary Status: Acute Hospital course: Mr. Lamb is a 47 year old male with past medical history of DM2, bilateral BKA , HTN< CAD s/p multiple stents/CABG, COPD on 2L at night who was admitted for acute respiratory failure with hypoxia secondary to CHF exacerbation as well as septic arthritis of the R knee. He was receiving IV vancomcin for septic R knee and bacteremia/endocarditis from a previous admission with reported 2-3 weeks of abx left to take. During hospital course, Nephrology was consulted for HILDA and Infectious disease was consulted for his septic arthritis. Patient was switched from Vancomycin to Daptomycin, received scheduled nebulizer treatment and O2 weaning, fluid restriction. Patient's Creatinine has continued to downtrend, currently 1.6 (high of 2.3). Plan is to discharge the patient with 3 more days of Daptomycin, mild diuresis with Lasix 40mg PO daily due to CHF history (with ambulatory orders for CBC/CMP in 1 week). Discharge discussed with: patient - Time Spent with Patient Total time spent providing and/or coordinating discharge services: Greater than 30 minutes - Discharge Medications Prescriptions: Carvedilol [Coreg] 6.25 mg PO BIDWM #14 tablet DAPTOmycin [Cubicin] 650 mg IV Q24H 3 Days #3 bottle Furosemide [Lasix] 40 mg PO DAILY 30 Days #30 tablet Home Medications: Amitriptyline [Elavil] 75 mg PO HS 07/01/17 [History] Duloxetine HCl [Cymbalta] 60 mg PO DAILY 07/01/17 [History] HYDROcodone/Acet 7.5/325 mg [Barnard 7.5-325 mg] 1 tab PO QID PRN 07/01/17 [ History] Insulin ASPART [NovoLOG] 0 - 10 unit SQ TIDWM 07/01/17 [History] Insulin Glargine,Hum.rec.anlog [Basaglar Kwikpen U-100] 50 unit SQ HS 07/01/17 [ History] LORazepam [Ativan] 0.5 mg PO BID 07/01/17 [History] Pregabalin [Lyrica] 150 mg PO TID 07/01/17 [History] Rosuvastatin Calcium [Crestor] 40 mg PO HS 07/01/17 [History] Ranolazine [Ranexa] 1,000 mg PO BID 07/02/17 [History] Tizanidine HCl 4 mg PO TID 07/02/17 [History] Aspirin 81 mg PO DAILY #30 tab.chew 07/05/17 [Rx] Omeprazole [PriLOSEC] 20 mg PO BIDAC #60 capsule.dr 07/14/17 [Rx] Sucralfate [Carafate] 1 gm PO TID #90 udc 07/14/17 [Rx] amLODIPine [Norvasc] 5 mg PO DAILY #30 tablet 07/14/17 [Rx] Ferrous Sulfate 325 mg PO TIDWM #90 tablet 07/28/17 [Rx] DAPTOmycin [Cubicin] 650 mg IV Q24H 3 Days #3 bottle 08/09/17 [Rx] Carvedilol [Coreg] 6.25 mg PO BIDWM #14 tablet 08/10/17 [Rx] Furosemide [Lasix] 40 mg PO DAILY 30 Days #30 tablet 08/10/17 [Rx] Allergies/Adverse Reactions: 3 Allergy/AdvReac Type Severity Reaction Status Date / Time Diclofenac [From Voltaren] Allergy Gastrointestinal Verified 07/25/17 21:09 Upset Penicillins Allergy Rash Verified 07/25/17 21:09 Date of admission: 07/30/17 21:46 Primary care physician: Annie Dior Consults: 08/04/17 09:58 Consult to Nephrology [CONS] Routine Consulting Provider: Kidney iMlla/DELANO/AL/LEONARDO Reason for Consult: HILDA, Call Completed: Yes 08/06/17 12:10 PICC Consult [Consult to Invasive Line Access Team] [CONS] Routine Reason for Consult: intermediate atb of daptomycin Line Type: PICC 06/18/18 15:23 Consult to Infectious Diseases [CONS] Routine Consulting Provider: Infectious Disease [place] Reason for Consult: bacteremia/septic arthritis of left knee with antibiotics adverse reactions. 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 Therapy - weakness in bed. Does patient have active BEDREST order?: No Is patient medically & hemodynamically stable?: Yes - Constitutional Vitals: Temp Pulse Resp BP Pulse Ox 98.1 F 89 16 128/76 98 08/10/17 10:59 08/10/17 10:59 08/10/17 10:59 08/10/17 10:59 08/10/17 10:25 General appearance: Present: A&O X 3, pleasant, no acute distress - Head Head exam: Present: atraumatic, normal inspection - Eye Eye exam: Present: EOMI, sclera anicteric - Neck Neck exam general surgery: Present: full ROM. Absent: lymphadenopathy - Respiratory Respiratory exam: Present: decreased breath sounds (bilateral lung bases), prolonged expiratory phase. Absent: accessory muscle use, wheezes, tachypnea - Cardiovascular Cardiovascular exam: Present: RRR, +S1, +S2. Absent: systolic murmur - GI/Abdominal GI/Abdominal exam: Present: no peritoneal signs. Absent: distended, firm, guarding - Extremities Exam Extremities exam: Present: warm Additional comments: bilateral below knee amputation; no swelling/erythema - Neurological Exam Neurological exam: Absent: facial droop, speech deficit - Psychiatric Psychiatric exam: Present: normal affect, normal mood - Patient Status Disposition: Home, Self-Care Condition: Fair Functional capacity at discharge: wheelchair bound Overall status at discharge: patient is progressing back to baseline - Discharge Instructions Follow Up With: Kamran Lira DO [Primary Care Provider] - 08/14/17 10:00 am Jayden Mendoza MD [Partnered Physician] - (i requested an appointment office should call patient at home with appointment date and time) - Diet and Activity Activity: increase activity as tolerated Diet: low salt diet <Tristan Perea - Last Filed: 08/10/17 17:06> Orders not resulted at time of discharge: Pending orders 08/06/17 15:50 Culture,Sputum with Gram Stain [RM] Stat 08/11/17 04:00 BMP [Basic Metabolic Panel] AM 0400 Complete Blood Count [HEME] AM 0400 Ferritin AM 0400 Folate AM 0400 Iron Profile AM 0400 Vitamin B12 AM 0400 08/12/17 04:00 BMP [Basic Metabolic Panel] AM 0400 Complete Blood Count [HEME] AM 0400 08/13/17 04:00 BMP [Basic Metabolic Panel] AM 0400 Complete Blood Count [HEME] AM 0400 08/14/17 04:00 BMP [Basic Metabolic Panel] AM 0400 Complete Blood Count [HEME] AM 0400 08/15/17 04:00 BMP [Basic Metabolic Panel] AM 0400 Complete Blood Count [HEME] AM 0400 Date of Encounter: 08/10/17 - Discharge Diagnosis (1) Septic arthritis of knee, right Status: Acute Qualifiers: Septic arthritis organism: staphylococcal Qualified Code(s): M00.061 - Staphylococcal arthritis, right knee (2) Coronary artery disease Status: Chronic Qualifiers: Coronary Disease-Associated Artery/Lesion type: bypass graft [place] vs. transplanted heart: [place] heart Associated angina: angina presence unspecified Qualified Code(s): I25.810 - Atherosclerosis of coronary artery bypass graft(s) without angina pectoris (3) Hypertension Status: Chronic Qualifiers: Hypertension type: unspecified Qualified Code(s): I10 - Essential (primary ) hypertension (4) COPD (chronic obstructive pulmonary disease) Status: Chronic Qualifiers: COPD type: unspecified COPD Qualified Code(s): J44.9 - Chronic obstructive pulmonary disease, unspecified (5) Bacteremia Status: Acute (6) DVT prophylaxis Status: Acute (7) Anemia Status: Chronic Qualifiers: Anemia type: iron deficiency Iron deficiency anemia type: unspecified iron deficiency Qualified Code(s): D50.9 - Iron deficiency anemia, unspecified (8) Elevated troponin Status: Resolved (9) Diabetes mellitus Status: Chronic Qualifiers: Diabetes mellitus type: type 2 Diabetes mellitus intermediate insulin use: with roasterman use Diabetes mellitus complication status: without complication Qualified Code(s): E11.9 - Type 2 diabetes mellitus without complications; Z79.4 - retirement (current) use of insulin (10) Acute and chronic respiratory failure with hypoxia Status: Acute (11) Acute systolic CHF (congestive heart failure) Status: Acute (12) Hypomagnesemia Status: Resolved (13) Diarrhea Status: Resolved Qualifiers: Diarrhea type: unspecified type Qualified Code(s): R19.7 - Diarrhea, unspecified (14) HILDA (acute kidney injury) Status: Acute Hospital course: Mr. Lamb is a 47 year old male - Time Spent with Patient Total time spent providing and/or coordinating discharge services: Date of admission: 07/30/17 21:46 Primary care physician: Annie Dior Consults: 08/04/17 09:58 Consult to Nephrology [CONS] Routine Consulting Provider: Kidney Milla/DELANO/AL/LEONARDO Reason for Consult: HILDA, Call Completed: Yes 08/06/17 12:10 PICC Consult [Consult to Invasive Line Access Team] [CONS] Routine Reason for Consult: roasterman atb of daptomycin Line Type: PICC 08/06/17 15:23 Consult to Infectious Diseases [CONS] Routine Consulting Provider: Infectious Disease [place] Reason for Consult: bacteremia/septic arthritis of left knee with antibiotics adverse reactions. 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 Therapy - weakness in bed. Does patient have active BEDREST order?: No Is patient medically & hemodynamically stable?: Yes - Constitutional Vitals: Temp Pulse Resp BP Pulse Ox 98.1 F 93 15 119/69 96 08/10/17 15:59 08/10/17 15:59 08/10/17 15:59 08/10/17 15:59 08/10/17 15:59 - Attending Attestation I examined this patient and my medical decision-making was reviewed with the Resident Physician. I agree with the documented findings, disposition and treatment plan as described except to the extent set forth below. Patient has systolic heart failure with EF low. If there are no contraindications for this patient for ACEi/ARB therapy, may consider starting this. We will not prescribe this on discharge due to renal function. Coreg dose increased because of increased HR and BP during admission and vitals have been stable. Addendum entered and electronically signed by Tawanda Torres DO 08/10/17 16:45: Given patient's LVEF of 30-40%, patient may benefit from marciano-i or arb; he currently has a Creat of 1.6, on follow-up with PCP, and with follow-up with ambulatory order for BMP/CBC, if no persisting contraindications, may consider starting marciano-i or arb at that time.
[2017-08-10 16:01] VITALS: BP 119/69
[2017-08-10] MEDS: DAPTOmycin 650 MG in 0.9 % Sodium Chloride 100 ML IVPB SCH (16:40)
== END 2017-08-10 17:56 | disposition home or self-care (01) | DRG 548 ==
LOC: 2NENU → SUATTDRO 21:46
PROVIDERS: ADMIT Internal Medicine; ATTEND Student in an Organized Health Care Education/Training Program